=== PATIENT | female | born 1955 | race Caucasian/White ===

== ENCOUNTER 2019-03-10 17:16 | Inpatient (IN) | payer MEDICARE, BC ==
[~2019-03-10] VITALS: Ht 157.5 cm; Wt 61.9 kg
[2019-03-10] MEDS ORDERED: ACET160O41 PO ×2 (17:58)
[2019-03-10] MEDS ORDERED: BISA10SU55 RC (17:59)
[2019-03-10] MEDS ORDERED: DIPH25CA6 PO (17:59)
[2019-03-10] MEDS ORDERED: ACETAMINOPHEN 325 MG TAB PO PRN (18:00)
[2019-03-10] MEDS ORDERED: ONDANSETRON 4 MG INJ IV PRN ×2 (18:00→19:30)
[2019-03-10] MEDS ORDERED: CALC-459 PO (18:00)
[2019-03-10] MEDS ORDERED: WARF2.5T PO (18:03)
[2019-03-10] MEDS ORDERED: WARF4TAB PO (18:03)
[2019-03-10] MEDS ORDERED: WARF1TAB PO (18:03)
[2019-03-10] MEDS ORDERED: DOCU-144 PO (18:04)
[2019-03-10] MEDS ORDERED: CYCL5TAB PO (18:04)
[2019-03-10] MEDS ORDERED: FURO40TA4 PO (18:05)
[2019-03-10] MEDS ORDERED: ATRO INHALATION (18:06)
[2019-03-10] MEDS ORDERED: LEVO175T6 PO (18:06)
[2019-03-10] MEDS ORDERED: LIDO15CR9 TP (18:08)
[2019-03-10] MEDS ORDERED: LIDO700A45 TP (18:08)
[2019-03-10] MEDS ORDERED: METO-448 PO (18:09)
[2019-03-10] MEDS ORDERED: MIDO5TAB PO (18:10)
[2019-03-10] MEDS ORDERED: AMIN30LI PO (18:11)
[2019-03-10] MEDS ORDERED: SEVE0.8P PO (18:12)
[2019-03-10] MEDS ORDERED: GUAI-637 PO (18:13)
[2019-03-10] MEDS ORDERED: ASCO250T96 PO (18:13)
--- NOTE | 2019-03-10 18:46 | ERD ---
ER Documentation Chief Complaint Chief Complaint bib private amb from dialysis center d/t malfx permacath; had full HD today HPI Patient is a 63-year-old female with CO2 retention and chronic trach/vent who presents with a permacath malfunction. The patient was brought in by ambulance. The permacath was "not working". She had dialysis 1 hour ago but did not finish. She came from a facility. She is on Coumadin. Upon review of old medical records this is the patient's first visit to the emergency department. Her primary doctor is Dr. Balbuena. ROS All systems reviewed and are negative except as per history of present illness. Medications Home Meds Reported Medications Ascorbic Acid (Vitamin C) 250 Mg Tab, 250 MG PO BID, TAB 03/10/19 Guaifenesin* (Robitussin*) 100 Mg/5 Ml Syrup, 100 MG PO Q6H PRN for COUGH, ML 03/10/19 Sevelamer Carbonate* (Renvela*) 0.8 Gm Powd.pack, 1.6 GM PO WITH MEALS, PACKET 03/10/19 Amino Acids/Protein Hydrolys (PRO-STAT LIQUID) 30 Ml Liquid.pkt, 30 ML PO BID SUGAR FREE 03/10/19 Midodrine* (Midodrine*) 5 Mg Tablet, 5 MG PO Q8H PRN for HOLD FOR SBP>110, TAB 03/10/19 Metoprolol Tartrate* (Lopressor*) 25 Mg Tab, 25 MG PO TID, #60 TAB HOLD IF SBP<110 OR HR<60 03/10/19 Lidocaine (Lidocaine) 15 Gm Cream..g., 15 GM TP QID for TRACH SITE PAIN 03/10/19 Lidocaine (Lidocaine) 1 Each Adh..patch, 1 EACH TP Q8H PRN for FOR RIGHT SHOULDER 03/10/19 Levothyroxine Sodium* (Levothyroxine Sodium*) 175 Mcg Tablet, 175 MCG PO BEFORE BREAKFAST, #30 TAB 03/10/19 Ipratropium [place]* (Atrovent HFA*) 12.9 Gm Aer.w.adap, 2 PUFF INHALATION Q4H for SHORTNESS OF BREATH, #1 INHALER 03/10/19 Furosemide* (Furosemide*) 40 Mg Tablet, 40 MG PO DAILY, TAB HOLD IF SBP<110 OR HR<60 03/10/19 Docusate Sodium* (Colace*) 100 Mg Capsule, 100 MG PO DAILY, #30 CAP 03/10/19 Cyclobenzaprine Hcl* (Cyclobenzaprine Hcl*) 5 Mg Tablet, 5 MG PO NEEDED, #60 TAB 03/10/19 Warfarin Sodium* (Coumadin*) 4 Mg Tablet, 4 MG PO Q TUE,CHRISTEL,SAT,SUN, TAB 03/10/19 Warfarin Sodium* (Coumadin*) 2.5 Mg Tablet, 2.5 MG PO Q MON,WED,FRI, TAB 03/10/19 Warfarin Sodium* (Coumadin*) 1 Mg Tablet, 1 MG PO Q MON,WED,FRI, TAB 03/10/19 Calcium Carbonate (Calcium Carbonate) 500 Mg Tab.chew, 500 MG PO DAILY, TAB.CHEW 03/10/19 Bisacodyl (Dulcolax) 10 Mg Supp.rect, 10 MG RC DAILY, SUPP.RECT 03/10/19 Diphenhydramine Hcl* (Diphenhydramine Hcl*) 25 Mg Capsule, 25 MG PO DAILY PRN for ITCHING, CAP EVERY TUE,CHRISTEL,SAT 03/10/19 Acetaminophen* (Acetaminophen* Susp) 160 Mg/5 Ml Oral.susp, 20 ML PO Q6H PRN for FOR FEVER 100.4, ML 03/10/19 Acetaminophen* (Acetaminophen* Susp) 160 Mg/5 Ml Oral.susp, 20 ML PO Q4H PRN for FOR PAIN, ML 03/10/19 Allergies Allergies: Coded Allergies: Penicillins (Verified Allergy, Unknown, 03/10/19) adhesive tape (Unverified Allergy, Unknown, 03/10/19) chlorhexidine (Unverified Allergy, Unknown, 03/10/19) hydromorphone (Unverified Allergy, Unknown, 03/10/19) olanzapine (Unverified Allergy, Unknown, 03/10/19) PMhx/Soc Trach vent FmHx Family History: diabetes Physical Exam Vitals Vital Signs Date Temp Pulse Resp B/P (MAP) Pulse Ox O2 O2 Flow FiO2 Time Delivery Rate 03/10/19 89 24 93 35 17:38 03/10/19 98.2 89 20 84/50 (61) 99 17:31 Physical Exam Const: No acute distress Head: Atraumatic Eyes: Normal Conjunctiva ENT: Normal External Ears, Nose and Mouth. Neck: Tracheostomy in place Resp: Clear to auscultation bilaterally Cardio: Regular rate and rhythm, no murmurs Abd: Soft, non tender, non distended. Normal bowel sounds Skin: Pale skin Back: No midline or flank tenderness Ext: No cyanosis, or edema Neur: Awake and alert Psych: Normal Mood and Affect Result Diagram: 03/10/19 1725 03/10/19 1725 Results 24 hrs Laboratory Tests Test 03/10/19 17:25 03/10/19 18:20 White Blood Count 9.5 10^3/ul Red Blood Count 3.78 10^6/ul Hemoglobin 11.4 g/dl Hematocrit 37.0 % Mean Corpuscular Volume 97.9 fl Mean Corpuscular Hemoglobin 30.2 pg Mean Corpuscular Hemoglobin Concent 30.8 g/dl Red Cell Distribution Width 18.4 % Platelet Count 235 10^3/UL Mean Platelet Volume 9.2 fl Immature Granulocytes % 0.500 % Neutrophils % 83.0 % Lymphocytes % 8.2 % Monocytes % 4.3 % Eosinophils % 3.1 % Basophils % 0.9 % Nucleated Red Blood Cells % 0.0 /100WBC Immature Granulocytes # 0.050 10^3/ul Neutrophils # 7.9 10^3/ul Lymphocytes # 0.8 10^3/ul Monocytes # 0.4 10^3/ul Eosinophils # 0.3 10^3/ul Basophils # 0.1 10^3/ul Nucleated Red Blood Cells # 0.0 10^3/ul Sodium Level 137 mmol/L Potassium Level 3.6 mmol/L Chloride Level 101 mmol/L Carbon Dioxide Level 28 mmol/L Anion Gap 8 Blood Urea Nitrogen 19 mg/dl Creatinine 2.16 mg/dl Est Glomerular Filtrat Rate mL/min 23 mL/min Glucose Level 102 mg/dl Calcium Level 9.0 mg/dl Troponin I 0.029 ng/ml Prothrombin Time Pending Prothrombin Time Ratio 2.4 INR International Normalized Ratio 2.92 Activated Partial Thromboplast Time Pending Current Medications Medications Dose Sig/Gato Start Time Status Last (Trade) Ordered Route PRN Stop Time Admin Dose Reason Admin Ondansetron 4 mg ER BRIDGE 03/10/19 HCl (Zofran PRN IV 18:00 Inj) NAUSEA/VOMITI 03/11/19 17:59 NG 650 mg ER BRIDGE 03/10/19 Acetaminophen PRN PO 18:00 (Tylenol .MILD PAIN 03/11/19 17:59 Tab) 1-3 OR TEMP Procedures/MDM Chest x-ray read by radiology. EKG read by me: Rate/Rhythm: Regular rate and rhythm at a normal rate Intervals: Normal Impression: No evidence of ischemia or arrhythmia Patient is a 63-year-old female presents with dialysis catheter malfunction. I spoke with Dr. Balbuena who requested admission to a telemetry bed. I have also spoke with Dr. 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 The patient will need replacement of the dialysis catheter likely by interventional radiology while admitted. The patient will be admitted to an observation bed. Departure Diagnosis: Primary Impression: Complication, dialysis catheter clot or failure Condition: SUBHA Paul MD March 10, 2019 18:45
--- NOTE | 2019-03-10 19:24 | HP ---
Date/Time of Note Date/Time of Note DATE: 03/10/19 TIME: 19:15 Assessment/Plan VTE Prophylaxis SCD applied (from Ns): Yes Pharmacological prophylaxis: warfarin tx Assessment/Plan Assessment/Plan -Permacath malfunction. Dr. Lott will be following patient in nephrology consultation. -Hemodialysis dependent end-stage renal disease -Ventilator dependent respiratory failure. Continue vent support. -Hypertension -Status post mechanical aortic valve replacement, continue Coumadin. -Hypothyroidism, continue levothyroxine Further recommendations based on clinical course. Plan of care discussed with Dr. Balbuena. Result Diagram: 03/10/19 1725 03/10/19 1725 Results 24hrs Laboratory Tests Test 03/10/19 17:25 03/10/19 18:20 White Blood Count 9.5 Red Blood Count 3.78 L Hemoglobin 11.4 L Hematocrit 37.0 Mean Corpuscular Volume 97.9 Mean Corpuscular Hemoglobin 30.2 Mean Corpuscular Hemoglobin Concent 30.8 L Red Cell Distribution Width 18.4 H Platelet Count 235 Mean Platelet Volume 9.2 Immature Granulocytes % 0.500 H Neutrophils % 83.0 H Lymphocytes % 8.2 L Monocytes % 4.3 Eosinophils % 3.1 Basophils % 0.9 Nucleated Red Blood Cells % 0.0 Immature Granulocytes # 0.050 H Neutrophils # 7.9 H Lymphocytes # 0.8 Monocytes # 0.4 Eosinophils # 0.3 Basophils # 0.1 Nucleated Red Blood Cells # 0.0 Sodium Level 137 Potassium Level 3.6 Chloride Level 101 Carbon Dioxide Level 28 Anion Gap 8 Blood Urea Nitrogen 19 Creatinine 2.16 H Est Glomerular Filtrat Rate mL/min 23 L Glucose Level 102 Calcium Level 9.0 Troponin I 0.029 Prothrombin Time Pending Prothrombin Time Ratio 2.4 INR International Normalized Ratio 2.92 Activated Partial Thromboplast Time Pending HPI/ROS Admit Date/Time Admit Date/Time Hx of Present Illness The patient is a very pleasant 63-year-old female with history of ventilator dependent respiratory failure, COPD, hypertension, history of ascending aortic aneurysm status post repair, history of mechanical aortic valve replacement many years ago, hypothyroidism, hemodialysis dependent end-stage renal disease. Patient was sent from hemodialysis center because she was not able to complete hemodialysis through her right chest permacath. Patient is awake alert denies any fever or chills denies any chest pain denies any nausea vomiting diarrhea. Patient will be admitted for evaluation and possible exchange of the right chest permacath. ROS 12 point review of system is negative except for that mentioned in HPI PMH/Family/Social Past Medical History Medical History: hypertension, hypothyroid, renal disease, other (Mechanical aortic valve) Medications Current Medications Ondansetron HCl (Zofran Inj) 4 mg ER BRIDGE PRN IV NAUSEA/VOMITING; Start 03/10/19 at 18:00; Stop 03/11/19 at 17:59 Acetaminophen (Tylenol Tab) 650 mg ER BRIDGE PRN PO .MILD PAIN 1-3 OR TEMP; Start 03/10/19 at 18:00; Stop 03/11/19 at 17:59 Coded Allergies: Penicillins (Verified Allergy, Unknown, 03/10/19) adhesive tape (Unverified Allergy, Unknown, 03/10/19) chlorhexidine (Unverified Allergy, Unknown, 03/10/19) hydromorphone (Unverified Allergy, Unknown, 03/10/19) olanzapine (Unverified Allergy, Unknown, 03/10/19) Past Surgical History Past Surgical Hx: other (Status post mechanical aortic valve replacement, status post ascending aneurysm repair, status post tracheostomy) Family History Significant Family History: heart disease (Patient's father) Social History Alcohol Use: none Smoking Status: Never smoker Drug Use: none Exam/Review of Systems Vital Signs Vitals Vital Signs Date Temp Pulse Resp B/P (MAP) Pulse Ox O2 O2 Flow FiO2 Time Delivery Rate 03/10/19 86 24 104/62 100 18:45 (76) 03/10/19 35 17:38 03/10/19 98.2 17:31 Exam Constitutional: alert, oriented Head: normocephalic Neck: supple, other (Tracheostomy) Respiratory: clear to auscultation Cardiovascular: regular rate and rhythm Gastrointestinal: soft, non-tender Musculoskeletal: nl extremities to inspection Extremities: normal pulses Neurological: nl mental status Skin: nl FREDO Ni March 10, 2019 19:24
[2019-03-10] MEDS ORDERED: DIPHENHYDRAMINE 25 MG CAP PO PRN (19:30)
[2019-03-10] MEDS ORDERED: ACETAMINOPHEN 160 MG/5ML CUP PO PRN (19:30)
[2019-03-10] MEDS ORDERED: LIDOCAINE 5% PATCH TD PRN (19:30)
[2019-03-10] MEDS ORDERED: NACL 0.9% 3 ML SYG IV SCH (19:30)
[2019-03-10] MEDS ORDERED: MIDODRINE 5 MG TAB PO PRN (19:30)
[2019-03-10] MEDS ORDERED: IPRATROPIUM (HFA) 12.9 GM INHALER INH SCH (19:30)
[2019-03-10] MEDS ORDERED: GUAIFENESIN 20 MG/ML 5ML CUP PO PRN (19:30)
[2019-03-10] MEDS: WARFARIN 2 MG TAB PO SCH (20:00)
[2019-03-10] MEDS: FAMOTIDINE 20 MG TAB PO SCH (21:00)
[2019-03-10] MEDS: IPRATROPIUM (HFA) 12.9 GM INHALER INH SCH (21:00)
[2019-03-10 21:27] VITALS: PULSE 93
[2019-03-10 21:30] VITALS: Ht 157.5 cm; Wt 61.9 kg
[2019-03-10 21:31] VITALS: BP 126/58; PULSE 94; RESP 14
[2019-03-10 21:35] VITALS: RESP 28
[2019-03-10] MEDS: METOPROLOL 25 MG TAB PO SCH (22:38)
[2019-03-10 23:05] VITALS: RESP 20
[2019-03-10 23:41] VITALS: BP 101/54; PULSE 82; RESP 22
[2019-03-11] VITALS (32 sets, daily range): BP systolic 103–147; BP diastolic 53–113; PULSE 65–92; RESP 16–38
[2019-03-11] MEDS: IPRATROPIUM (HFA) 12.9 GM INHALER INH SCH ×6 (00:46→20:00)
[2019-03-11] MEDS: LEVOTHYROXINE 175 MCG TAB PO SCH (07:00)
[2019-03-11] MEDS: DOCUSATE SODIUM 100 MG CAP PO SCH (09:00)
[2019-03-11] MEDS: BISACODYL 10 MG SUPP PR SCH (09:00)
[2019-03-11] MEDS: SEVELAMER CARBONATE 0.8 GM PKT PO SCH ×4 (09:00→18:50)
[2019-03-11] MEDS: CALCIUM CARBONATE 1.25 GM TAB PO SCH (09:00)
[2019-03-11] MEDS: FAMOTIDINE 20 MG TAB PO SCH (09:00)
[2019-03-11] MEDS: METOPROLOL 25 MG TAB PO SCH ×4 (09:00→21:00)
[2019-03-11] MEDS: FUROSEMIDE 40 MG TAB PO SCH (09:00)
--- NOTE | 2019-03-11 09:30 | PN ---
Date/Time of Note Date/Time of Note DATE: 03/11/19 TIME: 09:28 Assessment/Plan VTE Prophylaxis SCD applied (from Nsg): Yes SCD contraindicated: other Pharmacological prophylaxis: other Pharm contraindication: other Lines/Catheters IV Catheter Type (from Nrsg): RIGHT CHEST PERMACTH - DDI Assessment/Plan Assessment/Plan - Episode of V tach last night- denies any chest pain/palpitations - will get cardiology consult - cont on tele floor - 12 Lead EKG - cardiac enzyes x 3 - 2- D- ECHO- fu result - am CHD panel - cardiac diet -PermCath malfunction. Dr. Lott will be following patient in nephrology consultation. -Hemodialysis dependent end-stage renal disease -Ventilator dependent respiratory failure. Continue vent support. -Hypertension -Status post mechanical aortic valve replacement, continue Coumadin. -Hypothyroidism, continue levothyroxine Further recommendations based on clinical course. Plan of care discussed with Dr. Balbuena. Result Diagram: 03/11/19 0506 03/11/19 0506 Results 24hrs Laboratory Tests Test 03/10/19 17:25 03/10/19 18:20 03/11/19 05:06 White Blood Count 9.5 7.2 # Red Blood Count 3.78 L 3.47 L Hemoglobin 11.4 L 10.2 L Hematocrit 37.0 33.3 L Mean Corpuscular Volume 97.9 96.0 Mean Corpuscular Hemoglobin 30.2 29.4 Mean Corpuscular Hemoglobin Concent 30.8 L 30.6 L Red Cell Distribution Width 18.4 H 18.2 H Platelet Count 235 230 Mean Platelet Volume 9.2 10.1 Immature Granulocytes % 0.500 H 0.700 H Neutrophils % 83.0 H 77.9 H Lymphocytes % 8.2 L 10.3 L Monocytes % 4.3 6.8 Eosinophils % 3.1 2.9 Basophils % 0.9 1.4 Nucleated Red Blood Cells % 0.0 0.3 H Immature Granulocytes # 0.050 H 0.050 H Neutrophils # 7.9 H 5.6 Lymphocytes # 0.8 0.7 L Monocytes # 0.4 0.5 Eosinophils # 0.3 0.2 Basophils # 0.1 0.1 Nucleated Red Blood Cells # 0.0 0.0 Sodium Level 137 137 Potassium Level 3.6 4.1 Chloride Level 101 106 Carbon Dioxide Level 28 26 Anion Gap 8 5 Blood Urea Nitrogen 19 27 H Creatinine 2.16 H 2.86 H Est Glomerular Filtrat Rate mL/min 23 L 17 L Glucose Level 102 73 Calcium Level 9.0 8.9 Troponin I 0.029 Prothrombin Time 30.5 H 27.3 H Prothrombin Time Ratio 2.4 2.1 INR International Normalized Ratio 2.91 2.53 Activated Partial Thromboplast Time 81.9 *H Thyroid Stimulating Hormone (TSH) 1.620 Subjective 24 Hr Interval Summary Free Text/Dictation - Episode of V tach last night- denies any chest pain/palpitations - will get cardiology consult - cont on tele floor - 12 Lead EKG - cardiac enzymes x 3 - 2- D- ECHO- fu result - am CHD panel - cardiac diet - NAD - right chest permacath malfunction - family at bed side- all Qs ANSWERED - dw staff Constitutional: requiring O2 Eyes: no complaints ENT: no complaints Respiratory: shortness of breath (on exertion) Cardiovascular: no complaints Gastrointestinal: no complaints Genitourinary: no complaints Musculoskeletal: no complaints Skin: no complaints Exam/Review of Systems Exam Vitals Vital Signs Date Temp Pulse Resp B/P (MAP) Pulse Ox O2 O2 Flow FiO2 Time Delivery Rate 03/11/19 92 26 95 30 08:54 03/11/19 98.5 121/58 Mechanical 07:38 (79) Ventilator Constitutional: alert, well developed Psych: nl mood/affect Eyes: nl lids, nl sclera ENMT: nl external ears & nose Neck: non-tender, other (TRACH intact) Respiratory: clear to auscultation Cardiovascular: nl pulses Gastrointestinal: soft Musculoskeletal: nl extremities to inspection Extremities: normal pulses Neurological: nl speech, other (alert/responsive) Lymph: nontender Results Results 24hrs Laboratory Tests Test 03/10/19 17:25 03/10/19 18:20 03/11/19 05:06 White Blood Count 9.5 7.2 # Red Blood Count 3.78 L 3.47 L Hemoglobin 11.4 L 10.2 L Hematocrit 37.0 33.3 L Mean Corpuscular Volume 97.9 96.0 Mean Corpuscular Hemoglobin 30.2 29.4 Mean Corpuscular Hemoglobin Concent 30.8 L 30.6 L Red Cell Distribution Width 18.4 H 18.2 H Platelet Count 235 230 Mean Platelet Volume 9.2 10.1 Immature Granulocytes % 0.500 H 0.700 H Neutrophils % 83.0 H 77.9 H Lymphocytes % 8.2 L 10.3 L Monocytes % 4.3 6.8 Eosinophils % 3.1 2.9 Basophils % 0.9 1.4 Nucleated Red Blood Cells % 0.0 0.3 H Immature Granulocytes # 0.050 H 0.050 H Neutrophils # 7.9 H 5.6 Lymphocytes # 0.8 0.7 L Monocytes # 0.4 0.5 Eosinophils # 0.3 0.2 Basophils # 0.1 0.1 Nucleated Red Blood Cells # 0.0 0.0 Sodium Level 137 137 Potassium Level 3.6 4.1 Chloride Level 101 106 Carbon Dioxide Level 28 26 Anion Gap 8 5 Blood Urea Nitrogen 19 27 H Creatinine 2.16 H 2.86 H Est Glomerular Filtrat Rate mL/min 23 L 17 L Glucose Level 102 73 Calcium Level 9.0 8.9 Troponin I 0.029 Prothrombin Time 30.5 H 27.3 H Prothrombin Time Ratio 2.4 2.1 INR International Normalized Ratio 2.91 2.53 Activated Partial Thromboplast Time 81.9 *H Thyroid Stimulating Hormone (TSH) 1.620 Medications Medication Current Medications Ondansetron HCl (Zofran Inj) 4 mg ER BRIDGE PRN IV NAUSEA/VOMITING; Start 03/10/19 at 18:00; Stop 03/11/19 at 17:59 Acetaminophen (Tylenol Tab) 650 mg ER BRIDGE PRN PO .MILD PAIN 1-3 OR TEMP; Start 03/10/19 at 18:00; Stop 03/11/19 at 17:59 Acetaminophen (Tylenol Liquid (Ped)) 640 mg Q4H PRN PO FOR PAIN; Start 03/10/19 at 19:30 Bisacodyl (Dulcolax Supp) 10 mg DAILY MA Last administered on 03/11/19at 09:00; Admin Dose 10 MG; Start 03/11/19 at 09:00 Diphenhydramine HCl (Benadryl) 25 mg DAILY PRN PO ITCHING; Start 03/10/19 at 19:30 Docusate Sodium (Colace) 100 mg DAILY PO Last administered on 03/11/19at 09:00; Admin Dose 100 MG; Start 03/11/19 at 09:00 Furosemide (Lasix) 40 mg DAILY PO Last administered on 03/11/19 09:00; Admin Dose 40 MG; Start 03/11/19 at 09:00 Guaifenesin (Robitussin Liquid Cup) 100 mg Q6H PRN PO COUGH; Start 03/10/19 at 19:30 Levothyroxine Sodium (Synthroid) 175 mcg BEFORE BREAKFAST PO Last administered on 03/11/19 07:00; Admin Dose 175 MCG; Start 03/11/19 at 07:00 Lidocaine (Lidoderm) 1 patch Q8H PRN TD FOR RIGHT SHOULDER; Start 03/10/19 at 19:30 Metoprolol Tartrate (Lopressor) 25 mg TID PO Last administered on 03/10/19 22:38; Admin Dose 25 MG; Start 03/10/19 at 21:00 Midodrine (Proamatine) 5 mg Q8H PRN PO HOLD FOR SBP>110; Start 03/10/19 at 19:30 Sevelamer Carbonate (Renvela) 1.6 gm WITH MEALS PO Last administered on 09:00; Admin Dose 1.6 GM; Start 03/11/19 at 08:00 Warfarin Sodium (Coumadin) 1 mg MoWeFr@1700 PO ; Start 03/11/19 at 17:00 Warfarin Sodium (Coumadin) 2.5 mg MoWeFr@1700 PO ; Start 03/11/19 at 17:00 Warfarin Sodium (Coumadin) 4 mg SuTuThSa@1700 PO ; Start 03/10/19 at 20:00 Calcium Carbonate ([place]yster [place] Calcium) 1.25 gm DAILY PO Last administered on 03/11/19 09:00; Admin Dose 1.25 GM; Start 03/11/19 at 09:00 IV Flush (NS 3 ml) 3 ml PER PROTOCOL IV ; Start 03/10/19 at 19:30 Ondansetron HCl (Zofran Inj) 4 mg Q6H PRN IV NAUSEA/VOMITING; Start 03/10/19 at 19:30 Famotidine (Pepcid) 20 mg DAILY PO Last administered on 03/11/19 09:00; Admin Dose 20 MG; Start 03/10/19 at 21:00 Ipratropium [place] (Atrovent Hfa) 2 puff Q4H RESP THERAPY INH Last administered on 5/17/19at 08:52; Admin Dose 2 PUFF; Start 03/10/19 at 21:00 RONEN RINCON March 11, 2019 09:30
--- NOTE | 2019-03-11 10:18 | CONS ---
DATE OF ADMISSION: 03/10/2019 DATE OF CONSULTATION: 03/11/2019 TYPE OF CONSULTATION: Nephrology. REASON FOR CONSULTATION: End-stage renal disease. PHYSICIAN REQUESTING CONSULT: Dr. Crespo. HISTORY OF PRESENT ILLNESS: This is a 63-year-old female with a past medical history of ventilator-d ependent respiratory failure, history of COPD, history of hypertension, history of ascending aortic a neurysm status post repair, history of mechanical aortic valve replacement, hypothyroidism who presen ts from dialysis unit due to malfunctioning Perm-A-Cath. The patient states that she was at dialysis and felt that she completed 3 hours of dialysis and was transferred to [facility] Emergency Room for evaluation. The patient denies any hemoptysis, hematemesis or hematochezia. PAST MEDICAL HISTORY: 1. History of hypertension. 2. End-stage renal disease. 3. History of chronic obstructive pulmonary disease. 4. Anemia. 5. History of dysphagia. PAST SURGICAL HISTORY: Status post Perm-A-Cath placement, status post mechanical valve repair, statu s post tracheostomy placement, status post aortic aneurysm repair. FAMILY HISTORY: No family history of kidney disease. SOCIAL HISTORY: Does not drink, smoke or do drugs. MEDICATIONS: The patient's medications have been reviewed. ALLERGIES: Have been reviewed. REVIEW OF SYSTEMS: A 14-point review of systems was conducted. Pertinent positives stated in HPI, o therwise negative. PHYSICAL EXAMINATION: VITAL SIGNS: Blood pressure is 121/58, respirations 20, pulse 89, temperature 98.5. HEENT: Head is normocephalic. NECK: Supple. HEART: Regular rate. LUNGS: Show diminished breath sounds at the base. ABDOMEN: Soft, nontender to palpation. No rebound or guarding. EXTREMITIES: Negative for clubbing, cyanosis, no edema. DERMATOLOGIC: No rashes. MUSCULOSKELETAL: No joint effusions. NEUROLOGIC: No focal deficits. MEDICATIONS: Have been reviewed. LABORATORY DATA: Have been reviewed. IMAGING STUDIES: Have been reviewed. ASSESSMENT AND PLAN: A 63-year-old female who presents for: 1. End-stage renal disease. The patient had approximately 1 hour of hemodialysis yesterday. Will a ttempt for dialysis again today. We will dialyze for 2 hours 3k bath, calcium 2.5. 2. Access. The patient may have a malfunctioning Perm-A-Cath. Will attempt hemodialysis today. Mohit pena's Perm-A-Cath was not functioning well. Will attempt to place a Cathflo and consider possible Perm-A-Cath exchange. 3. Anemia. Continue to monitor hemoglobin and hematocrit levels. Will give Epogen as needed. 4. Mineral bone disorder. Monitor calcium and phosphorus levels. Give phosphate binders as needed. 5. Ventilator-dependent respiratory failure. Vent settings have been reviewed. Continue to monitor . 6. Hypertension. Continue current blood pressure regimen. 7. Mechanical aortic valve replacement. Continue Coumadin. Follow up INR. 8. Hypothyroidism. Continue Synthroid. Thank you, Dr. Crespo, for this interesting consult. It will be a pleasure to follow patient with you throughout the hospital course. Dictated By: ELA ROBINS DO NR/NTS Conf#: [id number] DID#: [id number] CC: KOSTAS CRESPO MD;*EndCC*
[2019-03-11] MEDS: BALSAM PERU/CASTOR OIL 60 GM TUBE TOP SCH ×2 (11:50→21:51)
[2019-03-11] MEDS: NYSTATIN 30 GM POWDER BTL TOP SCH ×2 (11:50→21:51)
--- NOTE | 2019-03-11 12:48 | RADRPT ---
Vent Rate: 89 bpm RR Interval: 0 msec TN Interval: 248 msec QRS Duration: 84 msec QT Interval: 342 msec QTC Interval: 416 msec P-R-T [place]: 72 - -80 - 39 degrees Sinus rhythm with 1st degree AV block Left axis deviation RSR ` orattern in V1 suggests right ventricular conduction delay Inferior infarct , age undetermined Anterolateral infarct , age undetermined Abnormal ECG Electronically Signed By: Wil Allen
--- NOTE | 2019-03-11 13:31 | CONS ---
DATE OF ADMISSION: 03/10/2019 DATE OF CONSULTATION: 03/11/2019 TYPE OF CONSULTATION: Cardiology. REASON FOR CONSULTATION: History of aortic valve replacement, abnormal electrocardiogram. REQUESTING PHYSICIAN: Kostas Crespo MD HISTORY OF PRESENT ILLNESS: Ms. Oconnell is a 63-year-old female with history of hypertension, hypothyroidism, end-stage renal disease on hemodialysis, chronic respiratory failure, status post tracheostomy, ascending aortic aneurysm status post repair with long complicated postop course and aortic valve replacement, mechanical, who presented with PermCath malfunction. Temperature was 98.2 upon arrival, blood pressure 84/50, pulse 89, respiratory rate 20, satting 98%. The patient's labs showed white blood cell count 9.5, hemoglobin 11.4, platelet count of 235. Sodium 137, potassium 3.6, creatinine of 2.16, troponin negative, LDL 25, HDL 51, TSH of 1.62, INR of 2.91. The patient underwent a chest x-ray revealing somewhat limited imaging study, tracheostomy, hemodialysis catheter, mild cardiomegaly, mild patchy bilateral atelectasis, small bilateral pleural effusions. The patient's electrocardiogram revealed sinus rhythm, rate of 89, borderline left axis deviation, inferior Q's, lateral Q's, poor R-wave progression, anteroseptal Q's. The patient was admitted to the floor and since admit to floor has been placed on telemetry revealing sinus rhythm. Denies chest pain, shortness of breath. PAST MEDICAL HISTORY: As above in HPI. MEDICATIONS CURRENTLY IN HOSPITAL: 1. Coumadin 1 with elevating at 2.5 mg doses. 2. Dulcolax. 3. Colace. 4. Lasix 40 mg daily. 5. Calcium carbonate. 6. Renvela. 7. Synthroid. 8. Metoprolol 25 mg p.o. t.i.d. 9. Pepcid 20 mg daily. 10. Atrovent. 11. Tylenol. 12. Benadryl. 13. Robitussin. 14. Lidocaine. 15. Midodrine p.r.n. 16. Zofran p.r.n. ALLERGIES: 1. PENICILLIN. 2. CHLORHEXIDINE. 3. HYDROMORPHONE. 4. OLANZAPINE. SOCIAL HISTORY: No current tobacco, EtOH or illicit drug use. FAMILY HISTORY: No history of sudden cardiac or early CAD. REVIEW OF SYSTEMS: As above in HPI. CONSTITUTIONAL: No fevers, chills. PULMONARY: Chronic respiratory failure, status post tracheostomy. GASTROINTESTINAL: Dysphagia, status post G-tube. GENITOURINARY: No hematuria. MUSCULOSKELETAL: Degenerative joint disease. PSYCHIATRIC: Possible psychiatric medications. NEUROLOGICAL: No documented history of CVA. ENDOCRINE: No documented history of diabetes mellitus. PHYSICAL EXAMINATION: VITAL SIGNS: Temperature of 98.2, blood pressure 147/67, pulse rate 81, respiratory rate 20, satting 100%. GENERAL: The patient is alert, awake, in no acute distress. NECK: Tracheostomy in place. CHEST: Upper airway transmitted rhonchus sounds. HEART: Regular rate and rhythm. Normal S1, S2, I/ systolic murmur, nondisplaced PMI. ABDOMEN: Positive bowel sounds, soft. EXTREMITIES: No edema, 1+ pulses bilateral posterior tibial. LABORATORY DATA: Most recently from today, white blood cell count 7.2, hemoglobin 10.2, platelet count of 230. Sodium 137, potassium 4.1, creatinine 2.86, BUN 27. Troponin negative x2. INR 2.53. IMAGING STUDIES: As above in HPI. No further imaging studies for my review at this time. ELECTROCARDIOGRAM: As above in HPI. No further electrocardiograms for my review at this time. IMPRESSION: 1. Status post aortic valve replacement, mechanical, on Coumadin, therapeutic levels. 2. Abnormal electrocardiogram with inferior and anterior lateral Q's. Assess for acute coronary syndrome. 3. Hypertension, mildly elevated. 4. Dyslipidemia. 5. Chronic respiratory failure, status post tracheostomy. 6. End-stage renal disease on hemodialysis. 7. Hypothyroidism. 8. Anemia. RECOMMENDATIONS: 1. At this time, the patient will be maintained on telemetry monitoring to follow rhythm and rate control closely. 2. The patient will be maintained on Coumadin following a therapeutic INR closely. 3. Continue the patient's current beta kiley with further titration as necessary to improve overall systolic blood pressure control. 4. Hemodialysis for volume removal as possible through alternative access. 5. We will alternative access placed for hemodialysis per renal consultation. 6. Continue the patient's daily Lasix and continue to follow volume status along with hemodialysis. 7. Check 2D echo for this patient's ejection fraction, wall motion, rule any major valvular abnormalities. 8. Complete the patient's rule out for myocardial infarction with final troponin. 9. Check fasting lipid panel for general risk stratification, initiate lipid lowering medication as necessary. 10. Continue to check serial EKGs, assess for ongoing changes, EKG in morning, EKG for any complaints of chest pain or change in rhythm. Thank you for allowing me to take part in the care of this patient. I will continue to follow her very closely with you with further recommendations to be made as the patient progresses through her inpatient hospital clinical course. Dictated By: RIAZ SHERMAN/SANDER Conf#: [id number] DID#: [id number] CC: ELA ROBINS DO; KOSTAS CRESPO MD;*EndCC* MTDD
--- NOTE | 2019-03-11 14:26 | RADRPT ---
Vent Rate: 86 bpm RR Interval: 0 msec NM Interval: 220 msec QRS Duration: 86 msec QT Interval: 350 msec QTC Interval: 418 msec P-R-T [place]: 97 - -89 - 12 degrees Sinus rhythm with 1st degree AV block Left axis deviation Inferior infarct , age undetermined Anterolateral infarct , age undetermined Abnormal ECG Electronically Signed By: [facility]
--- NOTE | 2019-03-11 16:14 | RADRPT ---
Echocardiogram Report Patient Name: RIVER EMLGOZAPatient ID: [id number] : 1955 (63y 6m)Study Date: 03/11/2019 11:02:20 AM Gender: FAccession #: [id number] Tech: Livan Gramajo [facility] Location: 627-A Ref.Physician: RONEN RINCON Height(Cm): BSA: Weight(Kg): Quality: AdequateOrder Physician: RONEN RINCON Account #: Procedures: Echocardiographic Report: Transthoracic echocardiogram with complete 2D, M-Mode, and doppler examination. Indications: Cardiac Arrhythmia/ sp AVR. Measurements: 2D/M Mode Doppler Measurement Value Normal Range Measurement Value Normal Range LVIDd 2D 4.8 [ 3.8 - 5.2 ] cm AV Mean Joni 1.7 [ 70.0 - 90.0 ] cm/sec LVIDs 2D 3.0 [ 2.2 - 3.5 ] cm AV Mean PG 13.0 [ 2.0 - 4.0 ] mmHg LVPWd 2D 1.2 [ 0.6 - 0.9 ] cm AV VTI 46.5 cm IVSd 2D 1.2 [ 0.6 - 0.9 ] cm LVOT Peak Joni 0.9 [ 70.0 - 110.0 ] cm/sec AoR Diam 2D 2.8 [ 2.3 - 3.1 ] cm LVOT Peak PG 3.0 [ 2.0 - 6.0 ] mmHg EDV 2D 107.0 [ 46.0 - 106.0 ] ml MV Peak Joni 1.8 [ 60.0 - 130.0 ] cm/sec ESV 2D 34.4 [ 14.0 - 42.0 ] ml MV Peak PG 13.0 [ 1.0 - 10.0 ] mmHg EF 2D 67.9 [ 54.0 - 74.0 ] percent MV Mean Joni 1.4 cm/sec LA Dimen 2D 4.6 [ 2.7 - 3.8 ] cm MV Mean PG 9.0 mmHg MV VTI 45.0 cm TR Peak Joni 2.9 [ 100.0 - 280.0 ] cm/sec TR Peak PG 33.0 mmHg RVSP 41.0 [ 10.0 - 36.0 ] mmHg Findings: Left Ventricle: Lower limits of normal systolic function. Normal left ventricular cavity size. Mild concentric left ventricular hypertrophy. Ejection fraction is visually estimated at 50 %. Tissue Doppler/Mitral Doppler indices are indeterminate in this study due to the presence of mitral stenosis. Right Ventricle: Normal right ventricular size. Normal right ventricular systolic function. Left Atrium: There is mild enlargement of left atrium. Right Atrium: The right atrium is normal in size. Mitral Valve: Moderate mitral leaflet calcification. Mild mitral annular calcification. Moderate mitral stenosis. Mitral valve Max Velocity 1.79 m/sec. MaxPG 13.00 mmHg. MeanPG 9.00 mmHg. Aortic Valve: Aortic Valve Mechanical Prosthesis. [facility] aortic valve replacement. Aortic valve Max velocity 2.41 m/sec. Max PG 23.20 mmHg. Mean PG 13.00 mmHg. Tricuspid Valve: Normal appearance of the tricuspid valve. Estimated peak PA systolic pressure 41 mmHg. There is mild tricuspid regurgitation. Pericardium: Normal pericardium with no significant pericardial effusion. Aorta: Normal aortic root. IVC: Normal size and normal respiratory collapse consistent with normal right atrial pressure. Inferior vena cava without respiratory collapse, however, patient on ventilator. Conclusions: Lower limits of normal systolic function. Normal left ventricular cavity size. Mild concentric left ventricular hypertrophy. Ejection fraction is visually estimated at 50 %. Tissue Doppler/Mitral Doppler indices are indeterminate in this study due to the presence of mitral stenosis. There is mild enlargement of left atrium. Moderate mitral leaflet calcification. Mild mitral annular calcification. Moderate mitral stenosis by gradient. MeanPG 9.00 mmHg. Aortic Valve Mechanical Prosthesis. [facility] aortic valve replacement. Aortic valve Max velocity 2.41 m/sec. Max PG 23.20 mmHg. Mean PG 13.00 mmHg. Normal appearance of the tricuspid valve. Estimated peak PA systolic pressure 41 mmHg. There is mild tricuspid regurgitation. Electronically Signed By: Robert Horne 2019-03-11 16:13:36 PDT
[2019-03-11] MEDS: HEPARIN 1000 UNITS/ML 10 ML INJ CATHETER SCH (21:45)
[2019-03-11] MEDS: WARFARIN 2.5 MG TAB PO SCH (21:52)
[2019-03-11] MEDS: WARFARIN 1 MG TAB PO SCH (21:52)
[2019-03-12] VITALS (22 sets, daily range): BP systolic 108–143; BP diastolic 53–74; PULSE 72–102; RESP 17–33
[2019-03-12] MEDS: IPRATROPIUM (HFA) 12.9 GM INHALER INH SCH ×6 (00:15→19:47)
[2019-03-12] MEDS: LEVOTHYROXINE 175 MCG TAB PO SCH (06:20)
[2019-03-12] MEDS: BISACODYL 10 MG SUPP PR SCH (09:00)
[2019-03-12] MEDS: FAMOTIDINE 20 MG TAB PO SCH (09:00)
[2019-03-12] MEDS: CALCIUM CARBONATE 1.25 GM TAB PO SCH (09:00)
[2019-03-12] MEDS: SEVELAMER CARBONATE 0.8 GM PKT PO SCH ×3 (09:50→18:26)
[2019-03-12] MEDS: FUROSEMIDE 40 MG TAB PO SCH (09:51)
[2019-03-12] MEDS: DOCUSATE SODIUM 100 MG CAP PO SCH (09:51)
[2019-03-12] MEDS: METOPROLOL 25 MG TAB PO SCH ×3 (09:51→21:01)
[2019-03-12] MEDS: BALSAM PERU/CASTOR OIL 60 GM TUBE TOP SCH ×2 (09:54→21:01)
[2019-03-12] MEDS: NYSTATIN 30 GM POWDER BTL TOP SCH ×2 (09:55→21:02)
--- NOTE | 2019-03-12 10:26 | PN ---
DATE: 03/12/2019 SUBJECTIVE: The patient had hemodialysis yesterday, tolerated well. There were no noted problems wi th Perm-A-Cath. No other events noted. OBJECTIVE: VITAL SIGNS: Blood pressure is 108/53, pulse 72, respirations 20, temperature 98.3. HEENT: Head is normocephalic. NECK: Supple. HEART: Regular rate. LUNGS: Show diminished breath sounds at the base. ABDOMEN: Soft, nontender to palpation. No rebound or guarding. EXTREMITIES: Negative for clubbing, cyanosis, no edema. DERMATOLOGIC: No rashes. MUSCULOSKELETAL: No joint effusion. NEUROLOGIC: No change in exam. MEDICATIONS: Reviewed. LABORATORY DATA: Reviewed. ASSESSMENT AND PLAN: 1. End-stage renal disease. The patient had hemodialysis yesterday, tolerated well. Perm-A-Cath wo rked appropriately. We will continue intermittent hemodialysis. Anticipate next dialysis on Thursday. 2. Access. The patient had an appropriately functioning Perm-A-Cath. Will continue to monitor. Co ntinue local access care. 3. Anemia. Monitor hemoglobin and hematocrit levels. Give Epogen as needed. 4. Mineral bone disorder, monitor calcium and phosphorus levels. 5. Ventilatory dependent respiratory failure. Vent settings have been reviewed. Continue to monito r. 6. Hypertension. Continue current blood pressure regimen. 7. Mechanical aortic valve. Continue Coumadin. Follow up with INR, follow up with cardiology. 8. Hypothyroidism. Continue Synthroid. 9. Arrhythmia. Continue to monitor. Follow up with cardiology. Dictated By: ELA MALDONADO/NTS Conf#: [id number] DID#: [id number] CC: KOSTAS CRESPO MD;*EndCC*
--- NOTE | 2019-03-12 10:57 | PN ---
Date/Time of Note Date/Time of Note DATE: 03/12/19 TIME: 10:56 Assessment/Plan VTE Prophylaxis Risk score (from Nsg)>0 risk: 7 SCD applied (from Nsg): Yes Pharmacological prophylaxis: LMWH Lines/Catheters IV Catheter Type (from Nrsg): RIGHT CHEST PERMACTH - DDI Urinary Cath still in place: No Assessment/Plan Hospital Course - Episode of V tach last night- denies any chest pain/palpitations - will get cardiology consult - cont on tele floor - 12 Lead EKG - cardiac enzyes x 3 - 2- D- ECHO- fu result - am CHD panel - cardiac diet -PermCath malfunction. Dr. Lott will be following patient in nephrology consultation. -Hemodialysis dependent end-stage renal disease -Ventilator dependent respiratory failure. Continue vent support. -Hypertension -Status post mechanical aortic valve replacement, continue Coumadin. -Hypothyroidism, continue levothyroxine Patient still needs to be monitored for arrhythmia, anticipate discharge next week Result Diagram: 03/11/19 0506 03/11/19 0506 Results 24hrs Laboratory Tests Test 03/11/19 19:23 03/12/19 00:24 03/12/19 05:21 Troponin I 0.039 0.048 Prothrombin Time 19.5 #H Prothrombin Time Ratio 1.5 INR International Normalized Ratio 1.64 Triglycerides Level 75 Cholesterol Level 94 L LDL Cholesterol, Calculated 29 HDL Cholesterol 50 Cholesterol/HDL Ratio 1.8 Subjective 24 Hr Interval Summary Free Text/Dictation Patient has some labored breathing Exam/Review of Systems Exam Vitals Vital Signs Date Temp Pulse Resp B/P (MAP) Pulse Ox O2 O2 Flow FiO2 Time Delivery Rate 03/12/19 94 22 100 30 09:06 03/12/19 98.3 108/53 07:27 (71) 03/12/19 Mechanical 00:00 Ventilator Intake and Output 03/11/19 03/11/19 03/12/19 1515:00 23:00 07:00 IntakeIntake Total 200 ml OutputOutput Total 1400 ml BalanceBalance 200 ml -1400 ml Constitutional: well developed Head: normocephalic, atraumatic Neck: supple Respiratory: diminished breath sounds Cardiovascular: regular rate and rhythm Gastrointestinal: soft, non-tender Extremities: normal pulses Results Results 24hrs Laboratory Tests Test 03/11/19 19:23 03/12/19 00:24 03/12/19 05:21 Troponin I 0.039 0.048 Prothrombin Time 19.5 #H Prothrombin Time Ratio 1.5 INR International Normalized Ratio 1.64 Triglycerides Level 75 Cholesterol Level 94 L LDL Cholesterol, Calculated 29 HDL Cholesterol 50 Cholesterol/HDL Ratio 1.8 Medications Medication Current Medications Acetaminophen (Tylenol Liquid (Ped)) 640 mg Q4H PRN PO FOR PAIN; Start 03/10/19 at 19:30 Bisacodyl (Dulcolax Supp) 10 mg DAILY AK ; Start 03/11/19 at 09:00 Diphenhydramine HCl (Benadryl) 25 mg DAILY PRN PO ITCHING; Start 03/10/19 at 19 :30 Docusate Sodium (Colace) 100 mg DAILY PO Last administered on 03/12/19at 09:51; Admin Dose 100 MG; Start 03/11/19 at 09:00 Furosemide (Lasix) 40 mg DAILY PO Last administered on 03/12/19at 09:51; Admin Dose 40 MG; Start 03/11/19 at 09:00 Guaifenesin (Robitussin Liquid Cup) 100 mg Q6H PRN PO COUGH; Start 03/10/19 at 19:30 Levothyroxine Sodium (Synthroid) 175 mcg BEFORE BREAKFAST PO Last administered on 03/12/19at 06:20; Admin Dose 175 MCG; Start 03/11/19 at 07:00 Lidocaine (Lidoderm) 1 patch Q8H PRN TD FOR RIGHT SHOULDER; Start 03/10/19 at 19:30 Metoprolol Tartrate (Lopressor) 25 mg TID PO Last administered on 03/12/19at 09:51; Admin Dose 25 MG; Start 03/10/19 at 21:00 Midodrine (Proamatine) 5 mg Q8H PRN PO HOLD FOR SBP>110; Start 03/10/19 at 19:30 Sevelamer Carbonate (Renvela) 1.6 gm WITH MEALS PO Last administered on 03/12/19at 09:50; Admin Dose 1.6 GM; Start 03/11/19 at 08:00 Warfarin Sodium (Coumadin) 1 mg MoWeFr@1700 PO Last administered on 03/11/19at 21:52; Admin Dose 1 MG; Start 03/11/19 at 17:00 Warfarin Sodium (Coumadin) 2.5 mg MoWeFr@1700 PO Last administered on 03/11/19at 21:52; Admin Dose 2.5 MG; Start 03/11/19 at 17:00 Warfarin Sodium (Coumadin) 4 mg SuTuThSa@1700 PO ; Start 03/10/19 at 20:00 Calcium Carbonate (Oyster Shell Calcium) 1.25 gm DAILY PO ; Start 03/11/19 at 09:00 IV Flush (NS 3 ml) 3 ml PER PROTOCOL IV ; Start 03/10/19 at 19:30 Ondansetron HCl (Zofran Inj) 4 mg Q6H PRN IV NAUSEA/VOMITING; Start 03/10/19 at 19:30 Famotidine (Pepcid) 20 mg DAILY PO Last administered on 03/11/19at 09:00; Admin Dose 20 MG; Start 03/10/19 at 21:00 Ipratropium [place] (Atrovent Hfa) 2 puff Q4H RESP THERAPY INH Last administered on 03/12/19 08:13; Admin Dose 2 PUFF; Start 03/10/19 at 21:00 Nystatin (Nystatin Powder) 1 applic BID TOP Last administered on 03/12/19at 09:55; Admin Dose 1 APPLIC; Start 03/11/19 at 11:00 Heparin Sodium (Porcine) (Heparin (1000 Units/ml)) 4,100 unit AFTER DIALYSIS CATHETER Last administered on 03/11/19at 21:45; Admin Dose 4,100 UNIT; Start 03/11/19 at 19:00 LILA DAVIS March 12, 2019 10:57
--- NOTE | 2019-03-12 12:46 | CONS ---
Consult Date/Type/Reason Admit Date/Time March 10, 2019 at 17:36 Initial Consult Date Date/Time of Note DATE: 03/12/19 TIME: 12:44 Subjective NO acute events - pt comfortable - communicating - denies CP. ROS: No fever, no chills, no nausea, no vomiting, no diarrhea/constipation No recent weight changes No chest pain, no PND, no orthopnea - mild SOB No dizziness, blurred vision No thirst, no heat or cold intolerance Objective Vitals Vital Signs Date Temp Pulse Resp B/P (MAP) Pulse Ox O2 O2 Flow FiO2 Time Delivery Rate 03/12/19 98.3 82 113/54 100 11:19 (73) 03/12/19 25 30 11:11 03/12/19 Mechanical 00:00 Ventilator Intake and Output 03/11/19 03/11/19 03/12/19 1515:00 23:00 07:00 IntakeIntake Total 200 ml OutputOutput Total 1400 ml BalanceBalance 200 ml -1400 ml Exam General: WN/WD/NAD, AOx 3 HEENT: Unicetric/atraumatic/EOMI ( follow commands) NECK: trach Lymph: no lymphadenopathy HEART: regular with no S3, II/ systolic murmur at apex, AVR LUNGS: Coarse sounds ABD: soft, NT, ND, +BS : Intact Neuro: non focal SKIN: chronic changes EXT: trace edema Results/Medications Result Diagram: 03/11/19 0506 03/11/19 0506 Results 24 hrs Laboratory Tests Test 03/11/19 19:23 03/12/19 00:24 03/12/19 05:21 Troponin I 0.039 0.048 Prothrombin Time 19.5 #H Prothrombin Time Ratio 1.5 INR International Normalized Ratio 1.64 Triglycerides Level 75 Cholesterol Level 94 L LDL Cholesterol, Calculated 29 HDL Cholesterol 50 Cholesterol/HDL Ratio 1.8 Home Meds Reported Medications Ascorbic Acid (Vitamin C) 250 Mg Tab, 250 MG PO BID, TAB 03/10/19 Guaifenesin* (Robitussin*) 100 Mg/5 Ml Syrup, 100 MG PO Q6H PRN for COUGH, ML 03/10/19 Sevelamer Carbonate* (Renvela*) 0.8 Gm Powd.pack, 1.6 GM PO WITH MEALS, PACKET 03/10/19 Amino Acids/Protein Hydrolys (PRO-STAT LIQUID) 30 Ml Liquid.pkt, 30 ML PO BID SUGAR FREE 03/10/19 Midodrine* (Midodrine*) 5 Mg Tablet, 5 MG PO Q8H PRN for HOLD FOR SBP>110, TAB 03/10/19 Metoprolol Tartrate* (Lopressor*) 25 Mg Tab, 25 MG PO TID, #60 TAB HOLD IF SBP<110 OR HR<60 03/10/19 Lidocaine (Lidocaine) 15 Gm Cream..g., 15 GM TP QID for TRACH SITE PAIN 03/10/19 Lidocaine (Lidocaine) 1 Each Adh..patch, 1 EACH TP Q8H PRN for FOR RIGHT SHOULDER 03/10/19 Levothyroxine Sodium* (Levothyroxine Sodium*) 175 Mcg Tablet, 175 MCG PO BEFORE BREAKFAST, #30 TAB 03/10/19 Ipratropium [place]* (Atrovent HFA*) 12.9 Gm Aer.w.adap, 2 PUFF INHALATION Q4H for SHORTNESS OF BREATH, #1 INHALER 03/10/19 Furosemide* (Furosemide*) 40 Mg Tablet, 40 MG PO DAILY, TAB HOLD IF SBP<110 OR HR<60 03/10/19 Docusate Sodium* (Colace*) 100 Mg Capsule, 100 MG PO DAILY, #30 CAP 03/10/19 Cyclobenzaprine Hcl* (Cyclobenzaprine Hcl*) 5 Mg Tablet, 5 MG PO NEEDED, #60 TAB 03/10/19 Warfarin Sodium* (Coumadin*) 4 Mg Tablet, 4 MG PO Q TUE,CHRISTEL,SAT,SUN, TAB 03/10/19 Warfarin Sodium* (Coumadin*) 2.5 Mg Tablet, 2.5 MG PO Q MON,WED,FRI, TAB 03/10/19 Warfarin Sodium* (Coumadin*) 1 Mg Tablet, 1 MG PO Q MON,WED,FRI, TAB 03/10/19 Calcium Carbonate (Calcium Carbonate) 500 Mg Tab.chew, 500 MG PO DAILY, TAB.CHEW 03/10/19 Bisacodyl (Dulcolax) 10 Mg Supp.rect, 10 MG RC DAILY, SUPP.RECT 03/10/19 Diphenhydramine Hcl* (Diphenhydramine Hcl*) 25 Mg Capsule, 25 MG PO DAILY PRN for ITCHING, CAP EVERY TUE,CHRISTEL,SAT 03/10/19 Acetaminophen* (Acetaminophen* Susp) 160 Mg/5 Ml Oral.susp, 20 ML PO Q6H PRN for FOR FEVER 100.4, ML 03/10/19 Acetaminophen* (Acetaminophen* Susp) 160 Mg/5 Ml Oral.susp, 20 ML PO Q4H PRN for FOR PAIN, ML 03/10/19 Medications Current Medications Acetaminophen (Tylenol Liquid (Ped)) 640 mg Q4H PRN PO FOR PAIN; Start 03/10/19 at 19:30 Bisacodyl (Dulcolax Supp) 10 mg DAILY RI ; Start 03/11/19 at 09:00 Diphenhydramine HCl (Benadryl) 25 mg DAILY PRN PO ITCHING; Start 03/10/19 at 19:30 Docusate Sodium (Colace) 100 mg DAILY PO Last administered on 03/12/19 09:51; Admin Dose 100 MG; Start 03/11/19 at 09:00 Furosemide (Lasix) 40 mg DAILY PO Last administered on 03/12/19at 09:51; Admin Dose 40 MG; Start 03/11/19 at 09:00 Guaifenesin (Robitussin Liquid Cup) 100 mg Q6H PRN PO COUGH; Start 03/10/19 at 19:30 Levothyroxine Sodium (Synthroid) 175 mcg BEFORE BREAKFAST PO Last administered on 03/12/19at 06:20; Admin Dose 175 MCG; Start 03/11/19 at 07:00 Lidocaine (Lidoderm) 1 patch Q8H PRN TD FOR RIGHT SHOULDER; Start 03/10/19 at 19:30 Metoprolol Tartrate (Lopressor) 25 mg TID PO Last administered on 03/12/19 09:51; Admin Dose 25 MG; Start 03/10/19 at 21:00 Midodrine (Proamatine) 5 mg Q8H PRN PO HOLD FOR SBP>110; Start 03/10/19 at 19:30 Sevelamer Carbonate (Renvela) 1.6 gm WITH MEALS PO Last administered on 03/12/19at 09:50; Admin Dose 1.6 GM; Start 03/11/19 at 08:00 Warfarin Sodium (Coumadin) 1 mg MoWeFr@1700 PO Last administered on 03/11/19at 21:52; Admin Dose 1 MG; Start 03/11/19 at 17:00 Warfarin Sodium (Coumadin) 2.5 mg MoWeFr@1700 PO Last administered on 03/11/19at 21:52; Admin Dose 2.5 MG; Start 03/11/19 at 17:00 Warfarin Sodium (Coumadin) 4 mg SuTuThSa@1700 PO ; Start 03/10/19 at 20:00 Calcium Carbonate (Oyster Shell Calcium) 1.25 gm DAILY PO ; Start 03/11/19 at 09:00 IV Flush (NS 3 ml) 3 ml PER PROTOCOL IV ; Start 03/10/19 at 19:30 Ondansetron HCl (Zofran Inj) 4 mg Q6H PRN IV NAUSEA/VOMITING; Start 03/10/19 at 19:30 Famotidine (Pepcid) 20 mg DAILY PO Last administered on 03/11/19at 09:00; Admin Dose 20 MG; Start 03/10/19 at 21:00 Ipratropium [place] (Atrovent Hfa) 2 puff Q4H RESP THERAPY INH Last administered on 03/12/19at 08:13; Admin Dose 2 PUFF; Start 03/10/19 at 21:00 Nystatin (Nystatin Powder) 1 applic BID TOP Last administered on 03/12/19at 09:55; Admin Dose 1 APPLIC; Start 03/11/19 at 11:00 Heparin Sodium (Porcine) (Heparin (1000 Units/ml)) 4,100 unit AFTER DIALYSIS CATHETER Last administered on 03/11/19at 21:45; Admin Dose 4,100 UNIT; Start 03/11/19 at 19:00 Assessment/Plan Hospital Course (Demo Recall) 1. Status post aortic valve replacement, mechanical, on Coumadin, therapeutic levels - will monitor clinically, stable by exam. 2. Abnormal electrocardiogram with inferior and anterior lateral Q's. Assess for acute coronary syndrome. R/O Mi - doubt ischemia. 3. Hypertension, mildly elevated- treated, Rx as needed with renal team. 4. Dyslipidemia. 5. Chronic respiratory failure, status post tracheostomy - good o2 sat. 6. End-stage renal disease on hemodialysis - Rx per renal team. 7. Hypothyroidism. 8. Anemia Hct 33 0 stable. DERIK HERNANDEZ MD March 12, 2019 12:46
[2019-03-12] MEDS: WARFARIN 2 MG TAB PO SCH (18:27)
[2019-03-13] VITALS (32 sets, daily range): BP systolic 119–158; BP diastolic 52–71; PULSE 51–83; RESP 18–37
[2019-03-13] MEDS: IPRATROPIUM (HFA) 12.9 GM INHALER INH SCH ×6 (00:47→21:17)
[2019-03-13] MEDS: LEVOTHYROXINE 175 MCG TAB PO SCH (06:38)
[2019-03-13] MEDS: CALCIUM CARBONATE 1.25 GM TAB PO SCH ×2 (08:30→08:36)
[2019-03-13] MEDS: DOCUSATE SODIUM 100 MG CAP PO SCH ×2 (08:30→08:35)
[2019-03-13] MEDS: SEVELAMER CARBONATE 0.8 GM PKT PO SCH ×4 (08:30→21:26)
[2019-03-13] MEDS: FAMOTIDINE 20 MG TAB PO SCH ×2 (08:31→08:36)
[2019-03-13] MEDS: BISACODYL 10 MG SUPP PR SCH (08:31)
[2019-03-13] MEDS: FUROSEMIDE 40 MG TAB PO SCH (08:32)
[2019-03-13] MEDS: NYSTATIN 30 GM POWDER BTL TOP SCH ×2 (08:32→21:25)
[2019-03-13] MEDS: BALSAM PERU/CASTOR OIL 60 GM TUBE TOP SCH ×2 (08:32→21:25)
[2019-03-13] MEDS: METOPROLOL 25 MG TAB PO SCH ×3 (08:33→21:27)
--- NOTE | 2019-03-13 11:23 | CONS ---
Consult Date/Type/Reason Admit Date/Time March 10, 2019 at 17:36 Initial Consult Date Date/Time of Note DATE: 03/13/19 TIME: 11:21 Subjective NO acute events - pt comfortable - plan for initiation pf peritoneal HD - real follows- no CP- in good spirits now ROS: No fever, no chills, no nausea, no vomiting, no diarrhea/constipation No recent weight changes No chest pain, no PND, no orthopnea - chronic SOB No dizziness, blurred vision No thirst, no heat or cold intolerance Objective Vitals Vital Signs Date Temp Pulse Resp B/P (MAP) Pulse Ox O2 O2 Flow FiO2 Time Delivery Rate 03/13/19 78 22 100 30 11:11 03/13/19 Mechanical 07:55 Ventilator 03/13/19 98.3 140/65 07:50 (90) Intake and Output 03/12/19 03/12/19 03/13/19 1515:00 23:00 07:00 IntakeIntake Total 600 ml BalanceBalance 600 ml Exam General: WN/WD/NAD, AOx 3 HEENT: Unicetric/atraumatic/EOMI ( follow commands) NECK: trach Lymph: no lymphadenopathy HEART: regular with no S3, II/ systolic murmur at apex, AVR LUNGS: Coarse sounds ABD: soft, NT, ND, +BS : Intact Neuro: non focal SKIN: chronic changes EXT: trace edema Results/Medications Result Diagram: 03/13/19 0507 03/13/19 0507 Results 24 hrs Laboratory Tests Test 03/13/19 05:07 White Blood Count 7.7 Red Blood Count 3.45 L Hemoglobin 10.4 L Hematocrit 33.1 L Mean Corpuscular Volume 95.9 Mean Corpuscular Hemoglobin 30.1 Mean Corpuscular Hemoglobin Concent 31.4 L Red Cell Distribution Width 17.9 H Platelet Count 210 Mean Platelet Volume 10.3 Immature Granulocytes % 0.500 H Neutrophils % 70.7 Lymphocytes % 13.3 L Monocytes % 9.1 Eosinophils % 4.6 Basophils % 1.8 Nucleated Red Blood Cells % 0.0 Immature Granulocytes # 0.040 H Neutrophils # 5.4 Lymphocytes # 1.0 Monocytes # 0.7 Eosinophils # 0.4 Basophils # 0.1 Nucleated Red Blood Cells # 0.0 Prothrombin Time 20.7 H Prothrombin Time Ratio 1.6 INR International Normalized Ratio 1.77 Sodium Level 134 L Potassium Level 4.4 Chloride Level 103 Carbon Dioxide Level 27 Anion Gap 4 L Blood Urea Nitrogen 41 H Creatinine 3.98 H Est Glomerular Filtrat Rate mL/min 11 L Glucose Level 81 Calcium Level 8.7 Phosphorus Level 2.7 Magnesium Level 2.1 Home Meds Reported Medications Ascorbic Acid (Vitamin C) 250 Mg Tab, 250 MG PO BID, TAB 03/10/19 Guaifenesin* (Robitussin*) 100 Mg/5 Ml Syrup, 100 MG PO Q6H PRN for COUGH, ML 03/10/19 Sevelamer Carbonate* (Renvela*) 0.8 Gm Powd.pack, 1.6 GM PO WITH MEALS, PACKET 03/10/19 Amino Acids/Protein Hydrolys (PRO-STAT LIQUID) 30 Ml Liquid.pkt, 30 ML PO BID SUGAR FREE 03/10/19 Midodrine* (Midodrine*) 5 Mg Tablet, 5 MG PO Q8H PRN for HOLD FOR SBP>110, TAB 03/10/19 Metoprolol Tartrate* (Lopressor*) 25 Mg Tab, 25 MG PO TID, #60 TAB HOLD IF SBP<110 OR HR<60 03/10/19 Lidocaine (Lidocaine) 15 Gm Cream..g., 15 GM TP QID for TRACH SITE PAIN 03/10/19 Lidocaine (Lidocaine) 1 Each Adh..patch, 1 EACH TP Q8H PRN for FOR RIGHT SHOULDER 03/10/19 Levothyroxine Sodium* (Levothyroxine Sodium*) 175 Mcg Tablet, 175 MCG PO BEFORE BREAKFAST, #30 TAB 03/10/19 Ipratropium [place]* (Atrovent HFA*) 12.9 Gm Aer.w.adap, 2 PUFF INHALATION Q4H for SHORTNESS OF BREATH, #1 INHALER 03/10/19 Furosemide* (Furosemide*) 40 Mg Tablet, 40 MG PO DAILY, TAB HOLD IF SBP<110 OR HR<60 03/10/19 Docusate Sodium* (Colace*) 100 Mg Capsule, 100 MG PO DAILY, #30 CAP 03/10/19 Cyclobenzaprine Hcl* (Cyclobenzaprine Hcl*) 5 Mg Tablet, 5 MG PO NEEDED, #60 TAB 03/10/19 Warfarin Sodium* (Coumadin*) 4 Mg Tablet, 4 MG PO Q TUE,CHRISTEL,SAT,SUN, TAB 03/10/19 Warfarin Sodium* (Coumadin*) 2.5 Mg Tablet, 2.5 MG PO Q THU,THU,THU, TAB 03/10/19 Warfarin Sodium* (Coumadin*) 1 Mg Tablet, 1 MG PO Q MON,THU,THU, TAB 03/10/19 Calcium Carbonate (Calcium Carbonate) 500 Mg Tab.chew, 500 MG PO DAILY, TAB.CHEW 03/10/19 Bisacodyl (Dulcolax) 10 Mg Supp.rect, 10 MG RC DAILY, SUPP.RECT 03/10/19 Diphenhydramine Hcl* (Diphenhydramine Hcl*) 25 Mg Capsule, 25 MG PO DAILY PRN for ITCHING, CAP EVERY THU,THU,SAT 03/10/19 Acetaminophen* (Acetaminophen* Susp) 160 Mg/5 Ml Oral.susp, 20 ML PO Q6H PRN for FOR FEVER 100.4, ML 03/10/19 Acetaminophen* (Acetaminophen* Susp) 160 Mg/5 Ml Oral.susp, 20 ML PO Q4H PRN for FOR PAIN, ML 03/10/19 Medications Current Medications Acetaminophen (Tylenol Liquid (Ped)) 640 mg Q4H PRN PO FOR PAIN; Start 03/10/19 at 19:30 Bisacodyl (Dulcolax Supp) 10 mg DAILY ME ; Start 03/11/19 at 09:00 Diphenhydramine HCl (Benadryl) 25 mg DAILY PRN PO ITCHING; Start 03/10/19 at 19:30 Docusate Sodium (Colace) 100 mg DAILY PO Last administered on 03/12/19at 09:51; Admin Dose 100 MG; Start 03/11/19 at 09:00 Furosemide (Lasix) 40 mg DAILY PO Last administered on 03/13/19at 08:32; Admin Dose 40 MG; Start 03/11/19 at 09:00 Guaifenesin (Robitussin Liquid Cup) 100 mg Q6H PRN PO COUGH; Start 03/10/19 at 19:30 Levothyroxine Sodium (Synthroid) 175 mcg BEFORE BREAKFAST PO Last administered on 03/13/19at 06:38; Admin Dose 175 MCG; Start 03/11/19 at 07:00 Lidocaine (Lidoderm) 1 patch Q8H PRN TD FOR RIGHT SHOULDER; Start 03/10/19 at 19:30 Metoprolol Tartrate (Lopressor) 25 mg TID PO Last administered on 03/13/19 08:33; Admin Dose 25 MG; Start 03/10/19 at 21:00 Midodrine (Proamatine) 5 mg Q8H PRN PO HOLD FOR SBP>110; Start 03/10/19 at 19:30 Sevelamer Carbonate (Renvela) 1.6 gm WITH MEALS PO Last administered on 03/13/19 08:30; Admin Dose 1.6 GM; Start 03/11/19 at 08:00 Warfarin Sodium (Coumadin) 1 mg MoWeFr@1700 PO Last administered on 03/11/19 21:52; Admin Dose 1 MG; Start 03/11/19 at 17:00 Warfarin Sodium (Coumadin) 2.5 mg MoWeFr@1700 PO Last administered on 03/11/19 21:52; Admin Dose 2.5 MG; Start 03/11/19 at 17:00 Warfarin Sodium (Coumadin) 4 mg SuTuThSa@1700 PO Last administered on 03/12/19 18:27; Admin Dose 4 MG; Start 03/10/19 at 20:00 Calcium Carbonate (Oyster Shell Calcium) 1.25 gm DAILY PO ; Start 03/11/19 at 09:00 IV Flush (NS 3 ml) 3 ml PER PROTOCOL IV ; Start 03/10/19 at 19:30 Ondansetron HCl (Zofran Inj) 4 mg Q6H PRN IV NAUSEA/VOMITING; Start 03/10/19 at 19:30 Famotidine (Pepcid) 20 mg DAILY PO Last administered on 03/11/19 09:00; Admin Dose 20 MG; Start 03/10/19 at 21:00 Ipratropium [place] (Atrovent Hfa) 2 puff Q4H RESP THERAPY INH Last administered on 03/13/19 07:25; Admin Dose 2 PUFF; Start 03/10/19 at 21:00 Nystatin (Nystatin Powder) 1 applic BID TOP Last administered on 03/13/19 08:32; Admin Dose 1 APPLIC; Start 03/11/19 at 11:00 Heparin Sodium (Porcine) (Heparin (1000 Units/ml)) 4,100 unit AFTER DIALYSIS CATHETER Last administered on 5/17/19at 21:45; Admin Dose 4,100 UNIT; Start 03/11/19 at 19:00 Assessment/Plan Hospital Course (Demo Recall) 1. Status post aortic valve replacement, mechanical, on Coumadin, therapeutic levels - will monitor clinically, stable by exam. H/H stable - no bleeding - rate controlled 2. Abnormal electrocardiogram with inferior and anterior lateral Q's. Assess for acute coronary syndrome. R/O Mi - doubt ischemia. 3. Hypertension, mildly elevated- treated, Rx as needed with renal team. In good range now 4. Dyslipidemia. 5. Chronic respiratory failure, status post tracheostomy - good o2 sat. 6. End-stage renal disease on hemodialysis - Rx per renal team. Initiating on peritoneal D planned 7. Hypothyroidism. 8. Anemia Hct 33 1 stable. DERIK HERNANDEZ MD March 13, 2019 11:23
--- NOTE | 2019-03-13 11:33 | PN ---
Date/Time of Note Date/Time of Note DATE: 03/13/19 TIME: 11:32 Assessment/Plan VTE Prophylaxis Risk score (from Nsg)>0 risk: 8 SCD applied (from Nsg): Yes Pharmacological prophylaxis: LMWH Lines/Catheters IV Catheter Type (from Nrsg): Saline Lock Urinary Cath still in place: No Assessment/Plan Hospital Course - Episode of V tach last night- denies any chest pain/palpitations - will get cardiology consult - cont on tele floor - 12 Lead EKG - cardiac enzyes x 3 - 2- D- ECHO- fu result - am CHD panel - cardiac diet -PermCath malfunction. Dr. Lott will be following patient in nephrology consultation. -Hemodialysis dependent end-stage renal disease -Ventilator dependent respiratory failure. Continue vent support. -Hypertension -Status post mechanical aortic valve replacement, continue Coumadin. -Hypothyroidism, continue levothyroxine Patient still needs to be monitored for arrhythmia, anticipate discharge next week Result Diagram: 03/13/19 0507 03/13/19 0507 Results 24hrs Laboratory Tests Test 03/13/19 05:07 White Blood Count 7.7 Red Blood Count 3.45 L Hemoglobin 10.4 L Hematocrit 33.1 L Mean Corpuscular Volume 95.9 Mean Corpuscular Hemoglobin 30.1 Mean Corpuscular Hemoglobin Concent 31.4 L Red Cell Distribution Width 17.9 H Platelet Count 210 Mean Platelet Volume 10.3 Immature Granulocytes % 0.500 H Neutrophils % 70.7 Lymphocytes % 13.3 L Monocytes % 9.1 Eosinophils % 4.6 Basophils % 1.8 Nucleated Red Blood Cells % 0.0 Immature Granulocytes # 0.040 H Neutrophils # 5.4 Lymphocytes # 1.0 Monocytes # 0.7 Eosinophils # 0.4 Basophils # 0.1 Nucleated Red Blood Cells # 0.0 Prothrombin Time 20.7 H Prothrombin Time Ratio 1.6 INR International Normalized Ratio 1.77 Sodium Level 134 L Potassium Level 4.4 Chloride Level 103 Carbon Dioxide Level 27 Anion Gap 4 L Blood Urea Nitrogen 41 H Creatinine 3.98 H Est Glomerular Filtrat Rate mL/min 11 L Glucose Level 81 Calcium Level 8.7 Phosphorus Level 2.7 Magnesium Level 2.1 Subjective 24 Hr Interval Summary Free Text/Dictation Patient was to go to [facility] yesterday but was held because the plan was to change her to peritoneal dialysis Exam/Review of Systems Exam Vitals Vital Signs Date Temp Pulse Resp B/P (MAP) Pulse Ox O2 O2 Flow FiO2 Time Delivery Rate 03/13/19 78 22 100 30 11:11 03/13/19 Mechanical 07:55 Ventilator 03/13/19 98.3 140/65 07:50 (90) Intake and Output 03/12/19 03/12/19 03/13/19 1515:00 23:00 07:00 IntakeIntake Total 600 ml BalanceBalance 600 ml Constitutional: well developed Head: normocephalic, atraumatic Neck: supple Respiratory: clear to auscultation Cardiovascular: regular rate and rhythm Gastrointestinal: soft, non-tender Extremities: normal pulses Results Results 24hrs Laboratory Tests Test 03/13/19 05:07 White Blood Count 7.7 Red Blood Count 3.45 L Hemoglobin 10.4 L Hematocrit 33.1 L Mean Corpuscular Volume 95.9 Mean Corpuscular Hemoglobin 30.1 Mean Corpuscular Hemoglobin Concent 31.4 L Red Cell Distribution Width 17.9 H Platelet Count 210 Mean Platelet Volume 10.3 Immature Granulocytes % 0.500 H Neutrophils % 70.7 Lymphocytes % 13.3 L Monocytes % 9.1 Eosinophils % 4.6 Basophils % 1.8 Nucleated Red Blood Cells % 0.0 Immature Granulocytes # 0.040 H Neutrophils # 5.4 Lymphocytes # 1.0 Monocytes # 0.7 Eosinophils # 0.4 Basophils # 0.1 Nucleated Red Blood Cells # 0.0 Prothrombin Time 20.7 H Prothrombin Time Ratio 1.6 INR International Normalized Ratio 1.77 Sodium Level 134 L Potassium Level 4.4 Chloride Level 103 Carbon Dioxide Level 27 Anion Gap 4 L Blood Urea Nitrogen 41 H Creatinine 3.98 H Est Glomerular Filtrat Rate mL/min 11 L Glucose Level 81 Calcium Level 8.7 Phosphorus Level 2.7 Magnesium Level 2.1 Medications Medication Current Medications Acetaminophen (Tylenol Liquid (Ped)) 640 mg Q4H PRN PO FOR PAIN; Start 03/10/19 at 19:30 Bisacodyl (Dulcolax Supp) 10 mg DAILY DC ; Start 03/11/19 at 09:00 Diphenhydramine HCl (Benadryl) 25 mg DAILY PRN PO ITCHING; Start 03/10/19 at 19 :30 Docusate Sodium (Colace) 100 mg DAILY PO Last administered on 5/18/19at 09:51; Admin Dose 100 MG; Start 03/11/19 at 09:00 Furosemide (Lasix) 40 mg DAILY PO Last administered on 03/13/19 08:32; Admin Dose 40 MG; Start 03/11/19 at 09:00 Guaifenesin (Robitussin Liquid Cup) 100 mg Q6H PRN PO COUGH; Start 03/10/19 at 19:30 Levothyroxine Sodium (Synthroid) 175 mcg BEFORE BREAKFAST PO Last administered on 03/13/19 06:38; Admin Dose 175 MCG; Start 03/11/19 at 07:00 Lidocaine (Lidoderm) 1 patch Q8H PRN TD FOR RIGHT SHOULDER; Start 03/10/19 at 19:30 Metoprolol Tartrate (Lopressor) 25 mg TID PO Last administered on 03/13/19 08:33; Admin Dose 25 MG; Start 03/10/19 at 21:00 Midodrine (Proamatine) 5 mg Q8H PRN PO HOLD FOR SBP>110; Start 03/10/19 at 19:30 Sevelamer Carbonate (Renvela) 1.6 gm WITH MEALS PO Last administered on 03/13/19 08:30; Admin Dose 1.6 GM; Start 03/11/19 at 08:00 Warfarin Sodium (Coumadin) 1 mg MoWeFr@1700 PO Last administered on 03/11/19 21:52; Admin Dose 1 MG; Start 03/11/19 at 17:00 Warfarin Sodium (Coumadin) 2.5 mg MoWeFr@1700 PO Last administered on 03/11/19 21:52; Admin Dose 2.5 MG; Start 03/11/19 at 17:00 Warfarin Sodium (Coumadin) 4 mg SuTuThSa@1700 PO Last administered on 03/12/19 18:27; Admin Dose 4 MG; Start 03/10/19 at 20:00 Calcium Carbonate (Oyster Shell Calcium) 1.25 gm DAILY PO ; Start 03/11/19 at 09:00 IV Flush (NS 3 ml) 3 ml PER PROTOCOL IV ; Start 03/10/19 at 19:30 Ondansetron HCl (Zofran Inj) 4 mg Q6H PRN IV NAUSEA/VOMITING; Start 03/10/19 at 19:30 Famotidine (Pepcid) 20 mg DAILY PO Last administered on 03/11/19 09:00; Admin Dose 20 MG; Start 03/10/19 at 21:00 Ipratropium [place] (Atrovent Hfa) 2 puff Q4H RESP THERAPY INH Last administered on 03/13/19 07:25; Admin Dose 2 PUFF; Start 03/10/19 at 21:00 Nystatin (Nystatin Powder) 1 applic BID TOP Last administered on 03/13/19 08:32; Admin Dose 1 APPLIC; Start 03/11/19 at 11:00 Heparin Sodium (Porcine) (Heparin (1000 Units/ml)) 4,100 unit AFTER DIALYSIS CATHETER Last administered on 03/11/19 21:45; Admin Dose 4,100 UNIT; Start 03/11/19 at 19:00 LILA DAVIS March 13, 2019 11:32
--- NOTE | 2019-03-13 13:10 | PN ---
DATE: 03/13/2019 SUBJECTIVE: The patient is stable, no events overnight. No fevers, chills, nausea, vomiting. OBJECTIVE: VITAL SIGNS: Blood pressure is 140/65, pulse 82, respirations 20, temperature 98.3. HEENT: Head is normocephalic. NECK: Supple. HEART: Regular rate. LUNGS: Show diminished breath sounds at the base. ABDOMEN: Soft, nontender to palpation without rebound or guarding. EXTREMITIES: Negative for clubbing, cyanosis, no edema. DERMATOLOGIC: No rashes. MUSCULOSKELETAL: No joint effusion. NEUROLOGIC: No focal deficits. MEDICATIONS: The patient's medications have been reviewed. LABORATORY DATA: Has been reviewed. ASSESSMENT AND PLAN: 1. End-stage renal disease. The patient is on dialysis Thursday, and Thursday. The patient is currently off schedule. Will have hemodialysis today. We will dialyze 3 hours 2k bath, calcium 2.5. 2. Access. The patient's Perm-A-Cath was working appropriately. We will continue to monitor. Cont inue local access care. 3. Anemia. Monitor hemoglobin and hematocrit levels. Will give Epogen as needed. 4. Mineral bone disorder, monitor calcium and phosphorus levels. 5. Ventilatory dependent respiratory failure. Vent settings have been reviewed. Continue to monito r. 6. Hypertension. Continue current blood pressure regimen. 7. Mechanical heart valve. Continue Coumadin, monitor INR. 8. Hypothyroidism. Continue Synthroid. 9. Arrhythmia. Continue to monitor. Dictated By: ELA MALDONADO/SANDER Conf#: [id number] DID#: [id number] CC: KOSTAS CRESPO MD;*EndCC*
[2019-03-13] MEDS: HEPARIN 1000 UNITS/ML 10 ML INJ CATHETER SCH (20:57)
[2019-03-13] MEDS: WARFARIN 2 MG TAB PO SCH (21:26)
[2019-03-14] VITALS (22 sets, daily range): BP systolic 120–146; BP diastolic 59–73; PULSE 71–83; RESP 16–38
[2019-03-14] MEDS: IPRATROPIUM (HFA) 12.9 GM INHALER INH SCH ×6 (01:12→20:14)
[2019-03-14] MEDS: BALSAM PERU/CASTOR OIL 60 GM TUBE TOP SCH ×2 (09:00→20:23)
[2019-03-14] MEDS: NYSTATIN 30 GM POWDER BTL TOP SCH ×2 (09:30→20:23)
[2019-03-14] MEDS: LEVOTHYROXINE 175 MCG TAB PO SCH (09:31)
[2019-03-14] MEDS: BISACODYL 10 MG SUPP PR SCH (09:31)
[2019-03-14] MEDS: FAMOTIDINE 20 MG TAB PO SCH (09:32)
[2019-03-14] MEDS: DOCUSATE SODIUM 100 MG CAP PO SCH (09:32)
[2019-03-14] MEDS: METOPROLOL 25 MG TAB PO SCH ×3 (09:32→20:22)
[2019-03-14] MEDS: CALCIUM CARBONATE 1.25 GM TAB PO SCH (09:32)
[2019-03-14] MEDS: FUROSEMIDE 40 MG TAB PO SCH (09:32)
--- NOTE | 2019-03-14 10:12 | PN ---
DATE: 03/14/2019 SUBJECTIVE: The patient is stable, no events overnight. The patient had dialysis yesterday, tolerat ed well. OBJECTIVE: VITAL SIGNS: Blood pressure is 120/59, pulse 76, respirations 18, temperature 97.9. HEENT: Head is normocephalic. NECK: Supple. HEART: Regular rate. LUNGS: Show diminished breath sounds at the base. ABDOMEN: Soft, nontender to palpation without rebound or guarding. EXTREMITIES: Negative for clubbing, cyanosis, no edema. DERMATOLOGIC: No rashes. MUSCULOSKELETAL: No joint effusion. NEUROLOGIC: No change in exam. MEDICATIONS: Reviewed. LABORATORY DATA: Reviewed. ASSESSMENT AND PLAN: 1. End-stage renal disease. The patient is on dialysis Thursday, , Thursday. Plan is for he modialysis tomorrow. 2. Access Perm-A-Cath working appropriately. We will continue to monitor. Continue local access ca re. 3. Anemia. Continue to monitor hemoglobin and hematocrit levels. We will give Epogen as needed. 4. Mineral bone disorder, monitor calcium and phosphorus levels. 5. Ventilator dependent respiratory failure. Vent settings have been reviewed. Continue to monitor . 6. Hypertension. Continue current blood pressure regimen. 7. Mechanical heart valve. The patient is on Coumadin. Continue to monitor INR. 8. Hypothyroidism. Continue Synthroid. 9. Arrhythmia. Continue to monitor. 10. Access. The patient is to be evaluated for possible peritoneal dialysis catheter placement. We will discuss with primary team about general surgery evaluation. Dictated By: ELA ROBINS DO NR/NTS Conf#: [id number] DID#: [id number] CC: ELA ROBINS DO; KOSTAS CRESPO MD;*EndCC*
--- NOTE | 2019-03-14 11:35 | CONS ---
Assessment/Plan Assessment/Plan Hospital Course (Demo Recall) IMPRESSION: 1. Status post aortic valve replacement, mechanical, on Coumadin, currently mildly subtherapeutic levels. 2. Abnormal electrocardiogram with inferior and anterior lateral Q's. Assess for acute coronary syndrome.-neg trop x 3/NL EF by echo 3. Hypertension, mildly elevated. 4. Dyslipidemia. 5. Chronic respiratory failure, status post tracheostomy. 6. End-stage renal disease on hemodialysis. 7. Hypothyroidism. 8. Anemia. Recc: -Tele -continue coumadin and f/u INR. Possible need to adjust dose -Continue BB -Continue lasix plus HD for volume removal -Continue synthroid Consultation Date/Type/Reason Admit Date/Time March 13, 2019 at 10:21 Initial Consult Date 03/11/19 Type of Consult Cardiology Reason for Consultation AVR Requesting Provider: KOSTAS CRESPO MD Date/Time of Note DATE: 03/14/19 TIME: 11:31 Exam/Review of Systems Vital Signs Vitals Vital Signs Date Temp Pulse Resp B/P (MAP) Pulse Ox O2 O2 Flow FiO2 Time Delivery Rate 03/14/19 70 16 100 30 09:31 03/14/19 97.9 120/59 07:42 (79) 03/13/19 Mechanical 18:30 Ventilator Trach Collar Intake and Output 03/13/19 03/13/19 03/14/19 1515:00 23:00 07:00 IntakeIntake Total 1380 ml OutputOutput Total 1400 ml BalanceBalance -20 ml Exam Exam Review of Systems: CONSTITUTIONAL: No fevers, chills. PULMONARY: No sob CARDIOVASCULAR: No chest pain/palpitations GASTROINTESTINAL: No nausea/vomiting. GENITOURINARY: No hematuria/dysuria. MUSCULOSKELETAL: No myagias/arthalgias. PSYCHIATRIC: The patient denies depression. NEUROLOGIC: No weakness Constitutional: alert Psych: no complaints Head: normocephalic Neck: jvd (9 cm water), other (trached) Respiratory: diminished breath sounds Cardiovascular: regular rate and rhythm Gastrointestinal: soft, non-tender Musculoskeletal: muscle tone Extremities: edema Neurological: other (No focal deficits) Labs Result Diagram: 03/13/19 0507 03/13/19 0507 Results 24hrs Laboratory Tests Test 03/14/19 04:36 Prothrombin Time 19.9 H Prothrombin Time Ratio 1.6 INR International Normalized Ratio 1.68 Medications Medications Current Medications Acetaminophen (Tylenol Liquid (Ped)) 640 mg Q4H PRN PO FOR PAIN; Start 03/10/19 at 19:30 Bisacodyl (Dulcolax Supp) 10 mg DAILY MO Last administered on 03/14/19 09:31; Admin Dose 10 MG; Start 03/11/19 at 09:00 Diphenhydramine HCl (Benadryl) 25 mg DAILY PRN PO ITCHING; Start 03/10/19 at 19:30 Docusate Sodium (Colace) 100 mg DAILY PO Last administered on 03/14/19 09:32; Admin Dose 100 MG; Start 03/11/19 at 09:00 Furosemide (Lasix) 40 mg DAILY PO Last administered on 03/14/19 09:32; Admin Dose 40 MG; Start 03/11/19 at 09:00 Guaifenesin (Robitussin Liquid Cup) 100 mg Q6H PRN PO COUGH; Start 03/10/19 at 19:30 Levothyroxine Sodium (Synthroid) 175 mcg BEFORE BREAKFAST PO Last administered on 03/14/19 09:31; Admin Dose 175 MCG; Start 03/11/19 at 07:00 Lidocaine (Lidoderm) 1 patch Q8H PRN TD FOR RIGHT SHOULDER; Start 03/10/19 at 19:30 Metoprolol Tartrate (Lopressor) 25 mg TID PO Last administered on 03/14/19 09:32; Admin Dose 25 MG; Start 03/10/19 at 21:00 Midodrine (Proamatine) 5 mg Q8H PRN PO HOLD FOR SBP>110; Start 03/10/19 at 19:30 Sevelamer Carbonate (Renvela) 1.6 gm WITH MEALS PO Last administered on 03/13/19 21:26; Admin Dose 1.6 GM; Start 03/11/19 at 08:00 Warfarin Sodium (Coumadin) 1 mg MoWeFr@1700 PO Last administered on 03/11/19at 2 1:52; Admin Dose 1 MG; Start 03/11/19 at 17:00 Warfarin Sodium (Coumadin) 2.5 mg MoWeFr@1700 PO Last administered on 03/11/19at 21:52; Admin Dose 2.5 MG; Start 03/11/19 at 17:00 Warfarin Sodium (Coumadin) 4 mg SuTuThSa@1700 PO Last administered on 03/13/19 21:26; Admin Dose 4 MG; Start 03/10/19 at 20:00 Calcium Carbonate (Oyster Shell Calcium) 1.25 gm DAILY PO Last administered on 03/14/19 09:32; Admin Dose 1.25 GM; Start 03/11/19 at 09:00 IV Flush (NS 3 ml) 3 ml PER PROTOCOL IV ; Start 03/10/19 at 19:30 Ondansetron HCl (Zofran Inj) 4 mg Q6H PRN IV NAUSEA/VOMITING; Start 03/10/19 at 19:30 Famotidine (Pepcid) 20 mg DAILY PO Last administered on 03/14/19 09:32; Admin Dose 20 MG; Start 03/10/19 at 21:00 Ipratropium [place] (Atrovent Hfa) 2 puff Q4H RESP THERAPY INH Last administered on 03/14/19 09:31; Admin Dose 2 PUFF; Start 03/10/19 at 21:00 Nystatin (Nystatin Powder) 1 applic BID TOP Last administered on 03/14/19 09:30; Admin Dose 1 APPLIC; Start 03/11/19 at 11:00 Heparin Sodium (Porcine) (Heparin (1000 Units/ml)) 4,100 unit AFTER DIALYSIS CATHETER Last administered on 03/13/19 20:57; Admin Dose 4,100 UNIT; Start 03/11/19 at 19:00 RIAZ BLACKBURN March 14, 2019 11:35
[2019-03-14] MEDS: SEVELAMER CARBONATE 0.8 GM PKT PO SCH ×2 (12:45→17:27)
--- NOTE | 2019-03-14 17:18 | PN ---
Date/Time of Note Date/Time of Note DATE: 03/14/19 TIME: 17:12 Assessment/Plan VTE Prophylaxis Risk score (from Ns)>0 risk: 3 SCD applied (from Ns): Yes Pharmacological prophylaxis: warfarin tx Lines/Catheters IV Catheter Type (from Nrs): Saline Lock Urinary Cath still in place: No Assessment/Plan Hospital Course Patient is awake alert, continues on vent without distress. Discussed with case management, pending placement. Assessment/Plan -Permacath malfunction. Patient is able to undergo hemodialysis through permacath. Dr. Lott is following patient in nephrology consultation. -Hemodialysis dependent end-stage renal disease -Ventilator dependent respiratory failure. Continue vent support. -Hypertension -Status post mechanical aortic valve replacement, continue Coumadin. -Hypothyroidism, continue levothyroxine Further recommendations based on clinical course. Plan of care discussed with Dr. Balbuena. Result Diagram: 03/13/19 0507 03/13/19 0507 Results 24hrs Laboratory Tests Test 03/14/19 04:36 Prothrombin Time 19.9 H Prothrombin Time Ratio 1.6 INR International Normalized Ratio 1.68 Exam/Review of Systems Exam Vitals Vital Signs Date Temp Pulse Resp B/P (MAP) Pulse Ox O2 O2 Flow FiO2 Time Delivery Rate 03/14/19 80 16:01 03/14/19 30 16:00 03/14/19 97.7 16 143/65 100 15:22 (91) 03/13/19 Mechanical 18:30 Ventilator Trach Collar Intake and Output 03/13/19 03/13/19 03/14/19 1414:59 22:59 06:59 IntakeIntake Total 1380 ml OutputOutput Total 1400 ml BalanceBalance -20 ml Exam Constitutional: alert, oriented Neck: supple, other (Tracheostomy) Respiratory: clear to auscultation Cardiovascular: regular rate and rhythm Gastrointestinal: soft, non-tender Musculoskeletal: nl extremities to inspection Extremities: normal pulses Neurological: nl mental status Results Results 24hrs Laboratory Tests Test 03/14/19 04:36 Prothrombin Time 19.9 H Prothrombin Time Ratio 1.6 INR International Normalized Ratio 1.68 Medications Medication Current Medications Acetaminophen (Tylenol Liquid (Ped)) 640 mg Q4H PRN PO FOR PAIN; Start 03/10/19 at 19:30 Bisacodyl (Dulcolax Supp) 10 mg DAILY [place] Last administered on 03/14/19 09:31; Admin Dose 10 MG; Start 03/11/19 at 09:00 Diphenhydramine HCl (Benadryl) 25 mg DAILY PRN PO ITCHING; Start 03/10/19 at 19:30 Docusate Sodium (Colace) 100 mg DAILY PO Last administered on 03/14/19 09:32; Admin Dose 100 MG; Start 03/11/19 at 09:00 Furosemide (Lasix) 40 mg DAILY PO Last administered on 03/14/19 09:32; Admin Dose 40 MG; Start 03/11/19 at 09:00 Guaifenesin (Robitussin Liquid Cup) 100 mg Q6H PRN PO COUGH; Start 03/10/19 at 19:30 Levothyroxine Sodium (Synthroid) 175 mcg BEFORE BREAKFAST PO Last administered on 03/14/19 09:31; Admin Dose 175 MCG; Start 03/11/19 at 07:00 Lidocaine (Lidoderm) 1 patch Q8H PRN TD FOR RIGHT SHOULDER; Start 03/10/19 at 19:30 Metoprolol Tartrate (Lopressor) 25 mg TID PO Last administered on 03/14/19 12:44; Admin Dose 25 MG; Start 03/10/19 at 21:00 Midodrine (Proamatine) 5 mg Q8H PRN PO HOLD FOR SBP>110; Start 03/10/19 at 19:30 Sevelamer Carbonate (Renvela) 1.6 gm WITH MEALS PO Last administered on 03/14/19 12:45; Admin Dose 1.6 GM; Start 03/11/19 at 08:00 Warfarin Sodium (Coumadin) 1 mg MoWeFr@1700 PO Last administered on 03/11/19 21:52; Admin Dose 1 MG; Start 03/11/19 at 17:00 Warfarin Sodium (Coumadin) 2.5 mg MoWeFr@1700 PO Last administered on 03/11/19 21:52; Admin Dose 2.5 MG; Start 03/11/19 at 17:00 Warfarin Sodium (Coumadin) 4 mg SuTuThSa@1700 PO Last administered on 03/13/19 21:26; Admin Dose 4 MG; Start 03/10/19 at 20:00 Calcium Carbonate (Oyster Shell Calcium) 1.25 gm DAILY PO Last administered on 03/14/19 09:32; Admin Dose 1.25 GM; Start 03/11/19 at 09:00 IV Flush (NS 3 ml) 3 ml PER PROTOCOL IV ; Start 03/10/19 at 19:30 Ondansetron HCl (Zofran Inj) 4 mg Q6H PRN IV NAUSEA/VOMITING; Start 03/10/19 at 19:30 Famotidine (Pepcid) 20 mg DAILY PO Last administered on 03/14/19 09:32; Admin Dose 20 MG; Start 03/10/19 at 21:00 Ipratropium [place] (Atrovent Hfa) 2 puff Q4H RESP THERAPY INH Last administered on 03/14/19 13:17; Admin Dose 2 PUFF; Start 03/10/19 at 21:00 Nystatin (Nystatin Powder) 1 applic BID TOP Last administered on 03/14/19 09:30; Admin Dose 1 APPLIC; Start 03/11/19 at 11:00 Heparin Sodium (Porcine) (Heparin (1000 Units/ml)) 4,100 unit AFTER DIALYSIS CATHETER Last administered on 03/13/19 20:57; Admin Dose 4,100 UNIT; Start 03/11/19 at 19:00 FREDO MENDOSA March 14, 2019 17:18
[2019-03-14] MEDS: WARFARIN 2.5 MG TAB PO SCH (17:27)
[2019-03-14] MEDS: WARFARIN 1 MG TAB PO SCH (17:27)
[2019-03-15] VITALS (37 sets, daily range): BP systolic 119–146; BP diastolic 51–90; PULSE 64–84; RESP 16–38
[2019-03-15] MEDS: IPRATROPIUM (HFA) 12.9 GM INHALER INH SCH ×7 (00:02→21:00)
[2019-03-15] MEDS: LEVOTHYROXINE 175 MCG TAB PO SCH (06:22)
[2019-03-15] MEDS: FUROSEMIDE 40 MG TAB PO SCH (08:53)
[2019-03-15] MEDS: DOCUSATE SODIUM 100 MG CAP PO SCH (08:53)
[2019-03-15] MEDS: SEVELAMER CARBONATE 0.8 GM PKT PO SCH ×3 (08:53→17:44)
[2019-03-15] MEDS: CALCIUM CARBONATE 1.25 GM TAB PO SCH (08:54)
[2019-03-15] MEDS: BISACODYL 10 MG SUPP PR SCH (08:54)
[2019-03-15] MEDS: METOPROLOL 25 MG TAB PO SCH ×3 (08:54→21:25)
[2019-03-15] MEDS: FAMOTIDINE 20 MG TAB PO SCH (08:54)
[2019-03-15] MEDS: NYSTATIN 30 GM POWDER BTL TOP SCH ×2 (08:55→21:25)
--- NOTE | 2019-03-15 09:01 | PN ---
DATE: 03/15/2019 SUBJECTIVE: The patient is stable. No events overnight. OBJECTIVE: VITAL SIGNS: Blood pressure is 121/58, respirations 16, pulse 74, temperature 98.6. HEENT: Head is normocephalic. NECK: Supple. HEART: Regular rate. LUNGS: Show diminished breath sounds at the base. ABDOMEN: Soft, nontender to palpation without rebound or guarding. EXTREMITIES: Negative for clubbing, cyanosis, no edema. DERMATOLOGIC: No rashes. MUSCULOSKELETAL: No joint effusion. NEUROLOGIC: No change in exam. MEDICATIONS: Reviewed. LABORATORY DATA: Reviewed. ASSESSMENT AND PLAN: 1. End-stage renal disease. Plan is for hemodialysis today. We will dialyze 3 hours 3k bath, rodrigo um 2.5. 2. Access. The patient has Perm-A-Cath appropriately working. Continue to monitor. 3. Anemia. Continue to monitor hemoglobin and hematocrit levels. Continue Epogen as needed. 4. Mineral bone disorder. Monitor calcium and phosphorus levels. 5. Ventilator-dependent respiratory failure. Vent settings have been reviewed. Continue to monitor . 6. Hypertension. Continue current blood pressure regimen. 7. Mechanical heart valve. Continue Coumadin, monitor INR. 8. Hypothyroidism. Continue Synthroid. 9. Arrhythmia. Continue to monitor. Dictated By: ELA ROBINS DO NR/NTS Conf#: [id number] DID#: [id number] CC: ELA ROBINS DO; KOSTAS CRESPO MD;*EndCC*
--- NOTE | 2019-03-15 14:27 | CONS ---
Consult Date/Type/Reason Admit Date/Time March 13, 2019 at 10:21 Initial Consult Date Requesting Provider: KOSTAS CRESPO MD Date/Time of Note DATE: 03/15/19 TIME: 14:26 Subjective NO acute events - pt comfortable - on HD now - denies CP. ROS: No fever, no chills, no nausea, no vomiting, no diarrhea/constipation No recent weight changes No chest pain, no PND, no orthopnea No dizziness, blurred vision No thirst, no heat or cold intolerance Objective Vitals Vital Signs Date Temp Pulse Resp B/P (MAP) Pulse Ox O2 O2 Flow FiO2 Time Delivery Rate 03/15/19 76 12:01 03/15/19 98.4 18 133/60 100 11:30 (84) 03/15/19 30 11:25 03/15/19 Mechanical 05:00 Ventilator Intake and Output 03/14/19 03/14/19 03/15/19 1515:00 23:00 07:00 IntakeIntake Total 480 ml 300 ml BalanceBalance 480 ml 300 ml Exam General: WN/WD/NAD, AOx 3 HEENT: Unicetric/atraumatic/EOMI (follows commands) NECK: trach Lymph: no lymphadenopathy HEART: regular with no S3, II/ systolic murmur at apex LUNGS: Coarse sounds ABD: soft, NT, ND, +BS : Intact Neuro: non focal SKIN: chronic changes EXT: trace edema Results/Medications Result Diagram: 03/13/19 0507 03/13/19 0507 Results 24 hrs Laboratory Tests Test 03/15/19 09:26 Prothrombin Time 19.9 H Prothrombin Time Ratio 1.6 INR International Normalized Ratio 1.68 Home Meds Reported Medications Ascorbic Acid (Vitamin C) 250 Mg Tab, 250 MG PO BID, TAB 03/10/19 Guaifenesin* (Robitussin*) 100 Mg/5 Ml Syrup, 100 MG PO Q6H PRN for COUGH, ML 03/10/19 Sevelamer Carbonate* (Renvela*) 0.8 Gm Powd.pack, 1.6 GM PO WITH MEALS, PACKET 03/10/19 Amino Acids/Protein Hydrolys (PRO-STAT LIQUID) 30 Ml Liquid.pkt, 30 ML PO BID SUGAR FREE 03/10/19 Midodrine* (Midodrine*) 5 Mg Tablet, 5 MG PO Q8H PRN for HOLD FOR SBP>110, TAB 03/10/19 Metoprolol Tartrate* (Lopressor*) 25 Mg Tab, 25 MG PO TID, #60 TAB HOLD IF SBP<110 OR HR<60 03/10/19 Lidocaine (Lidocaine) 15 Gm Cream..g., 15 GM TP QID for TRACH SITE PAIN 03/10/19 Lidocaine (Lidocaine) 1 Each Adh..patch, 1 EACH TP Q8H PRN for FOR RIGHT SHOULDER 03/10/19 Levothyroxine Sodium* (Levothyroxine Sodium*) 175 Mcg Tablet, 175 MCG PO BEFORE BREAKFAST, #30 TAB 03/10/19 Ipratropium [place]* (Atrovent HFA*) 12.9 Gm Aer.w.adap, 2 PUFF INHALATION Q4H for SHORTNESS OF BREATH, #1 INHALER 03/10/19 Furosemide* (Furosemide*) 40 Mg Tablet, 40 MG PO DAILY, TAB HOLD IF SBP<110 OR HR<60 03/10/19 Docusate Sodium* (Colace*) 100 Mg Capsule, 100 MG PO DAILY, #30 CAP 03/10/19 Cyclobenzaprine Hcl* (Cyclobenzaprine Hcl*) 5 Mg Tablet, 5 MG PO NEEDED, #60 TAB 03/10/19 Warfarin Sodium* (Coumadin*) 4 Mg Tablet, 4 MG PO Q TUE,CHRISTEL,SAT,SUN, TAB 03/10/19 Warfarin Sodium* (Coumadin*) 2.5 Mg Tablet, 2.5 MG PO Q MON,WED,FRI, TAB 03/10/19 Warfarin Sodium* (Coumadin*) 1 Mg Tablet, 1 MG PO Q MON,WED,FRI, TAB 03/10/19 Calcium Carbonate (Calcium Carbonate) 500 Mg Tab.chew, 500 MG PO DAILY, TAB.CHEW 03/10/19 Bisacodyl (Dulcolax) 10 Mg Supp.rect, 10 MG RC DAILY, SUPP.RECT 03/10/19 Diphenhydramine Hcl* (Diphenhydramine Hcl*) 25 Mg Capsule, 25 MG PO DAILY PRN for ITCHING, CAP EVERY TUE,CHRISTEL,SAT 03/10/19 Acetaminophen* (Acetaminophen* Susp) 160 Mg/5 Ml Oral.susp, 20 ML PO Q6H PRN for FOR FEVER 100.4, ML 03/10/19 Acetaminophen* (Acetaminophen* Susp) 160 Mg/5 Ml Oral.susp, 20 ML PO Q4H PRN for FOR PAIN, ML 03/10/19 Medications Current Medications Acetaminophen (Tylenol Liquid (Ped)) 640 mg Q4H PRN PO FOR PAIN; Start 03/10/19 at 19:30 Bisacodyl (Dulcolax Supp) 10 mg DAILY [place] Last administered on 03/14/19at 09:31; Admin Dose 10 MG; Start 03/11/19 at 09:00 Diphenhydramine HCl (Benadryl) 25 mg DAILY PRN PO ITCHING; Start 03/10/19 at 19:30 Docusate Sodium (Colace) 100 mg DAILY PO Last administered on 03/15/19at 08:53; Admin Dose 100 MG; Start 03/11/19 at 09:00 Furosemide (Lasix) 40 mg DAILY PO Last administered on 03/15/19at 08:53; Admin Dose 40 MG; Start 03/11/19 at 09:00 Guaifenesin (Robitussin Liquid Cup) 100 mg Q6H PRN PO COUGH; Start 03/10/19 at 19:30 Levothyroxine Sodium (Synthroid) 175 mcg BEFORE BREAKFAST PO Last administered on 03/15/19at 06:22; Admin Dose 175 MCG; Start 03/11/19 at 07:00 Lidocaine (Lidoderm) 1 patch Q8H PRN TD FOR RIGHT SHOULDER; Start 03/10/19 at 19:30 Metoprolol Tartrate (Lopressor) 25 mg TID PO Last administered on 03/15/19at 08:54; Admin Dose 25 MG; Start 03/10/19 at 21:00 Midodrine (Proamatine) 5 mg Q8H PRN PO HOLD FOR SBP>110; Start 03/10/19 at 19:30 Sevelamer Carbonate (Renvela) 1.6 gm WITH MEALS PO Last administered on 03/15/19at 13:10; Admin Dose 1.6 GM; Start 03/11/19 at 08:00 Warfarin Sodium (Coumadin) 1 mg MoWeFr@1700 PO Last administered on 03/14/19at 17:27; Admin Dose 1 MG; Start 03/11/19 at 17:00 Warfarin Sodium (Coumadin) 2.5 mg MoWeFr@1700 PO Last administered on 03/14/19 17:27; Admin Dose 2.5 MG; Start 03/11/19 at 17:00 Warfarin Sodium (Coumadin) 4 mg SuTuThSa@1700 PO Last administered on 03/13/19 21:26; Admin Dose 4 MG; Start 03/10/19 at 20:00 Calcium Carbonate (Oyster Shell Calcium) 1.25 gm DAILY PO Last administered on 03/15/19 08:54; Admin Dose 1.25 GM; Start 03/11/19 at 09:00 IV Flush (NS 3 ml) 3 ml PER PROTOCOL IV ; Start 03/10/19 at 19:30 Ondansetron HCl (Zofran Inj) 4 mg Q6H PRN IV NAUSEA/VOMITING; Start 03/10/19 at 19:30 Famotidine (Pepcid) 20 mg DAILY PO Last administered on 03/15/19 08:54; Admin Dose 20 MG; Start 03/10/19 at 21:00 Ipratropium [place] (Atrovent Hfa) 2 puff Q4H RESP THERAPY INH Last ad ministered on 03/15/19 13:50; Admin Dose 2 PUFF; Start 03/10/19 at 21:00 Nystatin (Nystatin Powder) 1 applic BID TOP Last administered on 03/15/19 08:55; Admin Dose 1 APPLIC; Start 03/11/19 at 11:00 Heparin Sodium (Porcine) (Heparin (1000 Units/ml)) 4,100 unit AFTER DIALYSIS CATHETER Last administered on 03/13/19 20:57; Admin Dose 4,100 UNIT; Start 03/11/19 at 19:00 Assessment/Plan Hospital Course (Demo Recall) 1. Status post aortic valve replacement, mechanical, on Coumadin, therapeutic levels - will monitor clinically, stable by exam. H/H stable - no bleeding - rate controlled Stable by exam. 2. Abnormal electrocardiogram with inferior and anterior lateral Q's. Assess for acute coronary syndrome. R/O Mi - doubt ischemia. 3. Hypertension, mildly elevated- treated, Rx as needed with renal team. In good range now 4. Dyslipidemia. 5. Chronic respiratory failure, status post tracheostomy - good o2 sat. 6. End-stage renal disease on hemodialysis - Rx per renal team. Initiating on peritoneal D planned - now on HD goal 1-2L out. 7. Hypothyroidism. 8. Anemia Hct 33 1 stable. DERIK HERNANDEZ MD March 15, 2019 14:27
[2019-03-15] MEDS: WARFARIN 2 MG TAB PO SCH (17:37)
[2019-03-15] MEDS: BALSAM PERU/CASTOR OIL 60 GM TUBE TOP SCH ×2 (17:38→21:25)
[2019-03-15] MEDS: HEPARIN 1000 UNITS/ML 10 ML INJ CATHETER SCH (17:49)
--- NOTE | 2019-03-15 18:04 | PN ---
Date/Time of Note Date/Time of Note DATE: 03/15/19 TIME: 17:58 Assessment/Plan VTE Prophylaxis Risk score (from Ns)>0 risk: 6 SCD applied (from Ns): Yes Pharmacological prophylaxis: warfarin tx Lines/Catheters IV Catheter Type (from Nrs): Saline Lock Urinary Cath still in place: No Assessment/Plan Hospital Course No acute events overnight, patient is awake alert, continues on vent without distress. Continue ventilator setting from snf facility patient has CPAP at night and cool aerosol mist during the day, discussed with RT. Jennifering Mya hernadez. Assessment/Plan -Permacath malfunction. Patient is able to undergo hemodialysis through permaca th. Dr. Lott is following patient in nephrology consultation. Patient is asking to transition to peritoneal dialysis. Dr. Stallings is asked to see patient in general surgery consultation for possible evaluation for permacath placement. -Hemodialysis dependent end-stage renal disease -Ventilator dependent respiratory failure. Continue vent support. -Hypertension -Status post mechanical aortic valve replacement, continue Coumadin. -Hypothyroidism, continue levothyroxine Further recommendations based on clinical course. Plan of care discussed with Dr. Balbuena. Result Diagram: 03/13/19 0507 03/13/19 0507 Results 24hrs Laboratory Tests Test 03/15/19 09:26 Prothrombin Time 19.9 H Prothrombin Time Ratio 1.6 INR International Normalized Ratio 1.68 Exam/Review of Systems Exam Vitals Vital Signs Date Temp Pulse Resp B/P (MAP) Pulse Ox O2 O2 Flow FiO2 Time Delivery Rate 03/15/19 72 16:30 03/15/19 97.6 17 139/56 100 15:47 (83) 03/15/19 30 15:29 03/15/19 Mechanical 13:25 Ventilator Intake and Output 03/14/19 03/14/19 03/15/19 1515:00 23:00 07:00 IntakeIntake Total 480 ml 300 ml BalanceBalance 480 ml 300 ml Exam Constitutional: alert, oriented Neck: supple, other (Tracheostomy) Respiratory: clear to auscultation Cardiovascular: regular rate and rhythm Gastrointestinal: soft, non-tender Musculoskeletal: nl extremities to inspection Extremities: normal pulses Neurological: nl mental status Results Results 24hrs Laboratory Tests Test 03/15/19 09:26 Prothrombin Time 19.9 H Prothrombin Time Ratio 1.6 INR International Normalized Ratio 1.68 Medications Medication Current Medications Acetaminophen (Tylenol Liquid (Ped)) 640 mg Q4H PRN PO FOR PAIN; Start 03/10/19 at 19:30 Bisacodyl (Dulcolax Supp) 10 mg DAILY [place] Last administered on 03/14/19at 09:31; Admin Dose 10 MG; Start 03/11/19 at 09:00 Diphenhydramine HCl (Benadryl) 25 mg DAILY PRN PO ITCHING; Start 03/10/19 at 19:30 Docusate Sodium (Colace) 100 mg DAILY PO Last administered on 03/15/19 08:53; Admin Dose 100 MG; Start 03/11/19 at 09:00 Furosemide (Lasix) 40 mg DAILY PO Last administered on 03/15/19 08:53; Admin Dose 40 MG; Start 03/11/19 at 09:00 Guaifenesin (Robitussin Liquid Cup) 100 mg Q6H PRN PO COUGH; Start 03/10/19 at 19:30 Levothyroxine Sodium (Synthroid) 175 mcg BEFORE BREAKFAST PO Last administered on 03/15/19at 06:22; Admin Dose 175 MCG; Start 03/11/19 at 07:00 Lidocaine (Lidoderm) 1 patch Q8H PRN TD FOR RIGHT SHOULDER; Start 03/10/19 at 19:30 Metoprolol Tartrate (Lopressor) 25 mg TID PO Last administered on 03/15/19at 08:54; Admin Dose 25 MG; Start 03/10/19 at 21:00 Midodrine (Proamatine) 5 mg Q8H PRN PO HOLD FOR SBP>110; Start 03/10/19 at 19:30 Sevelamer Carbonate (Renvela) 1.6 gm WITH MEALS PO Last administered on 03/15/19at 17:44; Admin Dose 1.6 GM; Start 03/11/19 at 08:00 Warfarin Sodium (Coumadin) 1 mg MoWeFr@1700 PO Last administered on 03/14/19 17:27; Admin Dose 1 MG; Start 03/11/19 at 17:00 Warfarin Sodium (Coumadin) 2.5 mg MoWeFr@1700 PO Last administered on 03/14/19at 17:27; Admin Dose 2.5 MG; Start 03/11/19 at 17:00 Warfarin Sodium (Coumadin) 4 mg SuTuThSa@1700 PO Last administered on 03/15/19 17:37; Admin Dose 4 MG; Start 03/10/19 at 20:00 Calcium Carbonate (Oyster Shell Calcium) 1.25 gm DAILY PO Last administered on 03/15/19 08:54; Admin Dose 1.25 GM; Start 03/11/19 at 09:00 IV Flush (NS 3 ml) 3 ml PER PROTOCOL IV ; Start 03/10/19 at 19:30 Ondansetron HCl (Zofran Inj) 4 mg Q6H PRN IV NAUSEA/VOMITING; Start 03/10/19 at 19:30 Famotidine (Pepcid) 20 mg DAILY PO Last administered on 03/15/19 08:54; Admin Dose 20 MG; Start 03/10/19 at 21:00 Ipratropium [place] (Atrovent Hfa) 2 puff Q4H RESP THERAPY INH Last administered on 03/15/19 17:38; Admin Dose 2 PUFF; Start 03/10/19 at 21:00 Nystatin (Nystatin Powder) 1 applic BID TOP Last administered on 03/15/19 08:55; Admin Dose 1 APPLIC; Start 03/11/19 at 11:00 Heparin Sodium (Porcine) (Heparin (1000 Units/ml)) 4,100 unit AFTER DIALYSIS CATHETER Last administered on 03/15/19 17:49; Admin Dose 4,100 UNIT; Start 03/11/19 at 19:00 FREDO MENDOSA March 15, 2019 18:04
[2019-03-15] MEDS ORDERED: WARFARIN 1 MG TAB PO SCH (21:30)
[2019-03-16] VITALS (19 sets, daily range): BP systolic 109–145; BP diastolic 50–65; PULSE 71–85; RESP 16–28
[2019-03-16] MEDS: IPRATROPIUM (HFA) 12.9 GM INHALER INH SCH ×6 (00:30→20:49)
[2019-03-16] MEDS: LEVOTHYROXINE 175 MCG TAB PO SCH (07:00)
[2019-03-16] MEDS: METOPROLOL 25 MG TAB PO SCH ×3 (08:43→21:20)
[2019-03-16] MEDS: FUROSEMIDE 40 MG TAB PO SCH (08:43)
[2019-03-16] MEDS: BISACODYL 10 MG SUPP PR SCH (08:44)
[2019-03-16] MEDS: SEVELAMER CARBONATE 0.8 GM PKT PO SCH ×3 (08:44→17:54)
[2019-03-16] MEDS: FAMOTIDINE 20 MG TAB PO SCH (08:44)
[2019-03-16] MEDS: DOCUSATE SODIUM 100 MG CAP PO SCH (08:44)
[2019-03-16] MEDS: CALCIUM CARBONATE 1.25 GM TAB PO SCH (08:44)
[2019-03-16] MEDS: NYSTATIN 30 GM POWDER BTL TOP SCH ×2 (08:45→21:00)
[2019-03-16] MEDS: BALSAM PERU/CASTOR OIL 60 GM TUBE TOP SCH ×2 (08:46→21:00)
--- NOTE | 2019-03-16 08:58 | PN ---
DATE: 03/16/2019 SUBJECTIVE: The patient had hemodialysis yesterday, tolerated well. No other events noted. OBJECTIVE: VITAL SIGNS: Blood pressure is 126/59, pulse 80, respirations 16, temperature 98.1. HEENT: Head is normocephalic. NECK: Supple. HEART: Regular rate. LUNGS: Show diminished breath sounds at the base. ABDOMEN: Soft, nontender to palpation without rebound or guarding. EXTREMITIES: Negative for clubbing, cyanosis, no edema. DERMATOLOGIC: No rashes. MUSCULOSKELETAL: No joint effusion. NEUROLOGIC: No change in exam. MEDICATIONS: Reviewed. LABORATORY DATA: Reviewed. ASSESSMENT AND PLAN: 1. End-stage renal disease. The patient had hemodialysis yesterday, tolerated well. Plan is for di alysis again tomorrow. 2. Access. The patient has Perm-A-Cath. A general surgical consult was placed to see if the patien t is a candidate for peritoneal catheter. 3. Anemia. Monitor hemoglobin and hematocrit levels. We will give Epogen as needed. 4. Mineral bone disorder, monitor calcium and phosphorus levels. 5. Ventilator-dependent respiratory failure. Vent settings have been reviewed. Continue to monitor . 6. Hypertension. Continue current blood pressure regimen. 7. Mechanical heart valve. Continue Coumadin, monitor INR. 8. Hypothyroidism. Continue Synthroid. 9. Arrhythmia. Continue to monitor. Dictated By: ELA ROBINS DO NR/NTS Conf#: [id number] DID#: [id number] CC: ELA ROBINS DO; KOSTAS CRESPO MD;*EndCC*
--- NOTE | 2019-03-16 10:49 | CONS ---
Assessment/Plan Assessment/Plan Assessment/Plan (Daily) Chest x-ray showing elevation of right hemidiaphragm with interstitial changes bilaterally. Ventilator setting; patient is on pressure control mode of ventilation, assist control of 16, 30% FiO2. Assessment and recommendations; 1. Patient admitted for hemodialysis catheter malfunction status post replacement. 2. Chronic respiratory failure, partially vent dependent nocturnally on BiPAP mode. 3. Multiple other comorbidities including history of prior aortic valve replacement, anemia, hypertension, chronic renal failure which is dialysis dependent. Continue current supportive care. Patient to be given a T-piece trial in daytime which she has been tolerating at detention prior to presentation quite well in the daytime with nocturnal BiPAP support. Consultation Date/Type/Reason Admit Date/Time March 13, 2019 at 10:21 Date of Consultation: March 16, 2019 Type of Consult Pulmonary Pulmonary consult requested for evaluation of chronic respiratory failure. Patient admitted for hemodialysis catheter malfunction. Which has since been replaced. Patient is a pleasant 63-year-old lady who was transferred to the hospital because of malfunctioning hemodialysis catheter placement the patient does have history of chronic respiratory failure which is partially ventilator dependent. By the time I saw the patient in the room, patient was sitting in her bed and was completely awake and alert. Was able to give a meaningful history by herself. Patient currently denies any shortness of breath, chest pain, coug celina, wheezing, any fever or chills. Past medical history; 1. History of chronic renal failure, on hemodialysis. 2. Possibly underlying pulmonary fibrosis. 3. Anemia. 4. CHF. 5. Hypertension. 6. Kyphoscoliosis. 7. History of mechanical aortic valve replacement. Medications; reviewed. Allergies; as outlined above. Social history; patient never smoked. Family history; she is , has a supportive . 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 Review of systems; denies any headache, visual changes, sinus symptoms. Any chest pain, wheezing, cough, sputum production or shortness of breath at rest. Denies any abdominal pain, nausea vomiting. Patient is able to eat. Denies any melena hematochezia. Any edema. General exam; elderly female, awake alert, on ventilator via tracheostomy, awake and alert. Currently in no distress. Allergies; Date/Time of Note DATE: 03/16/19 TIME: 10:44 Past Medical History Medical History: hypertension, hypothyroid, renal disease, other (Mechanical aortic valve) Home Meds Reported Medications Ascorbic Acid (Vitamin C) 250 Mg Tab, 250 MG PO BID, TAB 03/10/19 Guaifenesin* (Robitussin*) 100 Mg/5 Ml Syrup, 100 MG PO Q6H PRN for COUGH, ML 03/10/19 Sevelamer Carbonate* (Renvela*) 0.8 Gm Powd.pack, 1.6 GM PO WITH MEALS, PACKET 03/10/19 Amino Acids/Protein Hydrolys (PRO-STAT LIQUID) 30 Ml Liquid.pkt, 30 ML PO BID SUGAR FREE 03/10/19 Midodrine* (Midodrine*) 5 Mg Tablet, 5 MG PO Q8H PRN for HOLD FOR SBP>110, TAB 03/10/19 Metoprolol Tartrate* (Lopressor*) 25 Mg Tab, 25 MG PO TID, #60 TAB HOLD IF SBP<110 OR HR<60 03/10/19 Lidocaine (Lidocaine) 15 Gm Cream..g., 15 GM TP QID for TRACH SITE PAIN 03/10/19 Lidocaine (Lidocaine) 1 Each Adh..patch, 1 EACH TP Q8H PRN for FOR RIGHT SHOULDER 03/10/19 Levothyroxine Sodium* (Levothyroxine Sodium*) 175 Mcg Tablet, 175 MCG PO BEFORE BREAKFAST, #30 TAB 03/10/19 Ipratropium [place]* (Atrovent HFA*) 12.9 Gm Aer.w.adap, 2 PUFF INHALATION Q4H for SHORTNESS OF BREATH, #1 INHALER 03/10/19 Furosemide* (Furosemide*) 40 Mg Tablet, 40 MG PO DAILY, TAB HOLD IF SBP<110 OR HR<60 03/10/19 Docusate Sodium* (Colace*) 100 Mg Capsule, 100 MG PO DAILY, #30 CAP 03/10/19 Cyclobenzaprine Hcl* (Cyclobenzaprine Hcl*) 5 Mg Tablet, 5 MG PO NEEDED, #60 TAB 03/10/19 Warfarin Sodium* (Coumadin*) 4 Mg Tablet, 4 MG PO Q TUE,CHRSITEL,SAT,SUN, TAB 03/10/19 Warfarin Sodium* (Coumadin*) 2.5 Mg Tablet, 2.5 MG PO Q MON,WED,FRI, TAB 03/10/19 Warfarin Sodium* (Coumadin*) 1 Mg Tablet, 1 MG PO Q MON,WED,FRI, TAB 03/10/19 Calcium Carbonate (Calcium Carbonate) 500 Mg Tab.chew, 500 MG PO DAILY, TAB.CHEW 03/10/19 Bisacodyl (Dulcolax) 10 Mg Supp.rect, 10 MG RC DAILY, SUPP.RECT 03/10/19 Diphenhydramine Hcl* (Diphenhydramine Hcl*) 25 Mg Capsule, 25 MG PO DAILY PRN f or ITCHING, CAP EVERY THU,CHRISTEL,SAT 03/10/19 Acetaminophen* (Acetaminophen* Susp) 160 Mg/5 Ml Oral.susp, 20 ML PO Q6H PRN for FOR FEVER 100.4, ML 03/10/19 Acetaminophen* (Acetaminophen* Susp) 160 Mg/5 Ml Oral.susp, 20 ML PO Q4H PRN for FOR PAIN, ML 03/10/19 Medications Current Medications Acetaminophen (Tylenol Liquid (Ped)) 640 mg Q4H PRN PO FOR PAIN; Start 03/10/19 at 19:30 Bisacodyl (Dulcolax Supp) 10 mg DAILY [place] Last administered on 03/14/19at 09:31; Admin Dose 10 MG; Start 03/11/19 at 09:00 Diphenhydramine HCl (Benadryl) 25 mg DAILY PRN PO ITCHING; Start 03/10/19 at 19:30 Docusate Sodium (Colace) 100 mg DAILY PO Last administered on 03/16/19at 08:44; Admin Dose 100 MG; Start 03/11/19 at 09:00 Furosemide (Lasix) 40 mg DAILY PO Last administered on 03/16/19at 08:43; Admin Dose 40 MG; Start 03/11/19 at 09:00 Guaifenesin (Robitussin Liquid Cup) 100 mg Q6H PRN PO COUGH; Start 03/10/19 at 19:30 Levothyroxine Sodium (Synthroid) 175 mcg BEFORE BREAKFAST PO Last administered on 03/15/19at 06:22; Admin Dose 175 MCG; Start 03/11/19 at 07:00 Lidocaine (Lidoderm) 1 patch Q8H PRN TD FOR RIGHT SHOULDER; Start 03/10/19 at 19:30 Metoprolol Tartrate (Lopressor) 25 mg TID PO Last administered on 03/16/19at 08:43; Admin Dose 25 MG; Start 03/10/19 at 21:00 Midodrine (Proamatine) 5 mg Q8H PRN PO HOLD FOR SBP>110; Start 03/10/19 at 19:30 Sevelamer Carbonate (Renvela) 1.6 gm WITH MEALS PO Last administered on 03/16/19 08:44; Admin Dose 1.6 GM; Start 03/11/19 at 08:00 Warfarin Sodium (Coumadin) 1 mg MoWeFr@1700 PO Last administered on 03/14/19 17:27; Admin Dose 1 MG; Start 03/11/19 at 17:00 Warfarin Sodium (Coumadin) 2.5 mg MoWeFr@1700 PO Last administered on 03/14/19 17:27; Admin Dose 2.5 MG; Start 03/11/19 at 17:00 Warfarin Sodium (Coumadin) 4 mg SuTuThSa@1700 PO Last administered on 03/15/19 17:37; Admin Dose 4 MG; Start 03/10/19 at 20:00 Calcium Carbonate (Oyster Shell Calcium) 1.25 gm DAILY PO Last administered on 03/16/19 08:44; Admin Dose 1.25 GM; Start 03/11/19 at 09:00 IV Flush (NS 3 ml) 3 ml PER PROTOCOL IV ; Start 03/10/19 at 19:30 Ondansetron HCl (Zofran Inj) 4 mg Q6H PRN IV NAUSEA/VOMITING; Start 03/10/19 at 19:30 Famotidine (Pepcid) 20 mg DAILY PO Last administered on 03/16/19 08:44; Admin Dose 20 MG; Start 03/10/19 at 21:00 Ipratropium [place] (Atrovent Hfa) 2 puff Q4H RESP THERAPY INH Last administered on 03/16/19 09:19; Admin Dose 2 PUFF; Start 03/10/19 at 21:00 Nystatin (Nystatin Powder) 1 applic BID TOP Last administered on 03/16/19 08:45; Admin Dose 1 APPLIC; Start 03/11/19 at 11:00 Heparin Sodium (Porcine) (Heparin (1000 Units/ml)) 4,100 unit AFTER DIALYSIS CATHETER Last administered on 03/15/19 17:49; Admin Dose 4,100 UNIT; Start 03/11/19 at 19:00 Allergies: Coded Allergies: Penicillins (Verified Allergy, Unknown, 03/10/19) adhesive tape (Unverified Allergy, Unknown, 03/10/19) chlorhexidine (Unverified Allergy, Unknown, 03/10/19) hydromorphone (Unverified Allergy, Unknown, 03/10/19) olanzapine (Unverified Allergy, Unknown, 03/10/19) Past Surgical History Past Surgical Hx: other (Status post mechanical aortic valve replacement, status post ascending aneurysm repair, status post tracheostomy) Social History Alcohol Use: none Smoking Status: Never smoker Drug Use: none Exam/Review of Systems Exam Vitals Vital Signs Date Temp Pulse Resp B/P (MAP) Pulse Ox O2 O2 Flow FiO2 Time Delivery Rate 03/16/19 100 10.0 40 09:39 03/16/19 73 28 09:19 03/16/19 98.1 126/59 07:51 (81) 03/16/19 Mechanical 05:51 Ventilator Intake and Output 03/15/19 03/15/19 03/16/19 1515:00 23:00 07:00 IntakeIntake Total 800 ml 250 ml OutputOutput Total 200 ml 2400 ml BalanceBalance -200 ml -1600 ml 250 ml Exam HEENT exam; supple neck, no JVD. No lymphadenopathy. Midline trachea. No thyromegaly. Patient has fair dentition. Tracheostomy in place. Insertion site is clean. No neck masses. Chest exam; diminished breath sounds bilaterally. S1-S2 audible, no murmurs. There is a well-healed sternal scar. Abdomen exam; soft, no organomegaly. There is a well-healed epigastric scar. Bowel sounds are audible. Extremity exam; no peripheral edema clubbing. MEDICAL CLAIMS MANAGER exam; no focal deficit. Results Result Diagram: 03/13/19 0507 03/13/19 0507 Medications Medication Current Medications Acetaminophen (Tylenol Liquid (Ped)) 640 mg Q4H PRN PO FOR PAIN; Start 03/10/19 at 19:30 Bisacodyl (Dulcolax Supp) 10 mg DAILY [place] Last administered on 03/14/19at 09:31; Admin Dose 10 MG; Start 03/11/19 at 09:00 Diphenhydramine HCl (Benadryl) 25 mg DAILY PRN PO ITCHING; Start 03/10/19 at 19:30 Docusate Sodium (Colace) 100 mg DAILY PO Last administered on 03/16/19 08:44; Admin Dose 100 MG; Start 03/11/19 at 09:00 Furosemide (Lasix) 40 mg DAILY PO Last administered on 03/16/19 08:43; Admin Dose 40 MG; Start 03/11/19 at 09:00 Guaifenesin (Robitussin Liquid Cup) 100 mg Q6H PRN PO COUGH; Start 03/10/19 at 19:30 Levothyroxine Sodium (Synthroid) 175 mcg BEFORE BREAKFAST PO Last administered on 03/15/19 06:22; Admin Dose 175 MCG; Start 03/11/19 at 07:00 Lidocaine (Lidoderm) 1 patch Q8H PRN TD FOR RIGHT SHOULDER; Start 03/10/19 at 19:30 Metoprolol Tartrate (Lopressor) 25 mg TID PO Last administered on 03/16/19 08:43; Admin Dose 25 MG; Start 03/10/19 at 21:00 Midodrine (Proamatine) 5 mg Q8H PRN PO HOLD FOR SBP>110; Start 03/10/19 at 19:30 Sevelamer Carbonate (Renvela) 1.6 gm WITH MEALS PO Last administered on 03/16/19 08:44; Admin Dose 1.6 GM; Start 03/11/19 at 08:00 Warfarin Sodium (Coumadin) 1 mg MoWeFr@1700 PO Last administered on 03/14/19 17:27; Admin Dose 1 MG; Start 03/11/19 at 17:00 Warfarin Sodium (Coumadin) 2.5 mg MoWeFr@1700 PO Last administered on 03/14/19 17:27; Admin Dose 2.5 MG; Start 03/11/19 at 17:00 Warfarin Sodium (Coumadin) 4 mg SuTuThSa@1700 PO Last administered on 03/15/19 17:37; Admin Dose 4 MG; Start 03/10/19 at 20:00 Calcium Carbonate (Oyster Shell Calcium) 1.25 gm DAILY PO Last administered on 03/16/19 08:44; Admin Dose 1.25 GM; Start 03/11/19 at 09:00 IV Flush (NS 3 ml) 3 ml PER PROTOCOL IV ; Start 03/10/19 at 19:30 Ondansetron HCl (Zofran Inj) 4 mg Q6H PRN IV NAUSEA/VOMITING; Start 03/10/19 at 19:30 Famotidine (Pepcid) 20 mg DAILY PO Last administered on 03/16/19 08:44; Admin Dose 20 MG; Start 03/10/19 at 21:00 Ipratropium [place] (Atrovent Hfa) 2 puff Q4H RESP THERAPY INH Last administered on 03/16/19 09:19; Admin Dose 2 PUFF; Start 03/10/19 at 21:00 Nystatin (Nystatin Powder) 1 applic BID TOP Last administered on 03/16/19 08:45; Admin Dose 1 APPLIC; Start 03/11/19 at 11:00 Heparin Sodium (Porcine) (Heparin (1000 Units/ml)) 4,100 unit AFTER DIALYSIS CATHETER Last administered on 03/15/19at 17:49; Admin Dose 4,100 UNIT; Start 03/11/19 at 19:00 LADONNA WALSH March 16, 2019 10:49
--- NOTE | 2019-03-16 11:25 | CONS ---
Assessment/Plan Assessment/Plan Hospital Course (Demo Recall) IMPRESSION: 1. Status post aortic valve replacement, mechanical, on Coumadin, currently mildly subtherapeutic levels. 2. Abnormal electrocardiogram with inferior and anterior lateral Q's. Assess for acute coronary syndrome.-neg trop x 3/NL EF by echo 3. Hypertension, mildly elevated. 4. Dyslipidemia. 5. Chronic respiratory failure, status post tracheostomy. 6. End-stage renal disease on hemodialysis. 7. Hypothyroidism. 8. Anemia. Recc: -Tele -continue coumadin with slight adjustment and f/u INR -Continue BB -Continue lasix plus HD for volume removal -Continue synthroid Consultation Date/Type/Reason Admit Date/Time March 13, 2019 at 10:21 Initial Consult Date 03/11/19 Type of Consult Cardiology Reason for Consultation s/p AVR Requesting Provider: KOSTAS CRESPO MD Date/Time of Note DATE: 03/16/19 TIME: 11:22 Exam/Review of Systems Vital Signs Vitals Vital Signs Date Temp Pulse Resp B/P (MAP) Pulse Ox O2 O2 Flow FiO2 Time Delivery Rate 03/16/19 98 8.0 35 11:15 03/16/19 67 16 Aerosol 11:15 T Tube 03/16/19 98.1 126/59 07:51 (81) Intake and Output 03/15/19 03/15/19 03/16/19 1515:00 23:00 07:00 IntakeIntake Total 800 ml 250 ml OutputOutput Total 200 ml 2400 ml BalanceBalance -200 ml -1600 ml 250 ml Exam Exam Review of Systems: CONSTITUTIONAL: No fevers, chills. PULMONARY: trached CARDIOVASCULAR: No chest pain/palpitations GASTROINTESTINAL: No nausea/vomiting. GENITOURINARY: No hematuria/dysuria. MUSCULOSKELETAL: No myagias/arthalgias. PSYCHIATRIC: The patient denies depression. NEUROLOGIC: Generalized weakness Constitutional: alert, oriented Psych: no complaints ENMT: mucosa pink and moist Neck: other (trached) Respiratory: diminished breath sounds (at bases/B) Cardiovascular: regular rate and rhythm Gastrointestinal: soft, non-tender Musculoskeletal: muscle tone (normal) Extremities: pitting pedal edema (bilateral) Neurological: other (No focal deficits) Labs Result Diagram: 03/13/19 1647 03/13/19 0507 Medications Medications Current Medications Acetaminophen (Tylenol Liquid (Ped)) 640 mg Q4H PRN PO FOR PAIN; Start 03/10/19 at 19:30 Bisacodyl (Dulcolax Supp) 10 mg DAILY [place] Last administered on 03/14/19 09:31; Admin Dose 10 MG; Start 03/11/19 at 09:00 Diphenhydramine HCl (Benadryl) 25 mg DAILY PRN PO ITCHING; Start 03/10/19 at 19:30 Docusate Sodium (Colace) 100 mg DAILY PO Last administered on 03/16/19 08:44; Admin Dose 100 MG; Start 03/11/19 at 09:00 Furosemide (Lasix) 40 mg DAILY PO Last administered on 03/16/19 08:43; Admin Dose 40 MG; Start 03/11/19 at 09:00 Guaifenesin (Robitussin Liquid Cup) 100 mg Q6H PRN PO COUGH; Start 03/10/19 at 19:30 Levothyroxine Sodium (Synthroid) 175 mcg BEFORE BREAKFAST PO Last administered on 03/15/19 06:22; Admin Dose 175 MCG; Start 03/11/19 at 07:00 Lidocaine (Lidoderm) 1 patch Q8H PRN TD FOR RIGHT SHOULDER; Start 03/10/19 at 19:30 Metoprolol Tartrate (Lopressor) 25 mg TID PO Last administered on 03/16/19 08:43; Admin Dose 25 MG; Start 03/10/19 at 21:00 Midodrine (Proamatine) 5 mg Q8H PRN PO HOLD FOR SBP>110; Start 03/10/19 at 19:30 Sevelamer Carbonate (Renvela) 1.6 gm WITH MEALS PO Last administered on 03/16/19 08:44; Admin Dose 1.6 GM; Start 03/11/19 at 08:00 Warfarin Sodium (Coumadin) 1 mg MoWeFr@1700 PO Last administered on 03/14/19 17:27; Admin Dose 1 MG; Start 03/11/19 at 17:00 Warfarin Sodium (Coumadin) 2.5 mg MoWeFr@1700 PO Last administered on 03/14/19 17:27; Admin Dose 2.5 MG; Start 03/11/19 at 17:00 Warfarin Sodium (Coumadin) 4 mg SuTuThSa@1700 PO Last administered on 03/15/19 17:37; Admin Dose 4 MG; Start 03/10/19 at 20:00 Calcium Carbonate (Oyster Shell Calcium) 1.25 gm DAILY PO Last administered on 03/16/19 08:44; Admin Dose 1.25 GM; Start 03/11/19 at 09:00 IV Flush (NS 3 ml) 3 ml PER PROTOCOL IV ; Start 03/10/19 at 19:30 Ondansetron HCl (Zofran Inj) 4 mg Q6H PRN IV NAUSEA/VOMITING; Start 03/10/19 at 19:30 Famotidine (Pepcid) 20 mg DAILY PO Last administered on 03/16/19 08:44; Admin Dose 20 MG; Start 03/10/19 at 21:00 Ipratropium [place] (Atrovent Hfa) 2 puff Q4H RESP THERAPY INH Last administered on 03/16/19at 09:19; Admin Dose 2 PUFF; Start 03/10/19 at 21:00 Nystatin (Nystatin Powder) 1 applic BID TOP Last administered on 03/16/19at 0 8:45; Admin Dose 1 APPLIC; Start 03/11/19 at 11:00 Heparin Sodium (Porcine) (Heparin (1000 Units/ml)) 4,100 unit AFTER DIALYSIS CATHETER Last administered on 03/15/19at 17:49; Admin Dose 4,100 UNIT; Start 03/11/19 at 19:00 RIAZ BLACKBURN March 16, 2019 11:25
[2019-03-16] MEDS: WARFARIN 2.5 MG TAB PO SCH (17:54)
--- NOTE | 2019-03-16 18:48 | PN ---
Date/Time of Note Date/Time of Note DATE: 03/16/19 TIME: 18:44 Assessment/Plan VTE Prophylaxis Risk score (from Ns)>0 risk: 3 SCD applied (from Ns): Yes Pharmacological prophylaxis: heparin, warfarin tx Lines/Catheters IV Catheter Type (from Nrs): DIALYSIS CATH Urinary Cath still in place: No Assessment/Plan Hospital Course Patient remains hemodynamically stable, currently on cool aerosol mist via tracheostomy. Continue current care. Pending acute rehab evaluation per case management meeting. Assessment/Plan -Permacath malfunction. Patient is able to undergo hemodialysis through permacath. Dr. Lott is following patient in nephrology consultation. Patient is asking to transition to peritoneal dialysis. Dr. Stallings is asked to see patient in general surgery consultation for possible evaluation for permacath placement. -Hemodialysis dependent end-stage renal disease -Ventilator dependent respiratory failure. Continue T-piece trial during the day and and nocturnal BiPAP. Dr. Plascencia is following in pulmonology consultation. -Hypertension -Status post mechanical aortic valve replacement, continue Coumadin. -Hypothyroidism, continue levothyroxine Further recommendations based on clinical course. Plan of care discussed with Dr. Balbuena. Result Diagram: 03/13/19 0507 03/13/19 0507 Exam/Review of Systems Exam Vitals Vital Signs Date Temp Pulse Resp B/P (MAP) Pulse Ox O2 O2 Flow FiO2 Time Delivery Rate 03/16/19 75 28 100 30 17:15 03/16/19 98.0 127/57 15:49 (80) 03/16/19 Aerosol 8.0 13:06 T Tube Intake and Output 03/15/19 03/15/19 03/16/19 1515:00 23:00 07:00 IntakeIntake Total 800 ml 250 ml OutputOutput Total 200 ml 2400 ml BalanceBalance -200 ml -1600 ml 250 ml Exam Constitutional: alert, oriented Neck: supple, other (Tracheostomy) Respiratory: clear to auscultation Cardiovascular: regular rate and rhythm Gastrointestinal: soft, non-tender Musculoskeletal: nl extremities to inspection Extremities: normal pulses Neurological: nl mental status Medications Medication Current Medications Acetaminophen (Tylenol Liquid (Ped)) 640 mg Q4H PRN PO FOR PAIN; Start 03/10/19 at 19:30 Bisacodyl (Dulcolax Supp) 10 mg DAILY [place] Last administered on 03/14/19 09:31; Admin Dose 10 MG; Start 03/11/19 at 09:00 Diphenhydramine HCl (Benadryl) 25 mg DAILY PRN PO ITCHING; Start 03/10/19 at 19:30 Docusate Sodium (Colace) 100 mg DAILY PO Last administered on 03/16/19at 08:44; Admin Dose 100 MG; Start 03/11/19 at 09:00 Furosemide (Lasix) 40 mg DAILY PO Last administered on 03/16/19 08:43; Admin Dose 40 MG; Start 03/11/19 at 09:00 Guaifenesin (Robitussin Liquid Cup) 100 mg Q6H PRN PO COUGH; Start 03/10/19 at 19:30 Levothyroxine Sodium (Synthroid) 175 mcg BEFORE BREAKFAST PO Last administered on 03/15/19at 06:22; Admin Dose 175 MCG; Start 03/11/19 at 07:00 Lidocaine (Lidoderm) 1 patch Q8H PRN TD FOR RIGHT SHOULDER; Start 03/10/19 at 19:30 Metoprolol Tartrate (Lopressor) 25 mg TID PO Last administered on 03/16/19at 12:29; Admin Dose 25 MG; Start 03/10/19 at 21:00 Midodrine (Proamatine) 5 mg Q8H PRN PO HOLD FOR SBP>110; Start 03/10/19 at 19:30 Sevelamer Carbonate (Renvela) 1.6 gm WITH MEALS PO Last administered on 03/16/19at 17:54; Admin Dose 1.6 GM; Start 03/11/19 at 08:00 Warfarin Sodium (Coumadin) 4 mg SuTuThSa@1700 PO Last administered on 03/15/19at 17:37; Admin Dose 4 MG; Start 03/10/19 at 20:00 Calcium Carbonate (Oyster Shell Calcium) 1.25 gm DAILY PO Last administered on 03/16/19 08:44; Admin Dose 1.25 GM; Start 03/11/19 at 09:00 IV Flush (NS 3 ml) 3 ml PER PROTOCOL IV ; Start 03/10/19 at 19:30 Ondansetron HCl (Zofran Inj) 4 mg Q6H PRN IV NAUSEA/VOMITING; Start 03/10/19 at 19:30 Famotidine (Pepcid) 20 mg DAILY PO Last administered on 03/16/19 08:44; Admin Dose 20 MG; Start 03/10/19 at 21:00 Ipratropium [place] (Atrovent Hfa) 2 puff Q4H RESP THERAPY INH Last administered on 03/16/19 17:14; Admin Dose 2 PUFF; Start 03/10/19 at 21:00 Nystatin (Nystatin Powder) 1 applic BID TOP Last administered on 03/16/19 08:45; Admin Dose 1 APPLIC; Start 03/11/19 at 11:00 Heparin Sodium (Porcine) (Heparin (1000 Units/ml)) 4,100 unit AFTER DIALYSIS CATHETER Last administered on 03/15/19 17:49; Admin Dose 4,100 UNIT; Start 03/11/19 at 19:00 Warfarin Sodium (Coumadin) 5 mg MoWeFr@1700 PO Last administered on 03/16/19 17:54; Admin Dose 5 MG; Start 03/16/19 at 17:00 FREDO MENDOSA March 16, 2019 18:48
--- NOTE | 2019-03-16 20:27 | CONS ---
Assessment/Plan Assessment/Plan Hospital Course (Demo Recall) 1. Desire for peritoneal dialysis catheter versus hemodialysis. Had a long discussion with her and partner. She needs a place to be able to receive teaching to use her PD catheter. Her anticoagulation needs to be held prior to surgery. She needs to find a place that allows PD catheter. Also concern for placement due to muscle flap from the abdomen. Will need to evaluate abdominal wall by imaging. These this will be worked on by the team members prior to decision to proceed with surgery 2. Anticoagulation with mechanical aortic valve -As above -Cardiac optimization 3. Ventilator and trach dependent respiratory failure -Pulmonary toilet and ventilator management 4. Hypertension -Nutrition and medication optimization 5. Anemia without evidence of acute blood loss -Monitor 6. Pressure injuries -Offload -Nutrition optimization -Local care Thank you very much for consulting me in this patient's care, Consultation Date/Type/Reason Admit Date/Time March 13, 2019 at 10:21 Date of Consultation: March 16, 2019 Type of Consult G. Surgical Reason for Consultation ESRD Currently on HD but wants PD Requesting Provider: ELA ROBINS DO Date/Time of Note DATE: 03/16/19 TIME: 20:26 Hx of Present Illness Maddi Oconnell is a 63-year-old female with significant comorbidities who had a malfunctioning permacath and was transferred here for further care and treatment. She is been hospitalized since the . Her catheter has started working more effectively however patient family and time analysis clerk are requesting evaluation for PD catheter. She denies any current fevers chills nausea vomiting cough seizure blood per mouth or rectum. She is ventilated through a trach. No pain. No visual or neurologic changes. 12 point ros negative unless otherwise addressed in chart Past Medical History Hypertension. End-stage renal disease. Chronic obstructive pulmonary disease, vent and trach dependent Anemia. Dysphagia. History of ascending aortic aneurysm Mechanical aortic valve on anticoagulation Hypothyroidism Chest wall probable dehiscence and possible infection hx Pressure ulcer history Home Meds Reported Medications Ascorbic Acid (Vitamin C) 250 Mg Tab, 250 MG PO BID, TAB 03/10/19 Guaifenesin* (Robitussin*) 100 Mg/5 Ml Syrup, 100 MG PO Q6H PRN for COUGH, ML 03/10/19 Sevelamer Carbonate* (Renvela*) 0.8 Gm Powd.pack, 1.6 GM PO WITH MEALS, PACKET 03/10/19 Amino Acids/Protein Hydrolys (PRO-STAT LIQUID) 30 Ml Liquid.pkt, 30 ML PO BID SUGAR FREE 03/10/19 Midodrine* (Midodrine*) 5 Mg Tablet, 5 MG PO Q8H PRN for HOLD FOR SBP>110, TAB 03/10/19 Metoprolol Tartrate* (Lopressor*) 25 Mg Tab, 25 MG PO TID, #60 TAB HOLD IF SBP<110 OR HR<60 03/10/19 Lidocaine (Lidocaine) 15 Gm Cream..g., 15 GM TP QID for TRACH SITE PAIN 03/10/19 Lidocaine (Lidocaine) 1 Each Adh..patch, 1 EACH TP Q8H PRN for FOR RIGHT SHOULDER 03/10/19 Levothyroxine Sodium* (Levothyroxine Sodium*) 175 Mcg Tablet, 175 MCG PO BEFORE BREAKFAST, #30 TAB 03/10/19 Ipratropium [place]* (Atrovent HFA*) 12.9 Gm Aer.w.adap, 2 PUFF INHALATION Q4H for SHORTNESS OF BREATH, #1 INHALER 03/10/19 Furosemide* (Furosemide*) 40 Mg Tablet, 40 MG PO DAILY, TAB HOLD IF SBP<110 OR HR<60 03/10/19 Docusate Sodium* (Colace*) 100 Mg Capsule, 100 MG PO DAILY, #30 CAP 03/10/19 Cyclobenzaprine Hcl* (Cyclobenzaprine Hcl*) 5 Mg Tablet, 5 MG PO NEEDED, #60 TAB 03/10/19 Warfarin Sodium* (Coumadin*) 4 Mg Tablet, 4 MG PO Q TUE,CHRISTEL,SAT,SUN, TAB 03/10/19 Warfarin Sodium* (Coumadin*) 2.5 Mg Tablet, 2.5 MG PO Q MON,WED,FRI, TAB 03/10/19 Warfarin Sodium* (Coumadin*) 1 Mg Tablet, 1 MG PO Q MON,WED,FRI, TAB 03/10/19 Calcium Carbonate (Calcium Carbonate) 500 Mg Tab.chew, 500 MG PO DAILY, TAB.CHEW 03/10/19 Bisacodyl (Dulcolax) 10 Mg Supp.rect, 10 MG RC DAILY, SUPP.RECT 03/10/19 Diphenhydramine Hcl* (Diphenhydramine Hcl*) 25 Mg Capsule, 25 MG PO DAILY PRN for ITCHING, CAP EVERY TUE,CHRISTEL,SAT 03/10/19 Acetaminophen* (Acetaminophen* Susp) 160 Mg/5 Ml Oral.susp, 20 ML PO Q6H PRN for FOR FEVER 100.4, ML 03/10/19 Acetaminophen* (Acetaminophen* Susp) 160 Mg/5 Ml Oral.susp, 20 ML PO Q4H PRN for FOR PAIN, ML 03/10/19 Medications Current Medications Acetaminophen (Tylenol Liquid (Ped)) 640 mg Q4H PRN PO FOR PAIN; Start 03/10/19 at 19:30 Bisacodyl (Dulcolax Supp) 10 mg DAILY GA Last administered on 03/14/19at 09:31; Admin Dose 10 MG; Start 03/11/19 at 09:00 Diphenhydramine HCl (Benadryl) 25 mg DAILY PRN PO ITCHING; Start 03/10/19 at 19:30 Docusate Sodium (Colace) 100 mg DAILY PO Last administered on 03/16/19at 08:44; Admin Dose 100 MG; Start 03/11/19 at 09:00 Furosemide (Lasix) 40 mg DAILY PO Last administered on 03/16/19at 08:43; Admin Dose 40 MG; Start 03/11/19 at 09:00 Guaifenesin (Robitussin Liquid Cup) 100 mg Q6H PRN PO COUGH; Start 03/10/19 at 19:30 Levothyroxine Sodium (Synthroid) 175 mcg BEFORE BREAKFAST PO Last administered on 03/15/19at 06:22; Admin Dose 175 MCG; Start 03/11/19 at 07:00 Lidocaine (Lidoderm) 1 patch Q8H PRN TD FOR RIGHT SHOULDER; Start 03/10/19 at 19:30 Metoprolol Tartrate (Lopressor) 25 mg TID PO Last administered on 03/16/19at 12:29; Admin Dose 25 MG; Start 03/10/19 at 21:00 Midodrine (Proamatine) 5 mg Q8H PRN PO HOLD FOR SBP>110; Start 03/10/19 at 19:30 Sevelamer Carbonate (Renvela) 1.6 gm WITH MEALS PO Last administered on 03/16/19at 17:54; Admin Dose 1.6 GM; Start 03/11/19 at 08:00 Warfarin Sodium (Coumadin) 4 mg SuTuThSa@1700 PO Last administered on 03/15/19 17:37; Admin Dose 4 MG; Start 03/10/19 at 20:00 Calcium Carbonate (Oyster Shell Calcium) 1.25 gm DAILY PO Last administered on 03/16/19 08:44; Admin Dose 1.25 GM; Start 03/11/19 at 09:00 IV Flush (NS 3 ml) 3 ml PER PROTOCOL IV ; Start 03/10/19 at 19:30 Ondansetron HCl (Zofran Inj) 4 mg Q6H PRN IV NAUSEA/VOMITING; Start 03/10/19 at 19:30 Famotidine (Pepcid) 20 mg DAILY PO Last administered on 03/16/19 08:44; Admin Dose 20 MG; Start 03/10/19 at 21:00 Ipratropium [place] (Atrovent Hfa) 2 puff Q4H RESP THERAPY INH Last administered on 03/16/19 17:14; Admin Dose 2 PUFF; Start 03/10/19 at 21:00 Nystatin (Nystatin Powder) 1 applic BID TOP Last administered on 03/16/19 08:45; Admin Dose 1 APPLIC; Start 03/11/19 at 11:00 Heparin Sodium (Porcine) (Heparin (1000 Units/ml)) 4,100 unit AFTER DIALYSIS CATHETER Last administered on 03/15/19 17:49; Admin Dose 4,100 UNIT; Start 03/11/19 at 19:00 Warfarin Sodium (Coumadin) 5 mg MoWeFr@1700 PO Last administered on 03/16/19 17:54; Admin Dose 5 MG; Start 03/16/19 at 17:00 Allergies: Coded Allergies: Penicillins (Verified Allergy, Unknown, 03/10/19) adhesive tape (Unverified Allergy, Unknown, 03/10/19) chlorhexidine (Unverified Allergy, Unknown, 03/10/19) hydromorphone (Unverified Allergy, Unknown, 03/10/19) olanzapine (Unverified Allergy, Unknown, 03/10/19) Past Surgical History Perm-A-Cath placement Mechanical valve repair Tracheostomy Aortic aneurysm repair. Chest wall muscle flap from the abdomen Past Surgical Hx: other (Status post mechanical aortic valve replacement, status post ascending aneurysm repair, status post tracheostomy) Family History Significant Family History: no pertinent family hx Social History Alcohol Use: none Smoking Status: Never smoker Drug Use: none Exam/Review of Systems Exam Vitals Vital Signs Date Temp Pulse Resp B/P (MAP) Pulse Ox O2 O2 Flow FiO2 Time Delivery Rate 03/16/19 98.5 76 28 125/59 99 20:04 (81) 03/16/19 30 17:15 03/16/19 Aerosol 8.0 13:06 T Tube Intake and Output 03/15/19 03/15/19 03/16/19 1515:00 23:00 07:00 IntakeIntake Total 800 ml 250 ml OutputOutput Total 200 ml 2400 ml BalanceBalance -200 ml -1600 ml 250 ml Constitutional: alert, oriented; No distress Psych: nl mood/affect; No anxiety, No confusion Head: normocephalic, atraumatic Eyes: nl conjunctiva, EOMI, PERRL; No icteric ENMT: nl external ears & nose, mucosa pink and moist Neck: supple, other (Trach in place); No jvd Respiratory: normal air movement; No congested cough, No labored breathing Cardiovascular: regular rate and rhythm; No edema Gastrointestinal: soft, non-tender, other (Horizontal large scar from previous muscle flap); No distended, No rebound or guarding, No tender Musculoskeletal: nl extremities to inspection; No joint tenderness Extremities: normal pulses; No calf tenderness, No edema Neurological: nl mental status, nl strength Skin: nl turgor; No rash or lesions, No diaphoresis Lymph: nl lymph nodes Results Result Diagram: 03/13/19 0507 03/13/19 0507 Medications Medication Current Medications Acetaminophen (Tylenol Liquid (Ped)) 640 mg Q4H PRN PO FOR PAIN; Start 03/10/19 at 19:30 Bisacodyl (Dulcolax Supp) 10 mg DAILY GA Last administered on 03/14/19at 09:31; Admin Dose 10 MG; Start 03/11/19 at 09:00 Diphenhydramine HCl (Benadryl) 25 mg DAILY PRN PO ITCHING; Start 03/10/19 at 19:30 Docusate Sodium (Colace) 100 mg DAILY PO Last administered on 03/16/19at 08:44; Admin Dose 100 MG; Start 03/11/19 at 09:00 Furosemide (Lasix) 40 mg DAILY PO Last administered on 03/16/19 08:43; Admin Dose 40 MG; Start 03/11/19 at 09:00 Guaifenesin (Robitussin Liquid Cup) 100 mg Q6H PRN PO COUGH; Start 03/10/19 at 19:30 Levothyroxine Sodium (Synthroid) 175 mcg BEFORE BREAKFAST PO Last administered on 03/15/19 06:22; Admin Dose 175 MCG; Start 03/11/19 at 07:00 Lidocaine (Lidoderm) 1 patch Q8H PRN TD FOR RIGHT SHOULDER; Start 03/10/19 at 19:30 Metoprolol Tartrate (Lopressor) 25 mg TID PO Last administered on 03/16/19 12:29; Admin Dose 25 MG; Start 03/10/19 at 21:00 Midodrine (Proamatine) 5 mg Q8H PRN PO HOLD FOR SBP>110; Start 03/10/19 at 19:30 Sevelamer Carbonate (Renvela) 1.6 gm WITH MEALS PO Last administered on 03/16/19 17:54; Admin Dose 1.6 GM; Start 03/11/19 at 08:00 Warfarin Sodium (Coumadin) 4 mg SuTuThSa@1700 PO Last administered on 03/15/19 17:37; Admin Dose 4 MG; Start 03/10/19 at 20:00 Calcium Carbonate (Oyster Shell Calcium) 1.25 gm DAILY PO Last administered on 03/16/19 08:44; Admin Dose 1.25 GM; Start 03/11/19 at 09:00 IV Flush (NS 3 ml) 3 ml PER PROTOCOL IV ; Start 03/10/19 at 19:30 Ondansetron HCl (Zofran Inj) 4 mg Q6H PRN IV NAUSEA/VOMITING; Start 03/10/19 at 19:30 Famotidine (Pepcid) 20 mg DAILY PO Last administered on 03/16/19 08:44; Admin Dose 20 MG; Start 03/10/19 at 21:00 Ipratropium [place] (Atrovent Hfa) 2 puff Q4H RESP THERAPY INH Last admi nistered on 03/16/19 17:14; Admin Dose 2 PUFF; Start 03/10/19 at 21:00 Nystatin (Nystatin Powder) 1 applic BID TOP Last administered on 03/16/19at 08:45; Admin Dose 1 APPLIC; Start 03/11/19 at 11:00 Heparin Sodium (Porcine) (Heparin (1000 Units/ml)) 4,100 unit AFTER DIALYSIS CATHETER Last administered on 03/15/19at 17:49; Admin Dose 4,100 UNIT; Start 03/11/19 at 19:00 Warfarin Sodium (Coumadin) 5 mg MoWeFr@1700 PO Last administered on 03/16/19at 17:54; Admin Dose 5 MG; Start 03/16/19 at 17:00 KOFI CORBETT MD March 16, 2019 20:27
[2019-03-17] VITALS (39 sets, daily range): BP systolic 100–142; BP diastolic 45–67; PULSE 64–92; RESP 17–38
[2019-03-17] MEDS: IPRATROPIUM (HFA) 12.9 GM INHALER INH SCH ×6 (00:25→21:17)
[2019-03-17] MEDS: LEVOTHYROXINE 175 MCG TAB PO SCH (06:08)
[2019-03-17] MEDS: NYSTATIN 30 GM POWDER BTL TOP SCH ×2 (08:14→21:00)
[2019-03-17] MEDS: BALSAM PERU/CASTOR OIL 60 GM TUBE TOP SCH ×2 (08:14→21:01)
[2019-03-17] MEDS: FUROSEMIDE 40 MG TAB PO SCH (08:15)
[2019-03-17] MEDS: DOCUSATE SODIUM 100 MG CAP PO SCH (08:15)
[2019-03-17] MEDS: CALCIUM CARBONATE 1.25 GM TAB PO SCH (08:15)
[2019-03-17] MEDS: FAMOTIDINE 20 MG TAB PO SCH (08:15)
[2019-03-17] MEDS: BISACODYL 10 MG SUPP PR SCH (08:15)
[2019-03-17] MEDS: SEVELAMER CARBONATE 0.8 GM PKT PO SCH ×3 (08:16→17:00)
[2019-03-17] MEDS: METOPROLOL 25 MG TAB PO SCH ×3 (08:16→21:00)
--- NOTE | 2019-03-17 08:49 | PN ---
DATE: 03/17/2019 SUBJECTIVE: The patient is stable, no acute events overnight. The patient had dialysis yesterday, t olerated well. OBJECTIVE: VITAL SIGNS: Blood pressure is 131/61, pulse 75, respirations 20, temperature 98.6. HEENT: Head is normocephalic. NECK: Supple. HEART: Regular rate. LUNGS: Show diminished breath sounds at base. ABDOMEN: Soft, nontender to palpation without rebound or guarding. EXTREMITIES: Negative for clubbing, cyanosis, no edema. DERMATOLOGIC: No rashes. MUSCULOSKELETAL: No joint effusion. NEUROLOGIC: No change in exam. MEDICATIONS: Reviewed. LABORATORY DATA: Reviewed. ASSESSMENT AND PLAN: 1. End-stage renal disease. Plan for hemodialysis today. We will dialyze for 3 hours 3k bath, calc ium 2.5. 2. Access. The patient has a PermCath. The patient was evaluated by general surgery for possible P D catheter placement. 3. Anemia. Continue to monitor hemoglobin and hematocrit levels. Will give Epogen as needed. 4. Mineral bone disorder. Monitor calcium and phosphorus levels. 5. Ventilator dependent respiratory failure. Vent settings have been reviewed. Continue to monitor . 6. Hypertension. Continue current blood pressure regimen. 7. Mechanical heart valve. Continue Coumadin, monitor INR. 8. Hypothyroidism. Continue Synthroid. 9. Arrhythmia. Continue to monitor. Dictated By: ELA ROBINS DO NR/NTS Conf#: [id number] DID#: [id number] CC: KOSTAS CRESPO MD;*EndCC*
--- NOTE | 2019-03-17 09:19 | CONS ---
Assessment/Plan Assessment/Plan Assessment/Plan (Daily) Assessment and recommendations; 1. Patient with history of chronic renal failure admitted for dialysis catheter malfunction status post replacement. 2. Chronic respiratory failure, maintained on T-piece and daytime and bilevel ventilation nocturnally. 3. History of aortic valve replacement in the past. 4. History of sternal wound dehiscence status post skin grafting as well. 5. Hypothyroidism. 6. History of hypertension. 7. CHF. Continue current supportive care. Consider transfer to rehab center. Consultation Date/Type/Reason Admit Date/Time March 13, 2019 at 10:21 Initial Consult Date 03/16/19 Type of Consult Pulmonary Pulmonary consult requested for evaluation of chronic respiratory failure. Patient admitted for hemodialysis catheter malfunction. Which has since been replaced. Patient is a pleasant 63-year-old lady who was transferred to the hospital because of malfunctioning hemodialysis catheter placement the patient does have history of chronic respiratory failure which is partially ventilator dependent. By the time I saw the patient in the room, patient was sitting in her bed and was completely awake and alert. Was able to give a meaningful history by herself. Patient currently denies any shortness of breath, chest pain, coughing, wheezing, any fever or chills. Past medical history; 1. History of chronic renal failure, on hemodialysis. 2. Possibly underlying pulmonary fibrosis. 3. Anemia. 4. CHF. 5. Hypertension. 6. Kyphoscoliosis. 7. History of mechanical aortic valve replacement. Medications; reviewed. Allergies; as outlined above. Social history; patient never smoked. Family history; she is , has a supportive . 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 Review of systems; denies any headache, visual changes, sinus symptoms. Any chest pain, wheezing, cough, sputum production or shortness of breath at rest. Denies any abdominal pain, nausea vomiting. Patient is able to eat. Denies any melena hematochezia. Any edema. General exam; elderly female, awake alert, on ventilator via tracheostomy, awake and alert. Currently in no distress. Allergies; Requesting Provider: ELA ROBINS DO Date/Time of Note DATE: 03/17/19 TIME: 09:16 24 HR Interval Summary Free Text/Dictation Patient's condition is stable. Denies any shortness of breath. General exam; elderly lady, awake alert, currently no distress. Sitting up in bed. Exam/Review of Systems Exam Vitals Vital Signs Date Temp Pulse Resp B/P (MAP) Pulse Ox O2 O2 Flow FiO2 Time Delivery Rate 03/17/19 98.6 75 20 131/61 100 Mechanical 07:33 (84) Ventilator 03/17/19 30 06:02 03/16/19 8.0 13:06 Intake and Output 03/16/19 03/16/19 03/17/19 1515:00 23:00 07:00 IntakeIntake Total 720 ml 500 ml BalanceBalance 720 ml 500 ml Exam H EENT exam; supple neck, no JVD. No lymphadenopathy. Midline trachea. No thyromegaly. Patient has fair dentition. Tracheostomy in place. Insertion site is clean. Chest exam; diminished breath sound bilaterally. There is kyphoscoliosis present. There is a well-healed sternal scar with skin graft in place. S1-S2 audible, no murmurs. Regular rhythm. Abdomen exam; soft, nontender. No organomegaly. Bowel sounds audible. Extremity exam; no peripheral edema clubbing. MEDIA SALES REPRESENTATIVE exam; no focal deficit. Results Result Diagram: 03/13/19 0507 03/13/19 0507 Results 24hrs Laboratory Tests Test 03/17/19 05:58 Prothrombin Time 22.7 H Prothrombin Time Ratio 1.8 INR International Normalized Ratio 1.99 Medications Medication Current Medications Acetaminophen (Tylenol Liquid (Ped)) 640 mg Q4H PRN PO FOR PAIN; Start 03/10/19 at 19:30 Bisacodyl (Dulcolax Supp) 10 mg DAILY [place] Last administered on 03/14/19at 09:31; Admin Dose 10 MG; Start 03/11/19 at 09:00 Diphenhydramine HCl (Benadryl) 25 mg DAILY PRN PO ITCHING; Start 03/10/19 at 19:30 Docusate Sodium (Colace) 100 mg DAILY PO Last administered on 03/17/19at 08:15; Admin Dose 100 MG; Start 03/11/19 at 09:00 Furosemide (Lasix) 40 mg DAILY PO Last administered on 03/17/19at 08:15; Admin Dose 40 MG; Start 03/11/19 at 09:00 Guaifenesin (Robitussin Liquid Cup) 100 mg Q6H PRN PO COUGH; Start 03/10/19 at 19:30 Levothyroxine Sodium (Synthroid) 175 mcg BEFORE BREAKFAST PO Last administered on 03/17/19 06:08; Admin Dose 175 MCG; Start 03/11/19 at 07:00 Lidocaine (Lidoderm) 1 patch Q8H PRN TD FOR RIGHT SHOULDER; Start 03/10/19 at 19:30 Metoprolol Tartrate (Lopressor) 25 mg TID PO Last administered on 03/16/19 21:20; Admin Dose 25 MG; Start 03/10/19 at 21:00 Midodrine (Proamatine) 5 mg Q8H PRN PO HOLD FOR SBP>110; Start 03/10/19 at 19:30 Sevelamer Carbonate (Renvela) 1.6 gm WITH MEALS PO Last administered on 03/17/19 08:16; Admin Dose 1.6 GM; Start 03/11/19 at 08:00 Warfarin Sodium (Coumadin) 4 mg SuTuThSa@1700 PO Last administered on 03/15/19 17:37; Admin Dose 4 MG; Start 03/10/19 at 20:00 Calcium Carbonate (Oyster Shell Calcium) 1.25 gm DAILY PO Last administered on 03/17/19 08:15; Admin Dose 1.25 GM; Start 03/11/19 at 09:00 IV Flush (NS 3 ml) 3 ml PER PROTOCOL IV ; Start 03/10/19 at 19:30 Ondansetron HCl (Zofran Inj) 4 mg Q6H PRN IV NAUSEA/VOMITING; Start 03/10/19 at 19:30 Famotidine (Pepcid) 20 mg DAILY PO Last administered on 03/17/19 08:15; Admin Dose 20 MG; Start 03/10/19 at 21:00 Ipratropium [place] (Atrovent Hfa) 2 puff Q4H RESP THERAPY INH Last administered on 03/17/19 05:02; Admin Dose 2 PUFF; Start 03/10/19 at 21:00 Nystatin (Nystatin Powder) 1 applic BID TOP Last administered on 03/17/19 08:14; Admin Dose 1 APPLIC; Start 03/11/19 at 11:00 Heparin Sodium (Porcine) (Heparin (1000 Units/ml)) 4,100 unit AFTER DIALYSIS CATHETER Last administered on 03/15/19 17:49; Admin Dose 4,100 UNIT; Start 03/11/19 at 19:00 Warfarin Sodium (Coumadin) 5 mg MoWeFr@1700 PO Last administered on 03/16/19at 17:54; Admin Dose 5 MG; Start 03/16/19 at 17:00 LADONNA WALSH March 17, 2019 09:18
--- NOTE | 2019-03-17 13:00 | PN ---
Date/Time of Note Date/Time of Note DATE: 03/17/19 TIME: 12:48 Assessment/Plan Lines/Catheters IV Catheter Type (from Nrs): DIALYSIS CATHETER [place] in Place (from Nrs): No Assessment/Plan Chief Complaint/Hosp Course 1. Desire for peritoneal dialysis catheter versus hemodialysis. Had a long discussion with her and partner. She needs a place to be able to receive teaching to use her PD catheter. Her anticoagulation needs to be held prior to surgery. She needs to find a place that allows PD catheter. Also concern for placement due to muscle flap from the abdomen. Will need to evaluate abdominal wall by imaging. These this will be worked on by the team members prior to decision to proceed with surgery -CT for eval of wall deformity -will need teaching for pd cath if pd cath is feasible 2. Anticoagulation with mechanical aortic valve -As above -Cardiac optimization 3. Ventilator and trach dependent respiratory failure -Pulmonary toilet and ventilator management 4. Hypertension -Nutrition and medication optimization 5. Anemia without evidence of acute blood loss -Monitor 6. Pressure injuries -Offload -Nutrition optimization -Local care Thank you. Patient seen and examined in collaboration with Dr. Art Stallings. Subjective 24 Hr Interval Summary No fevers, chills, sob, congested cough, cp, palpitations, azar, dizziness, n/v/d/dysuria. Comfortable. Exam/Review of Systems Vital Signs Vitals Vital Signs Date Temp Pulse Resp B/P (MAP) Pulse Ox O2 O2 Flow FiO2 Time Delivery Rate 03/17/19 98.4 78 19 133/62 100 Mechanical 11:35 (85) Ventilator 03/17/19 30 11:07 03/16/19 8.0 13:06 Intake and Output 03/16/19 03/16/19 03/17/19 1515:00 23:00 07:00 IntakeIntake Total 720 ml 500 ml BalanceBalance 720 ml 500 ml Exam Free Text/Dictation Constitutional: alert, oriented; No distress Psych: nl mood/affect; No anxiety, No confusion Head: normocephalic, atraumatic Eyes: nl conjunctiva, EOMI, PERRL; No icteric ENMT: nl external ears & nose, mucosa pink and moist Neck: supple, other (Trach in place); No jvd Respiratory: normal air movement; No congested cough, No labored breathing Cardiovascular: regular rate and rhythm; No edema Gastrointestinal: soft, non-tender, other (Horizontal large scar from previous muscle flap); No distended, No rebound or guarding, No tender Musculoskeletal: nl extremities to inspection; No joint tenderness Extremities: normal pulses; No calf tenderness, No edema Neurological: nl mental status, nl strength Skin: nl turgor; No rash or lesions, No diaphoresis Lymph: nl lymph nodes Results Result Diagram: 03/13/19 0507 03/13/19 0507 KJ GOLDMAN NP March 17, 2019 12:59
--- NOTE | 2019-03-17 14:13 | PN ---
Date/Time of Note Date/Time of Note DATE: 03/17/19 TIME: 14:12 Assessment/Plan VTE Prophylaxis Risk score (from Ns)>0 risk: 6 SCD applied (from Ns): Yes Pharmacological prophylaxis: warfarin tx Lines/Catheters IV [facility]ter [facility]from [facility] DIALYSIS CATHETER Urinary Cath still in place: No Assessment/Plan Hospital Course Patient is undergoing evaluation for possible peritoneal dialysis catheter placement. Pending placement. Assessment/Plan -Permacath malfunction. Patient is able to undergo hemodialysis through permacath. Dr. Lott is following patient in nephrology consultation. Patient is asking to transition to peritoneal dialysis. Dr. Stallings is following in general surgery consultation for possible evaluation for permacath placement. -Hemodialysis dependent end-stage renal disease -Ventilator dependent respiratory failure. Continue T-piece trial during the day and and nocturnal BiPAP. Dr. Plascencia is following in pulmonology consultation. -Hypertension -Status post mechanical aortic valve replacement, continue Coumadin. -Hypothyroidism, continue levothyroxine Further recommendations based on clinical course. Plan of care discussed with Dr. Balbuena. Result Diagram: 03/13/19 0507 03/13/19 0507 Results 24hrs Laboratory Tests Test 03/17/19 05:58 Prothrombin Time 22.7 H Prothrombin Time Ratio 1.8 INR International Normalized Ratio 1.99 Exam/Review of Systems Exam Vitals Vital Signs Date Temp Pulse Resp B/P (MAP) Pulse Ox O2 O2 Flow FiO2 Time Delivery Rate 03/17/19 76 23 100 30 14:09 03/17/19 98.4 133/62 Mechanical 11:35 (85) Ventilator 03/16/19 8.0 13:06 Intake and Output 03/16/19 03/16/19 03/17/19 1515:00 23:00 07:00 IntakeIntake Total 720 ml 500 ml BalanceBalance 720 ml 500 ml Exam Constitutional: alert, oriented Neck: supple, other (Tracheostomy) Respiratory: clear to auscultation Cardiovascular: regular rate and rhythm Gastrointestinal: soft, non-tender Musculoskeletal: nl extremities to inspection Extremities: normal pulses Neurological: nl mental status Results Results 24hrs Laboratory Tests Test 03/17/19 05:58 Prothrombin Time 22.7 H Prothrombin Time Ratio 1.8 INR International Normalized Ratio 1.99 Medications Medication Current Medications Acetaminophen (Tylenol Liquid (Ped)) 640 mg Q4H PRN PO FOR PAIN; Start 03/10/19 at 19:30 Bisacodyl (Dulcolax Supp) [address] Last administered on 03/14/19at 09:31; Admin Dose 10 MG; Start 03/11/19 at 09:00 Diphenhydramine HCl (Benadryl) 25 mg DAILY PRN PO ITCHING; Start 03/10/19 at 19:30 Docusate Sodium (Colace) 100 mg DAILY PO Last administered on 03/17/19 08:15; Admin Dose 100 MG; Start 03/11/19 at 09:00 Furosemide (Lasix) 40 mg DAILY PO Last administered on 03/17/19 08:15; Admin Dose 40 MG; Start 03/11/19 at 09:00 Guaifenesin (Robitussin Liquid Cup) 100 mg Q6H PRN PO COUGH; Start 03/10/19 at 19:30 Levothyroxine Sodium (Synthroid) 175 mcg BEFORE BREAKFAST PO Last administered on 03/17/19at 06:08; Admin Dose 175 MCG; Start 03/11/19 at 07:00 Lidocaine (Lidoderm) 1 patch Q8H PRN TD FOR RIGHT SHOULDER; Start 03/10/19 at 19:30 Metoprolol Tartrate (Lopressor) 25 mg TID PO Last administered on 03/16/19at 21:20; Admin Dose 25 MG; Start 03/10/19 at 21:00 Midodrine (Proamatine) 5 mg Q8H PRN PO HOLD FOR SBP>110; Start 03/10/19 at 19:30 Sevelamer Carbonate (Renvela) 1.6 gm WITH MEALS PO Last administered on 03/17/19at 11:54; Admin Dose 1.6 GM; Start 03/11/19 at 08:00 Warfarin Sodium (Coumadin) 4 mg SuTuThSa@1700 PO Last administered on 03/15/19at 17:37; Admin Dose 4 MG; Start 03/10/19 at 20:00 Calcium Carbonate (Oyster Shell Calcium) 1.25 gm DAILY PO Last administered on 03/17/19 08:15; Admin Dose 1.25 GM; Start 03/11/19 at 09:00 IV Flush (NS 3 ml) 3 ml PER PROTOCOL IV ; Start 03/10/19 at 19:30 Ondansetron HCl (Zofran Inj) 4 mg Q6H PRN IV NAUSEA/VOMITING; Start 03/10/19 at 19:30 Famotidine (Pepcid) 20 mg DAILY PO Last administered on 03/17/19 08:15; Admin Dose 20 MG; Start 03/10/19 at 21:00 Ipratropium [place] (Atrovent Hfa) 2 puff Q4H RESP THERAPY INH Last administered on 03/17/19 14:08; Admin Dose 2 PUFF; Start 03/10/19 at 21:00 Nystatin (Nystatin Powder) 1 applic BID TOP Last administered on 03/17/19 08:14; Admin Dose 1 APPLIC; Start 03/11/19 at 11:00 Heparin Sodium (Porcine) (Heparin (1000 Units/ml)) 4,100 unit AFTER DIALYSIS CA THETER Last administered on 03/15/19 17:49; Admin Dose 4,100 UNIT; Start 03/11/19 at 19:00 Warfarin Sodium (Coumadin) 5 mg MoWeFr@1700 PO Last administered on 03/16/19 17:54; Admin Dose 5 MG; Start 03/16/19 at 17:00 FREDO MENDOSA March 17, 2019 14:13
[2019-03-17] MEDS: WARFARIN 2.5 MG TAB PO SCH (17:00)
[2019-03-17] MEDS: WARFARIN 2 MG TAB PO SCH (17:07)
--- NOTE | 2019-03-17 18:28 | CONS ---
Assessment/Plan Assessment/Plan Hospital Course (Demo Recall) IMPRESSION: 1. Status post aortic valve replacement, mechanical, on Coumadin, currently mildly subtherapeutic levels. 2. Abnormal electrocardiogram with inferior and anterior lateral Q's. Assess for acute coronary syndrome.-neg trop x 3/NL EF by echo 3. Hypertension, mildly elevated. 4. Dyslipidemia. 5. Chronic respiratory failure, status post tracheostomy. 6. End-stage renal disease on hemodialysis. 7. Hypothyroidism. 8. Anemia. Recc: -Tele -continue coumadin with slight adjustment and f/u INR -Continue BB -Continue lasix plus HD for volume removal -Continue synthroid Consultation Date/Type/Reason Admit Date/Time March 13, 2019 at 10:21 Initial Consult Date 03/11/19 Type of Consult Cardiology Reason for Consultation s/p AVR Requesting Provider: ELA ROBINS DO Date/Time of Note DATE: 03/17/19 TIME: 18:26 Exam/Review of Systems Vital Signs Vitals Vital Signs Date Temp Pulse Resp B/P (MAP) Pulse Ox O2 O2 Flow FiO2 Time Delivery Rate 03/17/19 79 18:05 03/17/19 25 100 30 17:10 03/17/19 107/50 Mechanical 15:50 (69) Ventilator T Tube 03/17/19 98.6 15:32 03/16/19 8.0 13:06 Intake and Output 03/16/19 03/16/19 03/17/19 1515:00 23:00 07:00 IntakeIntake Total 720 ml 500 ml BalanceBalance 720 ml 500 ml Exam Exam Review of Systems: CONSTITUTIONAL: No fevers, chills. PULMONARY:trach CARDIOVASCULAR: No chest pain/palpitations GASTROINTESTINAL: No nausea/vomiting. GENITOURINARY: No hematuria/dysuria. MUSCULOSKELETAL: No myagias/arthalgias. PSYCHIATRIC: The patient denies depression. NEUROLOGIC: No weakness Constitutional: alert Psych: no complaints Head: normocephalic ENMT: mucosa pink and moist Neck: supple, jvd (9 cm water) Respiratory: diminished breath sounds Cardiovascular: regular rate and rhythm Gastrointestinal: soft, non-tender Musculoskeletal: muscle tone (normal) Extremities: edema (none) Neurological: other (No focal deficits) Labs Result Diagram: 03/13/19 0507 03/13/19 0507 Results 24hrs Laboratory Tests Test 03/17/19 05:58 Prothrombin Time 22.7 H Prothrombin Time Ratio 1.8 INR International Normalized Ratio 1.99 Medications Medications Current Medications Acetaminophen (Tylenol Liquid (Ped)) 640 mg Q4H PRN PO FOR PAIN; Start 03/10/19 at 19:30 Bisacodyl (Dulcolax Supp) 10 mg DAILY [place] Last administered on 03/14/19at 09:31; Admin Dose 10 MG; Start 03/11/19 at 09:00 Diphenhydramine HCl (Benadryl) 25 mg DAILY PRN PO ITCHING; Start 03/10/19 at 19:30 Docusate Sodium (Colace) 100 mg DAILY PO Last administered on 03/17/19 08:15; Admin Dose 100 MG; Start 03/11/19 at 09:00 Furosemide (Lasix) 40 mg DAILY PO Last administered on 03/17/19 08:15; Admin Dose 40 MG; Start 03/11/19 at 09:00 Guaifenesin (Robitussin Liquid Cup) 100 mg Q6H PRN PO COUGH; Start 03/10/19 at 19:30 Levothyroxine Sodium (Synthroid) 175 mcg BEFORE BREAKFAST PO Last administered on 03/17/19 06:08; Admin Dose 175 MCG; Start 03/11/19 at 07:00 Lidocaine (Lidoderm) 1 patch Q8H PRN TD FOR RIGHT SHOULDER; Start 03/10/19 at 19:30 Metoprolol Tartrate (Lopressor) 25 mg TID PO Last administered on 03/16/19at 21:20; Admin Dose 25 MG; Start 03/10/19 at 21:00 Midodrine (Proamatine) 5 mg Q8H PRN PO HOLD FOR SBP>110; Start 03/10/19 at 19:30 Sevelamer Carbonate (Renvela) 1.6 gm WITH MEALS PO Last administered on 03/17/19 17:00; Admin Dose 1.6 GM; Start 03/11/19 at 08:00 Warfarin Sodium (Coumadin) 4 mg SuTuThSa@1700 PO Last administered on 03/17/19 17:07; Admin Dose 4 MG; Start 03/10/19 at 20:00 Calcium Carbonate (Oyster Shell Calcium) 1.25 gm DAILY PO Last administered on 03/17/19 08:15; Admin Dose 1.25 GM; Start 03/11/19 at 09:00 IV Flush (NS 3 ml) 3 ml PER PROTOCOL IV ; Start 03/10/19 at 19:30 Ondansetron HCl (Zofran Inj) 4 mg Q6H PRN IV NAUSEA/VOMITING; Start 03/10/19 at 19:30 Famotidine (Pepcid) 20 mg DAILY PO Last administered on 03/17/19 08:15; Admin Dose 20 MG; Start 03/10/19 at 21:00 Ipratropium [place] (Atrovent Hfa) 2 puff Q4H RESP THERAPY INH Last administered on 03/17/19 14:08; Admin Dose 2 PUFF; Start 03/10/19 at 21:00 Nystatin (Nystatin Powder) 1 applic BID TOP Last administered on 03/17/19 08:14; Admin Dose 1 APPLIC; Start 03/11/19 at 11:00 Heparin Sodium (Porcine) (Heparin (1000 Units/ml)) 4,100 unit AFTER DIALYSIS CATHETER Last administered on 03/15/19 17:49; Admin Dose 4,100 UNIT; Start 03/11/19 at 19:00 Warfarin Sodium (Coumadin) 5 mg MoWeFr@1700 PO Last administered on 03/16/19 17:54; Admin Dose 5 MG; Start 03/16/19 at 17:00 RIAZ BLACKBURN March 17, 2019 18:28
[2019-03-17] MEDS: HEPARIN 1000 UNITS/ML 10 ML INJ CATHETER SCH (19:09)
[2019-03-18] VITALS (18 sets, daily range): BP systolic 121–142; BP diastolic 58–65; PULSE 66–106; RESP 16–29
[2019-03-18] MEDS: IPRATROPIUM (HFA) 12.9 GM INHALER INH SCH ×6 (01:37→21:01)
[2019-03-18] MEDS: SEVELAMER CARBONATE 0.8 GM PKT PO SCH ×3 (08:05→17:13)
[2019-03-18] MEDS: DOCUSATE SODIUM 100 MG CAP PO SCH (08:05)
[2019-03-18] MEDS: FAMOTIDINE 20 MG TAB PO SCH (08:06)
[2019-03-18] MEDS: METOPROLOL 25 MG TAB PO SCH ×3 (08:06→20:53)
[2019-03-18] MEDS: CALCIUM CARBONATE 1.25 GM TAB PO SCH (08:06)
[2019-03-18] MEDS: LEVOTHYROXINE 175 MCG TAB PO SCH (08:06)
[2019-03-18] MEDS: BISACODYL 10 MG SUPP PR SCH (08:06)
[2019-03-18] MEDS: NYSTATIN 30 GM POWDER BTL TOP SCH ×2 (08:06→20:53)
[2019-03-18] MEDS: BALSAM PERU/CASTOR OIL 60 GM TUBE TOP SCH ×2 (08:06→20:53)
[2019-03-18] MEDS: FUROSEMIDE 40 MG TAB PO SCH (08:06)
--- NOTE | 2019-03-18 08:57 | PN ---
DATE: 03/18/2019 SUBJECTIVE: The patient is stable, no events overnight. OBJECTIVE: VITAL SIGNS: Blood pressure is 121/58, respirations 20, pulse 81, temperature 98.0. HEENT: Head is normocephalic. NECK: Supple. HEART: Regular rate. LUNGS: Show diminished breath sounds at the base. ABDOMEN: Soft, nontender to palpation without rebound or guarding. EXTREMITIES: Negative for clubbing, cyanosis, no edema. DERMATOLOGIC: No rashes. MUSCULOSKELETAL: No joint effusions. NEUROLOGIC: No change in exam. MEDICATIONS: Have been reviewed. LABORATORY DATA: Has been reviewed. ASSESSMENT AND PLAN: 1. End-stage renal disease. The patient had hemodialysis yesterday, tolerated well. Plan for dialy sis again tomorrow. 2. Access. The patient was evaluated by general surgery for possible PDA catheter placement. Will further discuss with patient's outpatient dialysis unit to see if patient can get a PDA teaching. Wi ll monitor closely. 3. Anemia. Continue to monitor hemoglobin and hematocrit levels. Continue Epogen as needed. 4. Mineral bone disorder, monitor calcium and phosphorus levels. 5. Ventilator-dependent respiratory failure. Vent settings have been reviewed. Continue to monitor . 6. Hypertension. Continue current blood pressure regimen. 7. Mechanical heart valve. Continue Coumadin, monitor INR. 8. Hypothyroidism. Continue Synthroid. 9. Arrhythmia. Continue to monitor. Dictated By: ELA MALDONADO/SANDER Conf#: [id number] DID#: [id number]
--- NOTE | 2019-03-18 14:44 | CONS ---
Assessment/Plan Assessment/Plan Hospital Course (Demo Recall) IMPRESSION: 1. Status post aortic valve replacement, mechanical, on Coumadin, currently mildly subtherapeutic levels. 2. Abnormal electrocardiogram with inferior and anterior lateral Q's. Assess for acute coronary syndrome.-neg trop x 3/NL EF by echo 3. Hypertension-reasonable 4. Dyslipidemia. 5. Chronic respiratory failure, status post tracheostomy. 6. End-stage renal disease on hemodialysis. 7. Hypothyroidism. 8. Anemia. Recc: -Tele -continue coumadin s/p increase and f/u INR now therapeutic -Continue BB -Continue lasix plus HD for volume removal -Continue synthroid Consultation Date/Type/Reason Admit Date/Time March 13, 2019 at 10:21 Initial Consult Date 03/11/19 Type of Consult Cardiology Reason for Consultation s/p AVR Requesting Provider: ELA ROBINS DO Date/Time of Note DATE: 03/18/19 TIME: 14:42 Exam/Review of Systems Vital Signs Vitals Vital Signs Date Temp Pulse Resp B/P (MAP) Pulse Ox O2 O2 Flow FiO2 Time Delivery Rate 03/18/19 98 5.0 28 13:54 03/18/19 98 20 Aerosol 13:52 T Tube 03/18/19 98.5 135/64 11:18 (87) Intake and Output 03/17/19 03/17/19 03/18/19 1515:00 23:00 07:00 IntakeIntake Total 860 ml OutputOutput Total 1500 ml BalanceBalance -640 ml Exam Exam Review of Systems: CONSTITUTIONAL: No fevers, chills. PULMONARY: No sob CARDIOVASCULAR: No chest pain/palpitations GASTROINTESTINAL: No nausea/vomiting. GENITOURINARY: No hematuria/dysuria. MUSCULOSKELETAL: No myagias/arthalgias. PSYCHIATRIC: The patient denies depression. NEUROLOGIC: No weakness Constitutional: alert Psych: no complaints Head: normocephalic ENMT: mucosa pink and moist Neck: supple, jvd (9 cm water) Respiratory: diminished breath sounds Cardiovascular: regular rate and rhythm Gastrointestinal: soft, non-tender Musculoskeletal: muscle tone (normal) Extremities: edema (none) Neurological: other (No focal deficits) Labs Results 24hrs Laboratory Tests Test 03/18/19 05:19 Prothrombin Time 25.4 H Prothrombin Time Ratio 2.0 INR International Normalized Ratio 2.30 Medications Medications Current Medications Acetaminophen (Tylenol Liquid (Ped)) 640 mg Q4H PRN PO FOR PAIN; Start 03/10/19 at 19:30 Bisacodyl (Dulcolax Supp) 10 mg DAILY [place] Last administered on 03/14/19 09:31; Admin Dose 10 MG; Start 03/11/19 at 09:00 Diphenhydramine HCl (Benadryl) 25 mg DAILY PRN PO ITCHING; Start 03/10/19 at 19:30 Docusate Sodium (Colace) 100 mg DAILY PO Last administered on 03/18/19 08:05; Admin Dose 100 MG; Start 03/11/19 at 09:00 Furosemide (Lasix) 40 mg DAILY PO Last administered on 03/18/19 08:06; Admin Dose 40 MG; Start 03/11/19 at 09:00 Guaifenesin (Robitussin Liquid Cup) 100 mg Q6H PRN PO COUGH; Start 03/10/19 at 19:30 Levothyroxine Sodium (Synthroid) 175 mcg BEFORE BREAKFAST PO Last administered on 03/18/19 08:06; Admin Dose 175 MCG; Start 03/11/19 at 07:00 Lidocaine (Lidoderm) 1 patch Q8H PRN TD FOR RIGHT SHOULDER; Start 03/10/19 at 19:30 Metoprolol Tartrate (Lopressor) 25 mg TID PO Last administered on 03/18/19 12:12; Admin Dose 25 MG; Start 03/10/19 at 21:00 Midodrine (Proamatine) 5 mg Q8H PRN PO HOLD FOR SBP>110; Start 03/10/19 at 19:30 Sevelamer Carbonate (Renvela) 1.6 gm WITH MEALS PO Last administered on 03/18/19 12:07; Admin Dose 1.6 GM; Start 03/11/19 at 08:00 Warfarin Sodium (Coumadin) 4 mg SuTuThSa@1700 PO Last administered on 03/17/19 17:07; Admin Dose 4 MG; Start 03/10/19 at 20:00 Calcium Carbonate (Oyster Shell Calcium) 1.25 gm DAILY PO Last administered on 03/17/19 08:15; Admin Dose 1.25 GM; Start 03/11/19 at 09:00 IV Flush (NS 3 ml) 3 ml PER PROTOCOL IV ; Start 03/10/19 at 19:30 Ondansetron HCl (Zofran Inj) 4 mg Q6H PRN IV NAUSEA/VOMITING; Start 03/10/19 at 19:30 Famotidine (Pepcid) 20 mg DAILY PO Last administered on 03/18/19 08:06; Admin Dose 20 MG; Start 03/10/19 at 21:00 Ipratropium [place] (Atrovent Hfa) 2 puff Q4H RESP THERAPY INH Last administered on 03/18/19 13:52; Admin Dose 2 PUFF; Start 03/10/19 at 21:00 Nystatin (Nystatin Powder) 1 applic BID TOP Last administered on 03/18/19 08:06; Admin Dose 1 APPLIC; Start 03/11/19 at 11:00 Heparin Sodium (Porcine) (Heparin (1000 Units/ml)) 4,100 unit AFTER DIALYSIS CATHETER Last administered on 03/17/19 19:09; Admin Dose 4,100 UNIT; Start 03/11/19 at 19:00 Warfarin Sodium (Coumadin) 5 mg MoWeFr@1700 PO Last administered on 03/16/19 17:54; Admin Dose 5 MG; Start 03/16/19 at 17:00 RIAZ BLACKBURN March 18, 2019 14:44
--- NOTE | 2019-03-18 16:26 | PN ---
DATE: 03/18/2019 SUBJECTIVE: Follow up on COPD, mechanical aortic valve replacement, atrial fibrillation, hypothyroid ism, CHF and end-stage renal disease. The patient is tolerating Passy-[place]by valve very well. The pat ient is awake, alert. Denies any chest pain. No reported abdominal pain. No reported fever or chil ls. PHYSICAL EXAMINATION: GENERAL: Revealed the patient to be awake, alert. VITAL SIGNS: Temperature 98.5, pulse 98, respirations 20, blood pressure 135/64, O2 saturation 98% o n cool aerosol. HEENT: No eye discharge or redness. Conjunctivae and lids are normal. Nose and ears are normal. O ropharynx is grossly negative. NECK: Tracheostomy in place. No mass. CHEST: Diminished air entry at bases. No use of accessory muscles. CARDIOVASCULAR: Irregular rhythm. No murmur. ABDOMEN: Soft, nondistended, nontender. EXTREMITIES: No edema. NEUROLOGIC: The patient is awake, alert, fairly oriented. IMPRESSION: 1. End-stage disease with PermCath malfunction. The patient is able to tolerate hemodialysis per Pe rm Cath now. The patient has been requesting PD evaluation. Dr. Corbett is seeing the patient to se e if she is appropriate for peritoneal dialysis. 2. Chronic atrial fibrillation. Heart rate and rhythm control. Continue Coumadin. INR this mornin g is 2.3. The patient is being followed by Dr. Horne from cardiology standpoint. DISPOSITION: [facility] has accepted the patient, awaiting for Dr. Corbett's recommendation regarding p eritoneal dialysis catheter. The patient is going for CT scan of abdomen and pelvis to assess her fo r PD catheter. Plan of care was discussed with the patient and her . Dictated By: KOSTAS CRESPO MD AB/NTS Conf#: [id number] DID#: [id number] CC: KOFI CORBETT MD;*EndCC*
[2019-03-18] MEDS: WARFARIN 2.5 MG TAB PO SCH (17:13)
--- NOTE | 2019-03-18 18:57 | PN ---
Date/Time of Note Date/Time of Note DATE: 03/18/19 TIME: 18:55 Assessment/Plan Lines/Catheters IV [facility] Type (from [facility] PERMACATH [place] in Place (from Nrs): No Assessment/Plan Chief Complaint/Hosp Course 1. Desire for peritoneal dialysis catheter versus hemodialysis. Had a long discussion with her and partner. She needs a place to be able to receive teaching to use her PD catheter. Her anticoagulation needs to be held prior to surgery. She needs to find a place that allows PD catheter. Also concern for placement due to muscle flap from the abdomen. Will need to evaluate abdominal wall by imaging. These this will be worked on by the team members prior to decision to proceed with surgery -CT for eval of wall deformity> pending -will need teaching for pd cath if pd cath is feasible 2. Anticoagulation with mechanical aortic valve -As above -Cardiac optimization 3. Ventilator and trach dependent respiratory failure -Pulmonary toilet and ventilator management 4. Hypertension -Nutrition and medication optimization 5. Anemia without evidence of acute blood loss -Monitor 6. Pressure injuries -Offload -Nutrition optimization -Local care Thank you. Patient seen and examined in collaboration with Dr. Art Stallings. Subjective 24 Hr Interval Summary Feels well. Pending CT of abdomen. No fevers, chills, sob, congested cough, cp, palpitations, azar, dizziness, n/v/d/dysuria. Exam/Review of Systems Vital Signs Vitals Vital Signs Date Temp Pulse Resp B/P (MAP) Pulse Ox O2 O2 Flow FiO2 Time Delivery Rate 03/18/19 5.0 18:44 03/18/19 28 17:47 03/18/19 73 16:30 03/18/19 97.6 20 142/65 94 Mechanical 15:00 (90) Ventilator Trach Collar Intake and Output 03/17/19 03/17/19 03/18/19 1515:00 23:00 07:00 IntakeIntake Total 860 ml OutputOutput Total 1500 ml BalanceBalance -640 ml Exam Free Text/Dictation Constitutional: alert, oriented; No distress Psych: nl mood/affect; No anxiety, No confusion Head: normocephalic, atraumatic Eyes: nl conjunctiva, EOMI, PERRL; No icteric ENMT: nl external ears & nose, mucosa pink and moist Neck: supple, other (Trach in place); No jvd Respiratory: normal air movement; No congested cough, No labored breathing Cardiovascular: regular rate and rhythm; No edema Gastrointestinal: soft, non-tender, other (Horizontal large scar from previous muscle flap); No distended, No rebound or guarding, No tender Musculoskeletal: nl extremities to inspection; No joint tenderness Extremities: normal pulses; No calf tenderness, No edema Neurological: nl mental status, nl strength Skin: nl turgor; No rash or lesions, No diaphoresis Lymph: nl lymph nodes KJ GOLDMAN NP March 18, 2019 18:57
[2019-03-19] VITALS (18 sets, daily range): BP systolic 105–141; BP diastolic 60–98; PULSE 68–111; RESP 16–26
[2019-03-19] MEDS: IPRATROPIUM (HFA) 12.9 GM INHALER INH SCH ×6 (01:27→21:20)
[2019-03-19] MEDS: LEVOTHYROXINE 175 MCG TAB PO SCH (07:00)
[2019-03-19] MEDS: METOPROLOL 25 MG TAB PO SCH ×4 (07:59→21:04)
[2019-03-19] MEDS: DOCUSATE SODIUM 100 MG CAP PO SCH (07:59)
[2019-03-19] MEDS: BISACODYL 10 MG SUPP PR SCH (08:00)
[2019-03-19] MEDS: NYSTATIN 30 GM POWDER BTL TOP SCH ×2 (08:00→21:00)
[2019-03-19] MEDS: FAMOTIDINE 20 MG TAB PO SCH (08:00)
[2019-03-19] MEDS: FUROSEMIDE 40 MG TAB PO SCH (08:00)
[2019-03-19] MEDS: SEVELAMER CARBONATE 0.8 GM PKT PO SCH ×3 (08:00→17:01)
[2019-03-19] MEDS: BALSAM PERU/CASTOR OIL 60 GM TUBE TOP SCH ×2 (08:01→21:00)
[2019-03-19] MEDS: CALCIUM CARBONATE 1.25 GM TAB PO SCH (08:01)
--- NOTE | 2019-03-19 08:23 | PN ---
DATE: 03/19/2019 SUBJECTIVE: The patient is scheduled for hemodialysis. No other events noted. OBJECTIVE: VITAL SIGNS: Blood pressure is 122/60, pulse 71, respirations 18, temperature 98.0. HEENT: Head is normocephalic. NECK: Supple. HEART: Regular rate. LUNGS: Show diminished breath sounds at the base. ABDOMEN: Soft, nontender to palpation without rebound or guarding. EXTREMITIES: Negative for clubbing, cyanosis, no edema. DERMATOLOGIC: No rashes. MUSCULOSKELETAL: No joint effusion. NEUROLOGIC: No change in exam. MEDICATIONS: Reviewed. LABORATORY DATA: Has been reviewed. ASSESSMENT AND PLAN: 1. End-stage renal disease. Plan for dialysis today. Will dialyze 3 hours, 2k bath, calcium 2.5. 2. Hyperkalemia. The patient will be dialyzed on low potassium bath. 3. Access. The patient has a Perm-A-Cath. Pending possible placement of PD catheter by general amirah jacinto. I will follow up with general surgery. 4. Anemia. Monitor hemoglobin and hematocrit levels. Continue Epogen. 5. Mineral bone disorder. Monitor calcium and phosphorus levels. 6. Ventilatory-dependent respiratory failure. Vent settings have been reviewed. Continue to monito r. 7. Hypertension. Continue current blood pressure regimen. 8. Mechanical heart valve. Continue Coumadin, monitor INR. 9. Hypothyroidism. Continue Synthroid. 10. Arrhythmia. Continue to monitor. Dictated By: ELA ROBINS DO NR/NTS Conf#: [id number] DID#: [id number] CC: KOSTAS CRESPO MD;*EndCC*
--- NOTE | 2019-03-19 09:19 | CONS ---
Assessment/Plan Assessment/Plan Assessment/Plan (Daily) Assessment and recommendations; 1. Patient with history of chronic respiratory failure maintained on nocturnal bilevel ventilation and trach collar and daytime admitted for hemodialysis catheter malfunction status post replacement. 2. History of mechanical aortic valve replacement in the past. Patient maintained on chronic anticoagulate him. 3. History of kyphoscoliosis. And restrictive lung disease. 4. History of hypertension 5. History of hypothyroidism. 6. Chronic renal failure on hemodialysis. Continue current supportive care. Patient awaiting placement. Consultation Date/Type/Reason Admit Date/Time March 13, 2019 at 10:21 Initial Consult Date 03/16/19 Type of Consult Pulmonary Pulmonary consult requested for evaluation of chronic respiratory failure. Patient admitted for hemodialysis catheter malfunction. Which has since been replaced. Patient is a pleasant 63-year-old lady who was transferred to the hospital because of malfunctioning hemodialysis catheter placement the patient does have history of chronic respiratory failure which is partially ventilator dependent. By the time I saw the patient in the room, patient was sitting in her bed and was completely awake and alert. Was able to give a meaningful history by herself. Patient currently denies any shortness of breath, chest pain, coughing, wheezing, any fever or chills. Past medical history; 1. History of chronic renal failure, on hemodialysis. 2. Possibly underlying pulmonary fibrosis. 3. Anemia. 4. CHF. 5. Hypertension. 6. Kyphoscoliosis. 7. History of mechanical aortic valve replacement. Medications; reviewed. Allergies; as outlined above. Social history; patient never smoked. Family history; she is , has a supportive . 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 Review of systems; denies any headache, visual changes, sinus symptoms. Any chest pain, wheezing, cough, sputum production or shortness of breath at rest. Denies any abdominal pain, nausea vomiting. Patient is able to eat. Denies any melena hematochezia. Any edema. General exam; elderly female, awake alert, on ventilator via tracheostomy, awake and alert. Currently in no distress. Allergies; Requesting Provider: ELA ROBINS DO Date/Time of Note DATE: 03/19/19 TIME: 09:17 24 HR Interval Summary Free Text/Dictation Patient's condition is stable. Denies any shortness of breath at rest. Complains of occasional coughing. General exam; elderly lady, awake alert, sitting in the bed. On trach collar. Exam/Review of Systems Exam Vitals Vital Signs Date Temp Pulse Resp B/P (MAP) Pulse Ox O2 O2 Flow FiO2 Time Delivery Rate 03/19/19 69 08:15 03/19/19 30 08:00 03/19/19 98.0 18 122/60 100 07:32 (80) 03/18/19 5.0 18:44 03/18/19 Mechanical 15:00 Ventilator Trach Collar Intake and Output 03/18/19 03/18/19 03/19/19 1515:00 23:00 07:00 IntakeIntake Total 300 ml 350 ml BalanceBalance 300 ml 350 ml Exam H EENT exam; supple neck, no JVD. No lymphadenopathy. Midline trachea. No thyromegaly. Patient has dentures in place. Chest exam; diminished breath sounds bilaterally. S1-S2 audible, no murmurs. There is a well-healed sternal scar with skin graft over sternum. Abdomen exam; soft, nontender. No organomegaly. Bowel sounds are audible. Extremity exam; no peripheral edema clubbing. [employer] exam; no focal deficit. Results Result Diagram: 03/19/1952103/19/19521 Results 24hrs Laboratory Tests Test 03/19/19 05:22 White Blood Count 8.3 Red Blood Count 3.81 L Hemoglobin 11.3 L Hematocrit 37.0 Mean Corpuscular Volume 97.1 Mean Corpuscular Hemoglobin 29.7 Mean Corpuscular Hemoglobin Concent 30.5 L Red Cell Distribution Width 16.0 H Platelet Count 257 # Mean Platelet Volume 10.7 H Immature Granulocytes % 0.400 Neutrophils % 71.0 Lymphocytes % 13.3 L Monocytes % 8.7 Eosinophils % 4.5 Basophils % 2.1 H Nucleated Red Blood Cells % 0.0 Immature Granulocytes # 0.030 Neutrophils # 5.9 Lymphocytes # 1.1 Monocytes # 0.7 Eosinophils # 0.4 Basophils # 0.2 H Nucleated Red Blood Cells # 0.0 Prothrombin Time 24.6 H Prothrombin Time Ratio 1.9 INR International Normalized Ratio 2.21 Sodium Level 137 Potassium Level 5.5 H Chloride Level 106 Carbon Dioxide Level 24 Anion Gap 7 Blood Urea Nitrogen 45 H Creatinine 3.84 H Est Glomerular Filtrat Rate mL/min 12 L Glucose Level 102 Calcium Level 8.8 Phosphorus Level 5.3 H Magnesium Level 2.1 Medications Medication Current Medications Acetaminophen (Tylenol Liquid (Ped)) 640 mg Q4H PRN PO FOR PAIN; Start 03/10/19 at 19:30 Bisacodyl (Dulcolax Supp) 10 mg DAILY [place] Last administered on 03/14/19 09:31; Admin Dose 10 MG; Start 03/11/19 at 09:00 Diphenhydramine HCl (Benadryl) 25 mg DAILY PRN PO ITCHING; Start 03/10/19 at 19:30 Docusate Sodium (Colace) 100 mg DAILY PO Last administered on 03/19/19 07:59; Admin Dose 100 MG; Start 03/11/19 at 09:00 Furosemide (Lasix) 40 mg DAILY PO Last administered on 03/19/19 08:00; Admin Dose 40 MG; Start 03/11/19 at 09:00 Guaifenesin (Robitussin Liquid Cup) 100 mg Q6H PRN PO COUGH; Start 03/10/19 at 19:30 Levothyroxine Sodium (Synthroid) 175 mcg BEFORE BREAKFAST PO Last administered on 03/18/19 08:06; Admin Dose 175 MCG; Start 03/11/19 at 07:00 Lidocaine (Lidoderm) 1 patch Q8H PRN TD FOR RIGHT SHOULDER; Start 03/10/19 at 19:30 Metoprolol Tartrate (Lopressor) 25 mg TID PO Last administered on 03/18/19 20:53; Admin Dose 25 MG; Start 03/10/19 at 21:00 Midodrine (Proamatine) 5 mg Q8H PRN PO HOLD FOR SBP>110; Start 03/10/19 at 19:30 Sevelamer Carbonate (Renvela) 1.6 gm WITH MEALS PO Last administered on 03/19/19 08:00; Admin Dose 1.6 GM; Start 03/11/19 at 08:00 Warfarin Sodium (Coumadin) 4 mg SuTuThSa@1700 PO Last administered on 03/17/19 17:07; Admin Dose 4 MG; Start 03/10/19 at 20:00 Calcium Carbonate (Oyster Shell Calcium) 1.25 gm DAILY PO Last administered on 03/17/19 08:15; Admin Dose 1.25 GM; Start 03/11/19 at 09:00 IV Flush (NS 3 ml) 3 ml PER PROTOCOL IV ; Start 03/10/19 at 19:30 Ondansetron HCl (Zofran Inj) 4 mg Q6H PRN IV NAUSEA/VOMITING; Start 03/10/19 at 19:30 Famotidine (Pepcid) 20 mg DAILY PO Last administered on 03/18/19 08:06; Admin Dose 20 MG; Start 03/10/19 at 21:00 Ipratropium [place] (Atrovent Hfa) 2 puff Q4H RESP THERAPY INH Last administered on 03/19/19 05:11; Admin Dose 2 PUFF; Start 03/10/19 at 21:00 Nystatin (Nystatin Powder) 1 applic BID TOP Last administered on 03/19/19 08:00; Admin Dose 1 APPLIC; Start 03/11/19 at 11:00 Heparin Sodium (Porcine) (Heparin (1000 Units/ml)) 4,100 unit AFTER DIALYSIS CATHETER Last administered on 03/17/19 19:09; Admin Dose 4,100 UNIT; Start 03/11/19 at 19:00 Warfarin Sodium (Coumadin) 5 mg MoWeFr@1700 PO Last administered on 03/18/19 17:13; Admin Dose 5 MG; Start 03/16/19 at 17:00 LADONNA WALSH March 19, 2019 09:19
--- NOTE | 2019-03-19 14:34 | CONS ---
Assessment/Plan Assessment/Plan Hospital Course (Demo Recall) IMPRESSION: 1. Status post aortic valve replacement, mechanical, on Coumadin, currently mildly subtherapeutic levels. 2. Abnormal electrocardiogram with inferior and anterior lateral Q's. Assess for acute coronary syndrome.-neg trop x 3/NL EF by echo 3. Hypertension-reasonable 4. Dyslipidemia. 5. Chronic respiratory failure, status post tracheostomy. 6. End-stage renal disease on hemodialysis. 7. Hypothyroidism. 8. Anemia. Recc: -Tele -continue coumadin s/p increase and f/u INR now therapeutic -Continue BB -Continue lasix plus HD for volume removal -Continue synthroid Consultation Date/Type/Reason Admit Date/Time March 13, 2019 at 10:21 Initial Consult Date 03/11/19 Type of Consult Cardiology Reason for Consultation s/p AVR Requesting Provider: ELA ROBINS DO Date/Time of Note DATE: 03/19/19 TIME: 14:33 Exam/Review of Systems Vital Signs Vitals Vital Signs Date Temp Pulse Resp B/P (MAP) Pulse Ox O2 O2 Flow FiO2 Time Delivery Rate 03/19/19 83 12:09 03/19/19 98.0 20 141/60 98 11:36 (87) 03/19/19 30 08:00 03/18/19 5.0 18:44 03/18/19 Mechanical 15:00 Ventilator Trach Collar Intake and Output 03/18/19 03/18/19 03/19/19 1515:00 23:00 07:00 IntakeIntake Total 300 ml 350 ml BalanceBalance 300 ml 350 ml Exam Exam Review of Systems: CONSTITUTIONAL: No fevers, chills. PULMONARY: No sob CARDIOVASCULAR: No chest pain/palpitations GASTROINTESTINAL: No nausea/vomiting. GENITOURINARY: No hematuria/dysuria. MUSCULOSKELETAL: No myagias/arthalgias. PSYCHIATRIC: The patient denies depression. NEUROLOGIC: No weakness Constitutional: alert Psych: no complaints ENMT: mucosa pink and moist Neck: other (trached) Respiratory: diminished breath sounds (at bases/B) Cardiovascular: regular rate and rhythm Gastrointestinal: soft, non-tender Musculoskeletal: muscle weakness (mild generaliozed) Extremities: pitting pedal edema (bilateral) Labs Result Diagram: 03/19/1952103/19/19521 Results 24hrs Laboratory Tests Test 03/19/19 05:22 White Blood Count 8.3 Red Blood Count 3.81 L Hemoglobin 11.3 L Hematocrit 37.0 Mean Corpuscular Volume 97.1 Mean Corpuscular Hemoglobin 29.7 Mean Corpuscular Hemoglobin Concent 30.5 L Red Cell Distribution Width 16.0 H Platelet Count 257 # Mean Platelet Volume 10.7 H Immature Granulocytes % 0.400 Neutrophils % 71.0 Lymphocytes % 13.3 L Monocytes % 8.7 Eosinophils % 4.5 Basophils % 2.1 H Nucleated Red Blood Cells % 0.0 Immature Granulocytes # 0.030 Neutrophils # 5.9 Lymphocytes # 1.1 Monocytes # 0.7 Eosinophils # 0.4 Basophils # 0.2 H Nucleated Red Blood Cells # 0.0 Prothrombin Time 24.6 H Prothrombin Time Ratio 1.9 INR International Normalized Ratio 2.21 Sodium Level 137 Potassium Level 5.5 H Chloride Level 106 Carbon Dioxide Level 24 Anion Gap 7 Blood Urea Nitrogen 45 H Creatinine 3.84 H Est Glomerular Filtrat Rate mL/min 12 L Glucose Level 102 Calcium Level 8.8 Phosphorus Level 5.3 H Magnesium Level 2.1 Medications Medications Current Medications Acetaminophen (Tylenol Liquid (Ped)) 640 mg Q4H PRN PO FOR PAIN; Start 03/10/19 at 19:30 Bisacodyl (Dulcolax Supp) 10 mg DAILY [place] Last administered on 03/14/19at 09:31; Admin Dose 10 MG; Start 03/11/19 at 09:00 Diphenhydramine HCl (Benadryl) 25 mg DAILY PRN PO ITCHING; Start 03/10/19 at 19:30 Docusate Sodium (Colace) 100 mg DAILY PO Last administered on 03/19/19at 07:59; Admin Dose 100 MG; Start 03/11/19 at 09:00 Furosemide (Lasix) 40 mg DAILY PO Last administered on 03/19/19at 08:00; Admin Dose 40 MG; Start 03/11/19 at 09:00 Guaifenesin (Robitussin Liquid Cup) 100 mg Q6H PRN PO COUGH; Start 03/10/19 at 19:30 Levothyroxine Sodium (Synthroid) 175 mcg BEFORE BREAKFAST PO Last administered on 03/18/19at 08:06; Admin Dose 175 MCG; Start 03/11/19 at 07:00 Lidocaine (Lidoderm) 1 patch Q8H PRN TD FOR RIGHT SHOULDER; Start 03/10/19 at 19:30 Metoprolol Tartrate (Lopressor) 25 mg TID PO Last administered on 03/18/19 20:53; Admin Dose 25 MG; Start 03/10/19 at 21:00 Midodrine (Proamatine) 5 mg Q8H PRN PO HOLD FOR SBP>110; Start 03/10/19 at 19:30 Sevelamer Carbonate (Renvela) 1.6 gm WITH MEALS PO Last administered on 03/19/19 11:54; Admin Dose 1.6 GM; Start 03/11/19 at 08:00 Warfarin Sodium (Coumadin) 4 mg SuTuThSa@1700 PO Last administered on 03/17/19 17:07; Admin Dose 4 MG; Start 03/10/19 at 20:00 Calcium Carbonate (Oyster Shell Calcium) 1.25 gm DAILY PO Last administered on 03/17/19 08:15; Admin Dose 1.25 GM; Start 03/11/19 at 09:00 IV Flush (NS 3 ml) 3 ml PER PROTOCOL IV ; Start 03/10/19 at 19:30 Ondansetron HCl (Zofran Inj) 4 mg Q6H PRN IV NAUSEA/VOMITING; Start 03/10/19 at 19:30 Famotidine (Pepcid) 20 mg DAILY PO Last administered on 03/18/19 08:06; Admin Dose 20 MG; Start 03/10/19 at 21:00 Ipratropium [place] (Atrovent Hfa) 2 puff Q4H RESP THERAPY INH Last administered on 03/19/19 05:11; Admin Dose 2 PUFF; Start 03/10/19 at 21:00 Nystatin (Nystatin Powder) 1 applic BID TOP Last administered on 03/19/19 08:00; Admin Dose 1 APPLIC; Start 03/11/19 at 11:00 Heparin Sodium (Porcine) (Heparin (1000 Units/ml)) 4,100 unit AFTER DIALYSIS CATHETER Last administered on 03/17/19 19:09; Admin Dose 4,100 UNIT; Start 03/11/19 at 19:00 Warfarin Sodium (Coumadin) 5 mg MoWeFr@1700 PO Last administered on 03/18/19 17:13; Admin Dose 5 MG; Start 03/16/19 at 17:00 RIAZ BLACKBURN March 19, 2019 14:33
[2019-03-19] MEDS: WARFARIN 2 MG TAB PO SCH (17:03)
--- NOTE | 2019-03-19 21:31 | PN ---
Date/Time of Note Date/Time of Note DATE: 03/19/19 TIME: 21:31 Assessment/Plan VTE Prophylaxis Risk score (from Ns)>0 risk: 4 SCD applied (from [facility] [place]): No SCD contraindicated: other Pharmacological prophylaxis: other Pharm contraindication: other Lines/Catheters IV Catheter Type (from [facility], [place]): PERMACATH Central line still needed: Yes Urinary Cath still in place: No Assessment/Plan Assessment/Plan Hyperkalemia- 1. End-stage disease with PermCath malfunction. The patient is able to tolerate hemodialysis per Perm Cath now. The patient has been requesting PD evaluation. Dr. Stallings is seeing the patient to see if she is appropriate for peritoneal dialysis. 2. Chronic atrial fibrillation. Heart rate and rhythm control. Continue Coumadin. INR this morning is 2.3. The patient is being followed by Dr. Horne from cardiology standpoint. DISPOSITION: [facility] has accepted the patient, awaiting for Dr. Stallings's recommendation regarding peritoneal dialysis catheter. The patient is going for CT scan of abdomen and pelvis to assess her for PD catheter. Plan of care was discussed with the patient and her . Result Diagram: 03/19/1952103/19/19 0522 Results 24hrs Laboratory Tests Test 03/19/19 05:22 White Blood Count 8.3 Red Blood Count 3.81 L Hemoglobin 11.3 L Hematocrit 37.0 Mean Corpuscular Volume 97.1 Mean Corpuscular Hemoglobin 29.7 Mean Corpuscular Hemoglobin Concent 30.5 L Red Cell Distribution Width 16.0 H Platelet Count 257 # Mean Platelet Volume 10.7 H Immature Granulocytes % 0.400 Neutrophils % 71.0 Lymphocytes % 13.3 L Monocytes % 8.7 Eosinophils % 4.5 Basophils % 2.1 H Nucleated Red Blood Cells % 0.0 Immature Granulocytes # 0.030 Neutrophils # 5.9 Lymphocytes # 1.1 Monocytes # 0.7 Eosinophils # 0.4 Basophils # 0.2 H Nucleated Red Blood Cells # 0.0 Prothrombin Time 24.6 H Prothrombin Time Ratio 1.9 INR International Normalized Ratio 2.21 Sodium Level 137 Potassium Level 5.5 H Chloride Level 106 Carbon Dioxide Level 24 Anion Gap 7 Blood Urea Nitrogen 45 H Creatinine 3.84 H Est Glomerular Filtrat Rate mL/min 12 L Glucose Level 102 Calcium Level 8.8 Phosphorus Level 5.3 H Magnesium Level 2.1 Subjective 24 Hr Interval Summary Free Text/Dictation nad afebrile waiting permacath change at bed side- all qs answered no events reported overnight dw staff Subjective hx not possible: pt non-verbal Constitutional: requiring O2 Eyes: no complaints ENT: no complaints Respiratory: no complaints Cardiovascular: no complaints Gastrointestinal: no complaints Genitourinary: no complaints Musculoskeletal: restricted range of motion Skin: no complaints Neurologic: no complaints Endocrine: no complaints Psychological: nl mood/affect Immunologic: no complaints Exam/Review of Systems Exam Vitals Vital Signs Date Temp Pulse Resp B/P (MAP) Pulse Ox O2 O2 Flow FiO2 Time Delivery Rate 03/19/19 88 16 100 30 21:13 03/19/19 98.5 138/65 20:00 (89) 03/19/19 Aerosol 5.0 17:32 Intake and Output 03/18/19 03/18/19 03/19/19 1414:59 22:59 06:59 IntakeIntake Total 300 ml 350 ml BalanceBalance 300 ml 350 ml Constitutional: alert, well developed, non-verbal, frail Psych: nl mood/affect Head: normocephalic Eyes: nl lids, nl sclera ENMT: nl external ears & nose Neck: non-tender Respiratory: clear to auscultation Cardiovascular: nl pulses, other (s1s2) Gastrointestinal: soft, non-tender Musculoskeletal: muscle weakness Extremities: normal pulses Neurological: other (alert/responsive) Results Results 24hrs Laboratory Tests Test 03/19/19 05:22 White Blood Count 8.3 Red Blood Count 3.81 L Hemoglobin 11.3 L Hematocrit 37.0 Mean Corpuscular Volume 97.1 Mean Corpuscular Hemoglobin 29.7 Mean Corpuscular Hemoglobin Concent 30.5 L Red Cell Distribution Width 16.0 H Platelet Count 257 # Mean Platelet Volume 10.7 H Immature Granulocytes % 0.400 Neutrophils % 71.0 Lymphocytes % 13.3 L Monocytes % 8.7 Eosinophils % 4.5 Basophils % 2.1 H Nucleated Red Blood Cells % 0.0 Immature Granulocytes # 0.030 Neutrophils # 5.9 Lymphocytes # 1.1 Monocytes # 0.7 Eosinophils # 0.4 Basophils # 0.2 H Nucleated Red Blood Cells # 0.0 Prothrombin Time 24.6 H Prothrombin Time Ratio 1.9 INR International Normalized Ratio 2.21 Sodium Level 137 Potassium Level 5.5 H Chloride Level 106 Carbon Dioxide Level 24 Anion Gap 7 Blood Urea Nitrogen 45 H Creatinine 3.84 H Est Glomerular Filtrat Rate mL/min 12 L Glucose Level 102 Calcium Level 8.8 Phosphorus Level 5.3 H Magnesium Level 2.1 Medications Medication Current Medications Acetaminophen (Tylenol Liquid (Ped)) 640 mg Q4H PRN PO FOR PAIN; Start 03/10/19 at 19:30 Bisacodyl (Dulcolax Supp) 10 mg DAILY [place] Last administered on 03/14/19 09:31; Admin Dose 10 MG; Start 03/11/19 at 09:00 Diphenhydramine HCl (Benadryl) 25 mg DAILY PRN PO ITCHING; Start 03/10/19 at 19:30 Docusate Sodium (Colace) 100 mg DAILY PO Last administered on 03/19/19 07:59; Admin Dose 100 MG; Start 03/11/19 at 09:00 Furosemide (Lasix) 40 mg DAILY PO Last administered on 03/19/19 08:00; Admin Dose 40 MG; Start 03/11/19 at 09:00 Guaifenesin (Robitussin Liquid Cup) 100 mg Q6H PRN PO COUGH; Start 03/10/19 at 19:30 Levothyroxine Sodium (Synthroid) 175 mcg BEFORE BREAKFAST PO Last administered on 03/18/19 08:06; Admin Dose 175 MCG; Start 03/11/19 at 07:00 Lidocaine (Lidoderm) 1 patch Q8H PRN TD FOR RIGHT SHOULDER; Start 03/10/19 at 19:30 Metoprolol Tartrate (Lopressor) 25 mg TID PO Last administered on 03/19/19at 21:04; Admin Dose 25 MG; Start 03/10/19 at 21:00 Midodrine (Proamatine) 5 mg Q8H PRN PO HOLD FOR SBP>110; Start 03/10/19 at 19:30 Sevelamer Carbonate (Renvela) 1.6 gm WITH MEALS PO Last administered on 03/19/19 17:01; Admin Dose 1.6 GM; Start 03/11/19 at 08:00 Warfarin Sodium (Coumadin) 4 mg SuTuThSa@1700 PO Last administered on 03/19/19 17:03; Admin Dose 4 MG; Start 03/10/19 at 20:00 Calcium Carbonate (Oyster Shell Calcium) 1.25 gm DAILY PO Last administered on 03/17/19 08:15; Admin Dose 1.25 GM; Start 03/11/19 at 09:00 IV Flush (NS 3 ml) 3 ml PER PROTOCOL IV ; Start 03/10/19 at 19:30 Ondansetron HCl (Zofran Inj) 4 mg Q6H PRN IV NAUSEA/VOMITING; Start 03/10/19 at 19:30 Famotidine (Pepcid) 20 mg DAILY PO Last administered on 03/18/19 08:06; Admin Dose 20 MG; Start 03/10/19 at 21:00 Ipratropium [place] (Atrovent Hfa) 2 puff Q4H RESP THERAPY INH Last administered on 03/19/19 21:20; Admin Dose 2 PUFF; Start 03/10/19 at 21:00 Nystatin (Nystatin Powder) 1 applic BID TOP Last administered on 03/19/19 08:00; Admin Dose 1 APPLIC; Start 03/11/19 at 11:00 Heparin Sodium (Porcine) (Heparin (1000 Units/ml)) 4,100 unit AFTER DIALYSIS CATHETER Last administered on 03/17/19 19:09; Admin Dose 4,100 UNIT; Start 03/11/19 at 19:00 Warfarin Sodium (Coumadin) 5 mg MoWeFr@1700 PO Last administered on 03/18/19 17:13; Admin Dose 5 MG; Start 03/16/19 at 17:00 RONEN RINCON March 19, 2019 21:31
[2019-03-20] VITALS (30 sets, daily range): BP systolic 97–158; BP diastolic 42–69; PULSE 67–107; RESP 16–30
[2019-03-20] MEDS: IPRATROPIUM (HFA) 12.9 GM INHALER INH SCH ×6 (01:38→21:15)
--- NOTE | 2019-03-20 07:55 | PN ---
Date/Time of Note Date/Time of Note DATE: 03/20/19 TIME: 07:55 Assessment/Plan VTE Prophylaxis Risk score (from Ns)>0 risk: 4 SCD applied (from [facility] [place]): No SCD contraindicated: other Pharmacological prophylaxis: other Pharm contraindication: other Lines/Catheters IV Catheter Type (from [facility] permacath Urinary Cath still in place: No Assessment/Plan Assessment/Plan Hyperkalemia- - per nephro 1. End-stage disease with PermCath malfunction. The patient is able to tolerate hemodialysis per Perm Cath now. The patient has been requesting PD evaluation. Dr. Stallings is seeing the patient to see if she is appropriate for peritoneal dialysis. 2. Chronic atrial fibrillation. Heart rate and rhythm control. Continue Coumadin. INR this morning is 2.3. The patient is being followed by Dr. Horne from cardiology standpoint. DISPOSITION: [facility] has accepted the patient, awaiting for Dr. Stallings's recommendation regarding peritoneal dialysis catheter. The patient is going for CT scan of abdomen and pelvis to assess her for PD catheter. Plan of care was discussed with the patient and her . Result Diagram: 03/19/1952103/19/19521 Subjective 24 Hr Interval Summary Free Text/Dictation nad afebrile waiting permacath change at bed side- all qs answered no events reported overnight dw staff Constitutional: requiring O2 ENT: no complaints Respiratory: no complaints Cardiovascular: no complaints Gastrointestinal: no complaints Genitourinary: no complaints Musculoskeletal: restricted range of motion Skin: no complaints Exam/Review of Systems Exam Vitals Vital Signs Date Temp Pulse Resp B/P (MAP) Pulse Ox O2 O2 Flow FiO2 Time Delivery Rate 03/20/19 71 16 100 30 05:03 03/20/19 98.4 97/42 (60) 00:00 03/19/19 Aerosol 5.0 17:32 Intake and Output 03/19/19 03/19/19 03/20/19 1515:00 23:00 07:00 IntakeIntake Total 300 ml BalanceBalance 300 ml Constitutional: alert, non-verbal, frail Psych: nl mood/affect Eyes: nl lids, nl sclera ENMT: nl external ears & nose Neck: non-tender, other (trach intact) Respiratory: clear to auscultation, diminished breath sounds Cardiovascular: nl pulses, other (s1s2) Gastrointestinal: soft, non-tender Musculoskeletal: muscle weakness Extremities: normal pulses Neurological: other (alert/reponsive) Lymph: nontender Medications Medication Current Medications Acetaminophen (Tylenol Liquid (Ped)) 640 mg Q4H PRN PO FOR PAIN; Start 03/10/19 at 19:30 Bisacodyl (Dulcolax Supp) 10 mg DAILY [place] Last administered on 03/14/19at 09:31; Admin Dose 10 MG; Start 03/11/19 at 09:00 Diphenhydramine HCl (Benadryl) 25 mg DAILY PRN PO ITCHING; Start 03/10/19 at 19:30 Docusate Sodium (Colace) 100 mg DAILY PO Last administered on 03/19/19at 07:59; Admin Dose 100 MG; Start 03/11/19 at 09:00 Furosemide (Lasix) 40 mg DAILY PO Last administered on 03/19/19at 08:00; Admin Dose 40 MG; Start 03/11/19 at 09:00 Guaifenesin (Robitussin Liquid Cup) 100 mg Q6H PRN PO COUGH; Start 03/10/19 at 19:30 Levothyroxine Sodium (Synthroid) 175 mcg BEFORE BREAKFAST PO Last administered on 03/18/19at 08:06; Admin Dose 175 MCG; Start 03/11/19 at 07:00 Lidocaine (Lidoderm) 1 patch Q8H PRN TD FOR RIGHT SHOULDER; Start 03/10/19 at 19:30 Metoprolol Tartrate (Lopressor) 25 mg TID PO Last administered on 03/19/19at 21:04; Admin Dose 25 MG; Start 03/10/19 at 21:00 Midodrine (Proamatine) 5 mg Q8H PRN PO HOLD FOR SBP>110; Start 03/10/19 at 19:30 Sevelamer Carbonate (Renvela) 1.6 gm WITH MEALS PO Last administered on 03/19/19at 17:01; Admin Dose 1.6 GM; Start 03/11/19 at 08:00 Warfarin Sodium (Coumadin) 4 mg SuTuThSa@1700 PO Last administered on 03/19/19at 17:03; Admin Dose 4 MG; Start 03/10/19 at 20:00 Calcium Carbonate (Oyster Shell Calcium) 1.25 gm DAILY PO Last administered on 03/17/19 08:15; Admin Dose 1.25 GM; Start 03/11/19 at 09:00 IV Flush (NS 3 ml) 3 ml PER PROTOCOL IV ; Start 03/10/19 at 19:30 Ondansetron HCl (Zofran Inj) 4 mg Q6H PRN IV NAUSEA/VOMITING; Start 03/10/19 at 19:30 Famotidine (Pepcid) 20 mg DAILY PO Last administered on 03/18/19 08:06; Admin Dose 20 MG; Start 03/10/19 at 21:00 Ipratropium [place] (Atrovent Hfa) 2 puff Q4H RESP THERAPY INH Last administered on 03/20/19 05:00; Admin Dose 2 PUFF; Start 03/10/19 at 21:00 Nystatin (Nystatin Powder) 1 applic BID TOP Last administered on 03/19/19 08:00; Admin Dose 1 APPLIC; Start 03/11/19 at 11:00 Heparin Sodium (Porcine) (Heparin (1000 Units/ml)) 4,100 unit AFTER DIALYSIS CATHETER Last administered on 03/17/19 19:09; Admin Dose 4,100 UNIT; Start 03/11/19 at 19:00 Warfarin Sodium (Coumadin) 5 mg MoWeFr@1700 PO Last administered on 03/18/19 17:13; Admin Dose 5 MG; Start 03/16/19 at 17:00 RONEN RINCON March 20, 2019 07:55
[2019-03-20] MEDS: METOPROLOL 25 MG TAB PO SCH ×3 (08:35→20:50)
[2019-03-20] MEDS: FUROSEMIDE 40 MG TAB PO SCH (08:35)
[2019-03-20] MEDS: CALCIUM CARBONATE 1.25 GM TAB PO SCH (08:36)
[2019-03-20] MEDS: BISACODYL 10 MG SUPP PR SCH (08:36)
[2019-03-20] MEDS: BALSAM PERU/CASTOR OIL 60 GM TUBE TOP SCH ×3 (08:36→21:00)
[2019-03-20] MEDS: FAMOTIDINE 20 MG TAB PO SCH (08:36)
[2019-03-20] MEDS: LEVOTHYROXINE 175 MCG TAB PO SCH (08:38)
[2019-03-20] MEDS: DOCUSATE SODIUM 100 MG CAP PO SCH (08:38)
[2019-03-20] MEDS: SEVELAMER CARBONATE 0.8 GM PKT PO SCH ×3 (08:39→17:05)
[2019-03-20] MEDS: NYSTATIN 30 GM POWDER BTL TOP SCH ×3 (08:40→21:00)
--- NOTE | 2019-03-20 10:03 | PN ---
DATE: 03/20/2019 SUBJECTIVE: The patient is stable, no events overnight. OBJECTIVE: VITAL SIGNS: Blood pressure is 141/60, pulse 111, respirations 25, temperature 98.5. HEENT: Head is normocephalic. NECK: Supple. HEART: Regular rate. LUNGS: Show diminished breath sounds at the base. ABDOMEN: Soft, nontender to palpation without rebound or guarding. EXTREMITIES: Negative for clubbing, cyanosis, no edema. DERMATOLOGIC: No rashes. MUSCULOSKELETAL: No joint effusion. NEUROLOGIC: No change in exam. MEDICATIONS: The patient's medications have been reviewed. LABORATORY DATA: Has been reviewed. IMAGING STUDIES: Have been reviewed. ASSESSMENT AND PLAN: 1. End-stage renal disease, recommend hemodialysis today. We will dialyze 3 hours 2k bath, calcium 2.5. 2. Hypokalemia. Continue dialysis low potassium bath. 3. Access. The patient has a Perm-A-Cath. Pending possible placement of PD catheter by general amirah jacinto. 4. Anemia. Monitor hemoglobin and hematocrit levels. Continue Epogen. 5. Mineral bone disorder. Monitor calcium and phosphorus levels. 6. Ventilator-dependent respiratory failure. Vent settings have been reviewed. Continue to monitor . 7. Hypertension. Continue current blood pressure regimen. 8. Mechanical heart valve. Continue Coumadin, monitor INR. 9. Hypothyroidism. Continue Synthroid. 10. Arrhythmia. Continue to monitor. Dictated By: ELA ROBINS DO NR/NTS Conf#: [id number] DID#: [id number] CC: KOFI CORBETT MD; KOSTAS CRESPO MD;*EndCC*
--- NOTE | 2019-03-20 10:07 | CONS ---
Assessment/Plan Assessment/Plan Assessment/Plan (Daily) Assessment and recommendations; 1. Patient with history of chronic respiratory failure maintained on T-piece and daytime admitted for hemodialysis catheter malfunction status post replacement. 2. Chronic renal failure, on hemodialysis. 3. History of mechanical aortic valve replacement. Maintained on chronic anticoagulation. 4. Kyphoscoliosis. Leading to restrictive lung disease. 5. Interstitial lung disease. 6. History of hypothyroidism. Continue current supportive care. 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 [facility] Patient has refused ABG to be drawn. Consultation Date/Type/Reason Admit Date/Time March 13, 2019 at 10:21 Initial Consult Date 03/16/19 Type of Consult Pulmonary Pulmonary consult requested for evaluation of chronic respiratory failure. Patient admitted for hemodialysis catheter malfunction. Which has since been replaced. Patient is a pleasant 63-year-old lady who was transferred to the hospital because of malfunctioning hemodialysis catheter placement the patient does have history of chronic respiratory failure which is partially ventilator dependent. By the time I saw the patient in the room, patient was sitting in her bed and was completely awake and alert. Was able to give a meaningful history by herself. Patient currently denies any shortness of breath, chest pain, coughing, wheezing, any fever or chills. Past medical history; 1. History of chronic renal failure, on hemodialysis. 2. Possibly underlying pulmonary fibrosis. 3. Anemia. 4. CHF. 5. Hypertension. 6. Kyphoscoliosis. 7. History of mechanical aortic valve replacement. Medications; reviewed. Allergies; as outlined above. Social history; patient never smoked. Family history; she is , has a supportive . 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 Review of systems; denies any headache, visual changes, sinus symptoms. Any chest pain, wheezing, cough, sputum production or shortness of breath at rest. Denies any abdominal pain, nausea vomiting. Patient is able to eat. Denies any melena hematochezia. Any edema. General exam; elderly female, awake alert, on ventilator via tracheostomy, awake and alert. Currently in no distress. Allergies; Requesting Provider: ELA ROBINS DO Date/Time of Note DATE: 03/20/19 TIME: 10:04 24 HR Interval Summary Free Text/Dictation Patient's condition is stable. Doing fairly well on T-piece and daytime. On bilevel ventilation overnight. Denies any shortness of breath at rest. Complains of occasional scant cough. General exam; elderly lady, awake alert, currently no distress. Exam/Review of Systems Exam Vitals Vital Signs Date Temp Pulse Resp B/P (MAP) Pulse Ox O2 O2 Flow FiO2 Time Delivery Rate 03/20/19 102 08:17 03/20/19 98.0 20 123/59 100 08:10 (80) 03/20/19 30 08:00 03/19/19 Aerosol 5.0 17:32 Intake and Output 03/19/19 03/19/19 03/20/19 1515:00 23:00 07:00 IntakeIntake Total 300 ml BalanceBalance 300 ml Exam H EENT exam; supple neck, no JVD. No lymphadenopathy. Midline trachea. No thyromegaly. Tracheostomy in place. Patient is edentulous and has dentures in place. Chest exam; diminished breath sounds bilaterally. S1-S2 audible, no murmurs. There is a well-healed sternal scar. Abdomen exam; soft, nontender. No organomegaly. Bowel sounds audible. Extremity exam; no peripheral edema clubbing. SOFTWARE SPECIALIST exam; no focal deficit. Results Result Diagram: 03/20/19 0753 03/20/19 0753 Results 24hrs Laboratory Tests Test 03/20/19 07:53 White Blood Count 9.2 Red Blood Count 4.39 Hemoglobin 12.9 Hematocrit 42.2 Mean Corpuscular Volume 96.1 Mean Corpuscular Hemoglobin 29.4 Mean Corpuscular Hemoglobin Concent 30.6 L Red Cell Distribution Width 16.0 H Platelet Count 282 Mean Platelet Volume 10.8 H Immature Granulocytes % 0.500 H Neutrophils % 75.3 Lymphocytes % 12.0 L Monocytes % 6.4 Eosinophils % 3.6 Basophils % 2.2 H Nucleated Red Blood Cells % 0.0 Immature Granulocytes # 0.050 H Neutrophils # 7.0 Lymphocytes # 1.1 Monocytes # 0.6 Eosinophils # 0.3 Basophils # 0.2 H Nucleated Red Blood Cells # 0.0 Prothrombin Time 26.5 H Prothrombin Time Ratio 2.1 INR International Normalized Ratio 2.43 Sodium Level 139 Potassium Level 6.4 *H Chloride Level 105 Carbon Dioxide Level 23 Anion Gap 11 Blood Urea Nitrogen 58 H Creatinine 5.05 H Est Glomerular Filtrat Rate mL/min 9 L Glucose Level 79 Calcium Level 9.1 Medications Medication Current Medications Acetaminophen (Tylenol Liquid (Ped)) 640 mg Q4H PRN PO FOR PAIN; Start 03/10/19 at 19:30 Bisacodyl (Dulcolax Supp) 10 mg DAILY [place] Last administered on 03/14/19 09:31; Admin Dose 10 MG; Start 03/11/19 at 09:00 Diphenhydramine HCl (Benadryl) 25 mg DAILY PRN PO ITCHING; Start 03/10/19 at 19:30 Docusate Sodium (Colace) 100 mg DAILY PO Last administered on 03/20/19 08:38; Admin Dose 100 MG; Start 03/11/19 at 09:00 Furosemide (Lasix) 40 mg DAILY PO Last administered on 03/19/19 08:00; Admin Dose 40 MG; Start 03/11/19 at 09:00 Guaifenesin (Robitussin Liquid Cup) 100 mg Q6H PRN PO COUGH; Start 03/10/19 at 19:30 Levothyroxine Sodium (Synthroid) 175 mcg BEFORE BREAKFAST PO Last administered on 03/18/19 08:06; Admin Dose 175 MCG; Start 03/11/19 at 07:00 Lidocaine (Lidoderm) 1 patch Q8H PRN TD FOR RIGHT SHOULDER; Start 03/10/19 at 19:30 Metoprolol Tartrate (Lopressor) 25 mg TID PO Last administered on 03/19/19at 21:04; Admin Dose 25 MG; Start 03/10/19 at 21:00 Midodrine (Proamatine) 5 mg Q8H PRN PO HOLD FOR SBP>110; Start 03/10/19 at 19:30 Sevelamer Carbonate (Renvela) 1.6 gm WITH MEALS PO Last administered on 08:39; Admin Dose 1.6 GM; Start 03/11/19 at 08:00 Warfarin Sodium (Coumadin) 4 mg SuTuThSa@1700 PO Last administered on 03/19/19 17:03; Admin Dose 4 MG; Start 03/10/19 at 20:00 Calcium Carbonate (Oyster Shell Calcium) 1.25 gm DAILY PO Last administered on 03/17/19 08:15; Admin Dose 1.25 GM; Start 03/11/19 at 09:00 IV Flush (NS 3 ml) 3 ml PER PROTOCOL IV ; Start 03/10/19 at 19:30 Ondansetron HCl (Zofran Inj) 4 mg Q6H PRN IV NAUSEA/VOMITING; Start 03/10/19 at 19:30 Famotidine (Pepcid) 20 mg DAILY PO Last administered on 03/18/19 08:06; Admin Dose 20 MG; Start 03/10/19 at 21:00 Ipratropium [place] (Atrovent Hfa) 2 puff Q4H RESP THERAPY INH Last administered on 03/20/19 09:16; Admin Dose 2 PUFF; Start 03/10/19 at 21:00 Nystatin (Nystatin Powder) 1 applic BID TOP Last administered on 03/20/19 08:40; Admin Dose 1 APPLIC; Start 03/11/19 at 11:00 Heparin Sodium (Porcine) (Heparin (1000 Units/ml)) 4,100 unit AFTER DIALYSIS CATHETER Last administered on 03/17/19 19:09; Admin Dose 4,100 UNIT; Start 03/11/19 at 19:00 Warfarin Sodium (Coumadin) 5 mg MoWeFr@1700 PO Last administered on 03/18/19 17:13; Admin Dose 5 MG; Start 03/16/19 at 17:00 LADONNA WALSH March 20, 2019 10:07
[2019-03-20] MEDS: HEPARIN 1000 UNITS/ML 10 ML INJ CATHETER SCH (13:12)
--- NOTE | 2019-03-20 15:30 | CONS ---
Assessment/Plan Assessment/Plan Hospital Course (Demo Recall) IMPRESSION: 1. Status post aortic valve replacement, mechanical, on Coumadin, currently mildly subtherapeutic levels. 2. Abnormal electrocardiogram with inferior and anterior lateral Q's. Assess for acute coronary syndrome.-neg trop x 3/NL EF by echo 3. Hypertension-reasonable 4. Dyslipidemia. 5. Chronic respiratory failure, status post tracheostomy. 6. End-stage renal disease on hemodialysis. 7. Hypothyroidism. 8. Anemia. Recc: -Tele -continue coumadin at current alternating dose s/p increase and f/u INR now therapeutic -Continue BB -Continue lasix plus HD for volume removal -Continue synthroid Consultation Date/Type/Reason Admit Date/Time March 13, 2019 at 10:21 Initial Consult Date 03/11/19 Type of Consult Cardiology Reason for Consultation s/p AVR Requesting Provider: ELA ROBINS DO Date/Time of Note DATE: 03/20/19 TIME: 15:28 Exam/Review of Systems Vital Signs Vitals Vital Signs Date Temp Pulse Resp B/P (MAP) Pulse Ox O2 O2 Flow FiO2 Time Delivery Rate 03/20/19 77 13:30 03/20/19 158/63 99 Mechanical 13:30 (94) Ventilator 03/20/19 97.5 11:44 03/20/19 30 09:30 03/19/19 5.0 17:32 Intake and Output 03/19/19 03/19/19 03/20/19 1515:00 23:00 07:00 IntakeIntake Total 300 ml BalanceBalance 300 ml Exam Exam Review of Systems: CONSTITUTIONAL: No fevers, chills. PULMONARY: trached CARDIOVASCULAR: No chest pain/palpitations GASTROINTESTINAL: No nausea/vomiting. GENITOURINARY: No hematuria/dysuria. MUSCULOSKELETAL: No myagias/arthalgias. PSYCHIATRIC: The patient denies depression. NEUROLOGIC: No weakness Constitutional: alert Head: normocephalic ENMT: mucosa pink and moist Neck: supple, jvd (9 cm water) Respiratory: other (trached) Cardiovascular: other (tachycardic, regular rhythm) Gastrointestinal: soft, non-tender Musculoskeletal: muscle tone (normal) Extremities: edema (trace/B) Neurological: other (No focal deficits) Labs Result Diagram: 03/20/19 0753 03/20/19 0753 Results 24hrs Laboratory Tests Test 03/20/19 07:53 White Blood Count 9.2 Red Blood Count 4.39 Hemoglobin 12.9 Hematocrit 42.2 Mean Corpuscular Volume 96.1 Mean Corpuscular Hemoglobin 29.4 Mean Corpuscular Hemoglobin Concent 30.6 L Red Cell Distribution Width 16.0 H Platelet Count 282 Mean Platelet Volume 10.8 H Immature Granulocytes % 0.500 H Neutrophils % 75.3 Lymphocytes % 12.0 L Monocytes % 6.4 Eosinophils % 3.6 Basophils % 2.2 H Nucleated Red Blood Cells % 0.0 Immature Granulocytes # 0.050 H Neutrophils # 7.0 Lymphocytes # 1.1 Monocytes # 0.6 Eosinophils # 0.3 Basophils # 0.2 H Nucleated Red Blood Cells # 0.0 Prothrombin Time 26.5 H Prothrombin Time Ratio 2.1 INR International Normalized Ratio 2.43 Sodium Level 139 Potassium Level 6.4 *H Chloride Level 105 Carbon Dioxide Level 23 Anion Gap 11 Blood Urea Nitrogen 58 H Creatinine 5.05 H Est Glomerular Filtrat Rate mL/min 9 L Glucose Level 79 Calcium Level 9.1 Medications Medications Current Medications Acetaminophen (Tylenol Liquid (Ped)) 640 mg Q4H PRN PO FOR PAIN; Start 03/10/19 at 19:30 Bisacodyl (Dulcolax Supp) 10 mg DAILY [place] Last administered on 03/14/19at 09:31; Admin Dose 10 MG; Start 03/11/19 at 09:00 Diphenhydramine HCl (Benadryl) 25 mg DAILY PRN PO ITCHING; Start 03/10/19 at 19:30 Docusate Sodium (Colace) 100 mg DAILY PO Last administered on 03/20/19at 08:38; Admin Dose 100 MG; Start 03/11/19 at 09:00 Furosemide (Lasix) 40 mg DAILY PO Last administered on 03/19/19at 08:00; Admin Dose 40 MG; Start 03/11/19 at 09:00 Guaifenesin (Robitussin Liquid Cup) 100 mg Q6H PRN PO COUGH; Start 03/10/19 at 19:30 Levothyroxine Sodium (Synthroid) 175 mcg BEFORE BREAKFAST PO Last administered on 03/18/19at 08:06; Admin Dose 175 MCG; Start 03/11/19 at 07:00 Lidocaine (Lidoderm) 1 patch Q8H PRN TD FOR RIGHT SHOULDER; Start 03/10/19 at 19:30 Metoprolol Tartrate (Lopressor) 25 mg TID PO Last administered on 03/19/19 21:04; Admin Dose 25 MG; Start 03/10/19 at 21:00 Midodrine (Proamatine) 5 mg Q8H PRN PO HOLD FOR SBP>110; Start 03/10/19 at 19:30 Sevelamer Carbonate (Renvela) 1.6 gm WITH MEALS PO Last administered on 03/20/19 12:19; Admin Dose 1.6 GM; Start 03/11/19 at 08:00 Warfarin Sodium (Coumadin) 4 mg SuTuThSa@1700 PO Last administered on 03/19/19 17:03; Admin Dose 4 MG; Start 03/10/19 at 20:00 Calcium Carbonate (Oyster Shell Calcium) 1.25 gm DAILY PO Last administered on 03/17/19 08:15; Admin Dose 1.25 GM; Start 03/11/19 at 09:00 IV Flush (NS 3 ml) 3 ml PER PROTOCOL IV ; Start 03/10/19 at 19:30 Ondansetron HCl (Zofran Inj) 4 mg Q6H PRN IV NAUSEA/VOMITING; Start 03/10/19 at 19:30 Famotidine (Pepcid) 20 mg DAILY PO Last administered on 03/18/19 08:06; Admin Dose 20 MG; Start 03/10/19 at 21:00 Ipratropium [place] (Atrovent Hfa) 2 puff Q4H RESP THERAPY INH Last administered on 03/20/19 09:16; Admin Dose 2 PUFF; Start 03/10/19 at 21:00 Nystatin (Nystatin Powder) 1 applic BID TOP Last administered on 03/20/19 08:40; Admin Dose 1 APPLIC; Start 03/11/19 at 11:00 Heparin Sodium (Porcine) (Heparin (1000 Units/ml)) 4,100 unit AFTER DIALYSIS CATHETER Last administered on 03/20/19 13:12; Admin Dose 4,100 UNIT; Start 03/11/19 at 19:00 Warfarin Sodium (Coumadin) 5 mg MoWeFr@1700 PO Last administered on 03/18/19 17:13; Admin Dose 5 MG; Start 03/16/19 at 17:00 RIAZ BLACKBURN March 20, 2019 15:30
[2019-03-20] MEDS: WARFARIN 2 MG TAB PO SCH (17:08)
[2019-03-21] VITALS (19 sets, daily range): BP systolic 111–153; BP diastolic 57–67; PULSE 75–111; RESP 16–30
[2019-03-21] MEDS: IPRATROPIUM (HFA) 12.9 GM INHALER INH SCH ×5 (00:47→21:39)
[2019-03-21] MEDS: LEVOTHYROXINE 175 MCG TAB PO SCH (06:28)
[2019-03-21] MEDS: METOPROLOL 25 MG TAB PO SCH ×3 (08:16→20:22)
[2019-03-21] MEDS: SEVELAMER CARBONATE 0.8 GM PKT PO SCH ×3 (08:16→17:26)
[2019-03-21] MEDS: FUROSEMIDE 40 MG TAB PO SCH (08:16)
[2019-03-21] MEDS: DOCUSATE SODIUM 100 MG CAP PO SCH (08:16)
--- NOTE | 2019-03-21 08:23 | PN ---
DATE: 03/21/2019 SUBJECTIVE: The patient is stable, no events overnight. OBJECTIVE: VITAL SIGNS: Blood pressure is 130/63, pulse 79, respirations 20, temperature 98.0. HEENT: Head is normocephalic. NECK: Supple. HEART: Regular rate. LUNGS: Show diminished breath sounds at the base. ABDOMEN: Soft, nontender to palpation without rebound or guarding. EXTREMITIES: Negative for clubbing, cyanosis, no edema. DERMATOLOGIC: No rashes. MUSCULOSKELETAL: No joint effusion. NEUROLOGIC: No change in exam. MEDICATIONS: Reviewed. LABORATORY DATA: Reviewed. IMAGES STUDIES: Reviewed. ASSESSMENT AND PLAN: 1. End-stage renal disease. The patient had hemodialysis yesterday, tolerated well. Plan is for di alysis tomorrow. 2. Hyperkalemia. Continue dialysis on low potassium bath. 3. Access. The patient has Perm-A-Cath. Pending possible placement of PD catheter. 4. Anemia. Continue to monitor hemoglobin and hematocrit levels. Continue Epogen. 5. Mineral bone disorder, monitor calcium and phosphorus levels. 6. Ventilator-dependent respiratory failure. Vent settings have been reviewed. Continue to monitor . 7. Hypertension. Continue current blood pressure regimen. 8. Mechanical heart valve. Continue Coumadin, monitor INR. 9. Hypothyroidism. Continue Synthroid. 10. Arrhythmia. Continue to monitor. Dictated By: ELA ROBINS DO NR/NTS Conf#: [id number] DID#: [id number] CC: KOFI CORBETT MD; KOSTAS CRESPO MD;*EndCC*
[2019-03-21] MEDS: CALCIUM CARBONATE 1.25 GM TAB PO SCH (08:33)
[2019-03-21] MEDS: FAMOTIDINE 20 MG TAB PO SCH (08:34)
[2019-03-21] MEDS: NYSTATIN 30 GM POWDER BTL TOP SCH ×2 (08:34→20:23)
[2019-03-21] MEDS: BALSAM PERU/CASTOR OIL 60 GM TUBE TOP SCH ×2 (08:34→20:23)
[2019-03-21] MEDS: BISACODYL 10 MG SUPP PR SCH (08:34)
--- NOTE | 2019-03-21 11:42 | CONS ---
Assessment/Plan Assessment/Plan Hospital Course (Demo Recall) IMPRESSION: 1. Status post aortic valve replacement, mechanical, on Coumadin, currently mildly subtherapeutic levels. 2. Abnormal electrocardiogram with inferior and anterior lateral Q's. Assess for acute coronary syndrome.-neg trop x 3/NL EF by echo 3. Hypertension-reasonable 4. Dyslipidemia. 5. Chronic respiratory failure, status post tracheostomy. 6. End-stage renal disease on hemodialysis. 7. Hypothyroidism. 8. Anemia. Recc: -Tele -continue coumadin at current alternating dose s/p increase and f/u INR now therapeutic -Continue BB -Continue lasix plus HD for volume removal -Continue synthroid Consultation Date/Type/Reason Admit Date/Time March 13, 2019 at 10:21 Initial Consult Date 03/11/19 Type of Consult Cardiology Reason for Consultation s/p AVR Requesting Provider: ELA ROBINS DO Date/Time of Note DATE: 03/21/19 TIME: 11:41 Exam/Review of Systems Vital Signs Vitals Vital Signs Date Temp Pulse Resp B/P (MAP) Pulse Ox O2 O2 Flow FiO2 Time Delivery Rate 03/21/19 98.2 76 20 153/67 100 Trach 11:37 (95) Collar 03/21/19 8.0 30 09:25 Intake and Output 03/20/19 03/20/19 03/21/19 1515:00 23:00 07:00 IntakeIntake Total 450 ml OutputOutput Total 1600 ml BalanceBalance -1600 ml 450 ml Exam Exam Review of Systems: CONSTITUTIONAL: No fevers, chills. PULMONARY: No sob CARDIOVASCULAR: No chest pain/palpitations GASTROINTESTINAL: No nausea/vomiting. GENITOURINARY: No hematuria/dysuria. MUSCULOSKELETAL: No myagias/arthalgias. PSYCHIATRIC: The patient denies depression. NEUROLOGIC: No weakness Constitutional: alert Psych: no complaints Head: normocephalic ENMT: mucosa pink and moist Neck: supple, jvd (9 cm water) Respiratory: diminished breath sounds Cardiovascular: regular rate and rhythm Gastrointestinal: soft, non-tender Musculoskeletal: muscle tone (nomal) Extremities: edema (none) Neurological: other (No focal deficits) Labs Result Diagram: 03/20/19 0753 03/20/19 0753 Results 24hrs Laboratory Tests Test 03/21/19 09:37 Prothrombin Time 25.5 H Prothrombin Time Ratio 2.0 INR International Normalized Ratio 2.32 Medications Medications Current Medications Acetaminophen (Tylenol Liquid (Ped)) 640 mg Q4H PRN PO FOR PAIN; Start 03/10/19 at 19:30 Bisacodyl (Dulcolax Supp) 10 mg DAILY [place] Last administered on 03/14/19 09:31; Admin Dose 10 MG; Start 03/11/19 at 09:00 Diphenhydramine HCl (Benadryl) 25 mg DAILY PRN PO ITCHING; Start 03/10/19 at 19:30 Docusate Sodium (Colace) 100 mg DAILY PO Last administered on 03/21/19 08:16; Admin Dose 100 MG; Start 03/11/19 at 09:00 Furosemide (Lasix) 40 mg DAILY PO Last administered on 03/21/19 08:16; Admin Dose 40 MG; Start 03/11/19 at 09:00 Guaifenesin (Robitussin Liquid Cup) 100 mg Q6H PRN PO COUGH; Start 03/10/19 at 19:30 Levothyroxine Sodium (Synthroid) 175 mcg BEFORE BREAKFAST PO Last administered on 03/21/19 06:28; Admin Dose 175 MCG; Start 03/11/19 at 07:00 Lidocaine (Lidoderm) 1 patch Q8H PRN TD FOR RIGHT SHOULDER; Start 03/10/19 at 19:30 Metoprolol Tartrate (Lopressor) 25 mg TID PO Last administered on 03/21/19 08:16; Admin Dose 25 MG; Start 03/10/19 at 21:00 Midodrine (Proamatine) 5 mg Q8H PRN PO HOLD FOR SBP>110; Start 03/10/19 at 19:30 Sevelamer Carbonate (Renvela) 1.6 gm WITH MEALS PO Last administered on 03/21/19 08:16; Admin Dose 1.6 GM; Start 03/11/19 at 08:00 Warfarin Sodium (Coumadin) 4 mg SuTuThSa@1700 PO Last administered on 03/20/19 17:08; Admin Dose 4 MG; Start 03/10/19 at 20:00 Calcium Carbonate (Oyster Shell Calcium) 1.25 gm DAILY PO Last administered on 03/17/19 08:15; Admin Dose 1.25 GM; Start 03/11/19 at 09:00 IV Flush (NS 3 ml) 3 ml PER PROTOCOL IV ; Start 03/10/19 at 19:30 Ondansetron HCl (Zofran Inj) 4 mg Q6H PRN IV NAUSEA/VOMITING; Start 03/10/19 at 19:30 Famotidine (Pepcid) 20 mg DAILY PO Last administered on 03/18/19 08:06; Admin Dose 20 MG; Start 03/10/19 at 21:00 Ipratropium [place] (Atrovent Hfa) 2 puff Q4H RESP THERAPY INH Last administered on 03/21/19 09:22; Admin Dose 2 PUFF; Start 03/10/19 at 21:00 Nystatin (Nystatin Powder) 1 applic BID TOP Last administered on 03/21/19 08:34; Admin Dose 1 APPLIC; Start 03/11/19 at 11:00 Heparin Sodium (Porcine) (Heparin (1000 Units/ml)) 4,100 unit AFTER DIALYSIS CATHETER Last administered on 03/20/19 13:12; Admin Dose 4,100 UNIT; Start 03/11/19 at 19:00 Warfarin Sodium (Coumadin) 5 mg MoWeFr@1700 PO Last administered on 03/18/19 17:13; Admin Dose 5 MG; Start 03/16/19 at 17:00 RIAZ BLACKBURN March 21, 2019 11:42
--- NOTE | 2019-03-21 12:48 | CONS ---
Assessment/Plan Assessment/Plan Assessment/Plan (Daily) Assessment and recommendations; 1. Patient admitted for dialysis catheter replacement due to malfunction. 2. Chronic respiratory failure, patient doing fairly well on trach collar and daytime requiring bilevel invasive mechanical ventilation overnight. 3. Significant restrictive lung disease due to kyphoscoliosis. 4. Chronic renal failure, on hemodialysis. 5. History of mechanical aortic valve replacement in the past. Continue current supportive care. Patient awaiting placement. Consultation Date/Type/Reason Admit Date/Time March 13, 2019 at 10:21 Initial Consult Date 03/16/19 Type of Consult Pulmonary Pulmonary consult requested for evaluation of chronic respiratory failure. Patient admitted for hemodialysis catheter malfunction. Which has since been replaced. Patient is a pleasant 63-year-old lady who was transferred to the hospital because of malfunctioning hemodialysis catheter placement the patient does have history of chronic respiratory failure which is partially ventilator dependent. By the time I saw the patient in the room, patient was sitting in her bed and was completely awake and alert. Was able to give a meaningful history by herself. Patient currently denies any shortness of breath, chest pain, coughing, wheezing, any fever or chills. Past medical history; 1. History of chronic renal failure, on hemodialysis. 2. Possibly underlying pulmonary fibrosis. 3. Anemia. 4. CHF. 5. Hypertension. 6. Kyphoscoliosis. 7. History of mechanical aortic valve replacement. Medications; reviewed. Allergies; as outlined above. Social history; patient never smoked. Family history; she is , has a supportive . 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 Review of systems; denies any headache, visual changes, sinus symptoms. Any chest pain, wheezing, cough, sputum production or shortness of breath at rest. Denies any abdominal pain, nausea vomiting. Patient is able to eat. Denies any melena hematochezia. Any edema. General exam; elderly female, awake alert, on ventilator via tracheostomy, awake and alert. Currently in no distress. Allergies; Requesting Provider: ELA ROBINS DO Date/Time of Note DATE: 03/21/19 TIME: 12:45 24 HR Interval Summary Free Text/Dictation Patient's condition is stable. Doing very well on trach collar. Complains of occasional shortness of breath whenever she is switched over from invasive mechanical ventilation to trach collar, shortness of breath lasts for a few minutes. General exam; elderly female, awake alert, sitting in bed. Currently no distress. Exam/Review of Systems Exam Vitals Vital Signs Date Temp Pulse Resp B/P (MAP) Pulse Ox O2 O2 Flow FiO2 Time Delivery Rate 03/21/19 98.2 76 20 153/67 100 Trach 11:37 (95) Collar 03/21/19 8.0 30 09:25 Intake and Output 03/20/19 03/20/19 03/21/19 1515:00 23:00 07:00 IntakeIntake Total 450 ml OutputOutput Total 1600 ml BalanceBalance -1600 ml 450 ml Exam H EENT exam; supple neck, no JVD. No lymphadenopathy. Midline trachea. No thyromegaly. Patient has dentures. Tracheostomy in place. Chest exam; diminished breath sounds bilaterally. S1-S2 audible, mechanical S2. There is a well-healed sternal scar. Patient has kyphoscoliosis. There is a skin graft over sternum. Abdomen exam; soft, no organomegaly. Extremity exam; no peripheral edema clubbing. 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 Results Result Diagram: 03/20/19 0753 03/20/19 0753 Results 24hrs Laboratory Tests Test 03/21/19 09:37 Prothrombin Time 25.5 H Prothrombin Time Ratio 2.0 INR International Normalized Ratio 2.32 Medications Medication Current Medications Acetaminophen (Tylenol Liquid (Ped)) 640 mg Q4H PRN PO FOR PAIN; Start 03/10/19 at 19:30 Bisacodyl (Dulcolax Supp) 10 mg DAILY IA Last administered on 03/14/19at 09:31; Admin Dose 10 MG; Start 03/11/19 at 09:00 Diphenhydramine HCl (Benadryl) 25 mg DAILY PRN PO ITCHING; Start 03/10/19 at 19:30 Docusate Sodium (Colace) 100 mg DAILY PO Last administered on 03/21/19at 08:16; Admin Dose 100 MG; Start 03/11/19 at 09:00 Furosemide (Lasix) 40 mg DAILY PO Last administered on 03/21/19at 08:16; Admin Dose 40 MG; Start 03/11/19 at 09:00 Guaifenesin (Robitussin Liquid Cup) 100 mg Q6H PRN PO COUGH; Start 03/10/19 at 19:30 Levothyroxine Sodium (Synthroid) 175 mcg BEFORE BREAKFAST PO Last administered on 03/21/19 06:28; Admin Dose 175 MCG; Start 03/11/19 at 07:00 Lidocaine (Lidoderm) 1 patch Q8H PRN TD FOR RIGHT SHOULDER; Start 03/10/19 at 19:30 Metoprolol Tartrate (Lopressor) 25 mg TID PO Last administered on 03/21/19 12:08; Admin Dose 25 MG; Start 03/10/19 at 21:00 Midodrine (Proamatine) 5 mg Q8H PRN PO HOLD FOR SBP>110; Start 03/10/19 at 19:30 Sevelamer Carbonate (Renvela) 1.6 gm WITH MEALS PO Last administered on 03/21/19 12:08; Admin Dose 1.6 GM; Start 03/11/19 at 08:00 Warfarin Sodium (Coumadin) 4 mg SuTuThSa@1700 PO Last administered on 03/20/19 17:08; Admin Dose 4 MG; Start 03/10/19 at 20:00 Calcium Carbonate (Oyster Shell Calcium) 1.25 gm DAILY PO Last administered on 03/17/19 08:15; Admin Dose 1.25 GM; Start 03/11/19 at 09:00 IV Flush (NS 3 ml) 3 ml PER PROTOCOL IV ; Start 03/10/19 at 19:30 Ondansetron HCl (Zofran Inj) 4 mg Q6H PRN IV NAUSEA/VOMITING; Start 03/10/19 at 19:30 Famotidine (Pepcid) 20 mg DAILY PO Last administered on 03/18/19 08:06; Admin Dose 20 MG; Start 03/10/19 at 21:00 Ipratropium [place] (Atrovent Hfa) 2 puff Q4H RESP THERAPY INH Last administered on 03/21/19 09:22; Admin Dose 2 PUFF; Start 03/10/19 at 21:00 Nystatin (Nystatin Powder) 1 applic BID TOP Last administered on 03/21/19 08:34; Admin Dose 1 APPLIC; Start 03/11/19 at 11:00 Heparin Sodium (Porcine) (Heparin (1000 Units/ml)) 4,100 unit AFTER DIALYSIS CATHETER Last administered on 03/20/19 13:12; Admin Dose 4,100 UNIT; Start 03/11/19 at 19:00 Warfarin Sodium (Coumadin) 5 mg MoWeFr@1700 PO Last administered on 03/18/19at 17:13; Admin Dose 5 MG; Start 03/16/19 at 17:00 Ipratropium [place] (Atrovent 0.02% (Neb)) 0.5 mg Q4H RESP THERAPY PRN HHN SHORTNESS OF BREATH; Start 03/21/19 at 12:00 LADONNA WALSH March 21, 2019 12:48
[2019-03-21] MEDS: IPRATROPIUM (NEB) 0.5 MG/2.5 ML AMP HHN PRN ×2 (13:56→17:53)
--- NOTE | 2019-03-21 14:22 | PN ---
Date/Time of Note Date/Time of Note DATE: 03/21/19 TIME: 14:16 Assessment/Plan VTE Prophylaxis Risk score (from Ns)>0 risk: 4 SCD applied (from Ns): No SCD contraindicated: patient refusal Pharmacological prophylaxis: warfarin tx Lines/Catheters IV Catheter Type (from [facility]): permacath Urinary Cath still in place: No Assessment/Plan Hospital Course Patient is awake alert currently on cool aerosol mist via tracheostomy, stable vital signs, no distress. Patient with hyperkalemia yesterday, status post hemodialysis, BMP tomorrow. Patient is undergoing evaluation for possible peritoneal dialysis catheter placement. Pending versus rehab versus [facility] placement. Assessment/Plan -Permacath malfunction. Patient is able to undergo hemodialysis through permacath. Dr. Lott is following patient in nephrology consultation. Patient is asking to transition to peritoneal dialysis. Dr. Stallings is following in general surgery consultation for possible evaluation for peritoneal dialysis placement. -Hemodialysis dependent end-stage renal disease -Ventilator dependent respiratory failure. Continue T-piece trial during the day and and nocturnal BiPAP. Dr. Plascencia is following in pulmonology consultation. -Hypertension -Status post mechanical aortic valve replacement, continue Coumadin at increased dose. -Hypothyroidism, continue levothyroxine Further recommendations based on clinical course. Plan of care discussed with Dr. Balbuena. Result Diagram: 03/20/19 0753 03/20/19 0753 Results 24hrs Laboratory Tests Test 03/21/19 09:37 Prothrombin Time 25.5 H Prothrombin Time Ratio 2.0 INR International Normalized Ratio 2.32 Exam/Review of Systems Exam Vitals Vital Signs Date Temp Pulse Resp B/P (MAP) Pulse Ox O2 O2 Flow FiO2 Time Delivery Rate 03/21/19 76 12:47 03/21/19 98.2 20 153/67 100 Trach 11:37 (95) Collar 03/21/19 8.0 30 09:25 Intake and Output 03/20/19 03/20/19 03/21/19 1515:00 23:00 07:00 IntakeIntake Total 450 ml OutputOutput Total 1600 ml BalanceBalance -1600 ml 450 ml Exam Constitutional: alert, oriented Neck: supple, other (Tracheostomy) Respiratory: clear to auscultation Cardiovascular: regular rate and rhythm Gastrointestinal: soft, non-tender Musculoskeletal: nl extremities to inspection Extremities: normal pulses Neurological: nl mental status Results Results 24hrs Laboratory Tests Test 03/21/19 09:37 Prothrombin Time 25.5 H Prothrombin Time Ratio 2.0 INR International Normalized Ratio 2.32 Medications Medication Current Medications Acetaminophen (Tylenol Liquid (Ped)) 640 mg Q4H PRN PO FOR PAIN; Start 03/10/19 at 19:30 Bisacodyl (Dulcolax Supp) 10 mg DAILY ME Last administered on 03/14/19at 09:31; Admin Dose 10 MG; Start 03/11/19 at 09:00 Diphenhydramine HCl (Benadryl) 25 mg DAILY PRN PO ITCHING; Start 03/10/19 at 19:30 Docusate Sodium (Colace) 100 mg DAILY PO Last administered on 03/21/19at 08:16; Admin Dose 100 MG; Start 03/11/19 at 09:00 Furosemide (Lasix) 40 mg DAILY PO Last administered on 03/21/19 08:16; Admin Dose 40 MG; Start 03/11/19 at 09:00 Guaifenesin (Robitussin Liquid Cup) 100 mg Q6H PRN PO COUGH; Start 03/10/19 at 19:30 Levothyroxine Sodium (Synthroid) 175 mcg BEFORE BREAKFAST PO Last administered on 03/21/19at 06:28; Admin Dose 175 MCG; Start 03/11/19 at 07:00 Lidocaine (Lidoderm) 1 patch Q8H PRN TD FOR RIGHT SHOULDER; Start 03/10/19 at 19:30 Metoprolol Tartrate (Lopressor) 25 mg TID PO Last administered on 03/21/19 12:08; Admin Dose 25 MG; Start 03/10/19 at 21:00 Midodrine (Proamatine) 5 mg Q8H PRN PO HOLD FOR SBP>110; Start 03/10/19 at 19:30 Sevelamer Carbonate (Renvela) 1.6 gm WITH MEALS PO Last administered on 03/21/19 12:08; Admin Dose 1.6 GM; Start 03/11/19 at 08:00 Warfarin Sodium (Coumadin) 4 mg SuTuThSa@1700 PO Last administered on 03/20/19 17:08; Admin Dose 4 MG; Start 03/10/19 at 20:00 Calcium Carbonate (Oyster Shell Calcium) 1.25 gm DAILY PO Last administered on 03/17/19 08:15; Admin Dose 1.25 GM; Start 03/11/19 at 09:00 IV Flush (NS 3 ml) 3 ml PER PROTOCOL IV ; Start 03/10/19 at 19:30 Ondansetron HCl (Zofran Inj) 4 mg Q6H PRN IV NAUSEA/VOMITING; Start 03/10/19 at 19:30 Famotidine (Pepcid) 20 mg DAILY PO Last administered on 03/18/19 08:06; Admin Dose 20 MG; Start 03/10/19 at 21:00 Ipratropium [place] (Atrovent Hfa) 2 puff Q4H RESP THERAPY INH Last administered on 03/21/19 09:22; Admin Dose 2 PUFF; Start 03/10/19 at 21:00 Nystatin (Nystatin Powder) 1 applic BID TOP Last administered on 03/21/19 08:34; Admin Dose 1 APPLIC; Start 03/11/19 at 11:00 Heparin Sodium (Porcine) (Heparin (1000 Units/ml)) 4,100 unit AFTER DIALYSIS CATHETER Last administered on 03/20/19 13:12; Admin Dose 4,100 UNIT; Start 03/11/19 at 19:00 Warfarin Sodium (Coumadin) 5 mg MoWeFr@1700 PO Last administered on 03/18/19 17:13; Admin Dose 5 MG; Start 03/16/19 at 17:00 Ipratropium [place] (Atrovent 0.02% (Neb)) 0.5 mg Q4H RESP THERAPY PRN HHN SHORTNESS OF BREATH Last administered on 03/21/19 13:56; Admin Dose 0.5 MG; Start 03/21/19 at 12:00 FREDO MENDOSA March 21, 2019 14:22
[2019-03-21] MEDS: WARFARIN 2.5 MG TAB PO SCH (17:26)
[2019-03-22] VITALS (34 sets, daily range): BP systolic 98–161; BP diastolic 44–97; PULSE 69–95; RESP 17–32
[2019-03-22] MEDS: IPRATROPIUM (HFA) 12.9 GM INHALER INH SCH ×6 (00:56→21:08)
[2019-03-22] MEDS: LEVOTHYROXINE 175 MCG TAB PO SCH (06:40)
[2019-03-22] MEDS: CALCIUM CARBONATE 1.25 GM TAB PO SCH (07:52)
[2019-03-22] MEDS: FAMOTIDINE 20 MG TAB PO SCH (07:53)
[2019-03-22] MEDS: BISACODYL 10 MG SUPP PR SCH (07:53)
--- NOTE | 2019-03-22 08:14 | CONS ---
Consult Date/Type/Reason Admit Date/Time March 13, 2019 at 10:21 Initial Consult Date Requesting Provider: ELA ROBINS DO Date/Time of Note DATE: 03/22/19 TIME: 08:12 Subjective NO acute events - pt comfortable - no CP- INR 2.3 now ROS: No fever, no chills, no nausea, no vomiting, no diarrhea/constipation No recent weight changes No chest pain, no PND, no orthopnea - chronic SOB No dizziness, blurred vision No thirst, no heat or cold intolerance Objective Vitals Vital Signs Date Temp Pulse Resp B/P (MAP) Pulse Ox O2 O2 Flow FiO2 Time Delivery Rate 03/22/19 97.9 77 20 117/57 99 Trach 07:58 (77) Collar 03/22/19 30 05:27 03/21/19 5.0 13:57 Intake and Output 03/21/19 03/21/19 03/22/19 1515:00 23:00 07:00 IntakeIntake Total 550 ml 200 ml BalanceBalance 550 ml 200 ml Exam General: WN/WD/NAD, AOx 3 HEENT: Unicetric/atraumatic/EOMI (follow commands) NECK: trach Lymph: no lymphadenopathy HEART: regular with no S3, II/ systolic murmur at apex - mech click LUNGS: Coarse sounds ABD: soft, NT, ND, +BS : Intact Neuro: non focal SKIN: chronic changes EXT: trace edema Results/Medications Result Diagram: 03/20/19 0753 03/20/19 0753 Results 24 hrs Laboratory Tests Test 03/21/19 09:37 Prothrombin Time 25.5 H Prothrombin Time Ratio 2.0 INR International Normalized Ratio 2.32 Home Meds Reported Medications Ascorbic Acid (Vitamin C) 250 Mg Tab, 250 MG PO BID, TAB 03/10/19 Guaifenesin* (Robitussin*) 100 Mg/5 Ml Syrup, 100 MG PO Q6H PRN for COUGH, ML 03/10/19 Sevelamer Carbonate* (Renvela*) 0.8 Gm Powd.pack, 1.6 GM PO WITH MEALS, PACKET 03/10/19 Amino Acids/Protein Hydrolys (PRO-STAT LIQUID) 30 Ml Liquid.pkt, 30 ML PO BID SUGAR FREE 03/10/19 Midodrine* (Midodrine*) 5 Mg Tablet, 5 MG PO Q8H PRN for HOLD FOR SBP>110, TAB 03/10/19 Metoprolol Tartrate* (Lopressor*) 25 Mg Tab, 25 MG PO TID, #60 TAB HOLD IF SBP<110 OR HR<60 03/10/19 Lidocaine (Lidocaine) 15 Gm Cream..g., 15 GM TP QID for TRACH SITE PAIN 03/10/19 Lidocaine (Lidocaine) 1 Each Adh..patch, 1 EACH TP Q8H PRN for FOR RIGHT SHOULDER 03/10/19 Levothyroxine Sodium* (Levothyroxine Sodium*) 175 Mcg Tablet, 175 MCG PO BEFORE BREAKFAST, #30 TAB 03/10/19 Ipratropium [place]* (Atrovent HFA*) 12.9 Gm Aer.w.adap, 2 PUFF INHALATION Q4H for SHORTNESS OF BREATH, #1 INHALER 03/10/19 Furosemide* (Furosemide*) 40 Mg Tablet, 40 MG PO DAILY, TAB HOLD IF SBP<110 OR HR<60 03/10/19 Docusate Sodium* (Colace*) 100 Mg Capsule, 100 MG PO DAILY, #30 CAP 03/10/19 Cyclobenzaprine Hcl* (Cyclobenzaprine Hcl*) 5 Mg Tablet, 5 MG PO NEEDED, #60 TAB 03/10/19 Warfarin Sodium* (Coumadin*) 4 Mg Tablet, 4 MG PO Q TUE,CHRISTEL,SAT,SUN, TAB 03/10/19 Warfarin Sodium* (Coumadin*) 2.5 Mg Tablet, 2.5 MG PO Q MON,WED,FRI, TAB 03/10/19 Warfarin Sodium* (Coumadin*) 1 Mg Tablet, 1 MG PO Q MON,WED,FRI, TAB 03/10/19 Calcium Carbonate (Calcium Carbonate) 500 Mg Tab.chew, 500 MG PO DAILY, TAB.CHEW 03/10/19 Bisacodyl (Dulcolax) 10 Mg Supp.rect, 10 MG RC DAILY, SUPP.RECT 03/10/19 Diphenhydramine Hcl* (Diphenhydramine Hcl*) 25 Mg Capsule, 25 MG PO DAILY PRN for ITCHING, CAP EVERY TUE,CHRISTEL,SAT 03/10/19 Acetaminophen* (Acetaminophen* Susp) 160 Mg/5 Ml Oral.susp, 20 ML PO Q6H PRN for FOR FEVER 100.4, ML 03/10/19 Acetaminophen* (Acetaminophen* Susp) 160 Mg/5 Ml Oral.susp, 20 ML PO Q4H PRN for FOR PAIN, ML 03/10/19 Medications Current Medications Acetaminophen (Tylenol Liquid (Ped)) 640 mg Q4H PRN PO FOR PAIN; Start 03/10/19 at 19:30 Bisacodyl (Dulcolax Supp) 10 mg DAILY RI Last administered on 03/14/19at 09:31; Admin Dose 10 MG; Start 03/11/19 at 09:00 Diphenhydramine HCl (Benadryl) 25 mg DAILY PRN PO ITCHING; Start 03/10/19 at 19:30 Docusate Sodium (Colace) 100 mg DAILY PO Last administered on 03/21/19at 08:16; Admin Dose 100 MG; Start 03/11/19 at 09:00 Furosemide (Lasix) 40 mg DAILY PO Last administered on 03/21/19at 08:16; Admin Dose 40 MG; Start 03/11/19 at 09:00 Guaifenesin (Robitussin Liquid Cup) 100 mg Q6H PRN PO COUGH; Start 03/10/19 at 19:30 Levothyroxine Sodium (Synthroid) 175 mcg BEFORE BREAKFAST PO Last administered on 03/22/19at 06:40; Admin Dose 175 MCG; Start 03/11/19 at 07:00 Lidocaine (Lidoderm) 1 patch Q8H PRN TD FOR RIGHT SHOULDER; Start 03/10/19 at 19:30 Metoprolol Tartrate (Lopressor) 25 mg TID PO Last administered on 03/21/19at 20:22; Admin Dose 25 MG; Start 03/10/19 at 21:00 Midodrine (Proamatine) 5 mg Q8H PRN PO HOLD FOR SBP>110; Start 03/10/19 at 19:30 Sevelamer Carbonate (Renvela) 1.6 gm WITH MEALS PO Last administered on 03/21/19 17:26; Admin Dose 1.6 GM; Start 03/11/19 at 08:00 Warfarin Sodium (Coumadin) 4 mg SuTuThSa@1700 PO Last administered on 03/20/19at 17:08; Admin Dose 4 MG; Start 03/10/19 at 20:00 Calcium Carbonate (Oyster Shell Calcium) 1.25 gm DAILY PO Last administered on 03/17/19 08:15; Admin Dose 1.25 GM; Start 03/11/19 at 09:00 IV Flush (NS 3 ml) 3 ml PER PROTOCOL IV ; Start 03/10/19 at 19:30 Ondansetron HCl (Zofran Inj) 4 mg Q6H PRN IV NAUSEA/VOMITING; Start 03/10/19 at 19:30 Famotidine (Pepcid) 20 mg DAILY PO Last administered on 03/18/19 08:06; Admin Dose 20 MG; Start 03/10/19 at 21:00 Ipratropium [place] (Atrovent Hfa) 2 puff Q4H RESP THERAPY INH Last administered on 03/22/19 05:20; Admin Dose 2 PUFF; Start 03/10/19 at 21:00 Nystatin (Nystatin Powder) 1 applic BID TOP Last administered on 03/21/19 20:23; Admin Dose 1 APPLIC; Start 03/11/19 at 11:00 Heparin Sodium (Porcine) (Heparin (1000 Units/ml)) 4,100 unit AFTER DIALYSIS CATHETER Last administered on 03/20/19 13:12; Admin Dose 4,100 UNIT; Start 03/11/19 at 19:00 Warfarin Sodium (Coumadin) 5 mg MoWeFr@1700 PO Last administered on 03/21/19 17:26; Admin Dose 5 MG; Start 03/16/19 at 17:00 Ipratropium [place] (Atrovent 0.02% (Neb)) 0.5 mg Q4H RESP THERAPY PRN HHN SHORTNESS OF BREATH Last administered on 03/21/19 17:53; Admin Dose 0.5 MG; Start 03/21/19 at 12:00 Assessment/Plan Hospital Course (Demo Recall) 1. Status post aortic valve replacement, mechanical, on Coumadin, therapeutic levels - will monitor clinically, stable by exam. H/H stable - no bleeding - rate controlled Stable by exam. INR 2.3 now. 2. Abnormal electrocardiogram with inferior and anterior lateral Q's. Assess for acute coronary syndrome. R/O Mi - doubt ischemia. Stable. 3. Hypertension, mildly elevated- treated, Rx as needed with renal team. In good range now - BP in good range. 4. Dyslipidemia. 5. Chronic respiratory failure, status post tracheostomy - good o2 sat. 6. End-stage renal disease on hemodialysis - Rx per renal team. HD to follow. 7. Hypothyroidism. 8. Anemia Hct 42.2 stable - no bleeding. 9. High K+ - Rx with renal team. DERIK HERNANDEZ MD March 22, 2019 08:14
[2019-03-22] MEDS: DOCUSATE SODIUM 100 MG CAP PO SCH (08:24)
[2019-03-22] MEDS: SEVELAMER CARBONATE 0.8 GM PKT PO SCH ×3 (08:24→16:53)
--- NOTE | 2019-03-22 08:34 | PN ---
DATE: 03/22/2019 SUBJECTIVE: The patient is stable, no events overnight. OBJECTIVE: VITAL SIGNS: Blood pressure is 129/61, respirations 24, pulse 79, temperature 98.5. HEENT: Head is normocephalic. NECK: Supple. HEART: Regular rate. LUNGS: Show diminished breath sounds at the base. ABDOMEN: Soft, nontender to palpation without rebound or guarding. EXTREMITIES: Negative for clubbing, cyanosis, no edema. DERMATOLOGIC: No rashes. MUSCULOSKELETAL: No joint effusion. NEUROLOGIC: No change in exam. MEDICATIONS: The patient's medications have been reviewed. LABORATORY DATA: Reviewed. ASSESSMENT AND PLAN: 1. End-stage renal disease. The patient is scheduled for today. We will dialyze 3 hours 3k bath, c alcium 2.5. 2. Hypokalemia. Continue dialysis on low potassium bath. 3. Access. The patient has Perm-A-Cath. Continue local access care. 4. Anemia. Continue to monitor hemoglobin and hematocrit levels. 5. Mineral bone disorder, monitor calcium and phosphorus levels. 6. Ventilator-dependent respiratory failure. Vent settings have been reviewed. Continue to monitor . 7. Hypertension. Continue current blood pressure regimen. 8. Mechanical heart valve. Continue Coumadin, monitor INR. 9. Arthritis. Continue Synthroid. 10. Arrhythmia. Continue to monitor. Dictated By: ELA ROBINS DO NR/NTS Conf#: [id number] DID#: [id number] CC: KOSTAS CRESPO MD; KOFI CORBETT MD;*EndCC*
[2019-03-22] MEDS: BALSAM PERU/CASTOR OIL 60 GM TUBE TOP SCH ×2 (08:41→21:00)
[2019-03-22] MEDS: FUROSEMIDE 40 MG TAB PO SCH (08:41)
[2019-03-22] MEDS: METOPROLOL 25 MG TAB PO SCH ×3 (08:41→21:18)
[2019-03-22] MEDS: NYSTATIN 30 GM POWDER BTL TOP SCH ×2 (08:41→21:18)
--- NOTE | 2019-03-22 09:58 | CONS ---
Assessment/Plan Assessment/Plan Assessment/Plan (Daily) Assessment and recommendations; next 1. Patient admitted with hemodialysis catheter malfunction status post replacement. 2. Chronic renal failure, on hemodialysis. 3. Restrictive lung disease with chronic respiratory failure due to kyphoscoliosis. Patient doing fairly well on trach collar in daytime with bilevel ventilation overnight. 4. History of aortic valve replacement patient on chronic anticoagulation. 5. Chronic anemia. Continue current supportive care. Hemodialysis per cable swager. Patient awaiting transfer to rehab center/[facility]. Consultation Date/Type/Reason Admit Date/Time March 13, 2019 at 10:21 Initial Consult Date 03/16/19 Type of Consult Pulmonary Pulmonary consult requested for evaluation of chronic respiratory failure. Patient admitted for hemodialysis catheter malfunction. Which has since been replaced. Patient is a pleasant 63-year-old lady who was transferred to the hospital because of malfunctioning hemodialysis catheter placement the patient does have history of chronic respiratory failure which is partially ventilator dependent. By the time I saw the patient in the room, patient was sitting in her bed and was completely awake and alert. Was able to give a meaningful history by herself. Patient currently denies any shortness of breath, chest pain, coughing, wheezing, any fever or chills. Past medical history; 1. History of chronic renal failure, on hemodialysis. 2. Possibly underlying pulmonary fibrosis. 3. Anemia. 4. CHF. 5. Hypertension. 6. Kyphoscoliosis. 7. History of mechanical aortic valve replacement. Medications; reviewed. Allergies; as outlined above. Social history; patient never smoked. Family history; she is , has a supportive . 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 Review of systems; denies any headache, visual changes, sinus symptoms. Any chest pain, wheezing, cough, sputum production or shortness of breath at rest. Denies any abdominal pain, nausea vomiting. Patient is able to eat. Denies any melena hematochezia. Any edema. General exam; elderly female, awake alert, on ventilator via tracheostomy, awake and alert. Currently in no distress. Allergies; Requesting Provider: ELA ROBINS DO Date/Time of Note DATE: 03/22/19 TIME: 09:55 24 HR Interval Summary Free Text/Dictation Patient's condition is stable. Doing very well on trach collar in daytime. On bilevel ventilation overnight. General exam; elderly lady, awake alert, currently in no distress. Exam/Review of Systems Exam Vitals Vital Signs Date Temp Pulse Resp B/P (MAP) Pulse Ox O2 O2 Flow FiO2 Time Delivery Rate 03/22/19 78 08:42 03/22/19 97.9 20 117/57 99 Trach 07:58 (77) Collar 03/22/19 30 05:27 03/21/19 5.0 13:57 Intake and Output 03/21/19 03/21/19 03/22/19 1515:00 23:00 07:00 IntakeIntake Total 550 ml 200 ml BalanceBalance 550 ml 200 ml Exam HEENT exam; supple neck, no JVD. No lymphadenopathy. Midline trachea. No thyromegaly. Patient has dentures. Tracheostomy in place. Chest exam; diminished breath sounds bilaterally. Patient has kyphoscoliosis. S1-S2 audible, no murmurs. There is a well-healed sternal scar. Mechanical S2. Skin graft over sternum. Abdomen exam; soft, nontender. No organomegaly. Bowel sounds audible. Extremity exam; no peripheral edema clubbing. 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 Results Result Diagram: 03/20/19 0753 03/22/19 0814 Results 24hrs Laboratory Tests Test 03/22/19 08:14 Prothrombin Time 24.1 H Prothrombin Time Ratio 1.9 INR International Normalized Ratio 2.15 Sodium Level 137 Potassium Level 5.8 H Chloride Level 104 Carbon Dioxide Level 27 Anion Gap 6 Blood Urea Nitrogen 51 H Creatinine 4.22 H Est Glomerular Filtrat Rate mL/min 11 L Glucose Level 80 Calcium Level 9.0 Medications Medication Current Medications Acetaminophen (Tylenol Liquid (Ped)) 640 mg Q4H PRN PO FOR PAIN; Start 03/10/19 at 19:30 Bisacodyl (Dulcolax Supp) 10 mg DAILY [place] Last administered on 03/14/19at 09:31; Admin Dose 10 MG; Start 03/11/19 at 09:00 Diphenhydramine HCl (Benadryl) 25 mg DAILY PRN PO ITCHING; Start 03/10/19 at 19:30 Docusate Sodium (Colace) 100 mg DAILY PO Last administered on 03/22/19at 08:24; Admin Dose 100 MG; Start 03/11/19 at 09:00 Furosemide (Lasix) 40 mg DAILY PO Last administered on 03/21/19 08:16; Admin Dose 40 MG; Start 03/11/19 at 09:00 Guaifenesin (Robitussin Liquid Cup) 100 mg Q6H PRN PO COUGH; Start 03/10/19 at 19:30 Levothyroxine Sodium (Synthroid) 175 mcg BEFORE BREAKFAST PO Last administered on 03/22/19 06:40; Admin Dose 175 MCG; Start 03/11/19 at 07:00 Lidocaine (Lidoderm) 1 patch Q8H PRN TD FOR RIGHT SHOULDER; Start 03/10/19 at 19:30 Metoprolol Tartrate (Lopressor) 25 mg TID PO Last administered on 03/21/19 20:22; Admin Dose 25 MG; Start 03/10/19 at 21:00 Midodrine (Proamatine) 5 mg Q8H PRN PO HOLD FOR SBP>110; Start 03/10/19 at 19:30 Sevelamer Carbonate (Renvela) 1.6 gm WITH MEALS PO Last administered on 03/22/19 08:24; Admin Dose 1.6 GM; Start 03/11/19 at 08:00 Warfarin Sodium (Coumadin) 4 mg SuTuThSa@1700 PO Last administered on 03/20/19 17:08; Admin Dose 4 MG; Start 03/10/19 at 20:00 Calcium Carbonate (Oyster Shell Calcium) 1.25 gm DAILY PO Last administered on 03/17/19 08:15; Admin Dose 1.25 GM; Start 03/11/19 at 09:00 IV Flush (NS 3 ml) 3 ml PER PROTOCOL IV ; Start 03/10/19 at 19:30 Ondansetron HCl (Zofran Inj) 4 mg Q6H PRN IV NAUSEA/VOMITING; Start 03/10/19 at 19:30 Famotidine (Pepcid) 20 mg DAILY PO Last administered on 03/18/19 08:06; Admin Dose 20 MG; Start 03/10/19 at 21:00 Ipratropium [place] (Atrovent Hfa) 2 puff Q4H RESP THERAPY INH Last administered on 03/22/19 08:33; Admin Dose 2 PUFF; Start 03/10/19 at 21:00 Nystatin (Nystatin Powder) 1 applic BID TOP Last administered on 5/27/19at 20:23; Admin Dose 1 APPLIC; Start 03/11/19 at 11:00 Heparin Sodium (Porcine) (Heparin (1000 Units/ml)) 4,100 unit AFTER DIALYSIS CATHETER Last administered on 03/20/19 13:12; Admin Dose 4,100 UNIT; Start at 19:00 Warfarin Sodium (Coumadin) 5 mg MoWeFr@1700 PO Last administered on 03/21/19 17:26; Admin Dose 5 MG; Start 03/16/19 at 17:00 Ipratropium [place] (Atrovent 0.02% (Neb)) 0.5 mg Q4H RESP THERAPY PRN HHN SHORTNESS OF BREATH Last administered on 03/21/19 17:53; Admin Dose 0.5 MG; Start 03/21/19 at 12:00 LADONNA WALSH March 22, 2019 09:58
--- NOTE | 2019-03-22 11:25 | PN ---
Date/Time of Note Date/Time of Note DATE: 03/22/19 TIME: 11:21 Assessment/Plan Lines/Catheters IV Catheter Type (from Nrs): PERMACATH Mcrae in Place (from Nrs): No Assessment/Plan Chief Complaint/Hosp Course 1. Desire for peritoneal dialysis catheter versus hemodialysis. Had a long discussion with her and partner. She needs a place to be able to receive tea joel to use her PD catheter. Her anticoagulation needs to be held prior to surgery. She needs to find a place that allows PD catheter. Also concern for placement due to muscle flap from the abdomen. Will need to evaluate abdominal wall by imaging. These this will be worked on by the team members prior to decision to proceed with surgery -CT for eval of wall deformity> noted and pd cath is feasible > discussed w patient; will need to be off of Coumadin -will need teaching for pd cath discussed w renal and teaching can be done 2. Anticoagulation with mechanical aortic valve -As above -Cardiac optimization 3. Ventilator and trach dependent respiratory failure -Pulmonary toilet and ventilator management 4. Hypertension -Nutrition and medication optimization 5. Anemia without evidence of acute blood loss -Monitor 6. Pressure injuries -Offload -Nutrition optimization -Local care Thank you. Patient seen and examined in collaboration with Dr. Art Stallings. Subjective 24 Hr Interval Summary Feels well. No fevers, chills, sob, congested cough, cp, palpitations, azar, dizziness, n/v/d/dysuria. Exam/Review of Systems Vital Signs Vitals Vital Signs Date Temp Pulse Resp B/P (MAP) Pulse Ox O2 O2 Flow FiO2 Time Delivery Rate 03/23/19 74 08:30 03/23/19 98.1 20 130/57 99 07:55 (81) 03/23/19 30 07:45 03/22/19 Trach 15:43 Collar 03/21/19 5.0 13:57 Intake and Output 03/22/19 03/22/19 03/23/19 1515:00 23:00 07:00 IntakeIntake Total 500 ml 120 ml OutputOutput Total 1900 ml BalanceBalance -1900 ml 500 ml 120 ml Exam Free Text/Dictation Constitutional: alert, oriented; No distress Psych: nl mood/affect; No anxiety, No confusion Head: normocephalic, atraumatic Eyes: nl conjunctiva, EOMI, PERRL; No icteric ENMT: nl external ears & nose, mucosa pink and moist Neck: supple, other (Trach in place); No jvd Respiratory: normal air movement; No congested cough, No labored breathing Cardiovascular: regular rate and rhythm; No edema Gastrointestinal: soft, non-tender, other (Horizontal large scar from previous muscle flap); No distended, No rebound or guarding, No tender Musculoskeletal: nl extremities to inspection; No joint tenderness Extremities: normal pulses; No calf tenderness, No edema Neurological: nl mental status, nl strength Skin: nl turgor; No rash or lesions, No diaphoresis Lymph: nl lymph nodes Results Result Diagram: 03/23/19 0710 03/23/19 0710 KJ GOLDMAN NP March 22, 2019 11:24
[2019-03-22] MEDS: HEPARIN 1000 UNITS/ML 10 ML INJ CATHETER SCH (14:10)
[2019-03-22] MEDS: WARFARIN 2 MG TAB PO SCH (16:53)
--- NOTE | 2019-03-22 18:35 | PN ---
Date/Time of Note Date/Time of Note DATE: 03/22/19 TIME: 18:32 Assessment/Plan VTE Prophylaxis Risk score (from Ns)>0 risk: 4 SCD applied (from Nsg): Yes Pharmacological prophylaxis: heparin Lines/Catheters [facility] PERMACATH Urinary Cath still in place: No Assessment/Plan Hospital Course Patient is a candidate for peritoneal catheter placement per discussion with surgery, will hold Coumadin, start heparin. Patient is awake alert continues on supplemental oxygen during the day and CPAP overnight. Plan of care and discussed with patient and patient's at the bedside. Assessment/Plan -Permacath malfunction. Patient is able to undergo hemodialysis through permacath. Dr. Lott is following patient in nephrology consultation. Patient is asking to transition to peritoneal dialysis. Dr. Stallings is following in general surgery consultation for possible evaluation for peritoneal dialysis placement. -Hemodialysis dependent end-stage renal disease -Ventilator dependent respiratory failure. Continue T-piece trial during the day and and nocturnal BiPAP. Dr. Plascencia is following in pulmonology consultation. -Hypertension -Status post mechanical aortic valve replacement, continue heparin. -Hypothyroidism, continue levothyroxine Further recommendations based on clinical course. Plan of care discussed with Dr. Balbuena. Result Diagram: 03/20/19 0753 03/22/19 0814 Results 24hrs Laboratory Tests Test 03/22/19 08:14 Prothrombin Time 24.1 H Prothrombin Time Ratio 1.9 INR International Normalized Ratio 2.15 Sodium Level 137 Potassium Level 5.8 H Chloride Level 104 Carbon Dioxide Level 27 Anion Gap 6 Blood Urea Nitrogen 51 H Creatinine 4.22 H Est Glomerular Filtrat Rate mL/min 11 L Glucose Level 80 Calcium Level 9.0 Exam/Review of Systems Exam Vitals Vital Signs Date Temp Pulse Resp B/P (MAP) Pulse Ox O2 O2 Flow FiO2 Time Delivery Rate 03/22/19 85 22 98 30 18:02 03/22/19 98.2 145/63 Trach 15:43 (90) Collar 03/21/19 5.0 13:57 Intake and Output 03/21/19 03/21/19 03/22/19 1515:00 23:00 07:00 IntakeIntake Total 550 ml 200 ml BalanceBalance 550 ml 200 ml Exam Constitutional: alert, oriented Neck: supple, other (Tracheostomy) Respiratory: clear to auscultation Cardiovascular: regular rate and rhythm Gastrointestinal: soft, non-tender Musculoskeletal: nl extremities to inspection Extremities: normal pulses Neurological: nl mental status Results Results 24hrs Laboratory Tests Test 03/22/19 08:14 Prothrombin Time 24.1 H Prothrombin Time Ratio 1.9 INR International Normalized Ratio 2.15 Sodium Level 137 Potassium Level 5.8 H Chloride Level 104 Carbon Dioxide Level 27 Anion Gap 6 Blood Urea Nitrogen 51 H Creatinine 4.22 H Est Glomerular Filtrat Rate mL/min 11 L Glucose Level 80 Calcium Level 9.0 Medications Medication Current Medications Acetaminophen (Tylenol Liquid (Ped)) 640 mg Q4H PRN PO FOR PAIN; Start 03/10/19 at 19:30 Bisacodyl (Dulcolax Supp) 10 mg DAILY [place] Last administered on 03/14/19at 09:31; Admin Dose 10 MG; Start 03/11/19 at 09:00 Diphenhydramine HCl (Benadryl) 25 mg DAILY PRN PO ITCHING; Start 03/10/19 at 19:30 Docusate Sodium (Colace) 100 mg DAILY PO Last administered on 03/22/19at 08:24; Admin Dose 100 MG; Start 03/11/19 at 09:00 Furosemide (Lasix) 40 mg DAILY PO Last administered on 03/21/19 08:16; Admin Dose 40 MG; Start 03/11/19 at 09:00 Guaifenesin (Robitussin Liquid Cup) 100 mg Q6H PRN PO COUGH; Start 03/10/19 at 19:30 Levothyroxine Sodium (Synthroid) 175 mcg BEFORE BREAKFAST PO Last administered on 03/22/19at 06:40; Admin Dose 175 MCG; Start 03/11/19 at 07:00 Lidocaine (Lidoderm) 1 patch Q8H PRN TD FOR RIGHT SHOULDER; Start 03/10/19 at 19:30 Metoprolol Tartrate (Lopressor) 25 mg TID PO Last administered on 03/21/19at 20:22; Admin Dose 25 MG; Start 03/10/19 at 21:00 Midodrine (Proamatine) 5 mg Q8H PRN PO HOLD FOR SBP>110; Start 03/10/19 at 19:30 Sevelamer Carbonate (Renvela) 1.6 gm WITH MEALS PO Last administered on 03/22/19at 16:53; Admin Dose 1.6 GM; Start 03/11/19 at 08:00 Warfarin Sodium (Coumadin) 4 mg SuTuThSa@1700 PO Last administered on 03/22/19 16:53; Admin Dose 4 MG; Start 03/10/19 at 20:00 Calcium Carbonate (Oyster Shell Calcium) 1.25 gm DAILY PO Last administered on 03/17/19 08:15; Admin Dose 1.25 GM; Start 03/11/19 at 09:00 IV Flush (NS 3 ml) 3 ml PER PROTOCOL IV ; Start 03/10/19 at 19:30 Ondansetron HCl (Zofran Inj) 4 mg Q6H PRN IV NAUSEA/VOMITING; Start 03/10/19 at 19:30 Famotidine (Pepcid) 20 mg DAILY PO Last administered on 03/18/19 08:06; Admin Dose 20 MG; Start 03/10/19 at 21:00 Ipratropium [place] (Atrovent Hfa) 2 puff Q4H RESP THERAPY INH Last administered on 03/22/19 18:07; Admin Dose 2 PUFF; Start 03/10/19 at 21:00 Nystatin (Nystatin Powder) 1 applic BID TOP Last administered on 03/21/19 20:23; Admin Dose 1 APPLIC; Start 03/11/19 at 11:00 Heparin Sodium (Porcine) (Heparin (1000 Units/ml)) 4,100 unit AFTER DIALYSIS CATHETER Last administered on 03/22/19 14:10; Admin Dose 4,100 UNIT; Start 03/11/19 at 19:00 Warfarin Sodium (Coumadin) 5 mg MoWeFr@1700 PO Last administered on 03/21/19 17:26; Admin Dose 5 MG; Start 03/16/19 at 17:00 Ipratropium [place] (Atrovent 0.02% (Neb)) 0.5 mg Q4H RESP THERAPY PRN HHN SHORTNESS OF BREATH Last administered on 03/21/19 17:53; Admin Dose 0.5 MG; Start 03/21/19 at 12:00 FREDO MENDOSA March 22, 2019 18:35
[2019-03-22] MEDS: HEPARIN 5,000 UNIT/1 ML VIAL SC SCH (21:20)
[2019-03-23] VITALS (19 sets, daily range): BP systolic 111–162; BP diastolic 57–80; PULSE 74–87; RESP 16–26
[2019-03-23] MEDS: IPRATROPIUM (HFA) 12.9 GM INHALER INH SCH ×6 (01:23→21:12)
[2019-03-23] MEDS: SEVELAMER CARBONATE 0.8 GM PKT PO SCH ×3 (08:58→17:26)
[2019-03-23] MEDS: LEVOTHYROXINE 175 MCG TAB PO SCH (08:59)
[2019-03-23] MEDS: DOCUSATE SODIUM 100 MG CAP PO SCH (08:59)
[2019-03-23] MEDS: CALCIUM CARBONATE 1.25 GM TAB PO SCH (09:00)
[2019-03-23] MEDS: BISACODYL 10 MG SUPP PR SCH (09:00)
[2019-03-23] MEDS: BALSAM PERU/CASTOR OIL 60 GM TUBE TOP SCH ×2 (09:00→21:05)
[2019-03-23] MEDS: FAMOTIDINE 20 MG TAB PO SCH (09:00)
[2019-03-23] MEDS: METOPROLOL 25 MG TAB PO SCH ×3 (09:01→20:56)
[2019-03-23] MEDS: FUROSEMIDE 40 MG TAB PO SCH (09:01)
[2019-03-23] MEDS: NYSTATIN 30 GM POWDER BTL TOP SCH ×2 (09:03→21:05)
[2019-03-23] MEDS: HEPARIN 5,000 UNIT/1 ML VIAL SC SCH ×2 (09:04→21:04)
--- NOTE | 2019-03-23 09:10 | PN ---
Date/Time of Note Date/Time of Note DATE: 03/23/19 TIME: 09:09 Assessment/Plan Lines/Catheters IV Catheter Type (from Nrs): Permacath Mcrae in Place (from Nrs): No Assessment/Plan Chief Complaint/Hosp Course 1. Desire for peritoneal dialysis catheter versus hemodialysis. Had a long discussion with her and partner. She needs a place to be able to receive tea joel to use her PD catheter. Her anticoagulation needs to be held prior to surgery. She needs to find a place that allows PD catheter. Also concern for placement due to muscle flap from the abdomen. Will need to evaluate abdominal wall by imaging. These this will be worked on by the team members prior to decision to proceed with surgery -CT for eval of wall deformity> noted and pd cath is feasible >will need to be off of Coumadin and will also need cardiac clearance -will need teaching for pd cath >discussed w renal and teaching can be done 2. Anticoagulation with mechanical aortic valve -As above -Cardiac optimization 3. Ventilator and trach dependent respiratory failure -Pulmonary toilet and ventilator management 4. Hypertension -Nutrition and medication optimization 5. Anemia without evidence of acute blood loss -Monitor 6. Pressure injuries -Offload -Nutrition optimization -Local care Thank you. Patient seen and examined in collaboration with Dr. Art Stallings. Subjective 24 Hr Interval Summary Feels well. No fevers, chills, sob, congested cough, cp, palpitations, azar, dizziness, nausea, vomiting, diarrhea, dysuria. Exam/Review of Systems Vital Signs Vitals Vital Signs Date Temp Pulse Resp B/P (MAP) Pulse Ox O2 O2 Flow FiO2 Time Delivery Rate 03/23/19 74 08:30 03/23/19 98.1 20 130/57 99 07:55 (81) 03/23/19 30 07:45 03/22/19 Trach 15:43 Collar 03/21/19 5.0 13:57 Intake and Output 03/22/19 03/22/19 03/23/19 1515:00 23:00 07:00 IntakeIntake Total 500 ml 120 ml OutputOutput Total 1900 ml BalanceBalance -1900 ml 500 ml 120 ml Exam Free Text/Dictation Constitutional: alert, oriented; No distress Psych: nl mood/affect; No anxiety, No confusion Head: normocephalic, atraumatic Eyes: nl conjunctiva, EOMI, PERRL; No icteric ENMT: nl external ears & nose, mucosa pink and moist Neck: supple, other (Trach in place); No jvd Respiratory: normal air movement; No congested cough, No labored breathing Cardiovascular: regular rate and rhythm; No edema Gastrointestinal: soft, non-tender, other (Horizontal large scar from previous muscle flap); No distended, No rebound or guarding, No tender Musculoskeletal: nl extremities to inspection; No joint tenderness Extremities: normal pulses; No calf tenderness, No edema Neurological: nl mental status, nl strength Skin: nl turgor; No rash or lesions, No diaphoresis Lymph: nl lymph nodes Results Result Diagram: 03/23/19 0710 03/23/19 0710 KJ GOLDMAN NP March 23, 2019 09:10
--- NOTE | 2019-03-23 09:13 | PN ---
DATE: 03/23/2019 SUBJECTIVE: The patient is stable, no events overnight. OBJECTIVE: VITAL SIGNS: Blood pressure is 111/57, respirations 19, pulse 84, temperature 98.0. HEENT: Head is normocephalic. NECK: Supple. HEART: Regular rate. LUNGS: Show diminished breath sounds at the base. ABDOMEN: Soft, nontender to palpation without rebound or guarding. EXTREMITIES: Negative for clubbing, cyanosis, no edema. DERMATOLOGIC: No rashes. MUSCULOSKELETAL: No joint effusion. NEUROLOGIC: No change in exam. MEDICATIONS: The patient's medications have been reviewed. LABORATORY DATA: Reviewed. ASSESSMENT AND PLAN: 1. End-stage renal disease. The patient had hemodialysis yesterday, tolerated well. Plan is for di alysis again tomorrow. 2. Hyperkalemia. Continue dialysis on low potassium bath. 3. Access. The patient has Perm-A-Cath. Continue local access care, possible PD catheter placement per surgery. 4. Anemia. Continue to monitor hemoglobin and hematocrit levels. 5. Mineral bone disorder. Monitor calcium and phosphorus levels. 6. Ventilator-dependent respiratory failure. Vent settings have been reviewed. Continue to monitor . 7. Hypertension. Continue current blood pressure regimen. 8. Mechanical heart valve. Continue Coumadin, monitor INR. 9. Hypothyroidism. Continue Synthroid. 10. Arrhythmia. Continue to monitor. Dictated By: EAL ROBINS DO NR/NTS Conf#: [id number] DID#: [id number] CC: KOFI CORBETT MD; KOSTAS CRESPO MD;*EndCC*
--- NOTE | 2019-03-23 10:03 | CONS ---
Assessment/Plan Assessment/Plan Assessment/Plan (Daily) Assessment and recommendations; 1. Patient admitted to the hospital because of hemodialysis catheter malfunction, status post replacement. 2. Restrictive lung disease due to kyphoscoliosis, patient with history of tracheostomy, maintained on T-piece and daytime and bilateral later overnight. 3. History of aortic valve replacement in the past. Maintained on chronic anticoagulation. 4. Chronic renal failure, on hemodialysis. 5. Mild anemia. Continue with supportive care. Patient awaiting placement. Consultation Date/Type/Reason Admit Date/Time March 13, 2019 at 10:21 Initial Consult Date 03/16/19 Type of Consult Pulmonary Pulmonary consult requested for evaluation of chronic respiratory failure. Patient admitted for hemodialysis catheter malfunction. Which has since been replaced. Patient is a pleasant 63-year-old lady who was transferred to the hospital because of malfunctioning hemodialysis catheter placement the patient does have history of chronic respiratory failure which is partially ventilator dependent. By the time I saw the patient in the room, patient was sitting in her bed and was completely awake and alert. Was able to give a meaningful history by herself. Patient currently denies any shortness of breath, chest pain, coughing, wheezing, any fever or chills. Past medical history; 1. History of chronic renal failure, on hemodialysis. 2. Possibly underlying pulmonary fibrosis. 3. Anemia. 4. CHF. 5. Hypertension. 6. Kyphoscoliosis. 7. History of mechanical aortic valve replacement. Medications; reviewed. Allergies; as outlined above. Social history; patient never smoked. Family history; she is , has a supportive . 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 Review of systems; denies any headache, visual changes, sinus symptoms. Any chest pain, wheezing, cough, sputum production or shortness of breath at rest. Denies any abdominal pain, nausea vomiting. Patient is able to eat. Denies any melena hematochezia. Any edema. General exam; elderly female, awake alert, on ventilator via tracheostomy, awake and alert. Currently in no distress. Allergies; Requesting Provider: ELA ROBINS DO Date/Time of Note DATE: 03/23/19 TIME: 10:01 24 HR Interval Summary Free Text/Dictation Patient's condition is stable. Of breath, chest pain, coughing, any secretions from tracheostomy. General exam; elderly lady, sitting in bed. Currently no distress. Awake and alert. On ventilator via tracheostomy. Exam/Review of Systems Exam Vitals Vital Signs Date Temp Pulse Resp B/P (MAP) Pulse Ox O2 O2 Flow FiO2 Time Delivery Rate 03/23/19 74 08:30 03/23/19 98.1 20 130/57 99 07:55 (81) 03/23/19 30 07:45 03/22/19 Trach 15:43 Collar 03/21/19 5.0 13:57 Intake and Output 03/22/19 03/22/19 03/23/19 1515:00 23:00 07:00 IntakeIntake Total 500 ml 120 ml OutputOutput Total 1900 ml BalanceBalance -1900 ml 500 ml 120 ml Exam H EENT exam; supple neck, no JVD. No lymphadenopathy. Midline trachea. No thyromegaly. Patient has dentures in place. Tracheostomy in place. Insertion site is clean. Chest exam; diminished breath sounds bilaterally. No added sounds. Patient has kyphoscoliosis. There is a well-healed sternal scar. Skin graft over sternum. Abdomen exam; soft, nontender. Bowel sounds audible. Extremity exam; no peripheral edema. 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 Results Result Diagram: 03/23/19 0710 03/23/19 0710 Results 24hrs Laboratory Tests Test 03/23/19 07:10 White Blood Count 7.1 # Red Blood Count 3.60 L Hemoglobin 10.8 L Hematocrit 34.7 L Mean Corpuscular Volume 96.4 Mean Corpuscular Hemoglobin 30.0 Mean Corpuscular Hemoglobin Concent 31.1 L Red Cell Distribution Width 15.4 H Platelet Count 253 Mean Platelet Volume 10.4 Immature Granulocytes % 0.300 Neutrophils % 74.3 Lymphocytes % 12.0 L Monocytes % 6.8 Eosinophils % 4.5 Basophils % 2.1 H Nucleated Red Blood Cells % 0.0 Immature Granulocytes # 0.020 Neutrophils # 5.3 Lymphocytes # 0.9 Monocytes # 0.5 Eosinophils # 0.3 Basophils # 0.2 H Nucleated Red Blood Cells # 0.0 Sodium Level 139 Potassium Level 4.8 Chloride Level 105 Carbon Dioxide Level 31 Anion Gap 3 L Blood Urea Nitrogen 35 #H Creatinine 3.01 #H Est Glomerular Filtrat Rate mL/min 16 L Glucose Level 88 Calcium Level 8.8 Medications Medication Current Medications Acetaminophen (Tylenol Liquid (Ped)) 640 mg Q4H PRN PO FOR PAIN; Start 03/10/19 at 19:30 Bisacodyl (Dulcolax Supp) 10 mg DAILY AL Last administered on 03/14/19 09:31; Admin Dose 10 MG; Start 03/11/19 at 09:00 Diphenhydramine HCl (Benadryl) 25 mg DAILY PRN PO ITCHING; Start 03/10/19 at 19:30 Docusate Sodium (Colace) 100 mg DAILY PO Last administered on 03/23/19 08:59; Admin Dose 100 MG; Start 03/11/19 at 09:00 Furosemide (Lasix) 40 mg DAILY PO Last administered on 03/23/19 09:01; Admin Dose 40 MG; Start 03/11/19 at 09:00 Guaifenesin (Robitussin Liquid Cup) 100 mg Q6H PRN PO COUGH; Start 03/10/19 at 19:30 Levothyroxine Sodium (Synthroid) 175 mcg BEFORE BREAKFAST PO Last administered on 03/23/19 08:59; Admin Dose 175 MCG; Start 03/11/19 at 07:00 Lidocaine (Lidoderm) 1 patch Q8H PRN TD FOR RIGHT SHOULDER; Start 03/10/19 at 19:30 Metoprolol Tartrate (Lopressor) 25 mg TID PO Last administered on 03/23/19 09:01; Admin Dose 25 MG; Start 03/10/19 at 21:00 Midodrine (Proamatine) 5 mg Q8H PRN PO HOLD FOR SBP>110; Start 03/10/19 at 19:30 Sevelamer Carbonate (Renvela) 1.6 gm WITH MEALS PO Last administered on 03/23/19 08:58; Admin Dose 1.6 GM; Start 03/11/19 at 08:00 Warfarin Sodium (Coumadin) 4 mg SuTuThSa@1700 PO Last administered on 03/22/19 16:53; Admin Dose 4 MG; Start 03/10/19 at 20:00; Status Hold Calcium Carbonate (Oyster Shell Calcium) 1.25 gm DAILY PO Last administered on 03/17/19 08:15; Admin Dose 1.25 GM; Start 03/11/19 at 09:00 IV Flush (NS 3 ml) 3 ml PER PROTOCOL IV ; Start 03/10/19 at 19:30 Ondansetron HCl (Zofran Inj) 4 mg Q6H PRN IV NAUSEA/VOMITING; Start 03/10/19 at 19:30 Famotidine (Pepcid) 20 mg DAILY PO Last administered on 03/18/19 08:06; Admin Dose 20 MG; Start 03/10/19 at 21:00 Ipratropium [place] (Atrovent Hfa) 2 puff Q4H RESP THERAPY INH Last administered on 03/23/19 07:45; Admin Dose 2 PUFF; Start 03/10/19 at 21:00 Nystatin (Nystatin Powder) 1 applic BID TOP Last administered on 03/23/19 09:03; Admin Dose 1 APPLIC; Start 03/11/19 at 11:00 Heparin Sodium (Porcine) (Heparin (1000 Units/ml)) 4,100 unit AFTER DIALYSIS CATHETER Last administered on 03/22/19 14:10; Admin Dose 4,100 UNIT; Start 03/11/19 at 19:00 Warfarin Sodium (Coumadin) 5 mg MoWeFr@1700 PO Last administered on 03/21/19 17:26; Admin Dose 5 MG; Start 03/16/19 at 17:00; Status Hold Ipratropium [place] (Atrovent 0.02% (Neb)) 0.5 mg Q4H RESP THERAPY PRN HHN SHORTNESS OF BREATH Last administered on 03/21/19 17:53; Admin Dose 0.5 MG; Start 03/21/19 at 12:00 Heparin Sodium (Porcine) (Heparin (5000 Units/1ml)) 5,000 unit BID SC Last administered on 03/23/19 09:04; Admin Dose 5,000 UNIT; Start 03/22/19 at 21:00 LADONNA WALSH March 23, 2019 10:03
--- NOTE | 2019-03-23 15:39 | PN ---
Date/Time of Note Date/Time of Note DATE: 03/23/19 TIME: 15:37 Assessment/Plan VTE Prophylaxis Risk score (from Ns)>0 risk: 5 SCD applied (from Nsg): Yes Pharmacological prophylaxis: heparin Lines/Catheters IV Catheter Type (from [facility]): Permacath Urinary Cath still in place: No Assessment/Plan Hospital Course No acute events overnight, patient remains hemodynamically stable, plan for peritoneal dialysis placement, Coumadin is currently held continue heparin. Assessment/Plan -Permacath malfunction. Patient is able to undergo hemodialysis through permacath. Dr. Lott is following patient in nephrology consultation. Dr. Stallings is following in general surgery consultation for possible evaluation for peritoneal dialysis placement. -Hemodialysis dependent end-stage renal disease -Ventilator dependent respiratory failure. Continue T-piece trial during the day and and nocturnal BiPAP. Dr. Plascencia is following in pulmonology consultation. -Hypertension -Status post mechanical aortic valve replacement, continue heparin. -Hypothyroidism, continue levothyroxine Further recommendations based on clinical course. Plan of care discussed with Dr. Balbuena. Result Diagram: 03/23/19 0710 03/23/19 0710 Results 24hrs Laboratory Tests Test 03/23/19 07:10 White Blood Count 7.1 # Red Blood Count 3.60 L Hemoglobin 10.8 L Hematocrit 34.7 L Mean Corpuscular Volume 96.4 Mean Corpuscular Hemoglobin 30.0 Mean Corpuscular Hemoglobin Concent 31.1 L Red Cell Distribution Width 15.4 H Platelet Count 253 Mean Platelet Volume 10.4 Immature Granulocytes % 0.300 Neutrophils % 74.3 Lymphocytes % 12.0 L Monocytes % 6.8 Eosinophils % 4.5 Basophils % 2.1 H Nucleated Red Blood Cells % 0.0 Immature Granulocytes # 0.020 Neutrophils # 5.3 Lymphocytes # 0.9 Monocytes # 0.5 Eosinophils # 0.3 Basophils # 0.2 H Nucleated Red Blood Cells # 0.0 Sodium Level 139 Potassium Level 4.8 Chloride Level 105 Carbon Dioxide Level 31 Anion Gap 3 L Blood Urea Nitrogen 35 #H Creatinine 3.01 #H Est Glomerular Filtrat Rate mL/min 16 L Glucose Level 88 Calcium Level 8.8 Exam/Review of Systems Exam Vitals Vital Signs Date Temp Pulse Resp B/P (MAP) Pulse Ox O2 O2 Flow FiO2 Time Delivery Rate 03/23/19 98.0 82 20 159/67 97 15:33 (97) 03/23/19 Aerosol 5.0 28 13:50 Aerosol Mask Intake and Output 03/22/19 03/22/19 03/23/19 1515:00 23:00 07:00 IntakeIntake Total 500 ml 120 ml OutputOutput Total 1900 ml BalanceBalance -1900 ml 500 ml 120 ml Exam Constitutional: alert, oriented Neck: supple, other (Tracheostomy) Respiratory: clear to auscultation Cardiovascular: regular rate and rhythm Gastrointestinal: soft, non-tender Musculoskeletal: nl extremities to inspection Extremities: normal pulses Neurological: nl mental status Results Results 24hrs Laboratory Tests Test 03/23/19 07:10 White Blood Count 7.1 # Red Blood Count 3.60 L Hemoglobin 10.8 L Hematocrit 34.7 L Mean Corpuscular Volume 96.4 Mean Corpuscular Hemoglobin 30.0 Mean Corpuscular Hemoglobin Concent 31.1 L Red Cell Distribution Width 15.4 H Platelet Count 253 Mean Platelet Volume 10.4 Immature Granulocytes % 0.300 Neutrophils % 74.3 Lymphocytes % 12.0 L Monocytes % 6.8 Eosinophils % 4.5 Basophils % 2.1 H Nucleated Red Blood Cells % 0.0 Immature Granulocytes # 0.020 Neutrophils # 5.3 Lymphocytes # 0.9 Monocytes # 0.5 Eosinophils # 0.3 Basophils # 0.2 H Nucleated Red Blood Cells # 0.0 Sodium Level 139 Potassium Level 4.8 Chloride Level 105 Carbon Dioxide Level 31 Anion Gap 3 L Blood Urea Nitrogen 35 #H Creatinine 3.01 #H Est Glomerular Filtrat Rate mL/min 16 L Glucose Level 88 Calcium Level 8.8 Medications Medication Current Medications Acetaminophen (Tylenol Liquid (Ped)) 640 mg Q4H PRN PO FOR PAIN; Start 03/10/19 at 19:30 Bisacodyl (Dulcolax Supp) 10 mg DAILY MD Last administered on 03/14/19at 09:31; Admin Dose 10 MG; Start 03/11/19 at 09:00 Diphenhydramine HCl (Benadryl) 25 mg DAILY PRN PO ITCHING; Start 03/10/19 at 19:30 Docusate Sodium (Colace) 100 mg DAILY PO Last administered on 03/23/19at 08:59; Admin Dose 100 MG; Start 03/11/19 at 09:00 Furosemide (Lasix) 40 mg DAILY PO Last administered on 03/23/19 09:01; Admin Dose 40 MG; Start 03/11/19 at 09:00 Guaifenesin (Robitussin Liquid Cup) 100 mg Q6H PRN PO COUGH; Start 03/10/19 at 19:30 Levothyroxine Sodium (Synthroid) 175 mcg BEFORE BREAKFAST PO Last administered on 03/23/19 08:59; Admin Dose 175 MCG; Start 03/11/19 at 07:00 Lidocaine (Lidoderm) 1 patch Q8H PRN TD FOR RIGHT SHOULDER; Start 03/10/19 at 19:30 Metoprolol Tartrate (Lopressor) 25 mg TID PO Last administered on 03/23/19 12:10; Admin Dose 25 MG; Start 03/10/19 at 21:00 Midodrine (Proamatine) 5 mg Q8H PRN PO HOLD FOR SBP>110; Start 03/10/19 at 19:30 Sevelamer Carbonate (Renvela) 1.6 gm WITH MEALS PO Last administered on 03/23/19 12:08; Admin Dose 1.6 GM; Start 03/11/19 at 08:00 Warfarin Sodium (Coumadin) 4 mg SuTuThSa@1700 PO Last administered on 03/22/19 16:53; Admin Dose 4 MG; Start 03/10/19 at 20:00; Status Hold Calcium Carbonate (Oyster Shell Calcium) 1.25 gm DAILY PO Last administered on 03/17/19 08:15; Admin Dose 1.25 GM; Start 03/11/19 at 09:00 IV Flush (NS 3 ml) 3 ml PER PROTOCOL IV ; Start 03/10/19 at 19:30 Ondansetron HCl (Zofran Inj) 4 mg Q6H PRN IV NAUSEA/VOMITING; Start 03/10/19 at 19:30 Famotidine (Pepcid) 20 mg DAILY PO Last administered on 03/18/19 08:06; Admin Dose 20 MG; Start 03/10/19 at 21:00 Ipratropium [place] (Atrovent Hfa) 2 puff Q4H RESP THERAPY INH Last administered on 03/23/19 13:50; Admin Dose 2 PUFF; Start 03/10/19 at 21:00 Nystatin (Nystatin Powder) 1 applic BID TOP Last administered on 03/23/19 09:03; Admin Dose 1 APPLIC; Start 03/11/19 at 11:00 Heparin Sodium (Porcine) (Heparin (1000 Units/ml)) 4,100 unit AFTER DIALYSIS CATHETER Last administered on 03/22/19 14:10; Admin Dose 4,100 UNIT; Start 03/11/19 at 19:00 Warfarin Sodium (Coumadin) 5 mg MoWeFr@1700 PO Last administered on 03/21/19 17:26; Admin Dose 5 MG; Start 03/16/19 at 17:00; Status Hold Ipratropium [place] (Atrovent 0.02% (Neb)) 0.5 mg Q4H RESP THERAPY PRN HHN SHORTNESS OF BREATH Last administered on 03/21/19 17:53; Admin Dose 0.5 MG; Start 03/21/19 at 12:00 Heparin Sodium (Porcine) (Heparin (5000 Units/1ml)) 5,000 unit BID SC Last administered on 03/23/19 09:04; Admin Dose 5,000 UNIT; Start 03/22/19 at 21:00 FREDO MENDOSA March 23, 2019 15:39
--- NOTE | 2019-03-23 17:29 | CONS ---
Assessment/Plan Assessment/Plan Hospital Course (Demo Recall) IMPRESSION: 1. Status post aortic valve replacement, mechanical, on Coumadin, currently mildly subtherapeutic levels. 2. Abnormal electrocardiogram with inferior and anterior lateral Q's. Assess for acute coronary syndrome.-neg trop x 3/NL EF by echo 3. Hypertension-reasonable 4. Dyslipidemia. 5. Chronic respiratory failure, status post tracheostomy. 6. End-stage renal disease on hemodialysis. 7. Hypothyroidism. 8. Anemia. Recc: -Tele -continue coumadin at current alternating dose s/p increase and f/u INR now therapeutic -Continue BB -Continue lasix plus HD for volume removal -Continue synthroid Consultation Date/Type/Reason Admit Date/Time March 13, 2019 at 10:21 Initial Consult Date 03/11/19 Type of Consult Cardiology Reason for Consultation s/p AVR Requesting Provider: ELA ROBINS DO Date/Time of Note DATE: 03/23/19 TIME: 17:28 Exam/Review of Systems Vital Signs Vitals Vital Signs Date Temp Pulse Resp B/P (MAP) Pulse Ox O2 O2 Flow FiO2 Time Delivery Rate 03/23/19 81 16:18 03/23/19 98.0 20 159/67 97 15:33 (97) 03/23/19 Aerosol 5.0 28 13:50 Aerosol Mask Intake and Output 03/22/19 03/22/19 03/23/19 1515:00 23:00 07:00 IntakeIntake Total 500 ml 120 ml OutputOutput Total 1900 ml BalanceBalance -1900 ml 500 ml 120 ml Exam Exam Review of Systems: CONSTITUTIONAL: No fevers, chills. PULMONARY: No sob CARDIOVASCULAR: No chest pain/palpitations GASTROINTESTINAL: No nausea/vomiting. GENITOURINARY: No hematuria/dysuria. MUSCULOSKELETAL: No myagias/arthalgias. PSYCHIATRIC: The patient denies depression. NEUROLOGIC: No weakness Constitutional: alert Psych: no complaints Head: normocephalic ENMT: mucosa pink and moist Neck: supple, jvd (9 cm water) Respiratory: diminished breath sounds (at bases/B) Cardiovascular: regular rate and rhythm Gastrointestinal: soft, non-tender Musculoskeletal: muscle tone (normal) Extremities: edema (none) Neurological: other (No focal deficits) Labs Result Diagram: 03/23/19 0710 03/23/19 0710 Results 24hrs Laboratory Tests Test 03/23/19 07:10 White Blood Count 7.1 # Red Blood Count 3.60 L Hemoglobin 10.8 L Hematocrit 34.7 L Mean Corpuscular Volume 96.4 Mean Corpuscular Hemoglobin 30.0 Mean Corpuscular Hemoglobin Concent 31.1 L Red Cell Distribution Width 15.4 H Platelet Count 253 Mean Platelet Volume 10.4 Immature Granulocytes % 0.300 Neutrophils % 74.3 Lymphocytes % 12.0 L Monocytes % 6.8 Eosinophils % 4.5 Basophils % 2.1 H Nucleated Red Blood Cells % 0.0 Immature Granulocytes # 0.020 Neutrophils # 5.3 Lymphocytes # 0.9 Monocytes # 0.5 Eosinophils # 0.3 Basophils # 0.2 H Nucleated Red Blood Cells # 0.0 Sodium Level 139 Potassium Level 4.8 Chloride Level 105 Carbon Dioxide Level 31 Anion Gap 3 L Blood Urea Nitrogen 35 #H Creatinine 3.01 #H Est Glomerular Filtrat Rate mL/min 16 L Glucose Level 88 Calcium Level 8.8 Medications Medications Current Medications Acetaminophen (Tylenol Liquid (Ped)) 640 mg Q4H PRN PO FOR PAIN; Start 03/10/19 at 19:30 Bisacodyl (Dulcolax Supp) 10 mg DAILY GA Last administered on 03/14/19at 09:31; Admin Dose 10 MG; Start 03/11/19 at 09:00 Diphenhydramine HCl (Benadryl) 25 mg DAILY PRN PO ITCHING; Start 03/10/19 at 19:30 Docusate Sodium (Colace) 100 mg DAILY PO Last administered on 03/23/19at 08:59; Admin Dose 100 MG; Start 03/11/19 at 09:00 Furosemide (Lasix) 40 mg DAILY PO Last administered on 03/23/19at 09:01; Admin Dose 40 MG; Start 03/11/19 at 09:00 Guaifenesin (Robitussin Liquid Cup) 100 mg Q6H PRN PO COUGH; Start 03/10/19 at 19:30 Levothyroxine Sodium (Synthroid) 175 mcg BEFORE BREAKFAST PO Last administered on 03/23/19at 08:59; Admin Dose 175 MCG; Start 03/11/19 at 07:00 Lidocaine (Lidoderm) 1 patch Q8H PRN TD FOR RIGHT SHOULDER; Start 03/10/19 at 19:30 Metoprolol Tartrate (Lopressor) 25 mg TID PO Last administered on 03/23/19 12:10; Admin Dose 25 MG; Start 03/10/19 at 21:00 Midodrine (Proamatine) 5 mg Q8H PRN PO HOLD FOR SBP>110; Start 03/10/19 at 19:30 Sevelamer Carbonate (Renvela) 1.6 gm WITH MEALS PO Last administered on 03/23/19 17:26; Admin Dose 1.6 GM; Start 03/11/19 at 08:00 Warfarin Sodium (Coumadin) 4 mg SuTuThSa@1700 PO Last administered on 03/22/19 16:53; Admin Dose 4 MG; Start 03/10/19 at 20:00; Status Hold Calcium Carbonate (Oyster Shell Calcium) 1.25 gm DAILY PO Last administered on 03/17/19 08:15; Admin Dose 1.25 GM; Start 03/11/19 at 09:00 IV Flush (NS 3 ml) 3 ml PER PROTOCOL IV ; Start 03/10/19 at 19:30 Ondansetron HCl (Zofran Inj) 4 mg Q6H PRN IV NAUSEA/VOMITING; Start 03/10/19 at 19:30 Famotidine (Pepcid) 20 mg DAILY PO Last administered on 03/18/19 08:06; Admin Dose 20 MG; Start 03/10/19 at 21:00 Ipratropium [place] (Atrovent Hfa) 2 puff Q4H RESP THERAPY INH Last administered on 03/23/19 17:25; Admin Dose 2 PUFF; Start 03/10/19 at 21:00 Nystatin (Nystatin Powder) 1 applic BID TOP Last administered on 03/23/19 0 9:03; Admin Dose 1 APPLIC; Start 03/11/19 at 11:00 Heparin Sodium (Porcine) (Heparin (1000 Units/ml)) 4,100 unit AFTER DIALYSIS CATHETER Last administered on 03/22/19 14:10; Admin Dose 4,100 UNIT; Start 03/11/19 at 19:00 Warfarin Sodium (Coumadin) 5 mg MoWeFr@1700 PO Last administered on 03/21/19 17:26; Admin Dose 5 MG; Start 03/16/19 at 17:00; Status Hold Ipratropium [place] (Atrovent 0.02% (Neb)) 0.5 mg Q4H RESP THERAPY PRN HHN SHORTNESS OF BREATH Last administered on 03/21/19at 17:53; Admin Dose 0.5 MG; Start 03/21/19 at 12:00 Heparin Sodium (Porcine) (Heparin (5000 Units/1ml)) 5,000 unit BID SC Last administered on 03/23/19at 09:04; Admin Dose 5,000 UNIT; Start 03/22/19 at 21:00 RIAZ BLACKBURN March 23, 2019 17:29
[2019-03-24] VITALS (35 sets, daily range): BP systolic 118–168; BP diastolic 46–82; PULSE 69–94; RESP 17–34
[2019-03-24] MEDS: IPRATROPIUM (HFA) 12.9 GM INHALER INH SCH ×6 (00:34→19:41)
[2019-03-24] MEDS: BISACODYL 10 MG SUPP PR SCH (09:00)
[2019-03-24] MEDS: METOPROLOL 25 MG TAB PO SCH ×3 (09:00→20:38)
[2019-03-24] MEDS: FAMOTIDINE 20 MG TAB PO SCH (09:00)
[2019-03-24] MEDS: CALCIUM CARBONATE 1.25 GM TAB PO SCH (09:00)
[2019-03-24] MEDS: LEVOTHYROXINE 175 MCG TAB PO SCH (09:08)
[2019-03-24] MEDS: DOCUSATE SODIUM 100 MG CAP PO SCH (09:08)
[2019-03-24] MEDS: FUROSEMIDE 40 MG TAB PO SCH (09:09)
[2019-03-24] MEDS: SEVELAMER CARBONATE 0.8 GM PKT PO SCH ×3 (09:09→17:38)
[2019-03-24] MEDS: BALSAM PERU/CASTOR OIL 60 GM TUBE TOP SCH ×2 (09:10→21:48)
[2019-03-24] MEDS: NYSTATIN 30 GM POWDER BTL TOP SCH ×2 (09:10→21:48)
[2019-03-24] MEDS: HEPARIN 5,000 UNIT/1 ML VIAL SC SCH (09:25)
--- NOTE | 2019-03-24 09:32 | PN ---
DATE: 03/24/2019 SUBJECTIVE: The patient is stable, no events overnight. OBJECTIVE: VITAL SIGNS: Blood pressure is 124/58, pulse 74, respirations 17, temperature 97.7. HEENT: Head is normocephalic. NECK: Supple. HEART: Regular rate. LUNGS: Show diminished breath sounds at the base. ABDOMEN: Soft, nontender to palpation. No rebound or guarding. EXTREMITIES: Negative for clubbing, cyanosis, no edema. DERMATOLOGIC: No rashes. MUSCULOSKELETAL: No joint effusion. NEUROLOGIC: No change in exam. MEDICATIONS: Reviewed. LABORATORY DATA: Reviewed. ASSESSMENT AND PLAN: 1. End-stage renal disease. The patient is scheduled for dialysis today. We will dialyze 3 hours 2 k bath, calcium 2.5. 2. Hypokalemia. Continue dialysis on low potassium bath. 3. Access. The patient has Perm-A-Cath, pending eventual placement of PD catheter. 4. Anemia. Continue to monitor hemoglobin and hematocrit levels. Continue Epogen. 5. Mineral bone disorder. Monitor calcium and phosphorus levels. 6. Ventilator-dependent respiratory failure. Vent settings have been reviewed. Continue to monitor . 7. Hypertension. Continue current blood pressure regimen. 8. Mechanical heart valve, aortic valve. The patient is Coumadin being managed per cardiology. 9. Hypothyroidism. Continue Synthroid. 10. Arrhythmia. Continue to monitor. Dictated By: ELA ROBINS DO NR/NTS Conf#: [id number] DID#: [id number] CC: KOSTAS CRESPO MD; KOFI CORBETT MD;*EndCC*
--- NOTE | 2019-03-24 10:51 | CONS ---
Assessment/Plan Assessment/Plan Assessment/Plan (Daily) Assessment and recommendations; 1. Patient admitted with hemodialysis catheter malfunction status post placement. 2. Severe restrictive lung disease due to kyphoscoliosis, patient status post tracheostomy requiring bilevel ventilation overnight due to apparent hypercapnic respiratory failure. Patient reluctant to have ABG performed. 3. History of aortic valve replacement, patient on chronic anticoagulate him. 4. Chronic renal failure, on hemodialysis. Continue current supportive care. Patient awaiting placement. Consultation Date/Type/Reason Admit Date/Time March 13, 2019 at 10:21 Initial Consult Date 03/16/19 Type of Consult Pulmonary Pulmonary consult requested for evaluation of chronic respiratory failure. Patient admitted for hemodialysis catheter malfunction. Which has since been replaced. Patient is a pleasant 63-year-old lady who was transferred to the hospital because of malfunctioning hemodialysis catheter placement the patient does have history of chronic respiratory failure which is partially ventilator dependent. By the time I saw the patient in the room, patient was sitting in her bed and was completely awake and alert. Was able to give a meaningful history by herself. Patient currently denies any shortness of breath, chest pain, coughing, wheezing, any fever or chills. Past medical history; 1. History of chronic renal failure, on hemodialysis. 2. Possibly underlying pulmonary fibrosis. 3. Anemia. 4. CHF. 5. Hypertension. 6. Kyphoscoliosis. 7. History of mechanical aortic valve replacement. Medications; reviewed. Allergies; as outlined above. Social history; patient never smoked. Family history; she is , has a supportive . 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 Review of systems; denies any headache, visual changes, sinus symptoms. Any chest pain, wheezing, cough, sputum production or shortness of breath at rest. Denies any abdominal pain, nausea vomiting. Patient is able to eat. Denies any melena hematochezia. Any edema. General exam; elderly female, awake alert, on ventilator via tracheostomy, awake and alert. Currently in no distress. Allergies; Requesting Provider: ELA ROBINS DO Date/Time of Note DATE: 03/24/19 TIME: 10:49 24 HR Interval Summary Free Text/Dictation Patient's condition is stable. Denies any shortness of breath at rest. Doing very well on trach collar in daytime. Requiring bilevel ventilation overnight. General exam; elderly lady, sitting in bed. Awake and alert. Currently in no distress. Exam/Review of Systems Exam Vitals Vital Signs Date Temp Pulse Resp B/P (MAP) Pulse Ox O2 O2 Flow FiO2 Time Delivery Rate 03/24/19 100 5.0 28 09:36 03/24/19 78 08:36 03/24/19 97.7 17 124/58 08:01 (80) 03/23/19 Aerosol 17:29 Aerosol Mask Intake and Output 03/23/19 03/23/19 03/24/19 1515:00 23:00 07:00 IntakeIntake Total 1000 ml 250 ml BalanceBalance 1000 ml 250 ml Exam HEENT exam; supple, no JVD. No lymphadenopathy. Midline trachea. No thyromegaly. Tracheostomy in place. Patient has dentures. Chest exam; kyphoscoliosis. S1-S2 audible, mechanical S2. Well-healed sternal scar. Skin graft over sternum. Abdomen exam; soft, nontender. No organomegaly. Bowel sounds audible. Extremity exam; peripheral edema clubbing. PETROLOGIST exam; no focal deficit. Results Result Diagram: 03/23/19 0710 03/23/19 0710 Results 24hrs Laboratory Tests Test 03/24/19 07:48 Prothrombin Time 18.5 #H Prothrombin Time Ratio 1.4 INR International Normalized Ratio 1.53 Medications Medication Current Medications Acetaminophen (Tylenol Liquid (Ped)) 640 mg Q4H PRN PO FOR PAIN; Start 03/10/19 at 19:30 Bisacodyl (Dulcolax Supp) 10 mg DAILY [place] Last administered on 03/14/19at 09:31; Admin Dose 10 MG; Start 03/11/19 at 09:00 Diphenhydramine HCl (Benadryl) 25 mg DAILY PRN PO ITCHING; Start 03/10/19 at 19:30 Docusate Sodium (Colace) 100 mg DAILY PO Last administered on 03/24/19at 09:08; Admin Dose 100 MG; Start 03/11/19 at 09:00 Furosemide (Lasix) 40 mg DAILY PO Last administered on 03/24/19at 09:09; Admin Dose 40 MG; Start 03/11/19 at 09:00 Guaifenesin (Robitussin Liquid Cup) 100 mg Q6H PRN PO COUGH; Start 03/10/19 at 19:30 Levothyroxine Sodium (Synthroid) 175 mcg BEFORE BREAKFAST PO Last administered on 03/24/19 09:08; Admin Dose 175 MCG; Start 03/11/19 at 07:00 Lidocaine (Lidoderm) 1 patch Q8H PRN TD FOR RIGHT SHOULDER; Start 03/10/19 at 19:30 Metoprolol Tartrate (Lopressor) 25 mg TID PO Last administered on 03/23/19 20:56; Admin Dose 25 MG; Start 03/10/19 at 21:00 Midodrine (Proamatine) 5 mg Q8H PRN PO HOLD FOR SBP>110; Start 03/10/19 at 19:30 Sevelamer Carbonate (Renvela) 1.6 gm WITH MEALS PO Last administered on 03/24/19 09:09; Admin Dose 1.6 GM; Start 03/11/19 at 08:00 Warfarin Sodium (Coumadin) 4 mg SuTuThSa@1700 PO Last administered on 03/22/19 16:53; Admin Dose 4 MG; Start 03/10/19 at 20:00; Status Hold Calcium Carbonate (Oyster Shell Calcium) 1.25 gm DAILY PO Last administered on 03/17/19 08:15; Admin Dose 1.25 GM; Start 03/11/19 at 09:00 IV Flush (NS 3 ml) 3 ml PER PROTOCOL IV ; Start 03/10/19 at 19:30 Ondansetron HCl (Zofran Inj) 4 mg Q6H PRN IV NAUSEA/VOMITING; Start 03/10/19 at 19:30 Famotidine (Pepcid) 20 mg DAILY PO Last administered on 03/18/19 08:06; Admin Dose 20 MG; Start 03/10/19 at 21:00 Ipratropium [place] (Atrovent Hfa) 2 puff Q4H RESP THERAPY INH Last administered on 03/24/19 09:26; Admin Dose 2 PUFF; Start 03/10/19 at 21:00 Nystatin (Nystatin Powder) 1 applic BID TOP Last administered on 03/24/19 09:10; Admin Dose 1 APPLIC; Start 03/11/19 at 11:00 Heparin Sodium (Porcine) (Heparin (1000 Units/ml)) 4,100 unit AFTER DIALYSIS CATHETER Last administered on 03/22/19 14:10; Admin Dose 4,100 UNIT; Start 03/11/19 at 19:00 Warfarin Sodium (Coumadin) 5 mg MoWeFr@1700 PO Last administered on 03/21/19at 17:26; Admin Dose 5 MG; Start 03/16/19 at 17:00; Status Hold Ipratropium [place] (Atrovent 0.02% (Neb)) 0.5 mg Q4H RESP THERAPY PRN HHN SHORTNESS OF BREATH Last administered on 03/21/19at 17:53; Admin Dose 0.5 MG; Start 03/21/19 at 12:00 Heparin Sodium (Porcine) (Heparin (5000 Units/1ml)) 5,000 unit BID SC Last administered on 03/24/19at 09:25; Admin Dose 5,000 UNIT; Start 03/22/19 at 21:00 LADONNA WALSH March 24, 2019 10:51
--- NOTE | 2019-03-24 10:55 | PN ---
Date/Time of Note Date/Time of Note DATE: 03/24/19 TIME: 10:52 Assessment/Plan Lines/Catheters IV Catheter Type (from Nrs): PERMACATH [place] in Place (from Nrs): No Assessment/Plan Chief Complaint/Hosp Course 1. Desire for peritoneal dialysis catheter versus hemodialysis. Had a long discussion with her and partner. She needs a place to be able to receive tea joel to use her PD catheter. Her anticoagulation needs to be held prior to surgery. She needs to find a place that allows PD catheter. Also concern for placement due to muscle flap from the abdomen. Will need to evaluate abdominal wall by imaging. These this will be worked on by the team members prior to decision to proceed with surgery -CT for eval of wall deformity> noted and pd cath is feasible >currently off of Coumadin> will also need cardiac clearance -OR tomorrow -will need teaching for pd cath >discussed w renal and teaching can be done 2. Anticoagulation with mechanical aortic valve -As above -Cardiac optimization 3. Ventilator and trach dependent respiratory failure -Pulmonary toilet and ventilator management 4. Hypertension -Nutrition and medication optimization 5. Anemia without evidence of acute blood loss -Monitor 6. Pressure injuries -Offload -Nutrition optimization -Local care Thank you. Patient seen and examined in collaboration with Dr. Art Stallings. Subjective 24 Hr Interval Summary Planned for pd cath tomorrow. No fevers, chills, sob, congested cough, cp, palpitations, azar, dizziness, n/v/d/dysuria. Exam/Review of Systems Vital Signs Vitals Vital Signs Date Temp Pulse Resp B/P (MAP) Pulse Ox O2 O2 Flow FiO2 Time Delivery Rate 03/24/19 100 5.0 28 09:36 03/24/19 78 08:36 03/24/19 97.7 17 124/58 08:01 (80) 03/23/19 Aerosol 17:29 Aerosol Mask Intake and Output 03/23/19 03/23/19 03/24/19 1515:00 23:00 07:00 IntakeIntake Total 1000 ml 250 ml BalanceBalance 1000 ml 250 ml Exam Free Text/Dictation Constitutional: alert, oriented; No distress Psych: nl mood/affect; No anxiety, No confusion Head: normocephalic, atraumatic Eyes: nl conjunctiva, EOMI, PERRL; No icteric ENMT: nl external ears & nose, mucosa pink and moist Neck: supple, other (Trach in place); No jvd Respiratory: normal air movement; No congested cough, No labored breathing Cardiovascular: regular rate and rhythm; No edema Gastrointestinal: soft, non-tender, other (Horizontal large scar from previous muscle flap); No distended, No rebound or guarding, No tender Musculoskeletal: nl extremities to inspection; No joint tenderness Extremities: normal pulses; No calf tenderness, No edema Neurological: nl mental status, nl strength Skin: nl turgor; No rash or lesions, No diaphoresis Lymph: nl lymph nodes Results Result Diagram: 03/23/19 0710 03/23/19 0710 KJ GOLDMAN NP March 24, 2019 10:55
--- NOTE | 2019-03-24 12:19 | CONS ---
Assessment/Plan Assessment/Plan Hospital Course (Demo Recall) IMPRESSION: 1. Status post aortic valve replacement, mechanical-coumadi held in anticipation of PD placement and now subtherapeutic. 2. Abnormal electrocardiogram with inferior and anterior lateral Q's. Assess for acute coronary syndrome.-neg trop x 3/NL EF by echo 3. Hypertension-reasonable 4. Dyslipidemia. 5. Chronic respiratory failure, status post tracheostomy. 6. End-stage renal disease on hemodialysis. 7. Hypothyroidism. 8. Anemia. 9. Pre-op- for PD placement. Ok to proceed at moderate CV Risk once INR down. Recc: -Tele -Continue BB -Continue lasix plus HD for volume removal for now and follow volume status closely -Continue synthroid -holding couamadin and given subtherapeutic levels will start heparin Consultation Date/Type/Reason Admit Date/Time March 13, 2019 at 10:21 Initial Consult Date 03/11/19 Type of Consult Cardiology Reason for Consultation AVR/preop Requesting Provider: ELA ROBINS DO Date/Time of Note DATE: 03/24/19 TIME: 12:15 Exam/Review of Systems Vital Signs Vitals Vital Signs Date Temp Pulse Resp B/P (MAP) Pulse Ox O2 O2 Flow FiO2 Time Delivery Rate 03/24/19 97.7 89 18 151/67 97 11:55 (95) 03/24/19 5.0 28 09:36 03/23/19 Aerosol 17:29 Aerosol Mask Intake and Output 03/23/19 03/23/19 03/24/19 1515:00 23:00 07:00 IntakeIntake Total 1000 ml 250 ml BalanceBalance 1000 ml 250 ml Exam Exam Review of Systems: CONSTITUTIONAL: No fevers, chills. PULMONARY: s/p trach CARDIOVASCULAR: No chest pain/palpitations GASTROINTESTINAL: No nausea/vomiting. GENITOURINARY: No hematuria/dysuria. MUSCULOSKELETAL: No myagias/arthalgias. PSYCHIATRIC: The patient denies depression. NEUROLOGIC: No weakness Constitutional: alert, oriented Psych: no complaints ENMT: mucosa pink and moist Neck: other (trach in place) Respiratory: diminished breath sounds (at bases/B) Cardiovascular: regular rate and rhythm Gastrointestinal: soft, non-tender Musculoskeletal: muscle tone (normal) Extremities: edema (trace/B) Neurological: other (No focal deficits) Labs Result Diagram: 03/23/19 0710 03/23/19 0710 Results 24hrs Laboratory Tests Test 03/24/19 07:48 Prothrombin Time 18.5 #H Prothrombin Time Ratio 1.4 INR International Normalized Ratio 1.53 Medications Medications Current Medications Acetaminophen (Tylenol Liquid (Ped)) 640 mg Q4H PRN PO FOR PAIN; Start 03/10/19 at 19:30 Bisacodyl (Dulcolax Supp) 10 mg DAILY [place] Last administered on 03/14/19 09:31; Admin Dose 10 MG; Start 03/11/19 at 09:00 Diphenhydramine HCl (Benadryl) 25 mg DAILY PRN PO ITCHING; Start 03/10/19 at 19:30 Docusate Sodium (Colace) 100 mg DAILY PO Last administered on 03/24/19 09:08; Admin Dose 100 MG; Start 03/11/19 at 09:00 Furosemide (Lasix) 40 mg DAILY PO Last administered on 03/24/19 09:09; Admin Dose 40 MG; Start 03/11/19 at 09:00 Guaifenesin (Robitussin Liquid Cup) 100 mg Q6H PRN PO COUGH; Start 03/10/19 at 19:30 Levothyroxine Sodium (Synthroid) 175 mcg BEFORE BREAKFAST PO Last administered on 03/24/19 09:08; Admin Dose 175 MCG; Start 03/11/19 at 07:00 Lidocaine (Lidoderm) 1 patch Q8H PRN TD FOR RIGHT SHOULDER; Start 03/10/19 at 19:30 Metoprolol Tartrate (Lopressor) 25 mg TID PO Last administered on 03/23/19 20:56; Admin Dose 25 MG; Start 03/10/19 at 21:00 Midodrine (Proamatine) 5 mg Q8H PRN PO HOLD FOR SBP>110; Start 03/10/19 at 19:30 Sevelamer Carbonate (Renvela) 1.6 gm WITH MEALS PO Last administered on 03/24/19 12:14; Admin Dose 1.6 GM; Start 03/11/19 at 08:00 Warfarin Sodium (Coumadin) 4 mg SuTuThSa@1700 PO Last administered on 03/22/19 16:53; Admin Dose 4 MG; Start 03/10/19 at 20:00; Status Hold Calcium Carbonate (Oyster Shell Calcium) 1.25 gm DAILY PO Last administered on 03/17/19 08:15; Admin Dose 1.25 GM; Start 03/11/19 at 09:00 IV Flush (NS 3 ml) 3 ml PER PROTOCOL IV ; Start 03/10/19 at 19:30 Ondansetron HCl (Zofran Inj) 4 mg Q6H PRN IV NAUSEA/VOMITING; Start 03/10/19 at 19:30 Famotidine (Pepcid) 20 mg DAILY PO Last administered on 03/18/19 08:06; Admin Dose 20 MG; Start 03/10/19 at 21:00 Ipratropium [place] (Atrovent Hfa) 2 puff Q4H RESP THERAPY INH Last administered on 03/24/19 09:26; Admin Dose 2 PUFF; Start 03/10/19 at 21:00 Nystatin (Nystatin Powder) 1 applic BID TOP Last administered on 03/24/19 09:10; Admin Dose 1 APPLIC; Start 03/11/19 at 11:00 Heparin Sodium (Porcine) (Heparin (1000 Units/ml)) 4,100 unit AFTER DIALYSIS CATHETER Last administered on 03/22/19 14:10; Admin Dose 4,100 UNIT; Start 03/11/19 at 19:00 Warfarin Sodium (Coumadin) 5 mg MoWeFr@1700 PO Last administered on 03/21/19 17:26; Admin Dose 5 MG; Start 03/16/19 at 17:00; Status Hold Ipratropium [place] (Atrovent 0.02% (Neb)) 0.5 mg Q4H RESP THERAPY PRN HHN SHORTNESS OF BREATH Last administered on 03/21/19 17:53; Admin Dose 0.5 MG; Start 03/21/19 at 12:00 Heparin Sodium (Porcine) (Heparin (5000 Units/1ml)) 5,000 unit BID SC Last administered on 03/24/19 09:25; Admin Dose 5,000 UNIT; Start 03/22/19 at 21:00; Status Hold RIAZ BLACKBURN March 24, 2019 12:19
[2019-03-24] MEDS ORDERED: HEPARIN 1000 UNITS/ML 10 ML INJ IV ONE (12:30)
[2019-03-24] MEDS ORDERED: HEPARIN 1000 UNITS/ML 10 ML INJ IV PRN (12:30)
--- NOTE | 2019-03-24 12:53 | PN ---
Date/Time of Note Date/Time of Note DATE: 03/24/19 TIME: 12:50 Assessment/Plan VTE Prophylaxis Risk score (from Ns)>0 risk: 6 SCD applied (from Nsg): Yes Pharmacological prophylaxis: heparin Lines/Catheters IV [facility]from [facility] PERMACATH Urinary Cath still in place: No Assessment/Plan Hospital Course Patient remains hemodynamically stable, able to work with physical therapy, no distress. Plan for peritoneal catheter placement tomorrow. Cleared by cardiology with moderate CV risk when INR is down. Patient's INR today is 1.53 Coumadin is on hold, patient is on heparin. Discussed with case management patient can be transferred to [facility] after peritoneal catheter placement. Assessment/Plan -Permacath malfunction. Patient is able to undergo hemodialysis through permacath. Dr. Lott is following patient in nephrology consultation. Dr. Stallings is following in general surgery consultation for possible evaluation for peritoneal dialysis placement. -Hemodialysis dependent end-stage renal disease -Ventilator dependent respiratory failure. Continue T-piece trial during the day and and nocturnal BiPAP. Dr. Plascencia is following in pulmonology consultation. -Hypertension -Status post mechanical aortic valve replacement, continue heparin. -Hypothyroidism, continue levothyroxine Further recommendations based on clinical course. Plan of care discussed with Dr. Balbuena. Result Diagram: 03/23/19 0710 03/23/19 0710 Results 24hrs Laboratory Tests Test 03/24/19 07:48 Prothrombin Time 18.5 #H Prothrombin Time Ratio 1.4 INR International Normalized Ratio 1.53 Exam/Review of Systems Exam Vitals Vital Signs Date Temp Pulse Resp B/P (MAP) Pulse Ox O2 O2 Flow FiO2 Time Delivery Rate 03/24/19 94 12:30 03/24/19 97.7 18 151/67 97 11:55 (95) 03/24/19 5.0 28 09:36 03/23/19 Aerosol 17:29 Aerosol Mask Intake and Output 03/23/19 03/23/19 03/24/19 1515:00 23:00 07:00 IntakeIntake Total 1000 ml 250 ml BalanceBalance 1000 ml 250 ml Exam Constitutional: alert, oriented Neck: supple, other (Tracheostomy) Respiratory: clear to auscultation Cardiovascular: regular rate and rhythm Gastrointestinal: soft, non-tender Musculoskeletal: nl extremities to inspection Extremities: normal pulses Neurological: nl mental status Results Results 24hrs Laboratory Tests Test 03/24/19 07:48 Prothrombin Time 18.5 #H Prothrombin Time Ratio 1.4 INR International Normalized Ratio 1.53 Medications Medication Current Medications Acetaminophen (Tylenol Liquid (Ped)) 640 mg Q4H PRN PO FOR PAIN; Start 03/10/19 at 19:30 Bisacodyl (Dulcolax Supp) 10 mg DAILY [place] Last administered on 03/14/19 09:31; Admin Dose 10 MG; Start 03/11/19 at 09:00 Diphenhydramine HCl (Benadryl) 25 mg DAILY PRN PO ITCHING; Start 03/10/19 at 19:30 Docusate Sodium (Colace) 100 mg DAILY PO Last administered on 03/24/19 09:08; Admin Dose 100 MG; Start 03/11/19 at 09:00 Furosemide (Lasix) 40 mg DAILY PO Last administered on 03/24/19 09:09; Admin Dose 40 MG; Start 03/11/19 at 09:00 Guaifenesin (Robitussin Liquid Cup) 100 mg Q6H PRN PO COUGH; Start 03/10/19 at 19:30 Levothyroxine Sodium (Synthroid) 175 mcg BEFORE BREAKFAST PO Last administered on 03/24/19 09:08; Admin Dose 175 MCG; Start 03/11/19 at 07:00 Lidocaine (Lidoderm) 1 patch Q8H PRN TD FOR RIGHT SHOULDER; Start 03/10/19 at 19:30 Metoprolol Tartrate (Lopressor) 25 mg TID PO Last administered on 03/23/19 20:56; Admin Dose 25 MG; Start 03/10/19 at 21:00 Midodrine (Proamatine) 5 mg Q8H PRN PO HOLD FOR SBP>110; Start 03/10/19 at 19:30 Sevelamer Carbonate (Renvela) 1.6 gm WITH MEALS PO Last administered on 03/24/19 12:14; Admin Dose 1.6 GM; Start 03/11/19 at 08:00 Warfarin Sodium (Coumadin) 4 mg SuTuThSa@1700 PO Last administered on 03/22/19 16:53; Admin Dose 4 MG; Start 03/10/19 at 20:00; Status Hold Calcium Carbonate (Oyster Shell Calcium) 1.25 gm DAILY PO Last administered on 03/17/19 08:15; Admin Dose 1.25 GM; Start 03/11/19 at 09:00 IV Flush (NS 3 ml) 3 ml PER PROTOCOL IV ; Start 03/10/19 at 19:30 Ondansetron HCl (Zofran Inj) 4 mg Q6H PRN IV NAUSEA/VOMITING; Start 03/10/19 at 19:30 Famotidine (Pepcid) 20 mg DAILY PO Last administered on 03/18/19 08:06; Admin Dose 20 MG; Start 03/10/19 at 21:00 Ipratropium [place] (Atrovent Hfa) 2 puff Q4H RESP THERAPY INH Last administer ed on 03/24/19 09:26; Admin Dose 2 PUFF; Start 03/10/19 at 21:00 Nystatin (Nystatin Powder) 1 applic BID TOP Last administered on 03/24/19 09:10; Admin Dose 1 APPLIC; Start 03/11/19 at 11:00 Heparin Sodium (Porcine) (Heparin (1000 Units/ml)) 4,100 unit AFTER DIALYSIS CATHETER Last administered on 03/22/19 14:10; Admin Dose 4,100 UNIT; Start 03/11/19 at 19:00 Warfarin Sodium (Coumadin) 5 mg MoWeFr@1700 PO Last administered on 03/21/19 17:26; Admin Dose 5 MG; Start 03/16/19 at 17:00; Status Hold Ipratropium [place] (Atrovent 0.02% (Neb)) 0.5 mg Q4H RESP THERAPY PRN HHN SHORTNESS OF BREATH Last administered on 03/21/19 17:53; Admin Dose 0.5 MG; Start 03/21/19 at 12:00 Heparin Sodium (Porcine) (Heparin (5000 Units/1ml)) 5,000 unit BID SC Last administered on 03/24/19 09:25; Admin Dose 5,000 UNIT; Start 03/22/19 at 21:00; Status Hold Miscellaneous Information (* Miscellaneous Pharmacy Order) DC previous hepa... ONCE ONCE XX ; Start 03/24/19 at 12:30; Stop 03/24/19 at 12:31; Status UNV Heparin Sodium (Porcine) (Heparin (1000 Units/ml)) 3,700 unit ONCE ONCE IV ; Start 03/24/19 at 12:30; Stop 03/24/19 at 12:31; Status UNV Heparin Sodium (Porcine) (Heparin (1000 Units/ml)) 3,700 unit PER PROTOCOL PRN IV aPTT<47; Start 03/24/19 at 12:30; Status UNV Heparin Sodium (Porcine) 250 ml @ 0 mls/hr PER PROTOCOL IV ; Start 03/24/19 at 12:30; Status UNV FREDO MENDOSA March 24, 2019 12:53
[2019-03-24] MEDS: HEPARIN 25000 UNITS/250 ML 250 ML IV SCH ×2 (15:23→22:43)
[2019-03-24] MEDS: HEPARIN 1000 UNITS/ML 10 ML INJ CATHETER SCH (17:27)
[2019-03-25] VITALS (31 sets, daily range): BP systolic 108–153; BP diastolic 54–85; PULSE 69–98; RESP 16–30
[2019-03-25] MEDS: IPRATROPIUM (HFA) 12.9 GM INHALER INH SCH ×6 (01:40→21:41)
[2019-03-25] MEDS: LEVOTHYROXINE 175 MCG TAB PO SCH (05:29)
[2019-03-25] MEDS: HEPARIN 25000 UNITS/250 ML 250 ML IV SCH (06:31)
[2019-03-25] MEDS ORDERED: GLYCOPYRROLATE 0.4 MG INJ ONE (07:00)
[2019-03-25] MEDS ORDERED: NEOSTIGMINE 3 MG/3 ML SYRINGE ONE (07:00)
[2019-03-25] MEDS: SEVELAMER CARBONATE 0.8 GM PKT PO SCH ×3 (08:00→17:26)
[2019-03-25] MEDS: METOPROLOL 25 MG TAB PO SCH ×3 (08:56→21:40)
[2019-03-25] MEDS: DOCUSATE SODIUM 100 MG CAP PO SCH (08:56)
[2019-03-25] MEDS: FUROSEMIDE 40 MG TAB PO SCH (08:57)
[2019-03-25] MEDS: CALCIUM CARBONATE 1.25 GM TAB PO SCH (08:57)
[2019-03-25] MEDS: BISACODYL 10 MG SUPP PR SCH (08:57)
[2019-03-25] MEDS: FAMOTIDINE 20 MG TAB PO SCH (08:57)
[2019-03-25] MEDS: NYSTATIN 30 GM POWDER BTL TOP SCH ×2 (09:33→21:39)
[2019-03-25] MEDS: BALSAM PERU/CASTOR OIL 60 GM TUBE TOP SCH ×2 (09:33→21:39)
--- NOTE | 2019-03-25 10:06 | PN ---
DATE: 03/25/2019 SUBJECTIVE: The patient had hemodialysis yesterday, tolerated well. The patient is pending peritone al catheter placement today by general surgery. No other events noted. OBJECTIVE: VITAL SIGNS: Blood pressure is 133/60, respirations 16, pulse 76, temperature 97.8. HEENT: Head is normocephalic. NECK: Supple. HEART: Regular rate. LUNGS: Show diminished breath sounds at the base. ABDOMEN: Soft, nontender to palpation without rebound or guarding. EXTREMITIES: Negative for clubbing, cyanosis, no edema. DERMATOLOGIC: No rashes. MUSCULOSKELETAL: No joint effusion. NEUROLOGIC: No change in exam. MEDICATIONS: The patient's medications have been reviewed. LABORATORY DATA: Reviewed. IMAGING STUDIES: Reviewed. ASSESSMENT AND PLAN: 1. End-stage renal disease. The patient had hemodialysis yesterday, tolerated well. Plan is for di alysis again tomorrow. 2. Access. The patient is pending possible peritoneal dialysis catheter placement. Following place ment, the patient will need outpatient PDT change, which can be done at [facility]. 3. Hypokalemia. Continue dialysis on low potassium bath. Resolved. 4. Anemia. Continue to monitor hemoglobin and hematocrit levels. Continue Epogen. 5. Mineral bone disorder, monitor calcium and phosphorus levels. 6. Ventilator-dependent respiratory failure. Vent settings have been reviewed. Continue to monitor . 7. Hypertension. Continue current blood pressure regimen. 8. Mechanical heart valve, aortic valve. The patient is currently on heparin drip in anticipation o f surgery. We will continue anticoagulation management per cardiology. 9. Hypothyroidism. Continue Synthroid. 10. Arrhythmia. Continue to monitor. Dictated By: ELA ROBINS DO NR/NTS Conf#: [id number] DID#: [id number] CC: KOSTAS CRESPO MD; KOFI CORBETT MD;*EndCC*
--- NOTE | 2019-03-25 10:07 | PN ---
Date/Time of Note Date/Time of Note DATE: 03/25/19 TIME: 10:06 Assessment/Plan VTE Prophylaxis Risk score (from Ns)>0 risk: 6 SCD applied (from [facility]): Yes SCD contraindicated: other Pharmacological prophylaxis: other Pharm contraindication: other Lines/Catheters IV Catheter Type (from [facility]): permacath Urinary Cath still in place: No Assessment/Plan Assessment/Plan -Permacath malfunction. Patient is able to undergo hemodialysis through [facility]. Dr. Lott is following patient in nephrology consultation. Dr. Stallings is following in general surgery consultation for possible evaluation for peritoneal dialysis placement. -Hemodialysis dependent end-stage renal disease -Ventilator dependent respiratory failure. Continue T-piece trial during the day and and nocturnal BiPAP. Dr. Plascencia is following in pulmonology consultation. -Hypertension -Status post mechanical aortic valve replacement, continue heparin. -Hypothyroidism, continue levothyroxine Further recommendations based on clinical course. Plan of care discussed with Dr. Balbuena. Result Diagram: 03/24/19 1308 03/25/19 0517 Results 24hrs Laboratory Tests Test 03/24/19 13:08 03/24/19 21:10 03/25/19 05:17 03/25/19 06:42 White Blood Count 9.5 # Red Blood Count 4.01 L Hemoglobin 11.9 L Hematocrit 39.4 Mean Corpuscular 98.3 Volume Mean Corpuscular 29.7 Hemoglobin Mean Corpuscular 30.2 L Hemoglobin Concent Red Cell 15.3 H Distribution Width Platelet Count 262 Mean Platelet 10.6 H Volume Immature 0.400 Granulocytes % Neutrophils % 77.8 H Lymphocytes % 11.0 L Monocytes % 6.1 Eosinophils % 2.7 Basophils % 2.0 Nucleated Red 0.0 Blood Cells % Immature 0.040 H Granulocytes # Neutrophils # 7.4 Lymphocytes # 1.1 Monocytes # 0.6 Eosinophils # 0.3 Basophils # 0.2 H Nucleated Red 0.0 Blood Cells # Prothrombin Time 16.9 H Prothrombin Time 1.3 Ratio INR International 1.36 Normalized Ratio Activated 27.5 102.0 *H 52.[address] Time Sodium Level 138 Potassium Level 4.5 Chloride Level 105 Carbon Dioxide 28 Level Anion Gap 5 Blood Urea 26 H Nitrogen Creatinine 2.67 H Est Glomerular 18 L Filtrat Rate mL/min Glucose Level 79 Calcium Level 8.7 Lab Scanned Report REFERENCE LAB Subjective 24 Hr Interval Summary Free Text/Dictation -afebrile - pending PermCath change - at bed side- all Q answered no new events reported overnight dw staff Subjective hx not possible: pt non-verbal Constitutional: requiring O2 Eyes: no complaints ENT: no complaints Respiratory: no complaints Cardiovascular: no complaints Gastrointestinal: no complaints Genitourinary: no complaints Musculoskeletal: restricted range of motion Skin: no complaints Neurologic: no complaints Endocrine: no complaints Exam/Review of Systems Exam Vitals Vital Signs Date Temp Pulse Resp B/P (MAP) Pulse Ox O2 O2 Flow FiO2 Time Delivery Rate 03/25/19 87 09:04 03/25/19 16 100 30 08:39 03/25/19 99.2 108/54 08:21 (72) 03/25/19 Mechanical 04:07 Ventilator 03/24/19 5.0 14:26 Intake and Output 03/24/19 03/24/19 03/25/19 1414:59 22:59 06:59 IntakeIntake Total 845.0 ml 845.5 ml OutputOutput Total 200 ml 1500 ml BalanceBalance -200 ml -655.0 ml 845.5 ml Constitutional: alert, frail Psych: nl mood/affect Eyes: nl lids, nl sclera ENMT: nl external ears & nose Neck: non-tender, other (trach intac) Respiratory: diminished breath sounds (bilaterallyat bases) Cardiovascular: nl pulses, other (s1s2) Gastrointestinal: soft, non-tender Musculoskeletal: muscle weakness, range of motion Extremities: normal pulses Results Results 24hrs Laboratory Tests Test 03/24/19 13:08 03/24/19 21:10 03/25/19 05:17 03/25/19 06:42 White Blood Count 9.5 # Red Blood Count 4.01 L Hemoglobin 11.9 L Hematocrit 39.4 Mean Corpuscular 98.3 Volume Mean Corpuscular 29.7 Hemoglobin Mean Corpuscular 30.2 L Hemoglobin Concent Red Cell 15.3 H Distribution Width Platelet Count 262 Mean Platelet 10.6 H Volume Immature 0.400 Granulocytes % Neutrophils % 77.8 H Lymphocytes % 11.0 L Monocytes % 6.1 Eosinophils % 2.7 Basophils % 2.0 Nucleated Red 0.0 Blood Cells % Immature 0.040 H Granulocytes # Neutrophils # 7.4 Lymphocytes # 1.1 Monocytes # 0.6 Eosinophils # 0.3 Basophils # 0.2 H Nucleated Red 0.0 Blood Cells # Prothrombin Time 16.9 H Prothrombin Time 1.3 Ratio INR International 1.36 Normalized Ratio Activated 27.5 102.0 *H 52.[address] Time Sodium Level 138 Potassium Level 4.5 Chloride Level 105 Carbon Dioxide 28 Level Anion Gap 5 Blood Urea 26 H Nitrogen Creatinine 2.67 H Est Glomerular 18 L Filtrat Rate mL/min Glucose Level 79 Calcium Level 8.7 Lab Scanned Report REFERENCE LAB Medications Medication Current Medications Acetaminophen (Tylenol Liquid (Ped)) 640 mg Q4H PRN PO FOR PAIN; Start 03/10/19 at 19:30 Bisacodyl (Dulcolax Supp) 10 mg DAILY [place] Last administered on 03/14/19at 09:31; Admin Dose 10 MG; Start 03/11/19 at 09:00 Diphenhydramine HCl (Benadryl) 25 mg DAILY PRN PO ITCHING; Start 03/10/19 at 19:30 Docusate Sodium (Colace) 100 mg DAILY PO Last administered on 03/24/19 09:08; Admin Dose 100 MG; Start 03/11/19 at 09:00 Furosemide (Lasix) 40 mg DAILY PO Last administered on 03/24/19 09:09; Admin D ose 40 MG; Start 03/11/19 at 09:00 Guaifenesin (Robitussin Liquid Cup) 100 mg Q6H PRN PO COUGH; Start 03/10/19 at 19:30 Levothyroxine Sodium (Synthroid) 175 mcg BEFORE BREAKFAST PO Last administered on 03/24/19at 09:08; Admin Dose 175 MCG; Start 03/11/19 at 07:00 Lidocaine (Lidoderm) 1 patch Q8H PRN TD FOR RIGHT SHOULDER; Start 03/10/19 at 19:30 Metoprolol Tartrate (Lopressor) 25 mg TID PO Last administered on 03/24/19at 20:38; Admin Dose 25 MG; Start 03/10/19 at 21:00 Midodrine (Proamatine) 5 mg Q8H PRN PO HOLD FOR SBP>110; Start 03/10/19 at 19:30 Sevelamer Carbonate (Renvela) 1.6 gm WITH MEALS PO Last administered on 03/24/19 17:38; Admin Dose 1.6 GM; Start 03/11/19 at 08:00 Warfarin Sodium (Coumadin) 4 mg SuTuThSa@1700 PO Last administered on 03/22/19 16:53; Admin Dose 4 MG; Start 03/10/19 at 20:00; Status Hold Calcium Carbonate (Oyster Shell Calcium) 1.25 gm DAILY PO Last administered on 03/17/19 08:15; Admin Dose 1.25 GM; Start 03/11/19 at 09:00 IV Flush (NS 3 ml) 3 ml PER PROTOCOL IV ; Start 03/10/19 at 19:30 Ondansetron HCl (Zofran Inj) 4 mg Q6H PRN IV NAUSEA/VOMITING; Start 03/10/19 at 19:30 Famotidine (Pepcid) 20 mg DAILY PO Last administered on 03/18/19 08:06; Admin Dose 20 MG; Start 03/10/19 at 21:00 Ipratropium [place] (Atrovent Hfa) 2 puff Q4H RESP THERAPY INH Last administered on 03/25/19 08:38; Admin Dose 2 PUFF; Start 03/10/19 at 21:00 Nystatin (Nystatin Powder) 1 applic BID TOP Last administered on 03/25/19 09:33; Admin Dose 1 APPLIC; Start 03/11/19 at 11:00 Heparin Sodium (Porcine) (Heparin (1000 Units/ml)) 4,100 unit AFTER DIALYSIS CA THETER Last administered on 03/24/19 17:27; Admin Dose 4,100 UNIT; Start 03/11/19 at 19:00 Warfarin Sodium (Coumadin) 5 mg MoWeFr@1700 PO Last administered on 03/21/19 17:26; Admin Dose 5 MG; Start 03/16/19 at 17:00; Status Hold Ipratropium [place] (Atrovent 0.02% (Neb)) 0.5 mg Q4H RESP THERAPY PRN HHN SHORTNESS OF BREATH Last administered on 03/21/19 17:53; Admin Dose 0.5 MG; Start 03/21/19 at 12:00 Heparin Sodium (Porcine) (Heparin (1000 Units/ml)) 3,700 unit PER PROTOCOL PRN IV aPTT<47; Start 03/24/19 at 12:30 Heparin Sodium (Porcine) 250 ml @ 7.5 mls/hr PER PROTOCOL IV Last administered on 03/25/19at 06:31; Admin Dose 7.5 MLS/HR; Start 03/24/19 at 12:30 RONEN RINCON March 25, 2019 10:07
--- NOTE | 2019-03-25 14:38 | CONS ---
Assessment/Plan Assessment/Plan Hospital Course (Demo Recall) IMPRESSION: 1. Status post aortic valve replacement, mechanical-coumadi held in anticipation of PD placement and now subtherapeutic. 2. Abnormal electrocardiogram with inferior and anterior lateral Q's. Assess for acute coronary syndrome.-neg trop x 3/NL EF by echo 3. Hypertension-reasonable 4. Dyslipidemia. 5. Chronic respiratory failure, status post tracheostomy. 6. End-stage renal disease on hemodialysis. 7. Hypothyroidism. 8. Anemia. 9. Pre-op- for PD placement. Ok to proceed at moderate CV Risk once INR down. Recc: -Tele -Continue BB -Continue lasix plus HD for volume removal for now and follow volume status closely -Continue synthroid -holding couamadin and given subtherapeutic levels will start heparin Consultation Date/Type/Reason Admit Date/Time March 13, 2019 at 10:21 Initial Consult Date 03/11/19 Type of Consult Cardiology Reason for Consultation s/p AVR Requesting Provider: ELA ROBINS DO Date/Time of Note DATE: 03/25/19 TIME: 14:37 Exam/Review of Systems Vital Signs Vitals Vital Signs Date Temp Pulse Resp B/P (MAP) Pulse Ox O2 O2 Flow FiO2 Time Delivery Rate 03/25/19 87 13:02 03/25/19 97.7 17 140/73 99 11:38 (95) 03/25/19 30 10:40 03/25/19 Mechanical 04:07 Ventilator 03/24/19 5.0 14:26 Intake and Output 03/24/19 03/24/19 03/25/19 1515:00 23:00 07:00 IntakeIntake Total 845.0 ml 845.5 ml OutputOutput Total 200 ml 1500 ml BalanceBalance -200 ml -655.0 ml 845.5 ml Exam Exam Review of Systems: CONSTITUTIONAL: No fevers, chills. PULMONARY: No sob CARDIOVASCULAR: No chest pain/palpitations GASTROINTESTINAL: No nausea/vomiting. GENITOURINARY: No hematuria/dysuria. MUSCULOSKELETAL: No myagias/arthalgias. PSYCHIATRIC: The patient denies depression. NEUROLOGIC: No weakness Constitutional: alert Psych: no complaints Head: normocephalic ENMT: mucosa pink and moist Neck: supple, jvd (9 cm water) Respiratory: diminished breath sounds Cardiovascular: regular rate and rhythm Gastrointestinal: soft, non-tender Musculoskeletal: muscle tone (normal) Extremities: edema (none) Neurological: other (No focal deficits) Labs Result Diagram: 03/24/19 1308 03/25/19 0517 Results 24hrs Laboratory Tests Test 03/24/19 21:10 03/25/19 05:17 03/25/19 06:42 Activated Partial Thromboplast 102.0 *H 52.2 H Time Sodium Level 138 Potassium Level 4.5 Chloride Level 105 Carbon Dioxide Level 28 Anion Gap 5 Blood Urea Nitrogen 26 H Creatinine 2.67 H Est Glomerular Filtrat 18 L Rate mL/min Glucose Level 79 Calcium Level 8.7 Lab Scanned Report REFERENCE LAB Medications Medications Current Medications Acetaminophen (Tylenol Liquid (Ped)) 640 mg Q4H PRN PO FOR PAIN; Start 03/10/19 at 19:30 Bisacodyl (Dulcolax Supp) 10 mg DAILY [place] Last administered on 03/14/19at 09:31; Admin Dose 10 MG; Start 03/11/19 at 09:00 Diphenhydramine HCl (Benadryl) 25 mg DAILY PRN PO ITCHING; Start 03/10/19 at 19:30 Docusate Sodium (Colace) 100 mg DAILY PO Last administered on 03/24/19at 09:08; Admin Dose 100 MG; Start 03/11/19 at 09:00 Furosemide (Lasix) 40 mg DAILY PO Last administered on 03/24/19at 09:09; Admin Dose 40 MG; Start 03/11/19 at 09:00 Guaifenesin (Robitussin Liquid Cup) 100 mg Q6H PRN PO COUGH; Start 03/10/19 at 19:30 Levothyroxine Sodium (Synthroid) 175 mcg BEFORE BREAKFAST PO Last administered on 03/24/19 09:08; Admin Dose 175 MCG; Start 03/11/19 at 07:00 Lidocaine (Lidoderm) 1 patch Q8H PRN TD FOR RIGHT SHOULDER; Start 03/10/19 at 19:30 Metoprolol Tartrate (Lopressor) 25 mg TID PO Last administered on 03/24/19at 20:38; Admin Dose 25 MG; Start 03/10/19 at 21:00 Midodrine (Proamatine) 5 mg Q8H PRN PO HOLD FOR SBP>110; Start 03/10/19 at 19:30 Sevelamer Carbonate (Renvela) 1.6 gm WITH MEALS PO Last administered on 03/24/19 17:38; Admin Dose 1.6 GM; Start 03/11/19 at 08:00 Warfarin Sodium (Coumadin) 4 mg SuTuThSa@1700 PO Last administered on 03/22/19 16:53; Admin Dose 4 MG; Start 03/10/19 at 20:00; Status Hold Calcium Carbonate (Oyster Shell Calcium) 1.25 gm DAILY PO Last administered on 03/17/19 08:15; Admin Dose 1.25 GM; Start 03/11/19 at 09:00 IV Flush (NS 3 ml) 3 ml PER PROTOCOL IV ; Start 03/10/19 at 19:30 Ondansetron HCl (Zofran Inj) 4 mg Q6H PRN IV NAUSEA/VOMITING; Start 03/10/19 at 19:30 Famotidine (Pepcid) 20 mg DAILY PO Last administered on 03/18/19 08:06; Admin Dose 20 MG; Start 03/10/19 at 21:00 Ipratropium [place] (Atrovent Hfa) 2 puff Q4H RESP THERAPY INH Last administe red on 03/25/19 08:38; Admin Dose 2 PUFF; Start 03/10/19 at 21:00 Nystatin (Nystatin Powder) 1 applic BID TOP Last administered on 03/25/19 09:33; Admin Dose 1 APPLIC; Start 03/11/19 at 11:00 Heparin Sodium (Porcine) (Heparin (1000 Units/ml)) 4,100 unit AFTER DIALYSIS CATHETER Last administered on 03/24/19 17:27; Admin Dose 4,100 UNIT; Start 03/11/19 at 19:00 Warfarin Sodium (Coumadin) 5 mg MoWeFr@1700 PO Last administered on 03/21/19 17:26; Admin Dose 5 MG; Start 03/16/19 at 17:00; Status Hold Ipratropium [place] (Atrovent 0.02% (Neb)) 0.5 mg Q4H RESP THERAPY PRN HHN SHORTNESS OF BREATH Last administered on 03/21/19 17:53; Admin Dose 0.5 MG; Start 03/21/19 at 12:00 Heparin Sodium (Porcine) (Heparin (1000 Units/ml)) 3,700 unit PER PROTOCOL PRN IV aPTT<47; Start 03/24/19 at 12:30; Status Hold Heparin Sodium (Porcine) 250 ml @ 7.5 mls/hr PER PROTOCOL IV Last administered on 03/25/19at 06:31; Admin Dose 7.5 MLS/HR; Start 03/24/19 at 12:30; Status Hold RIAZ BLACKBURN March 25, 2019 14:38
--- NOTE | 2019-03-25 14:59 | PN ---
Date/Time of Note Date/Time of Note DATE: 03/25/19 TIME: 14:52 Assessment/Plan Lines/Catheters IV Catheter Type (from Nrs): permacath [place] in Place (from Nrs): No Assessment/Plan Chief Complaint/Hosp Course 1. Desire for peritoneal dialysis catheter versus hemodialysis. Had a long discussion with her and partner. She needs a place to be able to receive tea joel to use her PD catheter. Her anticoagulation needs to be held prior to surgery. She needs to find a place that allows PD catheter. Also concern for placement due to muscle flap from the abdomen. Will need to evaluate abdominal wall by imaging. These this will be worked on by the team members prior to decision to proceed with surgery -CT for eval of wall deformity> noted and pd cath is feasible >currently off of Coumadin, heparin held -OR today -will need teaching for pd cath >discussed w renal and teaching can be done 2. Anticoagulation with mechanical aortic valve -As above -Cardiac optimization 3. Ventilator and trach dependent respiratory failure -Pulmonary toilet and ventilator management 4. Hypertension -Nutrition and medication optimization 5. Anemia without evidence of acute blood loss -Monitor 6. Pressure injuries -Offload -Nutrition optimization -Local care Thank you. Patient seen and examined in collaboration with Dr. Art Stallings. Subjective 24 Hr Interval Summary Feels well. No fevers, chills, sob, congested cough, cp, palpitations, azar, dizziness, n/v/d/dysuria. OR today Exam/Review of Systems Vital Signs Vitals Vital Signs Date Temp Pulse Resp B/P (MAP) Pulse Ox O2 O2 Flow FiO2 Time Delivery Rate 03/25/19 87 13:02 03/25/19 97.7 17 140/73 99 11:38 (95) 03/25/19 30 10:40 03/25/19 Mechanical 04:07 Ventilator 03/24/19 5.0 14:26 Intake and Output 03/24/19 03/24/19 03/25/19 1515:00 23:00 07:00 IntakeIntake Total 845.0 ml 845.5 ml OutputOutput Total 200 ml 1500 ml BalanceBalance -200 ml -655.0 ml 845.5 ml Exam Free Text/Dictation Constitutional: alert, oriented; No distress Psych: nl mood/affect; No anxiety, No confusion Head: normocephalic, atraumatic Eyes: nl conjunctiva, EOMI, PERRL; No icteric ENMT: nl external ears & nose, mucosa pink and moist Neck: supple, other (Trach in place); No jvd Respiratory: normal air movement; No congested cough, No labored breathing Cardiovascular: regular rate and rhythm; No edema Gastrointestinal: soft, non-tender, other (Horizontal large scar from previous muscle flap); No distended, No rebound or guarding, No tender Musculoskeletal: nl extremities to inspection; No joint tenderness Extremities: normal pulses; No calf tenderness, No edema Neurological: nl mental status, nl strength Skin: nl turgor; No rash or lesions, No diaphoresis Lymph: nl lymph nodes Results Result Diagram: 03/24/19 1308 03/25/19 0517 KJ GOLDMAN NP March 25, 2019 14:59
--- NOTE | 2019-03-25 15:01 | CONS ---
Consult Date/Type/Reason Admit Date/Time March 13, 2019 at 10:21 Initial Consult Date 03/16/19 Type of Consult Pulmonary Requesting Provider: ELA ROBINS DO Date/Time of Note DATE: 03/25/19 TIME: 14:58 Subjective Patient comfortable this morning no new events pending placement of peritoneal dialysis catheter. Objective Vital Signs Date Temp Pulse Resp B/P (MAP) Pulse Ox O2 O2 Flow FiO2 Time Delivery Rate 03/25/19 87 13:02 03/25/19 97.7 17 140/73 99 11:38 (95) 03/25/19 30 10:40 03/25/19 Mechanical 04:07 Ventilator 03/24/19 5.0 14:26 Intake and Output 03/24/19 03/24/19 03/25/19 1515:00 23:00 07:00 IntakeIntake Total 845.0 ml 845.5 ml OutputOutput Total 200 ml 1500 ml BalanceBalance -200 ml -655.0 ml 845.5 ml Exam GENERAL: VITAL SIGNS: per chart NECK: Supple. No JVD or lymphadenopathy. CARDIAC EXAM: S1, S2. No added sounds or murmurs. CHEST: clear bilaterally, No added sounds, rales or wheezes ABDOMEN: Soft, nontender. No guarding or rebound. EXTREMITIES: No cyanosis, clubbing or edema. NEUROLOGIC: Generalized weakness. No focal deficits. Vent Setting Ventilator Support Mode: AC Fraction of Inspired Oxygen pe: 30 Positive End Expiratory Pressu: 5.0 Results/Medications Result Diagram: 03/24/19 1308 03/25/19 0517 Results 24 hrs Laboratory Tests Test 03/24/19 21:10 03/25/19 05:17 03/25/19 06:42 Activated Partial Thromboplast 102.0 *H 52.2 H Time Sodium Level 138 Potassium Level 4.5 Chloride Level 105 Carbon Dioxide Level 28 Anion Gap 5 Blood Urea Nitrogen 26 H Creatinine 2.67 H Est Glomerular Filtrat 18 L Rate mL/min Glucose Level 79 Calcium Level 8.7 Lab Scanned Report REFERENCE LAB Medications Current Medications Acetaminophen (Tylenol Liquid (Ped)) 640 mg Q4H PRN PO FOR PAIN; Start 03/10/19 at 19:30 Bisacodyl (Dulcolax Supp) 10 mg DAILY [place] Last administered on 03/14/19at 09:31; Admin Dose 10 MG; Start 03/11/19 at 09:00 Diphenhydramine HCl (Benadryl) 25 mg DAILY PRN PO ITCHING; Start 03/10/19 at 19:30 Docusate Sodium (Colace) 100 mg DAILY PO Last administered on 03/24/19 09:08; Admin Dose 100 MG; Start 03/11/19 at 09:00 Furosemide (Lasix) 40 mg DAILY PO Last administered on 03/24/19 09:09; Admin Dose 40 MG; Start 03/11/19 at 09:00 Guaifenesin (Robitussin Liquid Cup) 100 mg Q6H PRN PO COUGH; Start 03/10/19 at 19:30 Levothyroxine Sodium (Synthroid) 175 mcg BEFORE BREAKFAST PO Last administered on 03/24/19 09:08; Admin Dose 175 MCG; Start 03/11/19 at 07:00 Lidocaine (Lidoderm) 1 patch Q8H PRN TD FOR RIGHT SHOULDER; Start 03/10/19 at 19:30 Metoprolol Tartrate (Lopressor) 25 mg TID PO Last administered on 03/24/19 20:38; Admin Dose 25 MG; Start 03/10/19 at 21:00 Midodrine (Proamatine) 5 mg Q8H PRN PO HOLD FOR SBP>110; Start 03/10/19 at 19:30 Sevelamer Carbonate (Renvela) 1.6 gm WITH MEALS PO Last administered on 03/24/19 17:38; Admin Dose 1.6 GM; Start 03/11/19 at 08:00 Warfarin Sodium (Coumadin) 4 mg SuTuThSa@1700 PO Last administered on 03/22/19 16:53; Admin Dose 4 MG; Start 03/10/19 at 20:00; Status Hold Calcium Carbonate (Oyster Shell Calcium) 1.25 gm DAILY PO Last administered on 03/17/19 08:15; Admin Dose 1.25 GM; Start 03/11/19 at 09:00 IV Flush (NS 3 ml) 3 ml PER PROTOCOL IV ; Start 03/10/19 at 19:30 Ondansetron HCl (Zofran Inj) 4 mg Q6H PRN IV NAUSEA/VOMITING; Start 03/10/19 at 19:30 Famotidine (Pepcid) 20 mg DAILY PO Last administered on 03/18/19 08:06; Admin Dose 20 MG; Start 03/10/19 at 21:00 Ipratropium [place] (Atrovent Hfa) 2 puff Q4H RESP THERAPY INH Last administer ed on 03/25/19 08:38; Admin Dose 2 PUFF; Start 03/10/19 at 21:00 Nystatin (Nystatin Powder) 1 applic BID TOP Last administered on 03/25/19 09:33; Admin Dose 1 APPLIC; Start 03/11/19 at 11:00 Heparin Sodium (Porcine) (Heparin (1000 Units/ml)) 4,100 unit AFTER DIALYSIS CATHETER Last administered on 03/24/19 17:27; Admin Dose 4,100 UNIT; Start 03/11/19 at 19:00 Warfarin Sodium (Coumadin) 5 mg MoWeFr@1700 PO Last administered on 03/21/19 17:26; Admin Dose 5 MG; Start 03/16/19 at 17:00; Status Hold Ipratropium [place] (Atrovent 0.02% (Neb)) 0.5 mg Q4H RESP THERAPY PRN HHN SHORTNESS OF BREATH Last administered on 03/21/19 17:53; Admin Dose 0.5 MG; Start 03/21/19 at 12:00 Heparin Sodium (Porcine) (Heparin (1000 Units/ml)) 3,700 unit PER PROTOCOL PRN IV aPTT<47; Start 03/24/19 at 12:30; Status Hold Heparin Sodium (Porcine) 250 ml @ 7.5 mls/hr PER PROTOCOL IV Last administered on 03/25/19 06:31; Admin Dose 7.5 MLS/HR; Start 03/24/19 at 12:30; Status Hold Assessment/Plan Hospital Course (Demo Recall) Assessment 1. Chronic respiratory failure with tracheostomy 2. End-stage renal failure on dialysis pending peritoneal dialysis catheter placement 3. history of chronic anticoagulation for aortic valve replacement Plan 1. Continue tracheostomy wound care 2. Peritoneal dialysis once initiated 3. Discharge planning to [place]. 4. Anticoagulation for AVR. NARCISA COOPER MD, [facility] March 25, 2019 15:01
--- NOTE | 2019-03-25 16:10 | PREAC ---
Date/Time of Note Date/Time of Note DATE: 03/25/19 TIME: 15:46 Anesthesia Eval and Record Evaluation Time Pre-Procedure Interview DATE: 03/25/19 TIME: 15:46 Age 63 Sex female NPO: 8 hrs Renal Failure Preoperative diagnosis Renal Failure Planned procedure Lap. Placment Pritoneal Catheter Past Medical History Past Medical History: Includes Cardio: Other (H/O Aortic Anurysm Repair) Pulm: Other (H/o Respiratory [place], S/P Trach size 6) Surgery & Anesthesia Issues No known issue Meds Anticoagulation: No Beta Alexandru within 24 hr: Yes Reported Medications Ascorbic Acid (Vitamin C) 250 Mg Tab, 250 MG PO BID, TAB 03/10/19 Guaifenesin* (Robitussin*) 100 Mg/5 Ml Syrup, 100 MG PO Q6H PRN for COUGH, ML 03/10/19 Sevelamer Carbonate* (Renvela*) 0.8 Gm Powd.pack, 1.6 GM PO WITH MEALS, PACKET 03/10/19 Amino Acids/Protein Hydrolys (PRO-STAT LIQUID) 30 Ml Liquid.pkt, 30 ML PO BID SUGAR FREE 03/10/19 Midodrine* (Midodrine*) 5 Mg Tablet, 5 MG PO Q8H PRN for HOLD FOR SBP>110, TAB 03/10/19 Metoprolol Tartrate* (Lopressor*) 25 Mg Tab, 25 MG PO TID, #60 TAB HOLD IF SBP<110 OR HR<60 03/10/19 Lidocaine (Lidocaine) 15 Gm Cream..g., 15 GM TP QID for TRACH SITE PAIN 03/10/19 Lidocaine (Lidocaine) 1 Each Adh..patch, 1 EACH TP Q8H PRN for FOR RIGHT SHOULDER 03/10/19 Levothyroxine Sodium* (Levothyroxine Sodium*) 175 Mcg Tablet, 175 MCG PO BEFORE BREAKFAST, #30 TAB 03/10/19 Ipratropium [place]* (Atrovent HFA*) 12.9 Gm Aer.w.adap, 2 PUFF INHALATION Q4H for SHORTNESS OF BREATH, #1 INHALER 03/10/19 Furosemide* (Furosemide*) 40 Mg Tablet, 40 MG PO DAILY, TAB HOLD IF SBP<110 OR HR<60 03/10/19 Docusate Sodium* (Colace*) 100 Mg Capsule, 100 MG PO DAILY, #30 CAP 5/16/19 Cyclobenzaprine Hcl* (Cyclobenzaprine Hcl*) 5 Mg Tablet, 5 MG PO NEEDED, #60 TAB 03/10/19 Warfarin Sodium* (Coumadin*) 4 Mg Tablet, 4 MG PO Q TUE,CHRISTEL,SAT,SUN, TAB 03/10/19 Warfarin Sodium* (Coumadin*) 2.5 Mg Tablet, 2.5 MG PO Q MON,WED,FRI, TAB 03/10/19 Warfarin Sodium* (Coumadin*) 1 Mg Tablet, 1 MG PO Q MON,WED,FRI, TAB 03/10/19 Calcium Carbonate (Calcium Carbonate) 500 Mg Tab.chew, 500 MG PO DAILY, TAB.CHEW 03/10/19 Bisacodyl (Dulcolax) 10 Mg Supp.rect, 10 MG RC DAILY, SUPP.RECT 03/10/19 Diphenhydramine Hcl* (Diphenhydramine Hcl*) 25 Mg Capsule, 25 MG PO DAILY PRN for ITCHING, CAP EVERY E,CHRISTEL,SAT 03/10/19 Acetaminophen* (Acetaminophen* Susp) 160 Mg/5 Ml Oral.susp, 20 ML PO Q6H PRN for FOR FEVER 100.4, ML 03/10/19 Acetaminophen* (Acetaminophen* Susp) 160 Mg/5 Ml Oral.susp, 20 ML PO Q4H PRN for FOR PAIN, ML 03/10/19 Current Medications Acetaminophen (Tylenol Liquid (Ped)) 640 mg Q4H PRN PO FOR PAIN; Start 03/10/19 at 19:30 Bisacodyl (Dulcolax Supp) 10 mg DAILY MD Last administered on 03/14/19at 09:31; Admin Dose 10 MG; Start 03/11/19 at 09:00 Diphenhydramine HCl (Benadryl) 25 mg DAILY PRN PO ITCHING; Start 03/10/19 at 19:30 Docusate Sodium (Colace) 100 mg DAILY PO Last administered on 03/24/19at 09:08; Admin Dose 100 MG; Start 03/11/19 at 09:00 Furosemide (Lasix) 40 mg DAILY PO Last administered on 03/24/19at 09:09; Admin Dose 40 MG; Start 03/11/19 at 09:00 Guaifenesin (Robitussin Liquid Cup) 100 mg Q6H PRN PO COUGH; Start 03/10/19 at 19:30 Levothyroxine Sodium (Synthroid) 175 mcg BEFORE BREAKFAST PO Last administered on 03/24/19 09:08; Admin Dose 175 MCG; Start 03/11/19 at 07:00 Lidocaine (Lidoderm) 1 patch Q8H PRN TD FOR RIGHT SHOULDER; Start 03/10/19 at 19:30 Metoprolol Tartrate (Lopressor) 25 mg TID PO Last administered on 03/24/19 20:38; Admin Dose 25 MG; Start 03/10/19 at 21:00 Midodrine (Proamatine) 5 mg Q8H PRN PO HOLD FOR SBP>110; Start 03/10/19 at 19:30 Sevelamer Carbonate (Renvela) 1.6 gm WITH MEALS PO Last administered on 03/24/19 17:38; Admin Dose 1.6 GM; Start 03/11/19 at 08:00 Warfarin Sodium (Coumadin) 4 mg SuTuThSa@1700 PO Last administered on 03/22/19 16:53; Admin Dose 4 MG; Start 03/10/19 at 20:00; Status Hold Calcium Carbonate (Oyster Shell Calcium) 1.25 gm DAILY PO Last administered on 03/17/19 08:15; Admin Dose 1.25 GM; Start 03/11/19 at 09:00 IV Flush (NS 3 ml) 3 ml PER PROTOCOL IV ; Start 03/10/19 at 19:30 Ondansetron HCl (Zofran Inj) 4 mg Q6H PRN IV NAUSEA/VOMITING; Start 03/10/19 at 19:30 Famotidine (Pepcid) 20 mg DAILY PO Last administered on 03/18/19 08:06; Admin Dose 20 MG; Start 03/10/19 at 21:00 Ipratropium [place] (Atrovent Hfa) 2 puff Q4H RESP THERAPY INH Last administered on 03/25/19 08:38; Admin Dose 2 PUFF; Start 03/10/19 at 21:00 Nystatin (Nystatin Powder) 1 applic BID TOP Last administered on 03/25/19 09:33; Admin Dose 1 APPLIC; Start 03/11/19 at 11:00 Heparin Sodium (Porcine) (Heparin (1000 Units/ml)) 4,100 unit AFTER DIALYSIS CATHETER Last administered on 03/24/19at 17:27; Admin Dose 4,100 UNIT; Start 03/11/19 at 19:00 Warfarin Sodium (Coumadin) 5 mg MoWeFr@1700 PO Last administered on 03/21/19at 17:26; Admin Dose 5 MG; Start 03/16/19 at 17:00; Status Hold Ipratropium [place] (Atrovent 0.02% (Neb)) 0.5 mg Q4H RESP THERAPY PRN HHN SHORTNESS OF BREATH Last administered on 03/21/19at 17:53; Admin Dose 0.5 MG; Start 03/21/19 at 12:00 Heparin Sodium (Porcine) (Heparin (1000 Units/ml)) 3,700 unit PER PROTOCOL PRN IV aPTT<47; Start 03/24/19 at 12:30; Status Hold Heparin Sodium (Porcine) 250 ml @ 7.5 mls/hr PER PROTOCOL IV Last administered on 03/25/19at 06:31; Admin Dose 7.5 MLS/HR; Start 03/24/19 at 12:30; Status Hold Meds reviewed: Yes Allergies Coded Allergies: Penicillins (Verified Allergy, Unknown, 03/10/19) adhesive tape (Unverified Allergy, Unknown, 03/10/19) chlorhexidine (Unverified Allergy, Unknown, 03/10/19) hydromorphone (Unverified Allergy, Unknown, 03/10/19) olanzapine (Unverified Allergy, Unknown, 03/10/19) Allergies Reviewed: Yes Labs/Studies Labs Reviewed: Reviewed by anesthesiologist Result Diagram: 03/24/19 1308 03/25/19 0517 Laboratory Tests 03/25/19 05:17 test: N/A Pre-procedure Exam Last vitals Vital Signs Date Temp Pulse Resp B/P (MAP) Pulse Ox O2 O2 Flow FiO2 Time Delivery Rate 03/25/19 87 13:02 03/25/19 97.7 17 140/73 99 11:38 (95) 03/25/19 30 10:40 03/25/19 Mechanical 04:07 Ventilator 03/24/19 5.0 14:26 Airway: Adequate mouth opening Mallampati: Mallampati III Teeth: Normal Lung: Normal Heart: Normal ASA Physical Status ASA physical status: 3 Emergency: None Planned Anesthetic General/MAC: Other (Trach in Place) Pre-operative Attestations Prior to commencing anesthesia and surgery, the patient was re-evaluated, there was verification of: *The patient's identity *The results of appropriate recent lab work and preoperative vital signs *The above evaluation not changing prior to induction *Anesthetic plan, risk benefits, alternative and complications discussed with patient/family; questions answered; patient/family understands, accepts and wishes to proceed. SARAH SARGENT MD March 25, 2019 16:10
[2019-03-25] MEDS ORDERED: ROCURONIUM 50 MG INJ ONE (16:16)
[2019-03-25] MEDS ORDERED: PROPOFOL 20 ML ONE (16:16)
[2019-03-25] MEDS ORDERED: CLINDAMYCIN 600 MG/D5W (PMX) 50 ML IVPB ONE (16:16)
[2019-03-25] MEDS ORDERED: LIDOCAINE 1% (MPF) 30 ML INJ ONE (16:30)
[2019-03-25] MEDS ORDERED: BUPIVACAINE 0.25%/EPI (SDV) 30 ML INJ ONE (16:30)
[2019-03-25] MEDS ORDERED: HEPARIN 1000 UNITS/ML 10 ML INJ ONE (17:31)
[2019-03-25] MEDS ORDERED: LIDOCAINE 1% (MPF) 30 ML INJ INJ ONE (17:44)
[2019-03-25] MEDS ORDERED: BUPIVACAINE 0.25%/EPI (SDV) 30 ML INJ INJ ONE (17:44)
[2019-03-25] MEDS ORDERED: HEPARIN 10,000 UNITS/ML 1 ML INJ CATHETER ONE (17:44)
[2019-03-25] MEDS ORDERED: FENTAnyl 50 MCG/ML VIAL ONE (17:45)
[2019-03-25] MEDS ORDERED: METOCLOPRAMIDE 10 MG INJ ONE (18:02)
[2019-03-25] MEDS ORDERED: ONDANSETRON 4 MG INJ ONE (18:02)
--- NOTE | 2019-03-25 18:25 | OPR ---
Date/Time of Note Date/Time of Note DATE: 03/25/19 TIME: 18:23 Operative Report Procedure Date: March 25, 2019 Preoperative Diagnosis End-stage renal disease on hemodialysis however patient prefers peritoneal dialysis Abdominal surgeries Full anticoagulation secondary to aortic valve replacement, heparin held for 3 hours per cardiology Postoperative Diagnosis Stage renal disease on hemodialysis however patient prefers peritoneal dialysis Abdominal surgeries with multiple intra-abdominal adhesions Full anticoagulation secondary to aortic valve replacement, heparin held for 3 hours per cardiology Easy bleeding Operation/Procedure Performed 1. Laparoscopic peritoneal dialysis catheter implantation 2. Laparoscopic extensive lysis of adhesions of omentum to abdominal wall and bowel to omentum and abdominal wall 3. [place], [id number] 4. Laparoscopic guided bilateral transversus abdominis plane block to aid with pain control intra-and postoperatively Surgeon Kofi Corbett MD Deputy County Attorney Mary Lou Gatica NP Anesthesia Type: general (Plus local and regional) Anesthesiologist: DARIAN PHILLIPS MD Estimated Blood Loss: 10 - 50 ml's Transfusion none Specimen None Grafts/Implants 62 cm peritoneal dialysis double cuffed catheter Tubes/Drains None Complications none Pt Condition Post Procedure: stable Disposition: PACU Indications Per consult and progress notes. Risks include but are not limited to bleeding, infection, abscess, seroma, leak, damage to intestines or any intra-abdominal/intrapelvic structures, hernia formation, chronic pain, need for re-operations or further surgeries, IA, stroke, PE, DVT, pneumonia, organ failures, or even . Procedure Description Patient was brought in the operating room, placed supine on the OR table in a semisitting position due to her kyphosis, SCDs were placed, both arms were tucked, all pressure points were well padded, and time out was performed. She was put to sleep by anesthesia through small ET tube through her current trach that is non-cuffed. Preoperative abx were administered. Her abdominal wall anatomy is abnormal due to her previous flap surgery to the chest. No epigastric hernia. She also has decrease muscle tone and thickness on the right side. Incision was made in RUQ and using Optiview port and 5mm 0deg scope abdomen was entered and insufflated to 15mmHg with CO2. Under direct visualization a 2nd 5mm port was placed in RLQ. Local anesthetic injection was performed at all surgical sites. Bilateral transversus abdominis plane block was performed under laparoscopic visualization for pain control intra and post-operatively. There is extensive adhesions of omentum to the abdominal wall with bowel involved. These were taken down with blunt and sharp dissection. This had to be done meticulously not to injure the bowel. She is also very oozy and everything bleeds easily and I had to spend a good amount of time to coagulate all these bleeding sites. The PD catheter was introduced in LUQ, thru the rectus, just inferior to subcostal area and inserted into the pelvis using Seldinger technique. The internal cuff was placed just anterior to the peritoneum and inferior fascia. Then the remaining catheter was introduced thru the subcutaneous tissue in a curved fashion laterally and externalized leaving the 2nd cuff in the subcutaneous tissue. About 500ml of saline was instilled thru it into the pelvis and then drained out to gravity easily. Heparin was instilled into the catheter and capped. Biopatch and dressing were applied. Ports and CO2 were removed under direct visualization without bleeding. Wounds were irrigated with saline and closed with 3-0 Vicryl fascial and 4-0 Monocryl in subcuticular fashion. Pressure dressing was applied. ET tube was removed from the trach and patient taken to recovery room in stable condition. All counts were correct at the end of the operation x 2. There was complete hemostasis. KOFI CORBETT MD March 25, 2019 18:24
[2019-03-25] MEDS ORDERED: hydrALAzine 20 MG INJ IV PRN (18:30)
[2019-03-25] MEDS ORDERED: METOCLOPRAMIDE 10 MG INJ IV PRN (18:30)
[2019-03-25] MEDS ORDERED: MIDAZOLAM 1 MG/ML 2 ML INJ IV PRN (18:30)
[2019-03-25] MEDS ORDERED: MEPERIDINE 25 MG INJ IV PRN (18:30)
[2019-03-25] MEDS ORDERED: DIPHENHYDRAMINE 50 MG INJ IV PRN (18:30)
[2019-03-25] MEDS ORDERED: LABETALOL HCL 20MG INJ IV PRN (18:30)
[2019-03-25] MEDS ORDERED: FENTAnyl 50 MCG/ML VIAL IV PRN ×3 (18:30)
[2019-03-25] MEDS ORDERED: ONDANSETRON 4 MG INJ IV PRN (18:30)
[2019-03-25] MEDS ORDERED: EPHEDrine 25 MG/5 ML SYG IV PRN (18:30)
[2019-03-26] VITALS: PULSE 79
[2019-03-26 00:11] VITALS: BP 140/58; PULSE 76; RESP 28
--- NOTE | 2019-03-26 10:07 | PAC ---
Date/Time of Note Date/Time of Note DATE: 03/26/19 TIME: 10:07 Post-Anesthesia Notes Post-Anesthesia Note Last documented vital signs Vital Signs Date Temp Pulse Resp B/P (MAP) Pulse Ox O2 O2 Flow FiO2 Time Delivery Rate 03/26/19 97.6 76 28 140/58 97 Mechanical 00:11 (85) Ventilator 03/25/19 28 23:13 03/25/19 8.0 11:45 Activity: WNL Respiratory function: WNL Cardiovascular function: WNL Mental status: Baseline Pain reasonably controlled: Yes Hydration appropriate: Yes Nausea/Vomiting absent: Yes DARIAN PHILLIPS MD Mar 26, 2019 10:07
== END 2019-03-26 01:10 | DRG 981 ==
LOC: E/R 17:16 → 6WM 17:36 → OBSVTOIN 03-13 10:21
PROVIDERS: ADMIT Internal Medicine; ATTEND Internal Medicine
PROC: 5A1955Z Respiratory Ventilation, Greater than 96 Consecutive Hours (ICD-10-PCS; 2019-03-11)
PROC: 5A1D70Z Performance of Urinary Filtration, Intermittent, Less than 6 Hours Per Day (ICD-10-PCS; 2019-03-11)
PROC: 0DNU4ZZ Release Omentum, Percutaneous Endoscopic Approach (ICD-10-PCS; 2019-03-25)
PROC: 0WHG43Z Insertion of Infusion Device into Peritoneal Cavity, Percutaneous Endoscopic Approach (ICD-10-PCS; principal; 2019-03-25 15:30)
DX: T82.41XA Breakdown (mechanical) of vascular dialysis catheter, initial encounter (principal); N18.6 End stage renal disease; J96.10 Chronic respiratory failure, unspecified whether with hypoxia or hypercapnia; I47.2 Ventricular tachycardia; Z99.11 Dependence on respirator [ventilator] status; I13.2 Hypertensive heart and chronic kidney disease with heart failure and with stage 5 chronic kidney disease, or end stage renal disease; D63.1 Anemia in chronic kidney disease; E87.5 Hyperkalemia; E78.5 Hyperlipidemia, unspecified; E03.9 Hypothyroidism, unspecified; I50.9 Heart failure, unspecified; I49.9 Cardiac arrhythmia, unspecified; K66.0 Peritoneal adhesions (postprocedural) (postinfection); M41.9 Scoliosis, unspecified; R94.31 Abnormal electrocardiogram [ECG] [EKG]; R13.10 Dysphagia, unspecified; Z93.0 Tracheostomy status; Z99.2 Dependence on renal dialysis; Z95.2 Presence of prosthetic heart valve; Z79.01 Long term (current) use of anticoagulants
CPT/HCPCS: 36415; 71045; 74176; 80048; 80061; 83735; 84100; 84443; 84484; 85025; 85610; 85730; 86706; 87340; 90935; 93005; 93306; 94002; 94003; 94640; 94664; 97110; 97116; 97163; G0378; J1644; J2405; J2710; J2765; J3010